=== PATIENT | female | born 1945 | race Caucasian/White ===

== ENCOUNTER 2018-11-18 13:42 | Observation (INO) ==
[2018-11-18] MEDS ORDERED: LACTATED RINGERS 1,000 ML IV ONE (13:59)
--- NOTE | 2018-11-18 14:05 | Emergency Department Note ---
SOB HPI - General Chief Complaint: Shortness of Breath/Dyspnea Stated Complaint: Cough, sob Time Seen by Provider: 11/18/18 13:57 Source: patient, family Mode of arrival: ambulatory Limitations: no limitations - History of Present Illness This patient has a pneumonia that is not responding to treatment is spreading and getting worse. She took a full round of Augmentin after initial chest x-ray showed pneumonia. She worsened and so CT scan was done on Thursday at which showed spreading of the pneumonia to the right middle lobes from the basilar lobes bilaterally. She was switched to Levaquin and still continues to be short of breath and feels like she is worsening. In general she just feels poorly. She has a little left upper chest pain she has a dry hacking cough. No nausea vomiting and has been able to eat and drink. She has no chronic lung disease bu t does have a 5 cardiac stents. - Related Data Home Medications Medication Instructions Recorded Confirmed ascorbic acid (vitamin C) ER 1,000 1,000 mg PO QDAY tab 12/15/14 11/11/18 mg tablet,extended release aspirin 81 mg tablet,delayed 81 mg PO QDAY tab 12/15/14 11/11/18 release calcium citrate 500 See Dose Instructions PO QDAY 12/15/14 11/11/18 cranberry extract 300 mg tablet 300 mg PO QDAY tab 12/15/14 11/11/18 multivitamin tablet 1 tab PO .COMPLEX tab 12/15/14 11/11/18 Previous Rx's Medication Instructions Recorded blood-glucose meter See Dose Instructions .ROUTE 09/24/16 .MEDSUPPLY #1 each cholecalciferol (vitamin D3) 1,000 1,000 unit PO QDAY #1 cap 09/24/16 unit capsule blood sugar diagnostic strips See Dose Instructions .ROUTE 02/24/18 .MEDSUPPLY #100 each lancets See Dose Instructions .ROUTE 02/24/18 .MEDSUPPLY #100 each nitroglycerin 0.4 mg sublingual 0.4 mg SUBLINGUAL .COMPLEX PRN #10 10/07/18 tablet tab amlodipine 10 mg tablet 10 mg PO QDAY #90 tab 10/22/18 atorvastatin 20 mg tablet 20 mg PO QDAY #90 tab 10/22/18 estradiol 0.5 mg tablet 0.5 mg PO QDAY #90 tab 10/22/18 fenofibrate nanocrystallized 48 mg 48 mg PO QDAY #90 tab 10/22/18 tablet levothyroxine 50 mcg tablet 50 mcg PO QDAY #90 tab 10/22/18 losartan 50 mg tablet 50 mg PO QDAY #90 tab 10/22/18 metformin 500 mg tablet 500 mg PO BID #180 tab 10/22/18 metoprolol succinate ER 100 mg 100 mg PO QDAY #90 tab 10/22/18 tablet,extended release 24 hr nortriptyline 10 mg capsule 20 mg PO QHS #180 cap 10/22/18 omeprazole 20 mg capsule,delayed 20 mg PO BID #180 cap 10/22/18 release potassium chloride ER 10 mEq 10 meq PO QDAY #90 tab 10/22/18 tablet,extended release triamterene 37.5 1 tab PO QDAY #90 tab 10/22/18 mg-hydrochlorothiazide 25 mg tablet levofloxacin 500 mg tablet 500 mg PO QDAY #10 tab 11/16/18 Allergies Allergy/AdvReac Type Severity Reaction Status Date / Time ciprofloxacin Allergy Mild Hives Verified 11/18/18 13:42 codeine Allergy Mild Nausea Verified 11/18/18 13:42 Sulfa (Sulfonamide Allergy Mild Rash Verified 11/18/18 13:42 Antibiotics) Cefprozil AdvReac Severe Hives Verified 11/11/18 07:28 Review of Systems All systems ED: reviewed and negative except as stated. Past Medical History - Past Medical History [facility] Narrative: Medical History Stable angina (Acute) History of hysterectomy (Acute) Fracture of thoracic vertebra, closed (Acute) Osteoarthritis (Acute) Obesity (Acute) Postmenopausal related mood disorder (Acute) Joint pain (Acute) Hypertension, essential (Acute) Hyperlipemia (Acute) Gastroesophageal reflux (Acute) Dysphagia (Acute) Coronary artery disease (Acute) History of colonic polyps (Acute) Chest pain (Acute) Past Surgical History History of tubal ligation (Acute) History of coronary artery stent placement (Acute) Medical history: Reports: CAD (coronary artery disease), GERD, hyperlipidemia, hypertension - Social History smoking status: Never smoker Physical Exam Limitations: no limitations General appearance: alert Head: atraumatic Eye: Present: normal appearance ENT: normal exam Neck: Present: normal inspection Chest: Present: normal inspection Respiratory: Present: rales/crackles Cardiovascular: Present: regular rate, normal rhythm, normal heart sounds Abdominal: Present: soft. Absent: distention, tenderness Neurological: Present: alert Psychiatric: Present: normal affect Skin: Present: dry Course Vital Signs Temperature 98.1 F 11/18/18 13:43 Pulse Rate 106 H 11/18/18 13:43 Respiratory Rate 18 11/18/18 13:43 Blood Pressure 150/75 11/18/18 13:43 Pulse Oximetry (%) 94 11/18/18 13:43 Temperature 98.1 F 11/18/18 13:43 Pulse Rate 94 H 11/18/18 16:11 Respiratory Rate 19 11/18/18 16:11 Blood Pressure 135/66 11/18/18 16:01 Pulse Oximetry (%) 94 11/18/18 16:11 Shortness of Breath/Dyspnea - [facility] Narrative Medical decision making narrative: This patient's chest x-ray is worsening slightly compared to previous one. Her procalcitonin and BNP and CRP were negative. I did discuss this case with the rail bonder at [place] and he feels that she may have recurrent aspiration as the most likely etiology of what is going on. He sees evidence of disease process starting in September of this year. It is getting worse. The patient will be admitted to the hospital here by Dr. Luna. - Lab Data Lab results reviewed: Yes I reviewed the patient's lab results. Result diagrams: 11/18/18 14:11 11/18/18 14:11 Lab Results 11/18/18 11/18/18 11/18/18 Range/Units 14:11 14:11 14:11 WBC 10.7 (4.5-11.0) K/mcL RBC 4.84 (4.00-5.20) M/mcL Hgb 14.1 (12.0-15.0) g/dL Hct 42.9 (36.0-48.0) % MCV 88.6 (80.0-100.0) fL MCH 29.2 (26.0-34.0) pg MCHC 33.0 (31.0-36.0) g/dL RDW 12.8 (11.5-14.5) % Plt Count 340 (140-440) K/mcL MPV 8.1 (7.4-10.4) fL Gran % 80.8 H (38.0-78.0) % Lymph % (Auto) 12.1 L (15.5-49.0) % [place] % (Auto) 5.3 (1.0-12.0) % Eos % (Auto) 1.5 (0.0-7.0) % Baso % (Auto) 0.3 (0.0-2.0) % Gran # 8.6 H (1.8-8.0) K/mcL Lymph # (Auto) 1.3 L (1.5-4.8) K/mcL [place] # (Auto) 0.6 (0.1-0.9) K/mcL Eos # (Auto) 0.2 (0.0-0.7) K/mcL Baso # (Auto) 0 (0.0-0.3) K/mcL Total Counted Seg Neutrophils % (38-78) % Band Neutrophils % (0-10) % Lymphocytes % (15-49) % Monocytes % (Manual) (1-12) % Eosinophils % (Manual) (0-7) % Platelet Estimate (NORMAL) RBC Morphology (NORMAL) ESR (0-20) mm/hr VBG Lactic Acid 2.0 (0.5-2.0) mmol/L Sodium 136 (133-145) mmol/L Potassium 3.3 (3.3-5.1) mmol/L Chloride 100 (96-108) mmol/L Carbon Dioxide 20 L (22-30) mmol/L Anion Gap 16.0 (8-16) BUN 13 (8-23) mg/dl Creatinine 1.1 (0.6-1.1) mg/dl GFR Calculation 50 Glucose 157 H (70-105) mg/dL Calcium 9.8 (8.6-10.4) mg/dl Total Bilirubin 0.4 (0.0-1.0) mg/dL AST 31 (0-37) U/l ALT 17 (0-40) U/l Alkaline Phosphatase 51 (39-117) U/L Troponin T (0-0.03) ng/ml C-Reactive Protein (0.0-0.8) mg/dl NT-Pro-B Natriuret Pep < 50.0 (0-125) pg/ml Total Protein 7.1 (5.9-8.4) gm/dL Albumin 3.6 (3.2-5.2) gm/dL Globulin 3.5 (2.2-3.7) gm/dL Albumin/Globulin Ratio 1.0 (1.0-2.3) Procalcitonin (<0.10) ng/mL 11/18/18 11/18/18 11/18/18 Range/Units 14:11 14:11 14:11 WBC (4.5-11.0) K/mcL RBC (4.00-5.20) M/mcL Hgb (12.0-15.0) g/dL Hct (36.0-48.0) % MCV (80.0-100.0) fL MCH (26.0-34.0) pg MCHC (31.0-36.0) g/dL RDW (11.5-14.5) % Plt Count (140-440) K/mcL MPV (7.4-10.4) fL Gran % (38.0-78.0) % Lymph % (Auto) (15.5-49.0) % [place] % (Auto) (1.0-12.0) % Eos % (Auto) (0.0-7.0) % Baso % (Auto) (0.0-2.0) % Gran # (1.8-8.0) K/mcL Lymph # (Auto) (1.5-4.8) K/mcL [place] # (Auto) (0.1-0.9) K/mcL Eos # (Auto) (0.0-0.7) K/mcL Baso # (Auto) (0.0-0.3) K/mcL Total Counted 100 Seg Neutrophils % 77 (38-78) % Band Neutrophils % 3 (0-10) % Lymphocytes % 18 (15-49) % Monocytes % (Manual) 1 (1-12) % Eosinophils % (Manual) 1 (0-7) % Platelet Estimate Normal (NORMAL) RBC Morphology Normal (NORMAL) ESR (0-20) mm/hr VBG Lactic Acid (0.5-2.0) mmol/L Sodium (133-145) mmol/L Potassium (3.3-5.1) mmol/L Chloride (96-108) mmol/L Carbon Dioxide (22-30) mmol/L Anion Gap (8-16) BUN (8-23) mg/dl Creatinine (0.6-1.1) mg/dl GFR Calculation Glucose (70-105) mg/dL Calcium (8.6-10.4) mg/dl Total Bilirubin (0.0-1.0) mg/dL AST (0-37) U/l ALT (0-40) U/l Alkaline Phosphatase (39-117) U/L Troponin T < 0.01 (0-0.03) ng/ml C-Reactive Protein 1.9 H (0.0-0.8) mg/dl NT-Pro-B Natriuret Pep (0-125) pg/ml Total Protein (5.9-8.4) gm/dL Albumin (3.2-5.2) gm/dL Globulin (2.2-3.7) gm/dL Albumin/Globulin Ratio (1.0-2.3) Procalcitonin (<0.10) ng/mL 11/18/18 11/18/18 Range/Units 14:11 14:11 WBC (4.5-11.0) K/mcL RBC (4.00-5.20) M/mcL Hgb (12.0-15.0) g/dL Hct (36.0-48.0) % MCV (80.0-100.0) fL MCH (26.0-34.0) pg MCHC (31.0-36.0) g/dL RDW (11.5-14.5) % Plt Count (140-440) K/mcL MPV (7.4-10.4) fL Gran % (38.0-78.0) % Lymph % (Auto) (15.5-49.0) % [place] % (Auto) (1.0-12.0) % Eos % (Auto) (0.0-7.0) % Baso % (Auto) (0.0-2.0) % Gran # (1.8-8.0) K/mcL Lymph # (Auto) (1.5-4.8) K/mcL [place] # (Auto) (0.1-0.9) K/mcL Eos # (Auto) (0.0-0.7) K/mcL Baso # (Auto) (0.0-0.3) K/mcL Total Counted Seg Neutrophils % (38-78) % Band Neutrophils % (0-10) % Lymphocytes % (15-49) % Monocytes % (Manual) (1-12) % Eosinophils % (Manual) (0-7) % Platelet Estimate (NORMAL) RBC Morphology (NORMAL) ESR 63 H (0-20) mm/hr VBG Lactic Acid (0.5-2.0) mmol/L Sodium (133-145) mmol/L Potassium (3.3-5.1) mmol/L Chloride (96-108) mmol/L Carbon Dioxide (22-30) mmol/L Anion Gap (8-16) BUN (8-23) mg/dl Creatinine (0.6-1.1) mg/dl GFR Calculation Glucose (70-105) mg/dL Calcium (8.6-10.4) mg/dl Total Bilirubin (0.0-1.0) mg/dL AST (0-37) U/l ALT (0-40) U/l Alkaline Phosphatase (39-117) U/L Troponin T (0-0.03) ng/ml C-Reactive Protein (0.0-0.8) mg/dl NT-Pro-B Natriuret Pep (0-125) pg/ml Total Protein (5.9-8.4) gm/dL Albumin (3.2-5.2) gm/dL Globulin (2.2-3.7) gm/dL Albumin/Globulin Ratio (1.0-2.3) Procalcitonin < 0.05 (<0.10) ng/mL - Radiology Data Radiology results reviewed: Yes I reviewed the patient's radiology results. Disposition Pt seen by [facility]/PA only: No Clinical Impression: Community acquired pneumonia Disposition: Xfer As Inpt ([facility]) Condition: Good Referrals: Eligio Huerta MD [Primary Care Provider] - Time of Disposition: 18:18
[2018-11-18 14:43] LABS: Basophils # (Auto) 0 K/mcL (0.0-0.3); Basophils % (Auto) 0.3 % (0.0-2.0); Eosinophils # (Auto) 0.2 K/mcL (0.0-0.7); Eosinophils % (Auto) 1.5 % (0.0-7.0); Granulocytes % (Auto) 80.8 % (38.0-78.0); Hematocrit 42.9 % (36.0-48.0); Hemoglobin 14.1 g/dL (12.0-15.0); Lymphocytes # (Auto) 1.3 K/mcL (1.5-4.8); Lymphocytes % (Auto) 12.1 % (15.5-49.0); Mean Cell Volume 88.6 fL (80.0-100.0); Mean Platelet Volume 8.1 fL (7.4-10.4); Monocytes # (Auto) 0.6 K/mcL (0.1-0.9); Monocytes % (Auto) 5.3 % (1.0-12.0); Platelet Count 340 K/mcL (140-440); RBC 4.84 M/mcL (4.00-5.20); Red Cell Distribution Width 12.8 % (11.5-14.5); WBC 10.7 K/mcL (4.5-11.0)
[2018-11-18 15:06] LABS: ALT/SGPT 17 U/l (0-40); AST/SGOT 31 U/l (0-37); Albumin 3.6 gm/dL (3.2-5.2); Alkaline Phosphatase 51 U/L (39-117); Bilirubin,Total 0.4 mg/dL (0.0-1.0); Blood Urea Nitrogen 13 mg/dl (8-23); Calcium 9.8 mg/dl (8.6-10.4); Carbon Dioxide 20 mmol/L (22-30); Chloride 100 mmol/L (96-108); Globulin 3.5 gm/dL (2.2-3.7); Glomerular Filtration Rate 50; Glucose 157 mg/dL (70-105); Potassium 3.3 mmol/L (3.3-5.1); Sodium 136 mmol/L (133-145); proBNP < 50.0 pg/ml (0-125)
--- NOTE | 2018-11-18 16:37 | XRay Report ---
INDICATION: Dyspnea. Pneumonia. TECHNIQUE: PA and lateral upright chest x-ray COMPARISON: Previous chest x-rays dated 11/11/2018, 10/25/2018, 10/07/2018. Previous chest CT scan dated 11/15/2018 FINDINGS:Bilateral pulmonary parenchymal infiltrates with bibasilar predominance. Infiltrates are predominantly interstitial. There is no focal consolidation. There is no discrete mass. Heart size and vascularity are normal. Chest x-ray is stable since 11/11/2018 but worse since 10/25/2018. Time course is too rapid for pulmonary fibrosis. Atypical pneumonia should be considered. Follow-up radiographs are recommended. There is no pleural fluid. Heart size and vascularity are within normal limits. IMPRESSION: 1. Bilateral pulmonary parenchymal infiltrates which are predominantly interstitial in appearance. No definite interval change since 11/11/2018 2. Findings are consistent with pneumonia and atypical pneumonia should be considered. Follow-up radiograph is recommended Interpreted and Authenticated by: Lucho Mehta 11/18/18
[2018-11-18 17:30] LABS: C-Reactive Protein 1.9 mg/dl (0.0-0.8)
[2018-11-18 17:43] LABS: Band Neutrophils % 3 % (0-10); Eosinophils % (Manual) 1 % (0-7); Lymphocytes % 18 % (15-49); Monocytes % (Manual) 1 % (1-12); Platelet Estimate NORMAL (NORMAL); RBC Morphology NORMAL (NORMAL); Segmented Neutrophils % 77 % (38-78)
--- NOTE | 2018-11-18 20:03 | Internal Med History&Physical ---
Medical - H&P: HPI Patient information: Note initiated : 11/18/18 at 7:52 pm Service Date, if different from initiated Date: [] Patient: Carla Meyers 73 y/o F admitted on for Cough, sob. Chief Complaint: [] History of present illness: Ms. Meyers is a 73 year old F Who presents to the ED with continued shortness of breath with worsening recently. 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 However seem seem to continue when they got back in August. In September there was chest x-ray done by primary care provider which showed some infiltrate in the lower lobe. Follow-up in October showed that as well with some worsening she was put on Augmentin with no improvement and then Levaquin with no improvement. CT chest was done which showed it involving both lobes but initially a chest x-ray just involve the left. Repeat chest x- ray after continue to show an infiltrate. She called her primary care provider today just saying that her shortness of breath just continues to be problematic and seems to be worsening. Thus she was sent to the ED. She does complain of sinus drainage which she has had for the past few months as well she has a dry cough, nonproductive. She denies fever chills has a headache. Has had some diarrhea since the antibiotics last episode was this morning it was soft, not watery. Feels tired. She reports the cough seems to be worse when she is lying down. She also reports sour taste in her mouth in the morning. She is on Prilosec 20 mg daily. She does report that she used to have soft shield dilatation from Dr. Faizan fonseca over 10 years ago for Schatzki ring. She does report coughing with cold thin liquids. Case was discussed with inspection machine tender in [place] because of the continued symptoms and infiltrate nonresponsive and antibiotics. He reviewed images and felt that it was likely more an issue of aspiration versus something that needed a bronchoscopy. He recommended steroids for 4 days in addition swallow evaluation and acid reducing measures. Work-up in the ED was unremarkable for any infectious markers. Review of Systems: Pertinent positives as above. Denies fever/chills/nausea/vomiting/chest or abdominal pain/. Remaining 10 point review of system reviewed negative Medical - H&P: PMH Medical history: Medical History Stable angina (Acute) History of hysterectomy (Acute) Fracture of thoracic vertebra, closed (Acute) Osteoarthritis (Acute) Obesity (Acute) Postmenopausal related mood disorder (Acute) Joint pain (Acute) Hypertension, essential (Acute) Hyperlipemia (Acute) Gastroesophageal reflux (Acute) Dysphagia (Acute) Coronary artery disease (Acute) History of colonic polyps (Acute) Chest pain (Acute) Past Surgical History History of tubal ligation (Acute) History of coronary artery stent placement (Acute) Family History Mother Alzheimer's disease Essential hypertension Acute myocardial infarction Transient cerebral ischemia Unknown Atherosclerosis of coronary artery Diabetes mellitus Hyperlipidemia Father Instantaneous Acute myocardial infarction Brother Cardiac disease Social History (Last Updated 11/11/18 @ 13:22 by Eligio Huerta MD) Denies smoking drinks alcohol socially lives at home with her d Medical - H&P: Meds Home Medications Medication Instructions Recorded Confirmed Type ascorbic acid (vitamin C) ER 1,000 1,000 mg PO QDAY tab 12/15/14 11/18/18 History mg tablet,extended release aspirin 81 mg tablet,delayed 81 mg PO QDAY tab 12/15/14 11/18/18 History release calcium citrate 500 See Dose Instructions PO QDAY 12/15/14 11/11/18 History cranberry extract 300 mg tablet 300 mg PO QDAY tab 12/15/14 11/18/18 History multivitamin tablet 1 tab PO .COMPLEX tab 12/15/14 11/18/18 History blood-glucose meter See Dose Instructions .ROUTE 09/24/16 11/11/18 Rx .MEDSUPPLY #1 each cholecalciferol (vitamin D3) 1,000 1,000 unit PO QDAY #1 cap 09/24/16 11/18/18 Rx unit capsule blood sugar diagnostic strips See Dose Instructions .ROUTE 02/24/18 11/11/18 Rx .MEDSUPPLY #100 each lancets See Dose Instructions .ROUTE 02/24/18 11/11/18 Rx .MEDSUPPLY #100 each nitroglycerin 0.4 mg sublingual 0.4 mg SUBLINGUAL .COMPLEX PRN #10 10/07/18 11/18/18 Rx tablet tab amlodipine 10 mg tablet 10 mg PO QDAY #90 tab 10/22/18 11/18/18 Rx atorvastatin 20 mg tablet 20 mg PO QDAY #90 tab 10/22/18 11/18/18 Rx estradiol 0.5 mg tablet 0.5 mg PO QDAY #90 tab 10/22/18 11/18/18 Rx fenofibrate nanocrystallized 48 mg 48 mg PO QDAY #90 tab 10/22/18 11/18/18 Rx tablet levothyroxine 50 mcg tablet 50 mcg PO QDAY #90 tab 10/22/18 11/18/18 Rx losartan 50 mg tablet 50 mg PO QDAY #90 tab 10/22/18 11/18/18 Rx metformin 500 mg tablet 500 mg PO BID #180 tab 10/22/18 11/18/18 Rx metoprolol succinate ER 100 mg 100 mg PO QDAY #90 tab 10/22/18 11/18/18 Rx tablet,extended release 24 hr nortriptyline 10 mg capsule 20 mg PO QHS #180 cap 10/22/18 11/18/18 Rx omeprazole 20 mg capsule,delayed 20 mg PO BID #180 cap 10/22/18 11/18/18 Rx release potassium chloride ER 10 mEq 10 meq PO QDAY #90 tab 10/22/18 11/18/18 Rx tablet,extended release triamterene 37.5 1 tab PO QDAY #90 tab 10/22/18 11/18/18 Rx mg-hydrochlorothiazide 25 mg tablet levofloxacin 500 mg tablet 500 mg PO QDAY #10 tab 11/16/18 11/18/18 Rx Allergies Allergy/AdvReac Type Severity Reaction Status Date / Time ciprofloxacin Allergy Mild Hives Verified 11/18/18 13:42 codeine Allergy Mild Nausea Verified 11/18/18 13:42 Sulfa (Sulfonamide Allergy Mild Rash Verified 11/18/18 13:42 Antibiotics) Cefprozil AdvReac Severe Hives Verified 11/11/18 07:28 Medical - H&P: Exam - Constitutional Vitals: Temp Pulse Resp BP Pulse Ox 98.1 F 94 H 19 135/66 94 11/18/18 13:43 11/18/18 16:11 11/18/18 16:11 11/18/18 16:01 11/18/18 16:11 Exam: General: Alert, Awake, No acute Distress Eyes/N/T: EOMI, PEERL, MMM Head/Neck: neck supple, normocephalic atraumatic CV: RRR, No murmurs, normal s1/s2 Pulm: Fine bilateral rales, no wheezing Abd: soft, nontender, +BS x4 Ext: no clubbing/cyanosis/edema Neuro: Alert, no focal deficits, moves all extremities, CN 2-12 grossly intact, symmetrical strength b/l upper/lower, sensations intact b/l upper/lower Skin: warm/dry Medical - H&P: Reslt - Labs CBC & Chem 7: 11/18/18 14:11 11/18/18 14:11 Labs: Short CBC 11/18/18 Range/Units 14:11 WBC 10.7 (4.5-11.0) K/mcL Hgb 14.1 (12.0-15.0) g/dL Hct 42.9 (36.0-48.0) % Plt Count 340 (140-440) K/mcL BMP 11/18/18 14:11 Sodium 136 Potassium 3.3 Chloride 100 Carbon Dioxide 20 L BUN 13 Creatinine 1.1 Glucose 157 H Calcium 9.8 Cardiac Enzymes 11/18/18 Range/Units 14:11 Troponin T < 0.01 (0-0.03) ng/ml Liver Function 11/18/18 Range/Units 14:11 Total Bilirubin 0.4 (0.0-1.0) mg/dL AST 31 (0-37) U/l ALT 17 (0-40) U/l Alkaline Phosphatase 51 (39-117) U/L Albumin 3.6 (3.2-5.2) gm/dL - Impressions Chest x-ray with bilateral infiltrates Medical - H&P: A/P - Narrative A/P Narrative: A: *Recurring pulmonary infiltrates refractory to 2 rounds of antibiotics: Suspect aspiration given history -Case and imaging was also reviewed with inspection machine tender from the ED who felt patient likely aspiration and did not need bronchoscopy; recommended 4-day course of steroids in addition to dysphasia work-up *Dyspnea: *GERD: *Obesity: *DM: *HTN/HLD: *Hypothyroidism: *CAD w/stents x5: *Obesity: *History of esophageal dilatation from Schatzki ring: By Dr. Gloria * P: -Dysphagia diet -Speech therapy evaluation and video swallow -four day course of glucocorticoids -Viral panel -Pepcid -elevate Hob -Also recommend dietary modification for GERD including elimination fatty foods/caffeine/chocolate/spicy foods/carbonated beverages/peppermint -ppx: lovenox
[2018-11-18] MEDS ORDERED: NORTRIPTYLINE 10 MG CAPSULE PO SCH (22:21)
[2018-11-18] MEDS ORDERED: ACETAMINOPHEN 325 MG TABLET PO PRN (22:21)
[2018-11-18] MEDS ORDERED: LACTATED RINGERS 1,000 ML IV SCH (22:21)
[2018-11-18] MEDS ORDERED: ONDANSETRON 4 MG/2 ML VIAL IV PRN (22:21)
[2018-11-18] MEDS ORDERED: MAG HYDROX/AL HYDROX/SIMETH 30 ML ORAL.SUSP PO PRN (22:21)
[2018-11-18] MEDS ORDERED: metFORMIN 500 MG TABLET PO SCH (22:21)
[2018-11-18] MEDS ORDERED: predniSONE 20 MG TABLET ONE (22:48)
[2018-11-18] MEDS ORDERED: FAMOTIDINE 20 MG TABLET PO ONE (22:48)
[2018-11-18] MEDS: 0.9 % SODIUM CHLORIDE 10 ML SYRINGE IV SCH (23:08)
[2018-11-18] MEDS: FAMOTIDINE 20 MG TABLET PO SCH (23:09)
[2018-11-18] MEDS: predniSONE 20 MG TABLET PO SCH (23:46)
[2018-11-19 00:46] LABS: Appearance,Urine CLEAR; Bilirubin,Urine NEG (NEG); Color,Urine YELLOW; Glucose,Urine (UA) NEGATIVE (NEG); Ketones,Urine NEG (NEG); Leukocyte Esterase,Urine NEG /uL (NEG); Nitrate,Urine NEG (NEG); Protein,Urine NEG (NEG); Specific Gravity,Urine 1.015 (1.000-1.035); Urine Blood NEG mg/dL (<0.03); Urobilinogen,Urine NEG (NEG)
[2018-11-19] MEDS: 0.9 % SODIUM CHLORIDE 10 ML SYRINGE IV SCH ×2 (04:21→13:45)
[2018-11-19] MEDS ORDERED: NITROGLYCERIN 0.4 MG TAB.SUBL SL PRN (06:45)
[2018-11-19] MEDS ORDERED: LABETALOL 5 MG/ML ML IV PRN (07:07)
--- NOTE | 2018-11-19 07:08 | Internal Med Progress Note ---
Medical - PN: Subj Patient information: Note initiated : 11/19/18 at 7:03 am Service Date, if different from initiated Date: [] Patient: Carla Meyers 73 y/o F admitted on 11/18/18 for Cough, sob. Chief Complaint: [] Interval history: Ms. Meyers is a 73 year old F Who presents to the ED with continued shortness of breath with worsening recently. 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 However seem seem to continue when they got back in August. In September there was chest x-ray done by primary care provider which showed some infiltrate in the lower lobe. Follow-up in October showed that as well with some worsening she was put on Augmentin with no improvement and then Levaquin with no improvement. CT chest was done which showed it involving both lobes but initially a chest x-ray just involve the left. Repeat chest x- ray after continue to show an infiltrate. She called her primary care provider today just saying that her shortness of breath just continues to be problematic and seems to be worsening. Thus she was sent to the ED. She does complain of sinus drainage which she has had for the past few months as well she has a dry cough, nonproductive. She denies fever chills has a headache. Has had some diarrhea since the antibiotics last episode was this morning it was soft, not watery. Feels tired. She reports the cough seems to be worse when she is lying down. She also reports sour taste in her mouth in the morning. She is on Prilosec 20 mg daily. She does report that she used to have soft shield dilatation from Dr. Faizan fonseca over 10 years ago for Schatzki ring. She does report coughing with cold thin liquids. Case was discussed with access nurse in [place] because of the continued symptoms and infiltrate nonresponsive and antibiotics. He reviewed images and felt that it was likely more an issue of aspiration versus something that needed a bronchoscopy. He recommended steroids for 4 days in addition swallow evaluation and acid reducing measures. Work-up in the ED was unremarkable for any infectious markers. 11/19 Had dry cough through the night. Otherwise no overnight events or no new com plaints. Speech evaluation this morning. Review of Systems: denies headache/fever/chills/nausea/vomiting/chest or abdominal pain/dyspnea/diarrhea. Otherwise see above. - Constitutional Vitals: Vital Signs Temp Pulse Resp BP Pulse Ox 96.8 F L 90 16 124/74 95 11/19/18 06:42 11/19/18 06:42 11/19/18 06:42 11/19/18 06:42 11/19/18 06:42 Period Temp Pulse Resp BP Sys/Bell Pulse Ox Last 24 Hr 96.8 F-98.1 F 83-106 14-34 122-161/59-83 92-97 Intake and Output 11/18/18 11/19/18 11/19/18 21:59 05:59 13:59 Intake Total 1000 360 Balance 1000 360 Weight 91.399 kg Intake & Output: Intake & Output 11/18/18 11/19/18 11/19/18 21:59 05:59 13:59 Intake Total 1000 360 Balance 1000 360 Weight 91.399 kg Intake: IV 1000 Lactated Ringers 1,000 ml @ 1000 Wide Open IV BOLUS ONE Rx#: [id number] Oral 360 Exam: General: Alert, Awake, No acute Distress Eyes/N/T: EOMI, Head/Neck: neck supple, CV: RRR, No murmurs, Pulm: Fine bilateral rales, no wheezing Abd: soft, nontender, +BS x4 Ext: no clubbing/cyanosis/edema Neuro: Alert, no focal deficits, moves all extremities, Skin: warm/dry Medical - PN: Obj Da - Labs CBC & Chem 7: 11/18/18 14:11 11/18/18 14:11 Labs: Abnormal Lab Results 11/18/18 11/18/18 11/18/18 14:11 14:11 14:11 Gran % Lymph % (Auto) Gran # Lymph # (Auto) ESR 63 H Carbon Dioxide 20 L Glucose 157 H C-Reactive Protein 1.9 H 11/18/18 14:11 Gran % 80.8 H Lymph % (Auto) 12.1 L Gran # 8.6 H Lymph # (Auto) 1.3 L ESR Carbon Dioxide Glucose C-Reactive Protein Meds: Medications Acetaminophen (Tylenol) 650 mg PO Q6HP PRN PRN Reason: PAIN/FEVER > 101 Al Hydrox/Mg Hydrox/Simethicone (Maalox) 30 ml PO Q6HP PRN PRN Reason: Dyspepsia Amlodipine Besylate (Norvasc) 10 mg PO QDAY [facility] Aspirin (Aspirin) 81 mg PO DAILY [facility] Atorvastatin Calcium (Lipitor) 20 mg PO QDAY [facility]1983 Enoxaparin Sodium (Lovenox) 40 mg SQ DAILY [facility]1983 Estradiol (Estrace) 0.5 mg PO DAILY [facility] Famotidine (Pepcid) 20 mg PO BID [facility] Last Admin: 11/18/18 23:09 Dose: 20 mg Documented by: Lactated Ringer's (Lactated Ringers) 1,000 mls @ 84 mls/hr IV .[id number] [facility]1983 Stop: 11/19/18 10:15 Last Admin: 11/18/18 23:07 Dose: 84 mls/hr Documented by: Levothyroxine Sodium (Synthroid) 50 mcg PO QAMAC [facility] Last Admin: 11/19/18 07:02 Dose: 50 mcg Documented by: Metformin HCl (Glucophage) 500 mg PO BIDCC [facility]1983 Metoprolol Succinate (Toprol Xl) 100 mg PO DAILY [facility]1983 Nitroglycerin (Nitrostat) 0.4 mg SL Q5M PRN PRN Reason: Chest Pain Nortriptyline HCl (Pamelor) 20 mg PO QHS [facility] Last Admin: 11/18/18 23:04 Dose: 20 mg Documented by: Ondansetron HCl (Zofran) 4 mg IV Q6HP PRN PRN Reason: Nausea And Vomiting Prednisone (Prednisone) 60 mg PO QAMCC [facility] Last Admin: 11/18/18 23:46 Dose: Not Given Documented by: Sodium Chloride (Saline Flush) 10 ml IV Q8 [facility] Last Admin: 11/19/18 04:21 Dose: Not Given Documented by: Medical - PN: A/P - Time Spent With Patient Total time spent is greater than 50% in coordination of care (as documented) at patient's floor/unit and/or counseling patient: - Narrative A/P Narrative: A: *Recurring pulmonary infiltrates refractory to 2 rounds of antibiotics: Suspect aspiration given history -Case and imaging was also reviewed with access nurse from the ED who felt patient likely aspiration and did not need bronchoscopy; recommended 4-day course of steroids in addition to dysphasia work-up -viral panel neg *Dyspnea: Maintaining oxygen on room air *GERD: *Obesity: *DM: *HTN/HLD: *Hypothyroidism: *CAD w/stents x5: *Obesity: *History of esophageal dilatation from Schatzki ring: By Dr. Gloria * P: -Dysphagia diet -Speech therapy evaluation and video swallow -four day course of glucocorticoids -Pepcid -elevate Hob -Also recommend dietary modification for GERD including elimination fatty foods/caffeine/chocolate/spicy foods/carbonated beverages/peppermint -cont home ASA/Statin, Norvasc/BB -SSI -ppx: lovenox/home ppi Medical - PN: Qual - VTE Deep Vein Thrombosis/Pulmonary Embolism Present on Admission: No
[2018-11-19] MEDS ORDERED: LEVOTHYROXINE 50 MCG TABLET PO SCH (07:30)
[2018-11-19] MEDS ORDERED: METOPROLOL SUCCINATE 50 MG TAB.XL.24H PO SCH (09:00)
[2018-11-19] MEDS ORDERED: ATORVASTATIN 20 MG TABLET PO SCH (09:00)
[2018-11-19] MEDS ORDERED: ASPIRIN 81 MG TAB.CHEW PO SCH (09:00)
[2018-11-19] MEDS ORDERED: ENOXAPARIN 40 MG/0.4 ML SYRINGE SQ SCH (09:00)
[2018-11-19] MEDS ORDERED: amLODIPine 10 MG TABLET PO SCH (09:00)
[2018-11-19] MEDS ORDERED: ESTRADIOL 1 MG TABLET PO SCH (09:00)
[2018-11-19] MEDS: metFORMIN 500 MG TABLET PO SCH ×2 (09:06→17:40)
[2018-11-19] MEDS: predniSONE 20 MG TABLET PO SCH (09:06)
[2018-11-19] MEDS: FAMOTIDINE 20 MG TABLET PO SCH (09:08)
--- NOTE | 2018-11-19 15:55 | XRay Report ---
CLINICAL INFORMATION: Dysphagia. Possible aspiration TECHNIQUE: Modified barium swallow was performed by the speech pathologist. COMPARISON: None. FINDINGS: The patient ingested thin liquid and honey. There is mild pooling within the vallecula and piriform sinuses. There is airway penetration but no true aspiration is documented. Patient swallowed a barium tablet without difficulty. IMPRESSION: 1. Mild pooling within the valleculae and piriform sinuses 2. History airway penetration without documented aspiration Interpreted and Authenticated by: Lucho Mehta 11/19/18
--- NOTE | 2018-11-19 16:07 | Discharge Summary ---
Medical - DS: Prov Patient information: Note initiated : 11/19/18 at 4:04 pm Service Date, if different from initiated Date: [] Patient: Carla Meyers 73 y/o F admitted on 11/18/18 for Cough, sob. Chief Complaint: [] Date of admission: 11/18/18 20:03 Discharge date: 11/19/18 Primary care physician: Eligio Huerta Consults: 11/18/18 Consult to Physician [CONS] Stat Comment: Consulting Provider: Jemal Luna Reason For Exam: Physician to Consult Medical - DS: Meds - Discharge Medications Prescriptions: Famotidine [Pepcid] 20 mg PO BID #60 tab predniSONE [Prednisone] 40 mg PO DAILY #2 tab Active and Home Medications: Home Medications ascorbic acid (vitamin C) ER 1,000 mg tablet,extended release 1,000 mg PO QDAY tab 12/15/14 [History Confirmed 11/18/18 Last Taken 11/18/18] aspirin 81 mg tablet,delayed release 81 mg PO QDAY tab 12/15/14 [History Confirmed 11/18/18 Last Taken 11/18/18] calcium citrate 500 500 mg PO QDAY 12/15/14 [History Confirmed 11/19/18 Last Taken 11/18/18] cranberry extract 300 mg tablet 300 mg PO QDAY tab 12/15/14 [History Confirmed 11/18/18 Last Taken 11/18/18] multivitamin tablet 1 tab PO .COMPLEX tab 12/15/14 [History Confirmed 11/19/18 Last Taken 11/18/18] cholecalciferol (vitamin D3) 1,000 unit capsule 1,000 unit PO QDAY #1 cap 09/24/16 [Rx Confirmed 11/18/18 Last Taken 11/18/18] nitroglycerin 0.4 mg sublingual tablet 0.4 mg SUBLINGUAL .COMPLEX PRN #10 tab 10/07/18 [Rx Confirmed 11/18/18 Last Taken 11/18/18] amlodipine 10 mg tablet 10 mg PO QDAY #90 tab 10/22/18 [Rx Confirmed 11/18/18 Last Taken 11/18/18] atorvastatin 20 mg tablet 20 mg PO QDAY #90 tab 10/22/18 [Rx Confirmed 11/18/18 Last Taken 11/18/18] estradiol 0.5 mg tablet 0.5 mg PO QDAY #90 tab 10/22/18 [Rx Confirmed 11/18/18 Last Taken 11/18/18] fenofibrate nanocrystallized 48 mg tablet 48 mg PO QDAY #90 tab 10/22/18 [Rx Confirmed 11/18/18 Last Taken 11/18/18] levothyroxine 50 mcg tablet 50 mcg PO QDAY #90 tab 10/22/18 [Rx Confirmed 11/18/18 Last Taken 11/18/18] losartan 50 mg tablet 50 mg PO QDAY #90 tab 10/22/18 [Rx Confirmed 11/18/18 Last Taken 11/18/18] metformin 500 mg tablet 500 mg PO BID #180 tab 10/22/18 [Rx Confirmed 11/18/18 Last Taken 11/18/18] metoprolol succinate ER 100 mg tablet,extended release 24 hr 100 mg PO QDAY #90 tab 10/22/18 [Rx Confirmed 11/18/18 Last Taken 11/18/18] nortriptyline 10 mg capsule 20 mg PO QHS #180 cap 10/22/18 [Rx Confirmed 11/18/18 Last Taken 11/18/18] omeprazole 20 mg capsule,delayed release 20 mg PO BID #180 cap 10/22/18 [Rx Confirmed 11/19/18 Last Taken 11/18/18] potassium chloride ER 10 mEq tablet,extended release 10 meq PO QDAY #90 tab 10/22/18 [Rx Confirmed 11/18/18 Last Taken 11/18/18] triamterene 37.5 mg-hydrochlorothiazide 25 mg tablet 1 tab PO QDAY #90 tab 10/22/18 [Rx Confirmed 11/18/18 Last Taken 11/18/18] levofloxacin 500 mg tablet 500 mg PO QDAY #10 tab 11/16/18 [Rx Confirmed 11/18/18 Last Taken 11/18/18] Home Medications ascorbic acid (vitamin C) ER 1,000 mg tablet,extended release 1,000 mg PO QDAY tab 12/15/14 [History Confirmed 11/18/18 Last Taken 11/18/18] aspirin 81 mg tablet,delayed release 81 mg PO QDAY tab 12/15/14 [History Confirmed 11/18/18 Last Taken 11/18/18] calcium citrate 500 500 mg PO QDAY 12/15/14 [History Confirmed 11/19/18 Last Taken 11/18/18] cranberry extract 300 mg tablet 300 mg PO QDAY tab 12/15/14 [History Confirmed 11/18/18 Last Taken 11/18/18] multivitamin tablet 1 tab PO .COMPLEX tab 12/15/14 [History Confirmed 11/19/18 Last Taken 11/18/18] cholecalciferol (vitamin D3) 1,000 unit capsule 1,000 unit PO QDAY #1 cap 09/24/16 [Rx Confirmed 11/18/18 Last Taken 11/18/18] nitroglycerin 0.4 mg sublingual tablet 0.4 mg SUBLINGUAL .COMPLEX PRN #10 tab 10/07/18 [Rx Confirmed 11/18/18 Last Taken 11/18/18] amlodipine 10 mg tablet 10 mg PO QDAY #90 tab 10/22/18 [Rx Confirmed 11/18/18 Last Taken 11/18/18] atorvastatin 20 mg tablet 20 mg PO QDAY #90 tab 10/22/18 [Rx Confirmed 11/18/18 Last Taken 11/18/18] estradiol 0.5 mg tablet 0.5 mg PO QDAY #90 tab 10/22/18 [Rx Confirmed 11/18/18 Last Taken 11/18/18] fenofibrate nanocrystallized 48 mg tablet 48 mg PO QDAY #90 tab 10/22/18 [Rx Confirmed 11/18/18 Last Taken 11/18/18] levothyroxine 50 mcg tablet 50 mcg PO QDAY #90 tab 10/22/18 [Rx Confirmed 11/18/18 Last Taken 11/18/18] losartan 50 mg tablet 50 mg PO QDAY #90 tab 10/22/18 [Rx Confirmed 11/18/18 Last Taken 11/18/18] metformin 500 mg tablet 500 mg PO BID #180 tab 10/22/18 [Rx Confirmed 11/18/18 Last Taken 11/18/18] metoprolol succinate ER 100 mg tablet,extended release 24 hr 100 mg PO QDAY #90 tab 10/22/18 [Rx Confirmed 11/18/18 Last Taken 11/18/18] nortriptyline 10 mg capsule 20 mg PO QHS #180 cap 10/22/18 [Rx Confirmed 11/18/18 Last Taken 11/18/18] potassium chloride ER 10 mEq tablet,extended release 10 meq PO QDAY #90 tab 10/22/18 [Rx Confirmed 11/18/18 Last Taken 11/18/18] triamterene 37.5 mg-hydrochlorothiazide 25 mg tablet 1 tab PO QDAY #90 tab 10/22/18 [Rx Confirmed 11/18/18 Last Taken 11/18/18] levofloxacin 500 mg tablet 500 mg PO QDAY #10 tab 11/16/18 [Rx Confirmed 11/18/18 Last Taken 11/18/18] Famotidine [Pepcid] 20 mg PO BID #60 tab 11/19/18 [Rx Last Taken Unknown] predniSONE [Prednisone] 40 mg PO DAILY #2 tab 11/19/18 [Rx Last Taken Unknown] Medical - DS: Hosp Hospital course: Ms. Meyers is a 73 year old F Who presents to the ED with continued shortness of breath with worsening recently. 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 However seem seem to continue when they got back in August. In September there was chest x-ray done by primary care provider which showed some infiltrate in the lower lobe. Follow-up in October showed that as well with some worsening she was put on Augmentin with no improvement and then Levaquin with no improvement. CT chest was done which showed it involving both lobes but initially a chest x-ray just involve the left. Repeat chest x- ray after continue to show an infiltrate. She called her primary care provider today just saying that her shortness of breath just continues to be problematic and seems to be worsening. Thus she was sent to the ED. She does complain of sinus drainage which she has had for the past few months as well she has a dry cough, nonproductive. She denies fever chills has a headache. Has had some diarrhea since the antibiotics last episode was this morning it was soft, not watery. Feels tired. She reports the cough seems to be worse when she is lying down. She also reports sour taste in her mouth in the morning. She is on Prilosec 20 mg daily. She does report that she used to have soft shield dilatation from Dr. Faizan fonseca over 10 years ago for Schatzki ring. She does report coughing with cold thin liquids. Case was discussed with pals nurse in [place] because of the continued symptoms and infiltrate nonresponsive and antibiotics. He reviewed images and felt that it was likely more an issue of aspiration versus something that needed a bronchoscopy. He recommended steroids for 4 days in addition swallow evaluation and acid reducing measures. Work-up in the ED was unremarkable for any infectious markers. 11/19 Had dry cough through the night. Otherwise no overnight events or no new complaints. Speech evaluation this morning. Barium swallow speech therapy pooling in the valleculae, epiglottis delayed and covering airway some residual and penetration of thin liquids noted Educated patient on GERD precautions and will provide twice daily antireflux medication. Stable for discharge Discharge diagnosis: Dyspnea secondary to likely chemical pneumonitis GERD Secondary discharge diagnosis: Obesity diabetes hypertension hypothyroidism CAD - Time Spent with Patient Total time spent providing and/or coordinating discharge services: Greater than 30 minutes Medical - DS: Exam - Constitutional Vitals: Vital Signs Temp Pulse Pulse Resp BP Pulse Ox 11/19/18 15:17 98 F 83 16 136/71 95 11/19/18 12:00 97.7 F 88 16 135/77 97 11/19/18 07:11 90 18 95 11/19/18 06:42 96.8 F L 90 16 124/74 95 11/19/18 03:48 97.8 F 83 16 125/77 93 11/18/18 23:15 98.1 F 93 H 18 161/69 92 11/18/18 20:05 97.8 F 94 H 18 147/83 92 11/18/18 20:03 98.1 F 19 94 11/18/18 16:11 94 H 19 94 Intake and Output 11/19/18 11/19/18 11/19/18 05:59 13:59 21:59 Intake Total 360 700 Output Total 1150 Balance 360 -450 Intake: Oral 360 700 Output: Void Amount 1150 # of times incontinent of urine 0 Other: Urine Appearance Clear Urine Color Bright Yellow Urine Odor Normal # Voids 1 1 Medical - DS: Data Labs on day of discharge: Labs from last 24 hours 11/18/18 11/18/18 11/18/18 23:35 14:11 14:11 Total Counted Seg Neutrophils % Band Neutrophils % Lymphocytes % Monocytes % (Manual) Eosinophils % (Manual) Platelet Estimate RBC Morphology ESR 63 H C-Reactive Protein Procalcitonin < 0.05 Urine Color Yellow Urine Appearance Clear Urine pH 6.0 Ur Specific [place] 1.015 Urine Protein Neg Urine Glucose (UA) Negative Urine Ketones Neg Urine Occult Blood Neg Urine Nitrate Neg Urine Bilirubin Neg Urine Urobilinogen Neg Ur Leukocyte Esterase Neg 11/18/18 11/18/18 14:11 14:11 Total Counted 100 Seg Neutrophils % 77 Band Neutrophils % 3 Lymphocytes % 18 Monocytes % (Manual) 1 Eosinophils % (Manual) 1 Platelet Estimate Normal RBC Morphology Normal ESR C-Reactive Protein 1.9 H Procalcitonin Urine Color Urine Appearance Urine pH Ur Specific [place] Urine Protein Urine Glucose (UA) Urine Ketones Urine Occult Blood Urine Nitrate Urine Bilirubin Urine Urobilinogen Ur Leukocyte Esterase Medical - DS: A/P - Patient/Caregiver Discharge Instructions Activity: increase activity as tolerated Diet: Consistent Carbohydrate Additional Instructions: Additional dietary recommendations as well as GERD precautions: -Raise head of bed by 6 to 8 inches -Decrease or eliminate any alcohol -Avoid lying down for 3 hours after a meal -Avoid following foods: Coffee/Caffeine products, chocolate, peppermint, fatty foods, spicy foods, or carbonated beverages. Prescriptions: Famotidine [Pepcid] 20 mg PO BID #60 tab predniSONE [Prednisone] 40 mg PO DAILY #2 tab - Follow up Plan Follow up with: Eligio Huerta MD [Primary Care Provider] - Disposition: Home, Self-Care Prognosis: Good Rehab Potential: Good Medical - DS: Qual - VTE Deep Vein Thrombosis/Pulmonary Embolism Present on Admission: No
== END 2018-11-19 18:45 | disposition home or self-care (01) ==
LOC: ED 13:42 → MEDSUR 13:42
PROVIDERS: ADMIT Internal Medicine; ATTEND Internal Medicine

== ENCOUNTER 2019-03-31 11:48 | Inpatient (IN) ==
--- NOTE | 2019-03-31 12:04 | Emergency Department Note ---
General Adult HPI - General Chief complaint: Chest Pain Stated complaint: chest pain/SOB Time Seen by Provider: 03/31/19 11:54 Source: patient Mode of arrival: wheelchair Limitations: no limitations - History of Present Illness HPI Narrative: This patient has had shortness of breath and tachycardia for a month and developed some chest discomfort last night. She is in atrial fibrillation of 140 and has had atrial fibrillation in the past. She also feels short of breath. Discomfort is in the anterior chest. No nausea or vomiting. - Related Data Home Medications Medication Instructions Recorded Confirmed ascorbic acid (vitamin C) 1,000 mg 1,000 mg PO QDAY tab 12/15/14 03/31/19 tablet,extended release aspirin 81 mg tablet,delayed 81 mg PO QDAY tab 12/15/14 03/31/19 release calcium citrate 500 500 mg PO QDAY 12/15/14 03/31/19 cranberry extract 300 mg tablet 300 mg PO QDAY tab 12/15/14 03/31/19 multivitamin 1 tab PO .COMPLEX tab 12/15/14 03/31/19 glucosam 750 mg-chondroi 100 1 tab PO BID tab 01/13/19 03/31/19 mg-hyalur 1.65 mg-CF borate 108 mg tablet apixaban 5 mg tablet 5 mg PO BID 02/23/19 03/31/19 oxygen 4 liters #1 ea 02/23/19 03/22/19 mycophenolate mofetil 500 mg tablet 500 mg PO BID 03/22/19 03/31/19 prednisone 20 mg tablet 60 mg PO QDAY tab 03/22/19 03/31/19 Previous Rx's Medication Instructions Recorded cholecalciferol (vitamin D3) 1,000 1,000 unit PO QDAY #1 cap 09/24/16 unit capsule nitroglycerin 0.4 mg sublingual 0.4 mg SUBLINGUAL .COMPLEX PRN #10 10/07/18 tablet tab atorvastatin 20 mg tablet 10 mg PO QDAY #45 tab 02/08/19 estradiol 0.5 mg tablet 1 mg PO QDAY #180 tab 02/08/19 levothyroxine 50 mcg tablet 50 mcg PO QDAY #90 tab 02/08/19 losartan 50 mg tablet 50 mg PO QDAY #90 tab 02/08/19 metformin 500 mg tablet 500 mg PO BID #180 tab 09/17/19 metoprolol succinate 100 mg 100 mg PO BID #180 tab 02/08/19 tablet,extended release 24 hr nortriptyline 10 mg capsule 10 mg PO QHS #90 cap 02/08/19 omeprazole 20 mg tablet,delayed 20 mg PO BID #180 tab 02/08/19 release potassium chloride 10 mEq 10 meq PO QDAY #90 tab 02/08/19 tablet,extended release triamterene 37.5 1 tab PO QDAY #90 tab 02/08/19 mg-hydrochlorothiazide 25 mg tablet loperamide 2 mg tablet 2 mg PO Q2-4H PRN #1 tab 02/11/19 Placard for disabled parking #1 ea 02/23/19 nitrofurantoin macrocrystal 100 mg 100 mg PO BID #10 cap 02/28/19 capsule amlodipine 10 mg tablet 10 mg PO QDAY #90 tab 03/17/19 hydrocortisone 1 % topical cream 1 applic TOPICAL BID PRN #30 g 03/22/19 WHEEL CHAIR #1 ea 03/24/19 Allergies Allergy/AdvReac Type Severity Reaction Status Date / Time Cefprozil Allergy Mild Hives Verified 03/22/19 12:54 ciprofloxacin Allergy Mild Hives Verified 03/22/19 12:54 codeine AdvReac Mild Nausea Verified 03/22/19 12:54 Sulfa (Sulfonamide AdvReac Mild Rash Verified 03/22/19 12:54 Antibiotics) Review of Systems All systems ED: reviewed and negative except as stated. Past Medical History - Past Medical History [facility] Narrative: Medical History (Last Reviewed 03/06/19 @ 19:06 by Ray Valles PA-C) Hypoxemia (Chronic) UIP (usual interstitial pneumonitis) (Chronic) Pulmonary infiltrates on CXR (Chronic) Stable angina (Acute) Fracture of thoracic vertebra, closed (Acute) Osteoarthritis (Acute) Obesity (Acute) Postmenopausal related mood disorder (Acute) Joint pain (Acute) Hypertension, essential (Acute) Hyperlipemia (Acute) Gastroesophageal reflux (Acute) Dysphagia (Acute) Coronary artery disease (Acute) History of colonic polyps (Acute) Chest pain (Acute) Past Surgical History (Last Reviewed 03/06/19 @ 19:06 by Ray Valles PA-C) History of tubal ligation (Acute) History of hysterectomy (Acute) History of coronary artery stent placement (Acute) Family History (Last Reviewed 03/06/19 @ 19:06 by Ray Valles PA-C) Mother Alzheimer's disease Essential hypertension Acute myocardial infarction Transient cerebral ischemia Unknown Atherosclerosis of coronary artery Diabetes mellitus Hyperlipidemia Father Instantaneous Acute myocardial infarction Brother Cardiac disease Medical history: Reports: CAD (coronary artery disease), GERD, hyperlipidemia, hypertension - Social History smoking status: Never smoker Physical Exam Limitations: no limitations General appearance: alert Head: atraumatic Eye: Present: normal appearance ENT: Present: normal exam Neck: Present: normal inspection Chest: Present: normal inspection Respiratory: Present: normal lung sounds bilaterally Cardiovascular: Present: tachycardia, irregular rhythm, normal heart sounds Abdominal: Present: soft. Absent: distention, tenderness Neurological: Present: alert Psychiatric: Present: normal affect Skin: Present: warm, dry Course Vital Signs Temperature 98 F 03/31/19 11:49 Pulse Rate 143 H 03/31/19 11:49 Respiratory Rate 24 H 03/31/19 11:49 Blood Pressure 126/77 03/31/19 11:49 Pulse Oximetry (%) 97 03/31/19 11:49 Temperature 98 F 03/31/19 11:49 Pulse Rate 86 03/31/19 16:30 Respiratory Rate 28 H 03/31/19 16:30 Blood Pressure 113/91 03/31/19 16:20 Pulse Oximetry (%) 98 03/31/19 16:30 Medical Decision Making - [facility] Narrative Medical decision making narrative: When the patient's troponin came back at 0.25 I discussed this case with Dr. Chaves a stone polisher neurologist isolation washer for [facility]. He asked if we could do a troponin I told him no. He said that he would like to see what the troponin does over time especially with some diuresis and treatment. He thought us a slight troponin T elevation could be certainly due to atrial fibrillation which she has. We have treated her atrial fib with diltiazem it has come down. Her repeat troponin T was 0.20 which was less than .25 initially. I discussed case with Dr. Villanueva she will be admitted to the hospital here. - Lab Data Lab results reviewed: Yes I reviewed the patient's lab results. Result diagrams: 03/31/19 12:18 03/31/19 12:18 Lab Results 03/31/19 03/31/19 03/31/19 Range/Units 12:18 12:18 12:18 WBC 15.4 H (4.5-11.0) K/mcL RBC 4.75 (4.00-5.20) M/mcL Hgb 13.3 (12.0-15.0) g/dL Hct 40.1 (36.0-48.0) % MCV 84.5 (80.0-100.0) fL MCH 28.0 (26.0-34.0) pg MCHC 33.1 (31.0-36.0) g/dL RDW 17.6 H (11.5-14.5) % Plt Count 204 (140-440) K/mcL MPV 8.1 (7.4-10.4) fL Gran % 90.1 H (38.0-78.0) % Lymph % (Auto) 6.0 L (15.5-49.0) % [place] % (Auto) 3.9 (1.0-12.0) % Eos % (Auto) 0 (0.0-7.0) % Baso % (Auto) 0 (0.0-2.0) % Gran # 13.9 H (1.8-8.0) K/mcL Lymph # (Auto) 0.9 L (1.5-4.8) K/mcL [place] # (Auto) 0.6 (0.1-0.9) K/mcL Eos # (Auto) 0 (0.0-0.7) K/mcL Baso # (Auto) 0 (0.0-0.3) K/mcL Sodium 136 (133-145) mmol/L Potassium 3.7 (3.3-5.1) mmol/L Chloride 100 (96-108) mmol/L Carbon Dioxide 21 L (22-30) mmol/L Anion Gap 15.0 (8-16) BUN 21 (8-23) mg/dl Creatinine 0.8 (0.6-1.1) mg/dl GFR Calculation 74 Glucose 161 H (70-105) mg/dL Calcium 9.5 (8.6-10.4) mg/dl Total Bilirubin 0.6 (0.0-1.0) mg/dL AST 21 (0-37) U/l ALT 29 (0-40) U/l Alkaline Phosphatase 55 (39-117) U/L Troponin T 0.25 H* (0-0.03) ng/ml NT-Pro-B Natriuret Pep 1509.0 H (0-125) pg/ml Total Protein 5.9 (5.9-8.4) gm/dL Albumin 3.3 (3.2-5.2) gm/dL Globulin 2.6 (2.2-3.7) gm/dL Albumin/Globulin Ratio 1.3 (1.0-2.3) 03/31/19 Range/Units 14:58 WBC (4.5-11.0) K/mcL RBC (4.00-5.20) M/mcL Hgb (12.0-15.0) g/dL Hct (36.0-48.0) % MCV (80.0-100.0) fL MCH (26.0-34.0) pg MCHC (31.0-36.0) g/dL RDW (11.5-14.5) % Plt Count (140-440) K/mcL MPV (7.4-10.4) fL Gran % (38.0-78.0) % Lymph % (Auto) (15.5-49.0) % [place] % (Auto) (1.0-12.0) % Eos % (Auto) (0.0-7.0) % Baso % (Auto) (0.0-2.0) % Gran # (1.8-8.0) K/mcL Lymph # (Auto) (1.5-4.8) K/mcL [place] # (Auto) (0.1-0.9) K/mcL Eos # (Auto) (0.0-0.7) K/mcL Baso # (Auto) (0.0-0.3) K/mcL Sodium (133-145) mmol/L Potassium (3.3-5.1) mmol/L Chloride (96-108) mmol/L Carbon Dioxide (22-30) mmol/L Anion Gap (8-16) BUN (8-23) mg/dl Creatinine (0.6-1.1) mg/dl GFR Calculation Glucose (70-105) mg/dL Calcium (8.6-10.4) mg/dl Total Bilirubin (0.0-1.0) mg/dL AST (0-37) U/l ALT (0-40) U/l Alkaline Phosphatase (39-117) U/L Troponin T 0.20 H* (0-0.03) ng/ml NT-Pro-B Natriuret Pep (0-125) pg/ml Total Protein (5.9-8.4) gm/dL Albumin (3.2-5.2) gm/dL Globulin (2.2-3.7) gm/dL Albumin/Globulin Ratio (1.0-2.3) - Radiology Data Radiology results reviewed: Yes I reviewed the patient's radiology results. - EKG Data EKG #1 EKG attestation: Yes I reviewed and interpreted this EKG., Yes There are no EKG findings of acute coronary syndrome, Yes This EKG will be read by stone polisher Rate: tachycardia Rhythm: A.Fib Interpretation: no acute changes Disposition Pt seen by [facility]/PA only: No Clinical Impression: Atrial fibrillation with RVR Disposition: Xfer As Inpt ([facility]) Condition: Good Referrals: Eligio Huerta MD [Primary Care Provider] - Time of Disposition: 16:47
--- NOTE | 2019-03-31 12:30 | XRay Report ---
CLINICAL INFORMATION: sob COMPARISON: 01/21/2019 FINDINGS: Heart size, mediastinum and pulmonary vessels are normal. Moderate left and small right basilar infiltrates have worsened. Effusion. IMPRESSION: Moderate left and smaller right basilar infiltrates have worsened. Consider aspiration Interpreted and Authenticated by: Lucho Flores 03/31/19
[2019-03-31 12:56] LABS: Basophils # (Auto) 0 K/mcL (0.0-0.3); Basophils % (Auto) 0 % (0.0-2.0); Eosinophils # (Auto) 0 K/mcL (0.0-0.7); Eosinophils % (Auto) 0 % (0.0-7.0); Granulocytes % (Auto) 90.1 % (38.0-78.0); Hematocrit 40.1 % (36.0-48.0); Hemoglobin 13.3 g/dL (12.0-15.0); Lymphocytes # (Auto) 0.9 K/mcL (1.5-4.8); Mean Cell Volume 84.5 fL (80.0-100.0); Mean Corpuscular HGB Conc 33.1 g/dL (31.0-36.0); Mean Platelet Volume 8.1 fL (7.4-10.4); Monocytes # (Auto) 0.6 K/mcL (0.1-0.9); Monocytes % (Auto) 3.9 % (1.0-12.0); Platelet Count 204 K/mcL (140-440); RBC 4.75 M/mcL (4.00-5.20); Red Cell Distribution Width 17.6 % (11.5-14.5); WBC 15.4 K/mcL (4.5-11.0)
[2019-03-31 13:22] LABS: ALT/SGPT 29 U/l (0-40); AST/SGOT 21 U/l (0-37); Albumin 3.3 gm/dL (3.2-5.2); Albumin/Globulin Ratio 1.3 (1.0-2.3); Alkaline Phosphatase 55 U/L (39-117); Bilirubin,Total 0.6 mg/dL (0.0-1.0); Blood Urea Nitrogen 21 mg/dl (8-23); Calcium 9.5 mg/dl (8.6-10.4); Carbon Dioxide 21 mmol/L (22-30); Chloride 100 mmol/L (96-108); Globulin 2.6 gm/dL (2.2-3.7); Glomerular Filtration Rate 74; Glucose 161 mg/dL (70-105)
[2019-03-31] MEDS ORDERED: DILTIAZEM 25 MG/5 ML VIAL IV ONE ×2 (13:25→14:23)
[2019-03-31] MEDS ORDERED: DILTIAZEM 125 MG in DEXTROSE 5% IN WATER 100 ML IV SCH (13:30)
[2019-03-31] MEDS ORDERED: FUROSEMIDE 20 MG/2 ML VIAL IV ONE ×2 (14:34→20:00)
[2019-03-31 17:28] LABS: Band Neutrophils % 1 % (0-10); Lymphocytes % 6 % (15-49); Monocytes % (Manual) 8 % (1-12); Platelet Estimate NORMAL (NORMAL); RBC Morphology NORMAL (NORMAL); Segmented Neutrophils % 85 % (38-78)
[2019-03-31 17:30] LABS: Thyroid Stimulating Hormone 1.58 uIU/ml (0.27-5.01)
--- NOTE | 2019-03-31 17:53 | Internal Med History&Physical ---
Medical - H&P: HPI Patient information: Note initiated : 03/31/19 at 5:44 pm Service Date, if different from initiated Date: [] Patient: Carla Meyers a 73 y/o F admitted on for chest pain/SOB. Chief Complaint: [] History of present illness: Ms. Meyers is a 73 year old F Presents with chest pain palpitations. Patient states that several days ago she started feeling unwell mostly described as tired with malaise. Last night she developed sharp chest pain along the entirety of her anterior chest wall along with palpitations described as rapid heart rate and some increased shortness of breath. Her blood pressure cuff at home also read 80/58. her chest pain lasted for several hours and gradually went away. She has a chronic cough which is actually improved. Denies any fevers or chills. She has edema in her leg but that chronic she says, and is actually better than what has been. Has occasional headaches. She has chronic diarrhea. Her symptoms of presentation are mainly because of the palpitations and sharp chest pain. They are not due to increased cough shortness of breath or breathing issues. She has had no fevers or chills at home. She has a diagnosis in the past of usual interstitial pneumonia. 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 Feels her weakness has started improving. She returned home from the hospital about 2 weeks ago and she was hospitalized for a week and a half. Says during hospitalization she had a couple episodes with AKerry fib RVR. In the ED here she was found to have a heart rate in 140s in A. fib started on diltiazem drip which eventually converted her to normal sinus in the 90s was still on a diltiazem drip at 15 an hour. She has no increased oxygen needs. He did have an elevated troponin and cardiology in [place] was contacted who reviewed the case with the physician over the phone and was not too concerned given the presentation but asked for another troponin which was actually a little bit lower than the first and felt patient did not need to be transferred for any cardiac reason. BP in the ED on arrival was 100/68 with systolic blood pressures in the 90s in a couple 80s after the diltiazem was started. Review of Systems: Pertinent positives as above. Denies fever/chills/nausea/vomiting/abdominal pain/. Remaining 10 point review of system reviewed negative Medical - H&P: H Medical history: Medical History (Last Reviewed 03/06/19 @ 19:06 by Ray Valles PA-C) Hypoxemia (Chronic) UIP (usual interstitial pneumonitis) (Chronic) Pulmonary infiltrates on CXR (Chronic) Stable angina (Acute) Fracture of thoracic vertebra, closed (Acute) Osteoarthritis (Acute) Obesity (Acute) Postmenopausal related mood disorder (Acute) Joint pain (Acute) Hypertension, essential (Acute) Hyperlipemia (Acute) Gastroesophageal reflux (Acute) Dysphagia (Acute) Coronary artery disease (Acute) History of colonic polyps (Acute) Chest pain (Acute) Past Surgical History (Last Reviewed 03/06/19 @ 19:06 by Ray Valles PA-C) History of tubal ligation (Acute) History of hysterectomy (Acute) History of coronary artery stent placement (Acute) Family History (Last Reviewed 03/06/19 @ 19:06 by Ray Valles PA-C) Mother Alzheimer's disease Essential hypertension Acute myocardial infarction Transient cerebral ischemia Unknown Atherosclerosis of coronary artery Diabetes mellitus Hyperlipidemia Father Instantaneous Acute myocardial infarction Brother Cardiac disease Social History (Last Updated 11/11/18 @ 13:22 by Eligio Huerta MD) Denies smoking drinks alcohol socially Uses a walker to ambulate lives at home with her Medical - H&P: Meds Home Medications Medication Instructions Recorded Confirmed Type ascorbic acid (vitamin C) 1,000 mg 1,000 mg PO DAILY tab 12/15/14 03/31/19 History tablet,extended release aspirin 81 mg tablet,delayed 81 mg PO DAILY tab 12/15/14 03/31/19 History release calcium citrate 500 500 mg PO DAILY 12/15/14 03/31/19 History cranberry extract 300 mg tablet 300 mg PO DAILY tab 12/15/14 03/31/19 History multivitamin 1 tab PO .COMPLEX tab 12/15/14 03/31/19 History nitroglycerin 0.4 mg sublingual 0.4 mg SUBLINGUAL .COMPLEX PRN #10 10/07/18 03/31/19 Rx tablet tab glucosam 750 mg-chondroi 100 1 tab PO BID tab 01/13/19 03/31/19 History mg-hyalur 1.65 mg-CF borate 108 mg tablet levothyroxine 50 mcg tablet 50 mcg PO QDAY #90 tab 02/08/19 03/31/19 Rx metformin 500 mg tablet 500 mg PO BID #180 tab 02/08/19 03/31/19 Rx metoprolol succinate 100 mg 100 mg PO BID #180 tab 02/08/19 03/31/19 Rx tablet,extended release 24 hr omeprazole 20 mg tablet,delayed 20 mg PO BID #180 tab 02/08/19 03/31/19 Rx release loperamide 2 mg tablet 2 mg PO Q2-4H PRN #1 tab 02/11/19 03/31/19 Rx Placard for disabled parking #1 ea 02/23/19 03/22/19 Rx apixaban 5 mg tablet 5 mg PO BID 02/23/19 03/31/19 History oxygen 4 liters #1 ea 02/23/19 03/22/19 History hydrocortisone 1 % topical cream 1 applic TOPICAL BID PRN #30 g 03/22/19 03/31/19 Rx mycophenolate mofetil 500 mg tablet 500 mg PO BID 03/22/19 03/31/19 History prednisone 20 mg tablet 60 mg PO [facility] tab 03/22/19 03/31/19 History WHEEL CHAIR #1 ea 03/24/19 Rx Atorvastatin [Lipitor] 10 mg PO DAILY 03/31/19 03/31/19 History Cholecalciferol (Vitamin D3) 1,000 unit PO DAILY 03/31/19 03/31/19 History [Vitamin D3] Estradiol [Estrace] 1 mg PO DAILY 03/31/19 03/31/19 History Losartan Potassium 50 mg PO DAILY 03/31/19 03/31/19 History Nortriptyline HCl [Pamelor] 10 mg PO HS 03/31/19 03/31/19 History Potassium Chloride [K-Tab ER] 10 meq PO QAC 03/31/19 03/31/19 History Triamterene/Hydrochlorothiazid 1 tab PO DAILY 03/31/19 03/31/19 History [Triamterene-Hctz 37.5-25 mg Tb] amLODIPine BESYLATE [Norvasc] 10 mg PO DAILY 03/31/19 03/31/19 History Allergies Allergy/AdvReac Type Severity Reaction Status Date / Time Cefprozil Allergy Mild Hives Verified 03/22/19 12:54 ciprofloxacin Allergy Mild Hives Verified 03/22/19 12:54 codeine AdvReac Mild Nausea Verified 03/22/19 12:54 Sulfa (Sulfonamide AdvReac Mild Rash Verified 03/22/19 12:54 Antibiotics) Medical - H&P: Exam - Constitutional Vitals: Temp Pulse Resp BP Pulse Ox 98 F 86 28 H 113/91 98 03/31/19 11:49 03/31/19 16:30 03/31/19 16:30 03/31/19 16:20 03/31/19 16:30 Exam: General: Alert, Awake, No acute Distress Eyes/N/T: EOMI, PEERL, Head/Neck: neck supple, normocephalic atraumatic CV: RRR, No murmurs, normal s1/s2 Pulm: Fine bilateral rales, no wheezing Abd: soft, nontender, +BS x4 Ext: no clubbing/cyanosis 1+ LLE, 12+ RLE Neuro: Alert, no focal deficits, moves all extremities, CN 2-12 grossly intact, symmetrical strength b/l upper/lower, sensations intact b/l upper/lower Skin: warm/dry Medical - H&P: Reslt - Labs CBC & Chem 7: 03/31/19 12:18 03/31/19 12:18 Labs: Short CBC 03/31/19 Range/Units 12:18 WBC 15.4 H (4.5-11.0) K/mcL Hgb 13.3 (12.0-15.0) g/dL Hct 40.1 (36.0-48.0) % Plt Count 204 (140-440) K/mcL BMP 03/31/19 12:18 Sodium 136 Potassium 3.7 Chloride 100 Carbon Dioxide 21 L BUN 21 Creatinine 0.8 Glucose 161 H Calcium 9.5 Cardiac Enzymes 03/31/19 03/31/19 Range/Units 12:18 14:58 Troponin T 0.25 H* 0.20 H* (0-0.03) ng/ml Liver Function 03/31/19 Range/Units 12:18 Total Bilirubin 0.6 (0.0-1.0) mg/dL AST 21 (0-37) U/l ALT 29 (0-40) U/l Alkaline Phosphatase 55 (39-117) U/L Albumin 3.3 (3.2-5.2) gm/dL Medical - H&P: A/P - Narrative A/P Narrative: A: *Afib RVR: converted to sinus on diltiazem drip -has been on Toprol and Eliquis *Chest pain: atypical sharp non-radiating -Troponin elevated but repeat was lower; case was discussed w/[place] [facility] who felt this was not a case of ACS but demand from Afib rvr *CAD w/stents: *Hypomagnesemia: Possible contributor to above *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
[2019-03-31] MEDS ORDERED: POLYETHYLENE GLYCOL 3350 17 GM PACKET PO PRN (18:36)
[2019-03-31] MEDS ORDERED: ACETAMINOPHEN 325 MG TABLET PO PRN (18:36)
[2019-03-31] MEDS ORDERED: POTASSIUM CHLORIDE 20 MEQ TABLET PO PRN ×2 (18:36)
[2019-03-31] MEDS ORDERED: MAGNESIUM SULFATE 2 GM/50 ML BAG IV PRN (18:36)
[2019-03-31] MEDS ORDERED: DEXTROSE 31 GM ORAL.SUSP PO PRN (18:36)
[2019-03-31] MEDS ORDERED: ONDANSETRON 4 MG/2 ML VIAL IV PRN (18:36)
[2019-03-31] MEDS ORDERED: IPRATROPIUM/ALBUTEROL 3 ML AMPUL.NEB NEB PRN (18:36)
[2019-03-31] MEDS ORDERED: DEXTROSE 50% 50 ML VIAL IV PRN (18:36)
[2019-03-31] MEDS ORDERED: POTASSIUM CHLORIDE 40 MEQ in DEXTROSE 5% IN WATER 500 ML IV PRN (18:36)
[2019-03-31] MEDS ORDERED: MAGNESIUM SULFATE 2 GM/50 ML BAG IV ONE (18:36)
[2019-03-31] MEDS ORDERED: LOPERAMIDE 2 MG CAPSULE PO PRN (18:53)
[2019-03-31] MEDS ORDERED: NITROGLYCERIN 0.4 MG TAB.SUBL SL PRN (18:54)
[2019-03-31] MEDS ORDERED: AMIODARONE 150 MG in DEXTROSE 5% IN WATER 50 ML IV ONE (20:38)
[2019-03-31] MEDS ORDERED: METOPROLOL TARTRATE 5 MG/5 ML VIAL IV PRN (20:39)
[2019-03-31] MEDS: MYCOPHENOLATE 250 MG CAPSULE PO SCH (20:47)
[2019-03-31] MEDS ORDERED: AMIODARONE 150 MG/3 ML VIAL IV ONE (20:51)
[2019-03-31] MEDS: METOPROLOL SUCCINATE 50 MG TAB.XL.24H PO SCH (20:53)
[2019-03-31] MEDS: APIXABAN 5 MG TABLET PO SCH (20:53)
[2019-03-31] MEDS: OMEPRAZOLE 20 MG CAPSULE PO SCH (20:53)
[2019-03-31] MEDS: metFORMIN 500 MG TABLET PO SCH (20:54)
[2019-03-31] MEDS: 0.9 % SODIUM CHLORIDE 10 ML SYRINGE IV SCH (20:54)
[2019-03-31] MEDS ORDERED: NORTRIPTYLINE 10 MG CAPSULE PO SCH (21:00)
[2019-03-31] MEDS: INSULIN LISPRO 1 UNIT/0.01 ML UNIT SQ SCH (21:10)
[2019-03-31] MEDS ORDERED: DILTIAZEM 125 MG/25 ML VIAL IV ONE (21:24)
[2019-03-31] MEDS: DILTIAZEM 125 MG in DEXTROSE 5% IN WATER 100 ML IV SCH (22:15)
[2019-04-01] MEDS: DILTIAZEM 125 MG in DEXTROSE 5% IN WATER 100 ML IV SCH ×2 (01:58→13:52)
[2019-04-01] MEDS: 0.9 % SODIUM CHLORIDE 10 ML SYRINGE IV SCH ×3 (05:40→20:58)
[2019-04-01 06:27] LABS: Basophils # (Auto) 0 K/mcL (0.0-0.3); Basophils % (Auto) 0.3 % (0.0-2.0); Eosinophils # (Auto) 0 K/mcL (0.0-0.7); Eosinophils % (Auto) 0.5 % (0.0-7.0); Granulocytes % (Auto) 80.6 % (38.0-78.0); Hematocrit 36.3 % (36.0-48.0); Hemoglobin 11.9 g/dL (12.0-15.0); Lymphocytes # (Auto) 1.2 K/mcL (1.5-4.8); Lymphocytes % (Auto) 11.2 % (15.5-49.0); Mean Cell Volume 86.7 fL (80.0-100.0); Mean Corpuscular HGB Conc 32.7 g/dL (31.0-36.0); Mean Platelet Volume 8.1 fL (7.4-10.4); Monocytes # (Auto) 0.8 K/mcL (0.1-0.9); Monocytes % (Auto) 7.4 % (1.0-12.0); Platelet Count 193 K/mcL (140-440); RBC 4.19 M/mcL (4.00-5.20); Red Cell Distribution Width 17.3 % (11.5-14.5); WBC 10.3 K/mcL (4.5-11.0)
[2019-04-01 06:44] LABS: ALT/SGPT 26 U/l (0-40); AST/SGOT 15 U/l (0-37); Albumin/Globulin Ratio 1.3 (1.0-2.3); Alkaline Phosphatase 48 U/L (39-117); Bilirubin,Direct < 0.2 mg/dL (0.0-0.3); Bilirubin,Total 0.4 mg/dL (0.0-1.0); Blood Urea Nitrogen 24 mg/dl (8-23); Calcium 9.1 mg/dl (8.6-10.4); Carbon Dioxide 24 mmol/L (22-30); Chloride 100 mmol/L (96-108); Globulin 2.3 gm/dL (2.2-3.7); Glomerular Filtration Rate 87; Glucose 96 mg/dL (70-105); Lactate Dehydrogenase 234 U/L (94-250); Phosphorous 4.3 mg/dL (2.7-4.5); Triglycerides 198 mg/dl (<150); Uric Acid 8.2 mg/dL (2.5-8.0)
[2019-04-01] MEDS ORDERED: MAGNESIUM SULFATE 8.12 MEQ in DEXTROSE 5% IN WATER 50 ML IV ONE (06:56)
[2019-04-01] MEDS: MYCOPHENOLATE 250 MG CAPSULE PO SCH ×2 (06:57→20:57)
[2019-04-01] MEDS ORDERED: LEVOTHYROXINE 50 MCG TABLET PO SCH (07:30)
--- NOTE | 2019-04-01 07:42 | Internal Med Progress Note ---
Medical - PN: Subj Patient information: Note initiated : 04/01/19 at 7:40 am Service Date, if different from initiated Date: [] Patient: Carla Meyers 73 y/o F admitted on 03/31/19 for chest pain/SOB. Chief Complaint: [] Interval history: Ms. Meyers is a 73 year old F Presents with chest pain palpitations. Patient states that several days ago she started feeling unwell mostly described as tired with malaise. Last night she developed sharp chest pain along the entirety of her anterior chest wall along with palpitations described as rapid heart rate and some increased shortness of breath. Her blood pressure cuff at home also read 80/58. her chest pain lasted for several hours and gradually went away. She has a chronic cough which is actually improved. Denies any fevers or chills. She has edema in her leg but that chronic she says, and is actually better than what has been. Has occasional headaches. She has chronic diarrhea. Her symptoms of presentation are mainly because of the palpitations and sharp chest pain. They are not due to increased cough shortness of breath or breathing issues. She has had no fevers or chills at home. She has a diagnosis in the past of usual interstitial pneumonia. She has had progressive weakness and was seen at a [facility] and diagnosed with anti- synthetase syndrome and was started on high-dose prednisone is currently down to 60 mg daily as well as started on mycophenolate. Feels her weakness has started improving. She returned home from the hospital about 2 weeks ago and she was hospitalized for a week and a half. Says during hospitalization she had a couple episodes with [place] fib RVR. In the ED here she was found to have a heart rate in 140s in A. fib started on diltiazem drip which eventually converted her to normal sinus in the 90s was still on a diltiazem drip at 15 an hour. She has no increased oxygen needs. He did have an elevated troponin and cardiology in [place] was contacted who reviewed the case with the physician over the phone and was not too concerned given the presentation but asked for another troponin which was actually a little bit lower than the first and felt patient did not need to be transferred for any cardiac reason. BP in the ED on arrival was 100/68 with systolic blood pressures in the 90s in a couple 80s after the diltiazem was started. 11/8 Went back into [facility] prior to transfer over the ICU. The ICU she was given IV amiodarone bolus and started on her home metoprolol and subsequently converted to 60s to 80s. feels a ittle stronger/better today. She has a chronic cough baseline shortness of breath. She is actually on room air while at rest but needs it when she exerts herself. Review of Systems: denies headache/fever/chills/nausea/vomiting/chest or abdominal pain/. Otherwis e see above. - Constitutional Vitals: Vital Signs Temp Pulse Resp BP Pulse Ox 98.1 F 140 H 30 H 114/62 96 04/01/19 04:01 03/31/19 19:02 04/01/19 07:27 04/01/19 07:01 04/01/19 06:01 Period Temp Pulse Resp BP Sys/Bell Pulse Ox Last 24 Hr 97.2 F-98.1 F 50-153 16-39 81-147/59-127 93-99 Intake and Output 03/31/19 04/01/19 04/01/19 21:59 05:59 13:59 Intake Total 107 174 Output Total 275 475 Balance -168 -301 Weight 70.08 kg Intake & Output: Intake & Output 03/31/19 04/01/19 04/01/19 21:59 05:59 13:59 Intake Total 107 174 Output Total 275 475 Balance -168 -301 Weight 70.08 kg Intake: IV 107 174 Cordarone 150 mg In Dextrose 5% 53 in Water 50 ml @ 300 mls/hr IV ONCE ONE Rx#:[id number] Cardizem 125 mg In Dextrose 5% 54 124 in Water 100 ml @ 5 MG/HR 5 mls /hr IV Q12H [facility] Rx#:[id number] Output: Void Amount 275 475 Other: Meal Dinner Percent of Meal Consumed 100% Feeding Ability Assist with Tray Set Up Urine Appearance Clear Clear Urine Color Bright Yellow Straw Exam: General: Alert, Awake, No acute Distress Eyes/N/T: EOMI, , Head/Neck: neck supple, CV: RRR, No murmurs, Pulm: Fine bilateral rales, no wheezing Abd: soft, nontender, +BS x4 Ext: no clubbing/cyanosis, 1+ b/l LE edema Neuro: Alert, no focal deficits, moves all extremities, Skin: warm/dry Medical - PN: Obj Da - Labs CBC & Chem 7: 04/01/19 04:05 04/01/19 04:04 Labs: Abnormal Lab Results 04/01/19 04/01/19 03/31/19 04:05 04:04 14:58 WBC Hgb 11.9 L RDW 17.3 H Gran % 80.6 H Lymph % (Auto) 11.2 L Gran # 8.3 H Lymph # (Auto) 1.2 L Seg Neutrophils % Lymphocytes % Potassium 3.0 L Carbon Dioxide BUN 24 H Glucose Uric Acid 8.2 H Magnesium 1.4 L Troponin T NT-Pro-B Natriuret Pep Total Protein 5.3 L Albumin 3.0 L Triglycerides 198 H 03/31/19 03/31/19 03/31/19 14:58 14:58 12:18 WBC Hgb RDW Gran % Lymph % (Auto) Gran # Lymph # (Auto) Seg Neutrophils % 85 H Lymphocytes % 6 L Potassium Carbon Dioxide BUN Glucose Uric Acid Magnesium Troponin T 0.20 H* 0.25 H* NT-Pro-B Natriuret Pep Total Protein Albumin Triglycerides 03/31/19 03/31/19 12:18 12:18 WBC 15.4 H Hgb RDW 17.6 H Gran % 90.1 H Lymph % (Auto) 6.0 L Gran # 13.9 H Lymph # (Auto) 0.9 L Seg Neutrophils % Lymphocytes % Potassium Carbon Dioxide 21 L BUN Glucose 161 H Uric Acid Magnesium Troponin T NT-Pro-B Natriuret Pep 1509.0 H Total Protein Albumin Triglycerides Meds: Medications Acetaminophen (Tylenol) 650 mg PO Q6HP PRN PRN Reason: PAIN/FEVER > 101 Albuterol/Ipratropium (Duoneb) 3 ml NEB Q4HP PRN PRN Reason: Shortness Of Breath Apixaban (Eliquis) 5 mg PO BID [facility] Last Admin: 03/31/19 20:53 Dose: 5 mg Documented by: Aspirin (Aspirin) 81 mg PO DAILY [facility] Atorvastatin Calcium (Lipitor) 10 mg PO DAILY [facility] Dextrose (Dextrose 50%) 0 ml IV UD PRN PRN Reason: Hypoglycemia Diagnostic Test (Pha) (Accu-Chek) 1 each FS ACHS [facility] Last Admin: 04/01/19 07:21 Dose: 1 each Documented by: Glucose (Insta-Glucose) 15 gm PO PRN PRN PRN Reason: Hypoglycemia Diltiazem HCl 125 mg/ Dextrose 125 mls @ 5 mls/hr IV Q12H [facility]; Protocol Last Titration: 04/01/19 03:14 Dose: 0 mg/hr, 0 mls/hr Documented by: Potassium Chloride 40 meq/ (Dextrose) 520 mls @ 130 mls/hr IV UD PRN PRN Reason: Potassium < 3 Magnesium Sulfate (Magnesium Sulfate) 2 gm in 50 mls @ 50 mls/hr IV UD PRN PRN Reason: Magnesium </= 1.6 Magnesium Sulfate 8.12 meq/ (Dextrose) 52 mls @ 52 mls/hr IV ONCE ONE Stop: 04/01/19 07:55 Insulin Human Lispro (Humalog) 0 unit SQ ACHS [facility]; Protocol Last Admin: 03/31/19 21:10 Dose: 8 units Documented by: Levothyroxine Sodium (Synthroid) 50 mcg PO ACB [facility] Last Admin: 04/01/19 06:58 Dose: 50 mcg Documented by: Loperamide HCl (Imodium) 2 mg PO Q2-4HP PRN PRN Reason: Diarrhea Metformin HCl (Glucophage) 500 mg PO BID [facility] Last Admin: 03/31/19 20:54 Dose: 500 mg Documented by: Metoprolol Succinate (Toprol Xl) 100 mg PO BID [facility] Last Admin: 03/31/19 20:53 Dose: 100 mg Documented by: Metoprolol Tartrate (Lopressor) 5 mg IV Q2HP PRN PRN Reason: Tachyarrhythmias Mycophenolate Mofetil (Cellcept) 1,000 mg PO BID@0700,1999 [facility] Last Admin: 04/01/19 06:57 Dose: 1,000 mg Documented by: Nitroglycerin (Nitrostat) 0.4 mg SL Q5M PRN PRN Reason: Chest Pain Nortriptyline HCl (Pamelor) 10 mg PO HS [facility] Last Admin: 03/31/19 20:53 Dose: 10 mg Documented by: Omeprazole (Prilosec) 20 mg PO BID [facility] Last Admin: 03/31/19 20:53 Dose: 20 mg Documented by: Ondansetron HCl (Zofran) 4 mg IV Q4HP PRN PRN Reason: Nausea And Vomiting Polyethylene Glycol (Miralax) 17 gm PO DAILYP PRN PRN Reason: Constipation Potassium Chloride (Kdur) 40 meq PO UD PRN PRN Reason: Potssium is 3-3.5 Potassium Chloride (Kdur) 40 meq PO UD PRN PRN Reason: Potassium < 3 Potassium Chloride (Kdur) 10 meq PO [facility] Potassium Chloride (Kdur) 40 meq PO Q4H [facility] Stop: 04/01/19 11:01 Prednisone (Prednisone) 60 mg PO [facility] Sodium Chloride (Saline Flush) 10 ml IV Q8 [facility] Last Admin: 04/01/19 05:40 Dose: 10 ml Documented by: Triamterene/HCTZ (Maxzide 25) 1 cap PO DAILY [facility] Medical - PN: A/P - Time Spent With Patient Total time spent is greater than 50% in coordination of care (as documented) at patient's floor/unit and/or counseling patient: - Narrative A/P Narrative: A: *Afib RVR: converted to sinus on diltiazem drip in ED but reverted back and then converted back to NSR in ICU last night after IV Amio/Toprol -has been on Toprol and Eliquis *Chest pain: atypical sharp non-radiating -Troponin elevated but repeat was lower; case was discussed w/[facility] who felt this was not a case of ACS but demand from Afib rvr *CAD w/stents: *Hypomagnesemia/hypokal: Possible contributor to above, improved *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 WNL today. *DM: on metformin *HTN/HLD: *Hypothyroidism: TSH wnl *GERD: *h/o Oropharyngeal dysphagia and Eso dilation: P: -cont BB, ARB initially held while BP low -cont home diuretics -replace mag prn -ST eval -Continue home aspirin/statin -Continue home prednisone/mycophenolate -SSI, metformin -PT/OT -ppx: Eliquis/home PPI DNR
[2019-04-01] MEDS ORDERED: POTASSIUM CHLORIDE 10 MEQ TABLET PO SCH (08:00)
[2019-04-01] MEDS ORDERED: predniSONE 20 MG TABLET PO SCH (08:00)
[2019-04-01] MEDS: INSULIN LISPRO 1 UNIT/0.01 ML UNIT SQ SCH ×4 (08:26→21:37)
[2019-04-01] MEDS: OMEPRAZOLE 20 MG CAPSULE PO SCH ×2 (08:56→20:56)
[2019-04-01] MEDS: METOPROLOL SUCCINATE 50 MG TAB.XL.24H PO SCH ×2 (08:56→20:56)
[2019-04-01] MEDS: metFORMIN 500 MG TABLET PO SCH ×2 (08:56→20:56)
[2019-04-01] MEDS: APIXABAN 5 MG TABLET PO SCH ×2 (08:56→20:56)
[2019-04-01] MEDS ORDERED: ATORVASTATIN 20 MG TABLET PO SCH (09:00)
[2019-04-01] MEDS ORDERED: TRIAMTERENE/HYDROCHLOROTHIAZID 1 CAP CAPSULE PO SCH (09:00)
[2019-04-01] MEDS ORDERED: ASPIRIN 81 MG TAB.CHEW PO SCH (09:00)
[2019-04-01] MEDS: POTASSIUM CHLORIDE 20 MEQ TABLET PO SCH ×2 (09:01→12:04)
--- NOTE | 2019-04-01 12:02 | Discharge Summary ---
Medical - DS: Prov Patient information: Note initiated : 04/01/19 at 11:46 am Service Date, if different from initiated Date: [] Patient: Carla Meyers 73 y/o F admitted on 03/31/19 for chest pain/SOB. Chief Complaint: [] Date of admission: 03/31/19 18:30 Discharge date: 04/02/19 Primary care physician: Eligio Huerta Consults: 03/31/19 16:43 Consult to Physician [CONS] Stat Comment: Consulting Provider: Jemal Luna Reason For Exam: Physician to Consult Medical - DS: Meds - Discharge Medications Prescriptions: Losartan Potassium 25 mg PO DAILY #1 tab Magnesium Oxide 400 mg PO BID #40 tab Famotidine [Pepcid] 40 mg PO HS #30 tab Active and Home Medications: Home Medications ascorbic acid (vitamin C) 1,000 mg tablet,extended release 1,000 mg PO DAILY tab 12/15/14 [History Confirmed 03/31/19 Last Taken 11/18/18] aspirin 81 mg tablet,delayed release 81 mg PO DAILY tab 12/15/14 [History Confirmed 03/31/19 Last Taken 11/18/18] calcium citrate 500 500 mg PO DAILY 12/15/14 [History Confirmed 03/31/19 Last Taken 11/18/18] cranberry extract 300 mg tablet 300 mg PO DAILY tab 12/15/14 [History Confirmed 03/31/19 Last Taken 11/18/18] multivitamin 1 tab PO .COMPLEX tab 12/15/14 [History Confirmed 03/31/19 Last Taken 11/18/18] nitroglycerin 0.4 mg sublingual tablet 0.4 mg SUBLINGUAL .COMPLEX PRN #10 tab 10/07/18 [Rx Confirmed 03/31/19 Last Taken 11/18/18] glucosam 750 mg-chondroi 100 mg-hyalur 1.65 mg-CF borate 108 mg tablet 1 tab PO BID tab 01/13/19 [History Confirmed 03/31/19 Last Taken Unknown] levothyroxine 50 mcg tablet 50 mcg PO QDAY #90 tab 02/08/19 [Rx Confirmed 03/31/19 Last Taken Unknown] metformin 500 mg tablet 500 mg PO BID #180 tab 02/08/19 [Rx Confirmed 03/31/19 Last Taken Unknown] metoprolol succinate 100 mg tablet,extended release 24 hr 100 mg PO BID #180 tab 02/08/19 [Rx Confirmed 03/31/19 Last Taken Unknown] omeprazole 20 mg tablet,delayed release 20 mg PO BID #180 tab 02/08/19 [Rx Conf irmed 03/31/19 Last Taken Unknown] loperamide 2 mg tablet 2 mg PO Q2-4H PRN #1 tab 02/11/19 [Rx Confirmed 03/31/19 Last Taken Unknown] apixaban 5 mg tablet 5 mg PO BID 02/23/19 [History Confirmed 03/31/19 Last Taken Unknown] oxygen 4 liters 1 each INH CONT #1 ea 02/23/19 [History Confirmed 04/01/19 Last Taken Unknown] hydrocortisone 1 % topical cream 1 applic TOPICAL BID PRN #30 g 03/22/19 [Rx Con firmed 03/31/19 Last Taken Unknown] mycophenolate mofetil 500 mg tablet 500 mg PO BID 03/22/19 [History Confirmed 03/31/19 Last Taken Unknown] prednisone 20 mg tablet 60 mg PO QAC tab 03/22/19 [History Confirmed 03/31/19 Last Taken Unknown] Atorvastatin [Lipitor] 10 mg PO DAILY 03/31/19 [History Confirmed 03/31/19 Last Taken Unknown] Cholecalciferol (Vitamin D3) [Vitamin D3] 1,000 unit PO DAILY 03/31/19 [History Confirmed 03/31/19 Last Taken Unknown] Estradiol [Estrace] 1 mg PO DAILY 03/31/19 [History Confirmed 03/31/19 Last Taken Unknown] Losartan Potassium 50 mg PO DAILY 03/31/19 [History Confirmed 03/31/19 Last Taken Unknown] Nortriptyline HCl [Pamelor] 10 mg PO HS 03/31/19 [History Confirmed 03/31/19 Last Taken Unknown] Potassium Chloride [K-Tab ER] 10 meq PO QAC 03/31/19 [History Confirmed 03/31/19 Last Taken Unknown] Triamterene/Hydrochlorothiazid [Triamterene-Hctz 37.5-25 mg Tb] 1 tab PO DAILY 03/31/19 [History Confirmed 03/31/19 Last Taken Unknown] amLODIPine BESYLATE [Norvasc] 10 mg PO DAILY 03/31/19 [History Confirmed 03/31/19 Last Taken Unknown] Placard For Disability 1 each MISC ONCE 04/01/19 [History Confirmed 04/01/19 Last Taken Unknown] Wheel Chair 1 each [facility] 04/01/19 [History Confirmed 04/01/19 Last Taken Unknown] Home Medications ascorbic acid (vitamin C) 1,000 mg tablet,extended release 1,000 mg PO DAILY tab 12/15/14 [History Confirmed 03/31/19 Last Taken 11/18/18] aspirin 81 mg tablet,delayed release 81 mg PO DAILY tab 12/15/14 [History Confirmed 03/31/19 Last Taken 11/18/18] calcium citrate 500 500 mg PO DAILY 12/15/14 [History Confirmed 03/31/19 Last Taken 11/18/18] cranberry extract 300 mg tablet 300 mg PO DAILY tab 12/15/14 [History Confirmed 03/31/19 Last Taken 11/18/18] multivitamin 1 tab PO .COMPLEX tab 12/15/14 [History Confirmed 03/31/19 Last Taken 11/18/18] nitroglycerin 0.4 mg sublingual tablet 0.4 mg SUBLINGUAL .COMPLEX PRN #10 tab 10/07/18 [Rx Confirmed 03/31/19 Last Taken 11/18/18] glucosam 750 mg-chondroi 100 mg-hyalur 1.65 mg-CF borate 108 mg tablet 1 tab PO BID tab 01/13/19 [History Confirmed 03/31/19 Last Taken Unknown] levothyroxine 50 mcg tablet 50 mcg PO QDAY #90 tab 02/08/19 [Rx Confirmed 03/31/19 Last Taken Unknown] metformin 500 mg tablet 500 mg PO BID #180 tab 02/08/19 [Rx Confirmed 03/31/19 Last Taken Unknown] metoprolol succinate 100 mg tablet,extended release 24 hr 100 mg PO BID #180 tab 02/08/19 [Rx Confirmed 03/31/19 Last Taken Unknown] loperamide 2 mg tablet 2 mg PO Q2-4H PRN #1 tab 02/11/19 [Rx Confirmed 03/31/19 Last Taken Unknown] apixaban 5 mg tablet 5 mg PO BID 02/23/19 [History Confirmed 03/31/19 Last Taken Unknown] oxygen 4 liters 1 each INH CONT #1 ea 02/23/19 [History Confirmed 04/01/19 Last Taken Unknown] hydrocortisone 1 % topical cream 1 applic TOPICAL BID PRN #30 g 03/22/19 [Rx Confirmed 03/31/19 Last Taken Unknown] mycophenolate mofetil 500 mg tablet 500 mg PO BID 03/22/19 [History Confirmed 03/31/19 Last Taken Unknown] prednisone 20 mg tablet 60 mg PO QAMCC tab 03/22/19 [History Confirmed 03/31/19 Last Taken Unknown] Atorvastatin [Lipitor] 10 mg PO DAILY 03/31/19 [History Confirmed 03/31/19 Last Taken Unknown] Cholecalciferol (Vitamin D3) [Vitamin D3] 1,000 unit PO DAILY 03/31/19 [History Confirmed 03/31/19 Last Taken Unknown] Estradiol [Estrace] 1 mg PO DAILY 03/31/19 [History Confirmed 03/31/19 Last Taken Unknown] Nortriptyline HCl [Pamelor] 10 mg PO HS 03/31/19 [History Confirmed 03/31/19 Last Taken Unknown] Potassium Chloride [K-Tab ER] 10 meq PO [facility] 03/31/19 [History Confirmed 03/31/19 Last Taken Unknown] Triamterene/Hydrochlorothiazid [Triamterene-Hctz 37.5-25 mg Tb] 1 tab PO DAILY 03/31/19 [History Confirmed 03/31/19 Last Taken Unknown] Famotidine [Pepcid] 40 mg PO HS #30 tablet 04/01/19 [Rx Last Taken Unknown] Losartan Potassium 25 mg PO DAILY #1 tablet 04/01/19 [Rx Last Taken Unknown] Magnesium Oxide 400 mg PO BID #40 tablet 04/01/19 [Rx Last Taken Unknown] Placard For Disability 1 each MISC ONCE 04/01/19 [History Confirmed 04/01/19 Last Taken Unknown] Wheel Chair 1 each MISC ONCE 04/01/19 [History Confirmed 04/01/19 Last Taken Unknown] Stopped Norvasc lowered losartan 25 mg Switch Prilosec to Pepcid for low magnesium Medical - DS: Hosp Hospital Course: Ms. Meyers is a 73 year old F Presents with chest pain palpitations. Patient states that several days ago she started feeling unwell mostly described as tired with malaise. Last night she developed sharp chest pain along the entirety of her anterior chest wall along with palpitations described as rapid heart rate and some increased shortness of breath. Her blood pressure cuff at home also read 80/58. her chest pain lasted for several hours and gradually went away. She has a chronic cough which is actually improved. Denies any fevers or chills. She has edema in her leg but that chronic she says, and is actually better than what has been. Has occasional headaches. She has chronic diarrhea. Her symptoms of presentation are mainly because of the palpitations and sharp chest pain. They are not due to increased cough shortness of breath or breathing issues. She has had no fevers or chills at home. She has a diagnosis in the past of usual interstitial pneumonia. She has had progressive weakness and was seen at [facility] and diagnosed with anti- synthetase syndrome and was started on high-dose prednisone is currently down to 60 mg daily as well as started on mycophenolate. Feels her weakness has started improving. She returned home from the hospital about 2 weeks ago and she was hospitalized for a week and a half. Says during hospitalization she had a couple episodes with A. fib RVR. In the ED here she was found to have a heart rate in 140s in A. fib started on d iltiazem drip which eventually converted her to normal sinus in the 90s was still on a diltiazem drip at 15 an hour. She has no increased oxygen needs. He did have an elevated troponin and cardiology in [place] was contacted who reviewed the case with the physician over the phone and was not too concerned given the presentation but asked for another troponin which was actually a little bit lower than the first and felt patient did not need to be transferred for any cardiac reason. BP in the ED on arrival was 100/68 with systolic blood pressures in the 90s in a couple 80s after the diltiazem was started. 04/01 Went back into A. fib prior to transfer over the ICU. The ICU she was given IV amiodarone bolus and started on her home metoprolol and subsequently converted to 60s to 80s. feels a ittle stronger/better today. She has a chronic cough baseline shortness of breath. She is actually on room air while at rest but needs it when she exerts herself. 04/02 No overnight events. Patient doing well. In sinus rhythm. Blood pressure good. stable for discharge. A: *Afib RVR: converted to sinus on diltiazem drip in ED but reverted back and then converted back to NSR in ICU last night after IV Amio/Toprol -has been on Toprol and Eliquis *Chest pain: atypical sharp non-radiating -Troponin elevated but repeat was lower; case was discussed w/[place] cardiology who felt this was not a case of ACS but demand from Afib rvr *CAD w/stents: *Hypomagnesemia/hypokal: Possible contributor to above, improved. 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 WNL today. *DM: on metformin *HTN/HLD: BP has been low, home meds BB/ARB/Norvasc, ?was she supposed to be off norvasc *Hypothyroidism: TSH wnl *GERD: *h/o Oropharyngeal dysphagia and Eso dilation: P: -cont BB, ARB/Norvasc initially held while BP low, bp controlled without norvasc and believe the norvasc might have been stopped recently by Dr. wright. will d/c completely, and reduce losartan on d/c, depending on BP. -cont home diuretics -replace mag prn -switch PPI to H2 given hypomag -Continue home aspirin/statin -Continue home prednisone/mycophenolate -SSI, metformin -PT/OT Discharge diagnosis: A. fib RVR atypical chest pain CAD hypomagnesemia - Time Spent with Patient Total time spent providing and/or coordinating discharge services: Greater than 30 minutes Medical - DS: Exam - Constitutional Vitals: Vital Signs Temp Pulse Pulse Resp BP BP Pulse Ox 04/01/19 11:01 97.1 F 79 22 128/66 96 04/01/19 11:00 78 27 H 97 04/01/19 10:58 95 04/01/19 10:55 72 31 H 96 04/01/19 10:50 80 21 100 04/01/19 10:45 77 36 H 97 04/01/19 10:40 24 H 04/01/19 10:35 82 94 04/01/19 10:30 83 50 H 93 04/01/19 10:25 18 04/01/19 10:20 82 27 H 93 04/01/19 10:15 36 H 11/08/19 10:10 79 20 96 04/01/19 10:05 81 94 04/01/19 10:01 79 32 H 116/59 95 04/01/19 10:00 81 94 04/01/19 09:55 79 28 H 94 04/01/19 09:35 84 49 H 92 04/01/19 09:30 80 23 H 96 04/01/19 09:25 78 99 04/01/19 09:20 80 99 04/01/19 09:01 86 114/69 98 04/01/19 07:51 94 04/01/19 07:50 81 24 H 94 04/01/19 07:48 80 21 81 L 04/01/19 07:46 87 19 80 L 04/01/19 07:36 75 24 H 94 04/01/19 07:27 30 H 04/01/19 07:01 31 H 114/62 04/01/19 06:31 23 H 107/63 04/01/19 06:01 26 H 112/61 96 04/01/19 05:31 23 H 114/65 04/01/19 05:01 21 103/62 94 04/01/19 04:31 25 H 107/63 04/01/19 04:01 98.1 F 20 105/59 96 04/01/19 03:31 17 104/61 04/01/19 03:01 16 105/60 95 04/01/19 02:31 19 110/62 04/01/19 02:01 19 104/63 94 04/01/19 02:00 95 04/01/19 01:31 20 111/60 04/01/19 01:01 22 105/60 94 04/01/19 00:31 26 H 102/63 04/01/19 00:01 97.5 F 20 118/98 95 03/31/19 23:31 20 104/69 03/31/19 23:01 28 H 119/106 96 03/31/19 22:31 28 H 113/70 03/31/19 22:01 23 H 96/76 95 03/31/19 21:31 26 H 109/75 03/31/19 21:01 28 H 112/76 95 03/31/19 20:46 29 H 104/70 03/31/19 20:31 28 H 100/79 03/31/19 20:16 32 H 92/71 03/31/19 20:05 33 H 101/66 96 03/31/19 19:51 28 H 03/31/19 19:02 97.2 F 140 H 23 H 108/79 93 03/31/19 18:44 105/85 03/31/19 18:42 98 F 86 28 H 113/91 98 03/31/19 18:30 97.2 F 126 H 29 H 105/85 96 03/31/19 16:30 86 28 H 98 03/31/19 16:20 139 H 37 H 113/91 98 03/31/19 16:17 124 H 32 H 93/75 99 03/31/19 16:11 131 H 31 H 147/127 98 03/31/19 16:01 139 H 29 H 123/68 98 03/31/19 15:52 135 H 17 105/77 97 03/31/19 15:51 93 H 39 H 81/67 97 03/31/19 15:40 144 H 37 H 121/95 97 03/31/19 15:31 119 H 27 H 107/67 97 03/31/19 15:23 136 H 26 H 134/123 98 03/31/19 15:02 87 34 H 115/104 99 03/31/19 15:00 148 H 36 H 95/80 98 03/31/19 14:51 50 L 27 H 95/80 98 03/31/19 14:41 73 22 97/75 99 03/31/19 14:32 32 H 108/70 03/31/19 14:22 127 H 33 H 108/91 98 03/31/19 14:20 136 H 36 H 108/91 98 03/31/19 14:11 128 H 31 H 106/86 98 03/31/19 14:01 106 H 34 H 97/70 98 03/31/19 13:57 144 H 35 H 102/78 98 03/31/19 13:56 98 H 35 H 90/74 98 03/31/19 13:53 153 H 18 81/64 97 03/31/19 13:46 143 H 38 H 117/74 97 03/31/19 13:31 148 H 30 H 104/80 97 03/31/19 13:16 98 H 38 H 112/66 97 03/31/19 13:01 96 H 26 H 114/69 97 03/31/19 12:46 99 H 34 H 110/68 97 03/31/19 12:31 98 H 29 H 110/72 96 03/31/19 12:18 102 H 28 H 100/68 94 03/31/19 12:16 99 H 39 H 100/68 97 03/31/19 11:55 144 H 29 H 126/77 97 03/31/19 11:49 98 F 143 H 24 H 126/77 97 Intake and Output 03/31/19 04/01/19 04/01/19 21:59 05:59 13:59 Intake Total 107 174 352 Output Total 275 475 275 Balance -168 -301 77 Intake: IV 107 174 52 Cordarone 150 mg In Dextrose 5% 53 in Water 50 ml @ 300 mls/hr IV ONCE ONE Rx#:[id number] Cardizem 125 mg In Dextrose 5% 54 124 in Water 100 ml @ 5 MG/HR 5 mls /hr IV Q12H [facility] Rx#:[id number] Magnesium Sulfate 8.12 Meq In 52 Dextrose 5% in Water 50 ml @ 52 mls/hr IV ONCE ONE Rx#: [id number] Oral 300 Output: Void Amount 275 475 275 Other: Meal Dinner Breakfast Percent of Meal Consumed 100% 100% Feeding Ability Assist with Tray Set Up Independent Urine Appearance Clear Clear Clear Urine Color Bright Yellow Straw Dark Yellow Light Sabi Urine Odor Fecal Stool Size Moderate Stool Color Brown Stool Consistency Soft Loose # Bowel Movements 1 Weight 70.08 kg Medical - DS: Data Labs on day of discharge: Labs from last 24 hours 04/01/19 04/01/19 03/31/19 04:05 04:04 14:58 WBC 10.3 RBC 4.19 Hgb 11.9 L Hct 36.3 MCV 86.7 MCH 28.4 MCHC 32.7 RDW 17.3 H Plt Count 193 MPV 8.1 Gran % 80.6 H Lymph % (Auto) 11.2 L Weak[place] % (Auto) 7.4 Eos % (Auto) 0.5 Baso % (Auto) 0.3 Gran # 8.3 H Lymph # (Auto) 1.2 L Weak[place] # (Auto) 0.8 Eos # (Auto) 0 Baso # (Auto) 0 Total Counted Seg Neutrophils % Band Neutrophils % Lymphocytes % Monocytes % (Manual) Platelet Estimate RBC Morphology Sodium 138 Potassium 3.0 L Chloride 100 Carbon Dioxide 24 Anion Gap 14.0 BUN 24 H Creatinine 0.7 GFR Calculation 87 Glucose 96 Uric Acid 8.2 H Calcium 9.1 Phosphorus 4.3 Magnesium 1.8 Total Bilirubin 0.4 Direct Bilirubin < 0.2 GGT 21 AST 15 ALT 26 Alkaline Phosphatase 48 Lactate Dehydrogenase 234 Troponin T NT-Pro-B Natriuret Pep Total Protein 5.3 L Albumin 3.0 L Globulin 2.3 Albumin/Globulin Ratio 1.3 Triglycerides 198 H Procalcitonin 0.12 TSH 03/31/19 03/31/19 03/31/19 14:58 14:58 14:58 WBC RBC Hgb Hct MCV MCH MCHC RDW Plt Count MPV Gran % Lymph % (Auto) Weakley % (Auto) Eos % (Auto) Baso % (Auto) Gran # Lymph # (Auto) Weak[place] # (Auto) Eos # (Auto) Baso # (Auto) Total Counted 100 Seg Neutrophils % 85 H Band Neutrophils % 1 Lymphocytes % 6 L Monocytes % (Manual) 8 Platelet Estimate Normal RBC Morphology Normal Sodium Potassium Chloride Carbon Dioxide Anion Gap BUN Creatinine GFR Calculation Glucose Uric Acid Calcium Phosphorus Magnesium 1.4 L Total Bilirubin Direct Bilirubin GGT AST ALT Alkaline Phosphatase Lactate Dehydrogenase Troponin T 0.20 H* NT-Pro-B Natriuret Pep Total Protein Albumin Globulin Albumin/Globulin Ratio Triglycerides Procalcitonin TSH 1.58 03/31/19 03/31/19 03/31/19 12:18 12:18 12:18 WBC 15.4 H RBC 4.75 Hgb 13.3 Hct 40.1 MCV 84.5 MCH 28.0 MCHC 33.1 RDW 17.6 H Plt Count 204 MPV 8.1 Gran % 90.1 H Lymph % (Auto) 6.0 L Weak[place] % (Auto) 3.9 Eos % (Auto) 0 Baso % (Auto) 0 Gran # 13.9 H Lymph # (Auto) 0.9 L Weak[place] # (Auto) 0.6 Eos # (Auto) 0 Baso # (Auto) 0 Total Counted Seg Neutrophils % Band Neutrophils % Lymphocytes % Monocytes % (Manual) Platelet Estimate RBC Morphology Sodium 136 Potassium 3.7 Chloride 100 Carbon Dioxide 21 L Anion Gap 15.0 BUN 21 Creatinine 0.8 GFR Calculation 74 Glucose 161 H Uric Acid Calcium 9.5 Phosphorus Magnesium Total Bilirubin 0.6 Direct Bilirubin GGT AST 21 ALT 29 Alkaline Phosphatase 55 Lactate Dehydrogenase Troponin T 0.25 H* NT-Pro-B Natriuret Pep 1509.0 H Total Protein 5.9 Albumin 3.3 Globulin 2.6 Albumin/Globulin Ratio 1.3 Triglycerides Procalcitonin TSH Medical - DS: A/P - Patient/Caregiver Discharge Instructions Activity: increase activity as tolerated Diet: Consistent Carbohydrate Additional Instructions: [facility] - Pulmonary Medicine Clinic Appointment rescheduled. Prescriptions: Losartan Potassium 25 mg PO DAILY #1 tab Magnesium Oxide 400 mg PO BID #40 tab Famotidine [Pepcid] 40 mg PO HS #30 tab - Follow up Plan Follow up with: Eligio Huerta MD [Primary Care Provider] - Disposition: Home, Self-Care Prognosis: Fair Rehab Potential: Fair Overall status at discharge: patient is back to baseline
[2019-04-01] MEDS ORDERED: DILTIAZEM 125 MG in DEXTROSE 5% IN WATER 100 ML IV PRN (14:45)
[2019-04-01] MEDS ORDERED: IPRATROPIUM/ALBUTEROL 3 ML AMPUL.NEB NEB PRN (15:30)
[2019-04-01] MEDS ORDERED: MAGNESIUM SULFATE 2 GM/50 ML BAG IV PRN (15:30)
[2019-04-01] MEDS ORDERED: METOPROLOL TARTRATE 5 MG/5 ML VIAL IV PRN (15:30)
[2019-04-01] MEDS ORDERED: POTASSIUM CHLORIDE 20 MEQ TABLET PO PRN ×2 (15:30)
[2019-04-01] MEDS ORDERED: ONDANSETRON 4 MG/2 ML VIAL IV PRN (15:30)
[2019-04-01] MEDS ORDERED: DEXTROSE 50% 50 ML VIAL IV PRN (15:30)
[2019-04-01] MEDS ORDERED: NITROGLYCERIN 0.4 MG TAB.SUBL SL PRN (15:30)
[2019-04-01] MEDS ORDERED: POLYETHYLENE GLYCOL 3350 17 GM PACKET PO PRN (15:30)
[2019-04-01] MEDS ORDERED: ACETAMINOPHEN 325 MG TABLET PO PRN (15:30)
[2019-04-01] MEDS ORDERED: POTASSIUM CHLORIDE 40 MEQ in DEXTROSE 5% IN WATER 500 ML IV PRN (15:30)
[2019-04-01] MEDS ORDERED: DEXTROSE 31 GM ORAL.SUSP PO PRN (15:30)
[2019-04-01] MEDS ORDERED: LOPERAMIDE 2 MG CAPSULE PO PRN (15:30)
[2019-04-01] MEDS ORDERED: NORTRIPTYLINE 10 MG CAPSULE PO SCH (21:00)
[2019-04-02] MEDS: 0.9 % SODIUM CHLORIDE 10 ML SYRINGE IV SCH (05:20)
[2019-04-02 06:23] LABS: ALT/SGPT 26 U/l (0-40); AST/SGOT 16 U/l (0-37); Albumin/Globulin Ratio 1.2 (1.0-2.3); Alkaline Phosphatase 50 U/L (39-117); Bilirubin,Direct < 0.2 mg/dL (0.0-0.3); Bilirubin,Total 0.4 mg/dL (0.0-1.0); Blood Urea Nitrogen 28 mg/dl (8-23); Carbon Dioxide 20 mmol/L (22-30); Chloride 104 mmol/L (96-108); Globulin 2.5 gm/dL (2.2-3.7); Glomerular Filtration Rate 64; Glucose 101 mg/dL (70-105); Lactate Dehydrogenase 261 U/L (94-250); Phosphorous 3.2 mg/dL (2.7-4.5); Triglycerides 156 mg/dl (<150)
[2019-04-02] MEDS ORDERED: LEVOTHYROXINE 50 MCG TABLET PO SCH (07:30)
[2019-04-02] MEDS: MYCOPHENOLATE 250 MG CAPSULE PO SCH (07:38)
[2019-04-02] MEDS: INSULIN LISPRO 1 UNIT/0.01 ML UNIT SQ SCH (07:43)
[2019-04-02] MEDS ORDERED: POTASSIUM CHLORIDE 10 MEQ TABLET PO SCH (08:00)
[2019-04-02] MEDS ORDERED: predniSONE 20 MG TABLET PO SCH (08:00)
[2019-04-02] MEDS ORDERED: ASPIRIN 81 MG TAB.CHEW PO SCH (09:00)
[2019-04-02] MEDS ORDERED: ATORVASTATIN 20 MG TABLET PO SCH (09:00)
[2019-04-02] MEDS ORDERED: TRIAMTERENE/HYDROCHLOROTHIAZID 1 CAP CAPSULE PO SCH (09:00)
[2019-04-02] MEDS: metFORMIN 500 MG TABLET PO SCH (09:57)
[2019-04-02] MEDS: OMEPRAZOLE 20 MG CAPSULE PO SCH (09:58)
[2019-04-02] MEDS: METOPROLOL SUCCINATE 50 MG TAB.XL.24H PO SCH (09:58)
[2019-04-02] MEDS: APIXABAN 5 MG TABLET PO SCH (10:02)
== END 2019-04-02 12:25 | disposition home or self-care (01) | DRG 309 ==
LOC: ED 11:48 → ICU 18:30
PROVIDERS: ADMIT Internal Medicine; ATTEND Internal Medicine

== ENCOUNTER 2019-04-07 05:55 | Inpatient (IN) ==
[2019-04-07] MEDS ORDERED: 0.9 % SODIUM CHLORIDE 1,000 ML IV ONE (06:15)
[2019-04-07] MEDS ORDERED: METOPROLOL TARTRATE 5 MG/5 ML VIAL IV ONE (06:18)
--- NOTE | 2019-04-07 06:33 | Emergency Department Note ---
General Adult HPI - General Chief complaint: Dizziness Stated complaint: dizziness Time Seen by Provider: 04/07/19 06:14 Source: family Mode of arrival: wheelchair Limitations: no limitations - History of Present Illness HPI Narrative: 73-year-old female who work-up this morning with shortness of breath chest pain and atrial fibrillation with rapid ventricular response again. Normally she takes metoprolol twice a day for this but she has not got her morning dose yet. No nausea vomiting diarrhea fever chills I reviewed the medical records from her last admission and note that she was just in here for the similar complaint - Related Data Home Medications Medication Instructions Recorded Confirmed ascorbic acid (vitamin C) 1,000 mg 1,000 mg PO DAILY tab 12/15/14 03/31/19 tablet,extended release aspirin 81 mg tablet,delayed 81 mg PO DAILY tab 12/15/14 03/31/19 release calcium citrate 500 500 mg PO DAILY 12/15/14 03/31/19 cranberry extract 300 mg tablet 300 mg PO DAILY tab 12/15/14 03/31/19 multivitamin 1 tab PO .COMPLEX tab 12/15/14 03/31/19 glucosam 750 mg-chondroi 100 1 tab PO BID tab 01/13/19 03/31/19 mg-hyalur 1.65 mg-CF borate 108 mg tablet apixaban 5 mg tablet 5 mg PO BID 02/23/19 03/31/19 oxygen 4 liters 1 each INH CONT #1 ea 02/23/19 04/01/19 mycophenolate mofetil 500 mg tablet 500 mg PO BID 03/22/19 03/31/19 prednisone 20 mg tablet 60 mg PO [facility] tab 03/22/19 03/31/19 Atorvastatin [Lipitor] 10 mg PO DAILY 03/31/19 03/31/19 Cholecalciferol (Vitamin D3) 1,000 unit PO DAILY 03/31/19 03/31/19 [Vitamin D3] Estradiol [Estrace] 1 mg PO DAILY 03/31/19 03/31/19 Nortriptyline HCl [Pamelor] 10 mg PO HS 03/31/19 03/31/19 Potassium Chloride [K-Tab ER] [address] [facility] 03/31/19 03/31/19 Triamterene/Hydrochlorothiazid 1 tab PO DAILY 03/31/19 03/31/19 [Triamterene-Hctz 37.5-25 mg Tb] Placard For Disability 1 each MISC ONCE 04/01/19 04/01/19 Wheel Chair 1 each MISC ONCE 04/01/19 04/01/19 Previous Rx's Medication Instructions Recorded nitroglycerin 0.4 mg sublingual 0.4 mg SUBLINGUAL .COMPLEX PRN #10 10/07/18 tablet tab levothyroxine 50 mcg tablet 50 mcg PO QDAY #90 tab 02/08/19 metformin 500 mg tablet 500 mg PO BID #180 tab 02/08/19 metoprolol succinate 100 mg 100 mg PO BID #180 tab 02/08/19 tablet,extended release 24 hr loperamide 2 mg tablet 2 mg PO Q2-4H PRN #1 tab 02/11/19 hydrocortisone 1 % topical cream 1 applic TOPICAL BID PRN #30 g 03/22/19 Famotidine [Pepcid] 40 mg PO HS #30 tab 04/01/19 Losartan Potassium 25 mg PO DAILY #1 tab 04/01/19 Magnesium Oxide 400 mg PO BID #40 tab 04/01/19 ciprofloxacin HCl 250 mg tablet 250 mg PO BID #10 tab 04/06/19 Allergies Allergy/AdvReac Type Severity Reaction Status Date / Time Cefprozil Allergy Mild Hives Verified 03/22/19 12:54 ciprofloxacin Allergy Mild Hives Verified 03/22/19 12:54 codeine AdvReac Mild Nausea Verified 03/22/19 12:54 Sulfa (Sulfonamide AdvReac Mild Rash Verified 03/22/19 12:54 Antibiotics) Review of Systems All systems ED: reviewed and negative except as stated. Past Medical History - Past Medical History Attestation: Yes: The following information was validated with the patient. [facility] Narrative: Family History (Last Reviewed 03/06/19 @ 19:06 by Ray Valles PA-C) Mother Alzheimer's disease Essential hypertension Acute myocardial infarction Transient cerebral ischemia Unknown Atherosclerosis of coronary artery Diabetes mellitus Hyperlipidemia Father Instantaneous Acute myocardial infarction Brother Cardiac disease Medical History (Last Reviewed 03/06/19 @ 19:06 by Ray Valles PA-C) Hypoxemia (Chronic) UIP (usual interstitial pneumonitis) (Chronic) Pulmonary infiltrates on CXR (Chronic) Stable angina (Acute) Fracture of thoracic vertebra, closed (Acute) Osteoarthritis (Acute) Obesity (Acute) Postmenopausal related mood disorder (Acute) Joint pain (Acute) Hypertension, essential (Acute) Hyperlipemia (Acute) Gastroesophageal reflux (Acute) Dysphagia (Acute) Coronary artery disease (Acute) History of colonic polyps (Acute) Chest pain (Acute) Past Surgical History (Last Reviewed 03/06/19 @ 19:06 by Ray Valles PA-C) History of tubal ligation (Acute) History of hysterectomy (Acute) History of coronary artery stent placement (Acute) Medical history: Reports: CAD (coronary artery disease), GERD, hyperlipidemia, hypertension - Social History smoking status: Never smoker Physical Exam Thin female no acute distress. Normocephalic atraumatic. Conjunctive are clear sclerae white nonicteric. No nasal discharge or congestion. Oropharynx pink moist. Posterior pharynx clear. Neck is supple without lymphadenopathy thyromegaly or carotid bruit. Heart is irregularly irregular rhythm and tachycardic. Lungs are clear to auscultation bilaterally without wheezes rales rhonchi or respiratory distress. Abdomen is soft nontender nondistended. No peritoneal signs or guarding. Limitations: no limitations Course Vital Signs Temperature 97.3 F 04/07/19 05:56 Pulse Rate 156 H 04/07/19 05:56 Respiratory Rate 25 H 04/07/19 05:56 Blood Pressure 99/78 04/07/19 05:56 Pulse Oximetry (%) 97 04/07/19 05:56 Temperature 97.3 F 04/07/19 05:56 Pulse Rate 145 H 04/07/19 08:19 Respiratory Rate 18 04/07/19 08:19 Blood Pressure 101/76 04/07/19 08:19 Pulse Oximetry (%) 95 04/07/19 08:19 Medical Decision Making - Lab Data Lab results reviewed: Yes I reviewed the patient's lab results. Result diagrams: 04/07/19 06:46 04/07/19 06:46 Lab Results 04/07/19 04/07/19 04/07/19 Range/Units 06:46 06:46 06:46 WBC 9.8 (4.5-11.0) K/mcL RBC 4.45 (4.00-5.20) M/mcL Hgb 12.6 (12.0-15.0) g/dL Hct 38.5 (36.0-48.0) % POC Hct 38.0 (36.0-48.0) % MCV 86.5 (80.0-100.0) fL MCH 28.4 (26.0-34.0) pg MCHC 32.8 (31.0-36.0) g/dL RDW 18.2 H (11.5-14.5) % Plt Count 249 (140-440) K/mcL MPV 7.5 (7.4-10.4) fL Gran % 79.0 H (38.0-78.0) % Lymph % (Auto) 13.5 L (15.5-49.0) % Walton % (Auto) 6.8 (1.0-12.0) % Eos % (Auto) 0.5 (0.0-7.0) % Baso % (Auto) 0.2 (0.0-2.0) % Gran # 7.7 (1.8-8.0) K/mcL Lymph # (Auto) 1.3 L (1.5-4.8) K/mcL Walton # (Auto) 0.7 (0.1-0.9) K/mcL Eos # (Auto) 0 (0.0-0.7) K/mcL Baso # (Auto) 0 (0.0-0.3) K/mcL PT 15.0 H (11.9-14.5) sec INR 1.2 H (0.9-1.1) POC Sodium 138 (133-145) mmol/L Sodium 141 (133-145) mmol/L POC Potassium 3.7 (3.3-5.1) mmol/L Potassium 3.6 (3.3-5.1) mmol/L POC Chloride 104 (96-108) mmol/L Chloride 103 (96-108) mmol/L Carbon Dioxide 24 (22-30) mmol/L POC Total CO2 24 (22-30) mmol/L Anion Gap 14.0 (8-16) POC BUN 25 H (8-23) mg/dl BUN 25 H (8-23) mg/dl Creatinine 0.8 (0.6-1.1) mg/dl POC Creatinine 0.9 (0.6-1.1) mg/dl GFR Calculation 74 Glucose 105 (70-105) mg/dL POC Glucose 103 (70-105) mg/dL Calcium 9.3 (8.6-10.4) mg/dl POC WB Ioniz Calcium 1.25 (1.16-1.32) mmol/L Total Bilirubin 0.6 (0.0-1.0) mg/dL AST 13 (0-37) U/l ALT 22 (0-40) U/l Alkaline Phosphatase 47 (39-117) U/L Troponin T (0-0.03) ng/ml Total Protein 5.3 L (5.9-8.4) gm/dL Albumin 3.2 (3.2-5.2) gm/dL Globulin 2.1 L (2.2-3.7) gm/dL Albumin/Globulin Ratio 1.5 (1.0-2.3) 04/07/19 Range/Units 06:46 WBC (4.5-11.0) K/mcL RBC (4.00-5.20) M/mcL Hgb (12.0-15.0) g/dL Hct (36.0-48.0) % POC Hct (36.0-48.0) % MCV (80.0-100.0) fL MCH (26.0-34.0) pg MCHC (31.0-36.0) g/dL RDW (11.5-14.5) % Plt Count (140-440) K/mcL MPV (7.4-10.4) fL Gran % (38.0-78.0) % Lymph % (Auto) (15.5-49.0) % Walton % (Auto) (1.0-12.0) % Eos % (Auto) (0.0-7.0) % Baso % (Auto) (0.0-2.0) % Gran # (1.8-8.0) K/mcL Lymph # (Auto) (1.5-4.8) K/mcL Walton # (Auto) (0.1-0.9) K/mcL Eos # (Auto) (0.0-0.7) K/mcL Baso # (Auto) (0.0-0.3) K/mcL PT (11.9-14.5) sec INR (0.9-1.1) POC Sodium (133-145) mmol/L Sodium (133-145) mmol/L POC Potassium (3.3-5.1) mmol/L Potassium (3.3-5.1) mmol/L POC Chloride (96-108) mmol/L Chloride (96-108) mmol/L Carbon Dioxide (22-30) mmol/L POC Total CO2 (22-30) mmol/L Anion Gap (8-16) POC BUN (8-23) mg/dl BUN (8-23) mg/dl Creatinine (0.6-1.1) mg/dl POC Creatinine (0.6-1.1) mg/dl GFR Calculation Glucose (70-105) mg/dL POC Glucose (70-105) mg/dL Calcium (8.6-10.4) mg/dl POC WB Ioniz Calcium (1.16-1.32) mmol/L Total Bilirubin (0.0-1.0) mg/dL AST (0-37) U/l ALT (0-40) U/l Alkaline Phosphatase (39-117) U/L Troponin T 0.16 H* (0-0.03) ng/ml Total Protein (5.9-8.4) gm/dL Albumin (3.2-5.2) gm/dL Globulin (2.2-3.7) gm/dL Albumin/Globulin Ratio (1.0-2.3) - EKG Data EKG #1 EKG attestation: Yes I reviewed and interpreted this EKG., Yes There are no EKG findings of acute coronary syndrome, Yes This EKG will be read by golf cart repairer EKG results narrative: EKG shows a rate of 159 atrial fibrillation with rapid ventricular response Disposition Pt seen by MAIL PROCESSING EQUIPMENT MECHANIC/PA only: No Clinical Impression: Atrial fibrillation with RVR Summary: Start work-up with laboratory. Start IV fluids. Give metoprolol for A. fib with RVR Metoprolol x1 dose did not seem to make a difference at all so started Cardizem drip. This was titrated Laboratory came back showing elevated troponin but it was actually less than it was last time she was here. Shift change came and patient will be checked out to Dr. De Anda for further care and evaluation Disposition: Home, Self-Care Referrals: Eligio Huerta MD [Primary Care Provider] -
[2019-04-07 06:49] LABS: POC Blood Urea Nitrogen 25 mg/dl (8-23); POC CO2 24 mmol/L (22-30); POC Calcium, Ionized 1.25 mmol/L (1.16-1.32); POC Chloride 104 mmol/L (96-108); POC Creatinine 0.9 mg/dl (0.6-1.1); POC Glucose, Random 103 mg/dL (70-105); POC Potassium 3.7 mmol/L (3.3-5.1); POC Sodium 138 mmol/L (133-145)
[2019-04-07] MEDS ORDERED: DILTIAZEM 25 MG/5 ML VIAL IV ONE (07:08)
[2019-04-07] MEDS ORDERED: DILTIAZEM 125 MG in DEXTROSE 5% IN WATER 100 ML IV SCH ×2 (07:15→15:30)
[2019-04-07 07:53] LABS: Basophils # (Auto) 0 K/mcL (0.0-0.3); Basophils % (Auto) 0.2 % (0.0-2.0); Eosinophils # (Auto) 0 K/mcL (0.0-0.7); Eosinophils % (Auto) 0.5 % (0.0-7.0); Hematocrit 38.5 % (36.0-48.0); Hemoglobin 12.6 g/dL (12.0-15.0); Lymphocytes # (Auto) 1.3 K/mcL (1.5-4.8); Lymphocytes % (Auto) 13.5 % (15.5-49.0); Mean Cell Volume 86.5 fL (80.0-100.0); Mean Corpuscular HGB Conc 32.8 g/dL (31.0-36.0); Mean Platelet Volume 7.5 fL (7.4-10.4); Monocytes # (Auto) 0.7 K/mcL (0.1-0.9); Monocytes % (Auto) 6.8 % (1.0-12.0); Platelet Count 249 K/mcL (140-440); RBC 4.45 M/mcL (4.00-5.20); Red Cell Distribution Width 18.2 % (11.5-14.5); WBC 9.8 K/mcL (4.5-11.0)
[2019-04-07 08:04] LABS: INR 1.2 (0.9-1.1)
[2019-04-07 08:18] LABS: ALT/SGPT 22 U/l (0-40); AST/SGOT 13 U/l (0-37); Albumin 3.2 gm/dL (3.2-5.2); Albumin/Globulin Ratio 1.5 (1.0-2.3); Alkaline Phosphatase 47 U/L (39-117); Bilirubin,Total 0.6 mg/dL (0.0-1.0); Blood Urea Nitrogen 25 mg/dl (8-23); Calcium 9.3 mg/dl (8.6-10.4); Carbon Dioxide 24 mmol/L (22-30); Chloride 103 mmol/L (96-108); Globulin 2.1 gm/dL (2.2-3.7); Glomerular Filtration Rate 74; Glucose 105 mg/dL (70-105)
[2019-04-07 10:28] LABS: Appearance,Urine CLOUDY; Bacteria,Urine 0 /hpf (0); Bilirubin,Urine NEG (NEG); Color,Urine YELLOW; Culture Indicated,Urine YES; Glucose,Urine (UA) NEGATIVE (NEG); Ketones,Urine NEG (NEG); Leukocyte Esterase,Urine 250 /uL (NEG); Mucus,Urine FEW /hpf (0); Nitrate,Urine NEG (NEG); Protein,Urine NEG (NEG); Specific Gravity,Urine 1.015 (1.000-1.035); Triple Phosphate Crystal,Urine MOD /hpf (0); Urine Amorphous Crystals FEW /hpf (0); Urine Blood NEG mg/dL (<0.03); Urine Hyaline Cast 2 /lpf (0-2); Urine RBC 2 /hpf (0-1); Urine Squamous Epithelial Cell < 1 /hpf (0-4); Urine WBC 46 /hpf (0-4); Urobilinogen,Urine NEG (NEG)
--- NOTE | 2019-04-07 10:28 | Emergency Department Note ---
Dizziness HPI - General Chief Complaint: Dizziness Stated Complaint: dizziness Time Seen by Provider: 04/07/19 06:14 Source: family Mode of arrival: wheelchair Limitations: no limitations - Related Data Home Medications Medication Instructions Recorded Confirmed ascorbic acid (vitamin C) 1,000 mg 1,000 mg PO DAILY tab 12/15/14 03/31/19 tablet,extended release aspirin 81 mg tablet,delayed 81 mg PO DAILY tab 12/15/14 03/31/19 release calcium citrate 500 500 mg PO DAILY 12/15/14 03/31/19 cranberry extract 300 mg tablet 300 mg PO DAILY tab 12/15/14 03/31/19 multivitamin 1 tab PO .COMPLEX tab 12/15/14 03/31/19 glucosam 750 mg-chondroi 100 1 tab PO BID tab 01/13/19 03/31/19 mg-hyalur 1.65 mg-CF borate 108 mg tablet apixaban 5 mg tablet 5 mg PO BID 02/23/19 03/31/19 oxygen 4 liters 1 each INH CONT #1 ea 02/23/19 04/01/19 mycophenolate mofetil 500 mg tablet 500 mg PO BID 03/22/19 03/31/19 prednisone 20 mg tablet 60 mg PO [facility] tab 03/22/19 03/31/19 Atorvastatin [Lipitor] 10 mg PO DAILY 03/31/19 03/31/19 Cholecalciferol (Vitamin D3) 1,000 unit PO DAILY 03/31/19 03/31/19 [Vitamin D3] Estradiol [Estrace] 1 mg PO DAILY 03/31/19 03/31/19 Nortriptyline HCl [Pamelor] 10 mg PO HS 03/31/19 03/31/19 Potassium Chloride [K-Tab ER] 10 meq PO [facility] 03/31/19 03/31/19 Triamterene/Hydrochlorothiazid 1 tab PO DAILY 03/31/19 03/31/19 [Triamterene-Hctz 37.5-25 mg Tb] Placard For Disability 1 each MISC ONCE 04/01/19 04/01/19 Wheel Chair 1 each MISC ONCE 04/01/19 04/01/19 Previous Rx's Medication Instructions Recorded nitroglycerin 0.4 mg sublingual 0.4 mg SUBLINGUAL .COMPLEX PRN #10 05/16/19 tablet tab levothyroxine 50 mcg tablet 50 mcg PO QDAY #90 tab 02/08/19 metformin 500 mg tablet 500 mg PO BID #180 tab 02/08/19 metoprolol succinate 100 mg 100 mg PO BID #180 tab 02/08/19 tablet,extended release 24 hr loperamide 2 mg tablet 2 mg PO Q2-4H PRN #1 tab 02/11/19 hydrocortisone 1 % topical cream 1 applic TOPICAL BID PRN #30 g 03/22/19 Famotidine [Pepcid] 40 mg PO HS #30 tab 04/01/19 Losartan Potassium 25 mg PO DAILY #1 tab 04/01/19 Magnesium Oxide 400 mg PO BID #40 tab 04/01/19 ciprofloxacin HCl 250 mg tablet 250 mg PO BID #10 tab 04/06/19 Allergies Allergy/AdvReac Type Severity Reaction Status Date / Time Cefprozil Allergy Mild Hives Verified 03/22/19 12:54 ciprofloxacin Allergy Mild Hives Verified 03/22/19 12:54 codeine AdvReac Mild Nausea Verified 03/22/19 12:54 Sulfa (Sulfonamide AdvReac Mild Rash Verified 03/22/19 12:54 Antibiotics) Past Medical History - Past Medical History Medical history: Reports: CAD (coronary artery disease), GERD, hyperlipidemia, hypertension - Social History smoking status: Never smoker Physical Exam Limitations: no limitations Course - Reevaluation(s) Reevaluation #1: Please see history and physical as documented by Dr. Jericho vicente. She has atrial fibrillation with rapid ventricular response at this time. Her heart rate is s till in the 120s, 130s despite a drip of 15 mg per hour. I discussed hospital admission with Dr. Joseph. Her troponin is elevated but has been so even March 31 when she was seen here before. Vital Signs Temperature 97.3 F 04/07/19 05:56 Pulse Rate 156 H 04/07/19 05:56 Respiratory Rate 25 H 04/07/19 05:56 Blood Pressure 99/78 04/07/19 05:56 Pulse Oximetry (%) 97 04/07/19 05:56 Temperature 97.3 F 04/07/19 05:56 Pulse Rate 74 04/07/19 08:54 Respiratory Rate 30 H 04/07/19 08:54 Blood Pressure 115/88 04/07/19 08:54 Pulse Oximetry (%) 96 04/07/19 08:54 Dizziness - MDM Narrative Medical decision making narrative: Diagnosis is atrial fibrillation, rapid ventricular response - Lab Data Lab results reviewed: Yes I reviewed the patient's lab results. Result diagrams: 04/07/19 06:46 04/07/19 06:46 Lab Results 04/07/19 04/07/19 04/07/19 Range/Units 06:46 06:46 06:46 WBC 9.8 (4.5-11.0) K/mcL RBC 4.45 (4.00-5.20) M/mcL Hgb 12.6 (12.0-15.0) g/dL Hct 38.5 (36.0-48.0) % POC Hct 38.0 (36.0-48.0) % MCV 86.5 (80.0-100.0) fL MCH 28.4 (26.0-34.0) pg MCHC 32.8 (31.0-36.0) g/dL RDW 18.2 H (11.5-14.5) % Plt Count 249 (140-440) K/mcL MPV 7.5 (7.4-10.4) fL Gran % 79.0 H (38.0-78.0) % Lymph % (Auto) 13.5 L (15.5-49.0) % Dewitt % (Auto) 6.8 (1.0-12.0) % Eos % (Auto) 0.5 (0.0-7.0) % Baso % (Auto) 0.2 (0.0-2.0) % Gran # 7.7 (1.8-8.0) K/mcL Lymph # (Auto) 1.3 L (1.5-4.8) K/mcL Dewitt # (Auto) 0.7 (0.1-0.9) K/mcL Eos # (Auto) 0 (0.0-0.7) K/mcL Baso # (Auto) 0 (0.0-0.3) K/mcL PT 15.0 H (11.9-14.5) sec INR 1.2 H (0.9-1.1) POC Sodium 138 (133-145) mmol/L Sodium 141 (133-145) mmol/L POC Potassium 3.7 (3.3-5.1) mmol/L Potassium 3.6 (3.3-5.1) mmol/L POC Chloride 104 (96-108) mmol/L Chloride 103 (96-108) mmol/L Carbon Dioxide 24 (22-30) mmol/L POC Total CO2 24 (22-30) mmol/L Anion Gap 14.0 (8-16) POC BUN 25 H (8-23) mg/dl BUN 25 H (8-23) mg/dl Creatinine 0.8 (0.6-1.1) mg/dl POC Creatinine 0.9 (0.6-1.1) mg/dl GFR Calculation 74 Glucose 105 (70-105) mg/dL POC Glucose 103 (70-105) mg/dL Calcium 9.3 (8.6-10.4) mg/dl POC WB Ioniz Calcium 1.25 (1.16-1.32) mmol/L Total Bilirubin 0.6 (0.0-1.0) mg/dL AST 13 (0-37) U/l ALT 22 (0-40) U/l Alkaline Phosphatase 47 (39-117) U/L Troponin T (0-0.03) ng/ml Total Protein 5.3 L (5.9-8.4) gm/dL Albumin 3.2 (3.2-5.2) gm/dL Globulin 2.1 L (2.2-3.7) gm/dL Albumin/Globulin Ratio 1.5 (1.0-2.3) 04/07/19 Range/Units 06:46 WBC (4.5-11.0) K/mcL RBC (4.00-5.20) M/mcL Hgb (12.0-15.0) g/dL Hct (36.0-48.0) % POC Hct (36.0-48.0) % MCV (80.0-100.0) fL MCH (26.0-34.0) pg MCHC (31.0-36.0) g/dL RDW (11.5-14.5) % Plt Count (140-440) K/mcL MPV (7.4-10.4) fL Gran % (38.0-78.0) % Lymph % (Auto) (15.5-49.0) % Dewitt % (Auto) (1.0-12.0) % Eos % (Auto) (0.0-7.0) % Baso % (Auto) (0.0-2.0) % Gran # (1.8-8.0) K/mcL Lymph # (Auto) (1.5-4.8) K/mcL Dewitt # (Auto) (0.1-0.9) K/mcL Eos # (Auto) (0.0-0.7) K/mcL Baso # (Auto) (0.0-0.3) K/mcL PT (11.9-14.5) sec INR (0.9-1.1) POC Sodium (133-145) mmol/L Sodium (133-145) mmol/L POC Potassium (3.3-5.1) mmol/L Potassium (3.3-5.1) mmol/L POC Chloride (96-108) mmol/L Chloride (96-108) mmol/L Carbon Dioxide (22-30) mmol/L POC Total CO2 (22-30) mmol/L Anion Gap (8-16) POC BUN (8-23) mg/dl BUN (8-23) mg/dl Creatinine (0.6-1.1) mg/dl POC Creatinine (0.6-1.1) mg/dl GFR Calculation Glucose (70-105) mg/dL POC Glucose (70-105) mg/dL Calcium (8.6-10.4) mg/dl POC WB Ioniz Calcium (1.16-1.32) mmol/L Total Bilirubin (0.0-1.0) mg/dL AST (0-37) U/l ALT (0-40) U/l Alkaline Phosphatase (39-117) U/L Troponin T 0.16 H* (0-0.03) ng/ml Total Protein (5.9-8.4) gm/dL Albumin (3.2-5.2) gm/dL Globulin (2.2-3.7) gm/dL Albumin/Globulin Ratio (1.0-2.3) Disposition Pt seen by WELL DRILLER/PA only: No Clinical Impression: Atrial fibrillation with RVR Disposition: Xfer As Inpt ([facility]) Condition: Fair Referrals: Eligio Huerta MD [Primary Care Provider] -
--- NOTE | 2019-04-07 10:29 | Internal Med History&Physical ---
Medical - H&P: HPI Patient information: Note initiated : 04/07/19 at 10:27 am Service Date, if different from initiated Date: [] Patient: Carla Meyers a 73 y/o F admitted on for dizziness. Chief Complaint: [] Chief complaint: Shortness of breath chest palpitation History of present illness: Ms. 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 Aragon at [place]. Patient also carries a history of recurrent A. fib which is managed by [facility] with Dr. Haider cardiology, she has been on metoprolol/apixaban. She presents to the ER with increasing chest p alpitations/shortness of breath that started around midnight however she tried to work with the symptoms and presented to the ER around 7 AM. She was recently hospitalized at [facility] and diagnosed with anti- synthetase syndrome and was started on high-dose prednisone as well as mycophenolate. She is currently on 60 mg prednisone which is to be tapered down soon. She is currently on anticoagulation. Initial work-up was consistent with A. fib RVR. She was started on diltiazem drip. Hospitalist service was consulted. Troponins elevated but lower than previous hospitalization. Cardiology was consulted from ER. Patient denies any precipitating events including high salt diet/N SAIDs/adjz-[id number]-ruduiom cough suppressants or changes in medications. She denies fever, cough, chills, headache, photophobia. She does endorse lightheadedness dizziness along with chest palpitations. Review of systems A 10 point review system was performed and is negative except as discussed above Medical - H&P: PMH Medical history: Recurrent Afib with RVR Hypoxemia (Chronic) UIP (usual interstitial pneumonitis) (Chronic) Pulmonary infiltrates on CXR (Chronic) Stable angina (Acute) Fracture of thoracic vertebra, closed (Acute) Osteoarthritis (Acute) Obesity (Acute) Postmenopausal related mood disorder (Acute) Joint pain (Acute) Hypertension, essential (Acute) Hyperlipemia (Acute) Gastroesophageal reflux (Acute) Dysphagia (Acute) Coronary artery disease (Acute) History of colonic polyps (Acute) Chest pain (Acute) Past Surgical History (Last Reviewed 03/06/19 @ 19:06 by Ray Valles PA-C) History of tubal ligation (Acute) History of hysterectomy (Acute) History of coronary artery stent placement (Acute) Family History (Last Reviewed 03/06/19 @ 19:06 by Ray Valles PA-C) Mother Alzheimer's disease Essential hypertension Acute myocardial infarction Transient cerebral ischemia Unknown Atherosclerosis of coronary artery Diabetes mellitus Hyperlipidemia Father Instantaneous Acute myocardial infarction Brother Cardiac disease Social History (Last Updated 11/11/18 @ 13:22 by Eligio Huerta MD) Denies smoking drinks alcohol socially Uses a walker to ambulate lives at home with her Follows up with [place] [facility] Dr. Haider Medical - H&P: Meds Home Medications Medication Instructions Recorded Confirmed Type ascorbic acid (vitamin C) 1,000 mg 1,000 mg PO DAILY tab 12/15/14 04/07/19 History tablet,extended release aspirin 81 mg tablet,delayed 81 mg PO DAILY tab 12/15/14 04/07/19 History release calcium citrate 500 500 mg PO DAILY 12/15/14 04/07/19 History cranberry extract 300 mg tablet 300 mg PO DAILY tab 12/15/14 04/07/19 History multivitamin 1 tab PO .COMPLEX tab 12/15/14 04/07/19 History nitroglycerin 0.4 mg sublingual 0.4 mg SUBLINGUAL .COMPLEX PRN #10 10/07/18 04/07/19 Rx tablet tab glucosam 750 mg-chondroi 100 1 tab PO BID tab 01/13/19 04/07/19 History mg-hyalur 1.65 mg-CF borate 108 mg tablet levothyroxine 50 mcg tablet 50 mcg PO QDAY #90 tab 02/08/19 04/07/19 Rx metformin 500 mg tablet 500 mg PO BID #180 tab 02/08/19 04/07/19 Rx metoprolol succinate 100 mg 100 mg PO BID #180 tab 02/08/19 04/07/19 Rx tablet,extended release 24 hr loperamide 2 mg tablet 2 mg PO Q2-4H PRN #1 tab 02/11/19 04/07/19 Rx apixaban 5 mg tablet 5 mg PO BID 02/23/19 04/07/19 History oxygen 4 liters 1 each INH CONT #1 ea 02/23/19 04/07/19 History hydrocortisone 1 % topical cream 1 applic TOPICAL BID PRN #30 g 03/22/19 04/07/19 Rx mycophenolate mofetil 500 mg tablet 500 mg PO BID 03/22/19 04/07/19 History prednisone 20 mg tablet 60 mg PO [facility] tab 03/22/19 04/07/19 History Atorvastatin [Lipitor] 10 mg PO DAILY 03/31/19 04/07/19 History Cholecalciferol (Vitamin D3) 1,000 unit PO DAILY 03/31/19 04/07/19 History [Vitamin D3] Estradiol [Estrace] 1 mg PO DAILY 03/31/19 04/07/19 History Nortriptyline HCl [Pamelor] 10 mg PO HS 03/31/19 04/07/19 History Potassium Chloride [K-Tab ER] 10 meq PO [facility] 03/31/19 04/07/19 History Triamterene/Hydrochlorothiazid 1 tab PO DAILY 03/31/19 04/07/19 History [Triamterene-Hctz 37.5-25 mg Tb] Famotidine [Pepcid] 40 mg PO HS #30 tab 04/01/19 04/07/19 Rx Losartan Potassium 25 mg PO DAILY #1 tab 04/01/19 04/07/19 Rx Magnesium Oxide 400 mg PO BID #40 tab 04/01/19 04/07/19 Rx Placard For Disability 1 each [facility] 04/01/19 04/07/19 History Wheel Chair 1 each [facility] 04/01/19 04/07/19 History ciprofloxacin HCl 250 mg tablet 250 mg PO BID #10 tab 04/06/19 04/07/19 Rx Allergies Allergy/AdvReac Type Severity Reaction Status Date / Time Cefprozil Allergy Mild Hives Verified 03/22/19 12:54 ciprofloxacin Allergy Mild Hives Verified 03/22/19 12:54 codeine AdvReac Mild Nausea Verified 03/22/19 12:54 Sulfa (Sulfonamide AdvReac Mild Rash Verified 03/22/19 12:54 Antibiotics) Medical - H&P: Exam - Constitutional Vitals: Temp Pulse Resp BP Pulse Ox 97.3 F 74 30 H 115/88 96 04/07/19 05:56 04/07/19 08:54 04/07/19 08:54 04/07/19 08:54 04/07/19 08:54 General appearance: no acute distress Exam: Resting comfortably Head normocephalic Oral cavity dry No ear nose discharge Eye movement symmetrical Neck no lymphadenopathy S1-S2 irregular tachycardia ESM grade 1 Diminished breath sounds bases, late inspiratory crackles Abdomen soft nontender nondistended Lower extremity no sinus clubbing no joint swelling Skin no suspicious lesion Psych anxious but alert and cooperative Neuro nonfocal Medical - H&P: Reslt - Labs CBC & Chem 7: 04/07/19 06:46 04/07/19 06:46 Labs: Short CBC 04/07/19 Range/Units 06:46 WBC 9.8 (4.5-11.0) K/mcL Hgb 12.6 (12.0-15.0) g/dL Hct 38.5 (36.0-48.0) % Plt Count 249 (140-440) K/mcL BMP 04/07/19 06:46 Sodium 141 Potassium 3.6 Chloride 103 Carbon Dioxide 24 BUN 25 H Creatinine 0.8 Glucose 105 Calcium 9.3 Cardiac Enzymes 04/07/19 Range/Units 06:46 Troponin T 0.16 H* (0-0.03) ng/ml Liver Function 04/07/19 Range/Units 06:46 Total Bilirubin 0.6 (0.0-1.0) mg/dL AST 13 (0-37) U/l ALT 22 (0-40) U/l Alkaline Phosphatase 47 (39-117) U/L Albumin 3.2 (3.2-5.2) gm/dL Medical - H&P: A/P (1) Atrial fibrillation with RVR Current visit: Yes Status: Acute * A. fib with RVR-recurrent and failed trials of calcium channel daiana/beta- daiana. Continue rate control measures including CCB/beta-daiana. On anticoagulation for CVA prophylaxis. Reviewed echocardiogram from December with EF 70%. Resume beta-daiana/anticoagulation. Not a candidate for amiodarone in light of pulmonary fibrosis. 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
[2019-04-07] MEDS ORDERED: DIGOXIN 500 MCG/2 ML AMPUL IV ONE (10:30)
[2019-04-07] MEDS ORDERED: MYCOPHENOLATE 250 MG CAPSULE PO ONE (10:50)
[2019-04-07] MEDS ORDERED: 0.9 % SODIUM CHLORIDE 1,000 ML IV SCH (12:00)
[2019-04-07] MEDS ORDERED: POTASSIUM CHLORIDE 20 MEQ PACKET PO PRN (12:44)
[2019-04-07] MEDS ORDERED: IPRATROPIUM/ALBUTEROL 3 ML AMPUL.NEB NEB PRN (12:44)
[2019-04-07] MEDS ORDERED: MAGNESIUM SULFATE 2 GM/50 ML BAG IV PRN (12:44)
[2019-04-07] MEDS ORDERED: POLYETHYLENE GLYCOL 3350 17 GM PACKET PO PRN (12:44)
[2019-04-07] MEDS ORDERED: ACETAMINOPHEN 325 MG TABLET PO PRN (12:44)
[2019-04-07] MEDS ORDERED: MELATONIN 3 MG TABLET PO PRN (12:44)
[2019-04-07] MEDS ORDERED: ONDANSETRON 4 MG/2 ML VIAL IV PRN (12:44)
[2019-04-07] MEDS ORDERED: hydrALAZINE 20 MG/ML VIAL IV PRN (12:44)
[2019-04-07] MEDS ORDERED: MAGNESIUM HYDROXIDE 30 ML ORAL.SUSP PO PRN (12:44)
[2019-04-07] MEDS ORDERED: ACETAMINOPHEN 650 MG/65 ML BOTTLE IV PRN (12:44)
[2019-04-07] MEDS ORDERED: DILTIAZEM 125 MG in 0.9 % SODIUM CHLORIDE 100 ML IV SCH (12:44)
[2019-04-07] MEDS ORDERED: LOPERAMIDE 2 MG CAPSULE PO PRN (12:51)
[2019-04-07] MEDS ORDERED: METOPROLOL SUCCINATE 50 MG TAB.XL.24H PO ONE (12:51)
[2019-04-07] MEDS ORDERED: HYDROCORTISONE CRM 1% TUBE 30GM TOPICAL PRN (12:51)
[2019-04-07] MEDS ORDERED: predniSONE 20 MG TABLET PO ONE (12:52)
--- NOTE | 2019-04-07 14:19 | XRay Report ---
CLINICAL INFORMATION: sob COMPARISON: 03/31/2019 FINDINGS: Heart is mildly enlarged. Mediastinum is unremarkable. There is mild redistribution the upper lobe pulmonary vasculature. Moderate patchy bibasilar infiltrates show slight worsening IMPRESSION: Moderate patchy bibasilar infiltrates with slight worsening since comparison x-ray one week ago. Mild underlying CHF Interpreted and Authenticated by: Lucho Flores 04/07/19
[2019-04-07] MEDS: METOPROLOL TARTRATE 5 MG/5 ML VIAL IV SCH ×4 (14:22→15:21)
[2019-04-07] MEDS: 0.9 % SODIUM CHLORIDE 10 ML SYRINGE IV SCH ×2 (14:22→22:26)
[2019-04-07] MEDS: FUROSEMIDE 40 MG/4 ML VIAL IV SCH (15:13)
[2019-04-07] MEDS ORDERED: DILTIAZEM 125 MG/25 ML VIAL IV ONE (15:27)
[2019-04-07] MEDS: 0.9 % SODIUM CHLORIDE 250 ML IV SCH (15:44)
[2019-04-07] MEDS: metFORMIN 500 MG TABLET PO SCH (16:09)
[2019-04-07] MEDS ORDERED: DILTIAZEM 30 MG TABLET PO SCH (19:00)
[2019-04-07] MEDS: NORTRIPTYLINE 10 MG CAPSULE PO SCH (20:10)
[2019-04-07] MEDS: FAMOTIDINE 20 MG TABLET PO SCH (20:10)
[2019-04-07] MEDS: MYCOPHENOLATE 250 MG CAPSULE PO SCH (20:10)
[2019-04-07] MEDS: ATORVASTATIN 20 MG TABLET PO SCH (20:11)
[2019-04-07] MEDS: MAGNESIUM OXIDE 400 MG TABLET PO SCH (20:11)
[2019-04-07] MEDS: METOPROLOL SUCCINATE 50 MG TAB.XL.24H PO SCH (20:11)
[2019-04-07] MEDS: APIXABAN 5 MG TABLET PO SCH (20:11)
[2019-04-07] MEDS: DOCUSATE SODIUM 100 MG CAPSULE PO SCH (20:11)
[2019-04-07] MEDS: SENNOSIDES/DOCUSATE SODIUM 1 TAB TABLET PO SCH (20:11)
[2019-04-07] MEDS: PROPAFENONE 150 MG TABLET PO SCH ×2 (20:15→22:26)
[2019-04-08 05:36] LABS: Hematocrit 36.5 % (36.0-48.0); Hemoglobin 11.9 g/dL (12.0-15.0); Mean Cell Volume 87.7 fL (80.0-100.0); Mean Corpuscular HGB Conc 32.7 g/dL (31.0-36.0); Mean Platelet Volume 7.6 fL (7.4-10.4); Platelet Count 209 K/mcL (140-440); RBC 4.17 M/mcL (4.00-5.20); Red Cell Distribution Width 18.7 % (11.5-14.5); WBC 6.9 K/mcL (4.5-11.0)
[2019-04-08 05:45] LABS: Bilirubin,Direct < 0.2 mg/dL (0.0-0.3); Chloride 102 mmol/L (96-108)
[2019-04-08 05:47] LABS: ALT/SGPT 21 U/l (0-40); AST/SGOT 14 U/l (0-37); Albumin 2.9 gm/dL (3.2-5.2); Albumin/Globulin Ratio 1.3 (1.0-2.3); Alkaline Phosphatase 47 U/L (39-117); Bilirubin,Total 0.5 mg/dL (0.0-1.0); Blood Urea Nitrogen 23 mg/dl (8-23); Calcium 8.4 mg/dl (8.6-10.4); Carbon Dioxide 23 mmol/L (22-30); Globulin 2.2 gm/dL (2.2-3.7); Glomerular Filtration Rate 87; Glucose 119 mg/dL (70-105); Lactate Dehydrogenase 255 U/L (94-250); Phosphorous 3.9 mg/dL (2.7-4.5); Triglycerides 175 mg/dl (<150); Uric Acid 7.8 mg/dL (2.5-8.0)
[2019-04-08] MEDS: 0.9 % SODIUM CHLORIDE 250 ML IV SCH (06:39)
[2019-04-08] MEDS: 0.9 % SODIUM CHLORIDE 10 ML SYRINGE IV SCH ×3 (06:55→20:56)
[2019-04-08] MEDS: LEVOTHYROXINE 50 MCG TABLET PO SCH (06:56)
[2019-04-08] MEDS ORDERED: DEXTROSE 50% 50 ML VIAL IV PRN (08:55)
[2019-04-08] MEDS ORDERED: DEXTROSE 31 GM ORAL.SUSP PO PRN (08:55)
[2019-04-08 08:59] LABS: Anisocytosis 1+ (NONE SEEN); Lymphocytes % 12 % (15-49); Monocytes % (Manual) 6 % (1-12); Platelet Estimate NORMAL (NORMAL); RBC Morphology ABNORM (NORMAL); Segmented Neutrophils % 82 % (38-78)
[2019-04-08] MEDS ORDERED: MULTIVIT,THER IRON,CA,FA & MIN 1 TABLET PO SCH (09:00)
[2019-04-08] MEDS: POTASSIUM CHLORIDE 10 MEQ TABLET PO SCH (09:06)
[2019-04-08] MEDS: metFORMIN 500 MG TABLET PO SCH ×2 (09:06→17:03)
[2019-04-08] MEDS: ASPIRIN 81 MG TAB.CHEW PO SCH (09:08)
[2019-04-08] MEDS: MYCOPHENOLATE 250 MG CAPSULE PO SCH ×2 (09:08→20:55)
[2019-04-08] MEDS: MAGNESIUM OXIDE 400 MG TABLET PO SCH ×2 (09:09→20:56)
[2019-04-08] MEDS: DOCUSATE SODIUM 100 MG CAPSULE PO SCH ×2 (09:09→20:55)
[2019-04-08] MEDS: LOSARTAN 50 MG TABLET PO SCH (09:10)
[2019-04-08] MEDS: MULTIVIT,THER IRON,CA,FA & MIN 1 TABLET PO SCH (09:11)
[2019-04-08] MEDS: ESTRADIOL 1 MG TABLET PO SCH (09:11)
[2019-04-08] MEDS: APIXABAN 5 MG TABLET PO SCH ×2 (09:12→20:55)
[2019-04-08] MEDS: METOPROLOL SUCCINATE 50 MG TAB.XL.24H PO SCH ×2 (09:12→20:56)
[2019-04-08] MEDS: PROPAFENONE 150 MG TABLET PO SCH ×2 (09:12→20:57)
[2019-04-08] MEDS: TRIAMTERENE/HYDROCHLOROTHIAZID 1 CAP CAPSULE PO SCH (09:12)
[2019-04-08] MEDS: FUROSEMIDE 40 MG/4 ML VIAL IV SCH ×2 (09:13→15:58)
[2019-04-08] MEDS: INSULIN LISPRO 1 UNIT/0.01 ML UNIT SQ SCH ×4 (09:14→20:54)
[2019-04-08] MEDS: predniSONE 10 MG TABLET PO SCH (09:55)
--- NOTE | 2019-04-08 11:24 | Internal Med Progress Note ---
Medical - PN: Subj Patient information: Note initiated : 04/08/19 at 11:19 am Service Date, if different from initiated Date: [] Patient: Carla Meyers a 73 y/o F admitted on 04/07/19 for Dizziness. Chief Complaint: [] Interval history: Ms. 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 Aragon at [place]. Patient also carries a history of recurrent A. fib which is managed by [facility] with Dr. Haider cardiology, she has been on metoprolol/apixaban. She presents to the ER with increasing chest palpitations/shortness of breath that started around midnight however she tried to work with the symptoms and presented to the ER around 7 AM. She was recently hospitalized at [facility] and diagnosed with anti- synthetase syndrome and was started on high-dose prednisone as well as mycophenolate. She is currently on 60 mg prednisone which is to be tapered down soon. She is currently on anticoagulation. Initial work-up was consistent with A. fib RVR. She was started on diltiazem drip. Hospitalist service was consulted. Troponins elevated but lower than previous hospitalization. Cardiology was consulted from ER. Patient denies any precipitating events including high salt diet/NSAIDs/pllq-xqd-ynipuca cough suppressants or changes in medications. She denies fever, cough, chills, headache, photophobia. She does endorse lightheadedness dizziness along with chest palpitations. 03/07 1822- Patient currently in A. fib. Case discussed with Dr. Rocha sports umpire at [place]. Discussed echo findings on phone along with EKG. Recommended initiation of Rythmol 225 mg extended release every 12 with serial EKG and telemetry monitoring to closely monitor QTc interval. Discontinue diltiazem drip/p.o. diltiazem. Continue beta-daiana 04/08-patient doing well currently in sinus converted on Rythmol. QTC around 440. We will continue monitoring for additional 24 hours and will discharge with outpatient follow-up with cardiology. No overnight events. On 2 L oxygen. Sats at goal. - Constitutional Vitals: Vital Signs Temp Pulse Resp BP Pulse Ox 96.9 F L 73 17 119/68 98 04/08/19 04:00 04/08/19 06:00 04/08/19 07:01 04/08/19 07:01 04/08/19 10:00 Period Temp Pulse Resp BP Sys/Bell Pulse Ox Last 24 Hr 96.9 F-98.1 F 62-121 17-36 95-128/54-95 94-100 Intake and Output 04/07/19 04/08/19 04/08/19 21:59 05:59 13:59 Intake Total 740 150 480 Output Total 1410 350 800 Balance -670 -200 -320 Weight 159 lb 12.8 oz Intake & Output: Intake & Output 04/07/19 04/08/19 04/08/19 21:59 05:59 13:59 Intake Total 740 150 480 Output Total 1410 350 800 Balance -670 -200 -320 Weight 159 lb 12.8 oz Intake: IV 340 Sodium Chloride 0.9% 1,000 ml @ 245 50 mls/hr IV .Q20H KRIST[facility] Rx#: [id number] Sodium Chloride 0.9% 250 ml @ 35 20 mls/hr IV .[id number] KRISTIE Rx#: [id number] Cardizem 125 mg In Dextrose 5% 60 in Water 100 ml @ 20 mls/hr IV Q6H KRISTIE Rx#:[id number] Oral 400 150 480 Output: Void Amount 1410 350 800 Other: Meal Dinner Breakfast Percent of Meal Consumed 75% 100% Feeding Ability Independent Urine Appearance Clear Clear Clear Urine Color Pale Straw Pale Urine Odor Normal Normal Foul Stool Size Large Stool Color Brown Stool Consistency Soft # Bowel Movements 0 1 General appearance: no acute distress Exam: Alert oriented Nonlabored breathing Sinus rhythm No anxiety Medical - PN: Obj Da - Labs CBC & Chem 7: 04/08/19 04:05 04/08/19 04:05 Labs: Abnormal Lab Results 04/08/19 04/08/19 04/07/19 04:05 04:05 09:46 Hgb 11.9 L RDW 18.7 H Gran % Lymph % (Auto) Lymph # (Auto) Seg Neutrophils % 82 H Lymphocytes % 12 L RBC Morphology Abnorm A Anisocytosis 1+ A PT INR POC BUN BUN Glucose 119 H Calcium 8.4 L Magnesium 1.5 L Lactate Dehydrogenase 255 H Troponin T Total Protein 5.1 L Albumin 2.9 L Globulin Triglycerides 175 H Ur Leukocyte Esterase 250 A Urine RBC 2 H Urine WBC 46 H Triple Phos Crystals Mod A Amorphous Crystals Few A 04/07/19 04/07/19 04/07/19 06:46 06:46 06:46 Hgb RDW Gran % Lymph % (Auto) Lymph # (Auto) Seg Neutrophils % Lymphocytes % RBC Morphology Anisocytosis PT 15.0 H INR 1.2 H POC BUN 25 H BUN 25 H Glucose Calcium Magnesium Lactate Dehydrogenase Troponin T 0.16 H* Total Protein 5.3 L Albumin Globulin 2.1 L Triglycerides Ur Leukocyte Esterase Urine RBC Urine WBC Triple Phos Crystals Amorphous Crystals 04/07/19 06:46 Hgb RDW 18.2 H Gran % 79.0 H Lymph % (Auto) 13.5 L Lymph # (Auto) 1.3 L Seg Neutrophils % Lymphocytes % RBC Morphology Anisocytosis PT INR POC BUN BUN Glucose Calcium Magnesium Lactate Dehydrogenase Troponin T Total Protein Albumin Globulin Triglycerides Ur Leukocyte Esterase Urine RBC Urine WBC Triple Phos Crystals Amorphous Crystals Meds: Medications Acetaminophen (Tylenol) 650 mg PO Q4-6HP PRN; Protocol PRN Reason: Per Pain Protocol/Fever > 101 Last Admin: 04/07/19 16:09 Dose: 650 mg Documented by: Albuterol/Ipratropium (Duoneb) 3 ml NEB Q4HP PRN PRN Reason: Shortness Of Breath Apixaban (Eliquis) 5 mg PO BID [facility] Last Admin: 04/08/19 09:12 Dose: 5 mg Documented by: Aspirin (Aspirin) 81 mg PO DAILY [facility] Last Admin: 04/08/19 09:08 Dose: 81 mg Documented by: Atorvastatin Calcium (Lipitor) 10 mg PO HS [facility] Last Admin: 04/07/19 20:11 Dose: 10 mg Documented by: Dextrose (Dextrose 50%) 0 ml IV UD PRN PRN Reason: Hypoglycemia Diagnostic Test (Pha) (Accu-Chek) 1 each FS ACHS [facility] Last Admin: 04/08/19 07:15 Dose: 1 each Documented by: Docusate Sodium (Colace) 100 mg PO BID [facility] Last Admin: 04/08/19 09:09 Dose: 100 mg Documented by: Estradiol (Estrace) 1 mg PO DAILY [facility] Last Admin: 04/08/19 09:11 Dose: 1 mg Documented by: Famotidine (Pepcid) 40 mg PO HS [facility] Last Admin: 04/07/19 20:10 Dose: 40 mg Documented by: Furosemide (Lasix) 20 mg IV BIDD [facility] Last Admin: 04/08/19 09:13 Dose: 20 mg Documented by: Glucose (Insta-Glucose) 15 gm PO PRN PRN PRN Reason: Hypoglycemia Hydralazine HCl (Apresoline) 10 mg IV Q4-6HP PRN PRN Reason: Hypertension Hydrocortisone (Hc Crm 1%) 1 dose TOPICAL BID PRN PRN Reason: itching or pain Acetaminophen (Ofirmev) 650 mg in 65 mls @ 130 mls/hr IV Q6HP PRN; Protocol PRN Reason: Per Pain Protocol/Fever > 101 Magnesium Sulfate (Magnesium Sulfate) 2 gm in 50 mls @ 50 mls/hr IV UD PRN PRN Reason: MG = or < 1.7 Last Admin: 04/08/19 09:05 Dose: 50 mls/hr Documented by: Sodium Chloride (Sodium Chloride 0.9%) 250 mls @ 20 mls/hr IV .[id number] [facility] Last Admin: 04/08/19 06:39 Dose: Not Given Documented by: Insulin Human Lispro (Humalog) 0 unit SQ [facility]; Protocol Last Admin: 04/08/19 09:14 Dose: Not Given Documented by: Iron Carb/Multivit/[facility]/Folic Acid (Multivitamin W/Minerals) 1 tab PO DAILY [facility] Last Admin: 04/08/19 09:11 Dose: 1 tab Documented by: Levothyroxine Sodium (Synthroid) 50 mcg PO QAMAC [facility] Last Admin: 04/08/19 06:56 Dose: 50 mcg Documented by: Loperamide HCl (Imodium) 2 mg PO Q2-4HP PRN PRN Reason: loose stool Losartan Potassium (Cozaar) 25 mg PO DAILY [facility] Last Admin: 04/08/19 09:10 Dose: 25 mg Documented by: Magnesium Hydroxide (Milk Of Magnesia) 30 ml PO HSP PRN PRN Reason: Constipation Magnesium Oxide (Magnesium Oxide) 400 mg PO BID [facility] Last Admin: 04/08/19 09:09 Dose: 400 mg Documented by: Melatonin (Melatonin 3mg Tablet) 3 mg PO HSP PRN PRN Reason: Insomnia Metformin HCl (Glucophage) 500 mg PO BIDCC [facility] Last Admin: 04/08/19 09:06 Dose: 500 mg Documented by: Metoprolol Succinate (Toprol Xl) 100 mg PO BID [facility] Last Admin: 04/08/19 09:12 Dose: 100 mg Documented by: Mycophenolate Mofetil (Cellcept) 500 mg PO BID [facility] Last Admin: 04/08/19 09:08 Dose: 500 mg Documented by: Nortriptyline HCl (Pamelor) 10 mg PO HS [facility] Last Admin: 04/07/19 20:10 Dose: 10 mg Documented by: Ondansetron HCl (Zofran) 4 mg IV Q4-6HP PRN; Protocol PRN Reason: Nausea And Vomiting Polyethylene Glycol (Miralax) 17 gm PO DAILYP PRN PRN Reason: Constipation Potassium Chloride (Klor-Con) 40 meq PO DAILYP PRN PRN Reason: K+ < 3.5 Potassium Chloride (Kdur) 10 meq PO QAC [facility] Last Admin: 04/08/19 09:06 Dose: 10 meq Documented by: Prednisone (Prednisone) 55 mg PO DAILY [facility] Last Admin: 04/08/19 09:55 Dose: 55 mg Documented by: Propafenone HCl (Rythmol) 225 mg PO Q12 [facility] Last Admin: 04/08/19 09:12 Dose: 225 mg Documented by: Senna/Docusate Sodium (Senna Plus Tablet) 1 tab PO [facility] Last Admin: 04/07/19 20:11 Dose: 1 tab Documented by: Sodium Chloride (Saline Flush) 10 ml IV Q8 [facility] Last Admin: 04/08/19 06:55 Dose: 10 ml Documented by: Triamterene/HCTZ (Maxzide 25) 1 cap PO DAILY [facility] Last Admin: 04/08/19 09:12 Dose: 1 cap Documented by: Medical - PN: A/P - Time Spent With Patient Total time spent is greater than 50% in coordination of care (as documented) at patient's floor/unit and/or counseling patient: 25 - 35 minutes (1) Atrial fibrillation with RVR Status: Acute Assessment and plan: * Paroxysmal A. fib with RVR-cardioverted on Rythmol. Continue management protocol and watch for additional 24 hours. Continue to hourly QTc monitoring/6 hourly EKG. Continue beta-daiana. 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 Currently on 2 L oxygen * DM-SSI/CCD * HTN/HLD continue losartan * Hypothyroidism: Recent TSH within normal limits * GERD continue PPI * h/o Oropharyngeal dysphagia and Esophageal dilation * Prophylaxis on apixaban Plan * continue Rythmol dosing/monitoring per protocol * Continue prednisone 55 mg/mycophenolate * PT OT nutrition support * Pre-existing medical condition management home meds * Anticoagulation Current Visit: Yes Medical - PN: Qual - VTE Deep Vein Thrombosis/Pulmonary Embolism Present on Admission: No
[2019-04-08] MEDS: FAMOTIDINE 20 MG TABLET PO SCH (20:56)
[2019-04-08] MEDS: ATORVASTATIN 20 MG TABLET PO SCH (20:56)
[2019-04-08] MEDS: NORTRIPTYLINE 10 MG CAPSULE PO SCH (20:56)
[2019-04-08] MEDS: SENNOSIDES/DOCUSATE SODIUM 1 TAB TABLET PO SCH (20:58)
[2019-04-09] MEDS: 0.9 % SODIUM CHLORIDE 10 ML SYRINGE IV SCH ×2 (05:46→07:23)
[2019-04-09] MEDS ORDERED: LORazepam 2 MG/ML VIAL IV PRN (06:00)
[2019-04-09 06:17] LABS: Hematocrit 35.3 % (36.0-48.0); Hemoglobin 11.6 g/dL (12.0-15.0); Mean Cell Volume 87.1 fL (80.0-100.0); Mean Platelet Volume 7.7 fL (7.4-10.4); Platelet Count 210 K/mcL (140-440); RBC 4.05 M/mcL (4.00-5.20); Red Cell Distribution Width 18.1 % (11.5-14.5); WBC 8.1 K/mcL (4.5-11.0)
[2019-04-09 06:57] LABS: ALT/SGPT 20 U/l (0-40); AST/SGOT 12 U/l (0-37); Albumin/Globulin Ratio 1.4 (1.0-2.3); Alkaline Phosphatase 48 U/L (39-117); Bilirubin,Direct < 0.2 mg/dL (0.0-0.3); Bilirubin,Total 0.4 mg/dL (0.0-1.0); Blood Urea Nitrogen 25 mg/dl (8-23); Calcium 9.1 mg/dl (8.6-10.4); Carbon Dioxide 26 mmol/L (22-30); Chloride 101 mmol/L (96-108); Globulin 2.2 gm/dL (2.2-3.7); Glomerular Filtration Rate 74; Glucose 102 mg/dL (70-105); Lactate Dehydrogenase 261 U/L (94-250); Phosphorous 2.9 mg/dL (2.7-4.5); Triglycerides 124 mg/dl (<150); Uric Acid 7.7 mg/dL (2.5-8.0)
[2019-04-09] MEDS: INSULIN LISPRO 1 UNIT/0.01 ML UNIT SQ SCH ×2 (07:24→12:08)
[2019-04-09] MEDS: metFORMIN 500 MG TABLET PO SCH (07:42)
[2019-04-09] MEDS: POTASSIUM CHLORIDE 10 MEQ TABLET PO SCH (07:42)
[2019-04-09] MEDS: LEVOTHYROXINE 50 MCG TABLET PO SCH (07:42)
[2019-04-09] MEDS: FUROSEMIDE 40 MG/4 ML VIAL IV SCH (07:42)
[2019-04-09 07:55] LABS: Anisocytosis 1+ (NONE SEEN); Lymphocytes % 11 % (15-49); Monocytes % (Manual) 10 % (1-12); Nucleated Red Blood Cells 1 % (0-0); Platelet Estimate NORMAL (NORMAL); RBC Morphology ABNORM (NORMAL); Segmented Neutrophils % 79 % (38-78)
[2019-04-09] MEDS: PROPAFENONE 150 MG TABLET PO SCH (09:17)
[2019-04-09] MEDS: TRIAMTERENE/HYDROCHLOROTHIAZID 1 CAP CAPSULE PO SCH (09:21)
[2019-04-09] MEDS: LOSARTAN 50 MG TABLET PO SCH (09:22)
[2019-04-09] MEDS: ESTRADIOL 1 MG TABLET PO SCH (09:24)
[2019-04-09] MEDS: APIXABAN 5 MG TABLET PO SCH (09:24)
[2019-04-09] MEDS: MULTIVIT,THER IRON,CA,FA & MIN 1 TABLET PO SCH (09:26)
[2019-04-09] MEDS: MYCOPHENOLATE 250 MG CAPSULE PO SCH (09:27)
[2019-04-09] MEDS: ASPIRIN 81 MG TAB.CHEW PO SCH (09:28)
[2019-04-09] MEDS: MAGNESIUM OXIDE 400 MG TABLET PO SCH (09:29)
[2019-04-09] MEDS: METOPROLOL SUCCINATE 50 MG TAB.XL.24H PO SCH (09:30)
[2019-04-09] MEDS: predniSONE 10 MG TABLET PO SCH (09:33)
[2019-04-09] MEDS: DOCUSATE SODIUM 100 MG CAPSULE PO SCH (09:34)
--- NOTE | 2019-04-09 14:54 | Discharge Summary ---
Medical - DS: Prov Patient information: Note initiated : 04/09/19 at 2:46 pm Service Date, if different from initiated Date: [] Patient: Carla Meyers 73 y/o F admitted on 04/07/19 for Dizziness. Chief Complaint: [] Date of admission: 04/07/19 12:25 Discharge date: 04/09/19 Primary care physician: Eligio Huerta Consults: 04/07/19 Consult to Physician [CONS] Stat Comment: Consulting Provider: Maximiliano Nazario Reason For Exam: Physician to Consult Medical - DS: Meds - Discharge Medications Prescriptions: Propafenone [Rythmol] 225 mg PO Q12 #60 tab Transmission Status: Pending to [place] [id number] [place] Active and Home Medications: Home Medications ascorbic acid (vitamin C) 1,000 mg tablet,extended release 1,000 mg PO DAILY tab 12/15/14 [History Confirmed 04/07/19 Last Taken 11/18/18] aspirin 81 mg tablet,delayed release 81 mg PO DAILY tab 12/15/14 [History Confirmed 04/07/19 Last Taken 11/18/18] calcium citrate 500 500 mg PO DAILY 12/15/14 [History Confirmed 04/07/19 Last Taken 11/18/18] cranberry extract 300 mg tablet 300 mg PO DAILY tab 12/15/14 [History Confirmed 04/07/19 Last Taken 11/18/18] multivitamin 1 tab PO .COMPLEX tab 12/15/14 [History Confirmed 04/07/19 Last Taken 11/18/18] nitroglycerin 0.4 mg sublingual tablet 0.4 mg SUBLINGUAL .COMPLEX PRN #10 tab 10/07/18 [Rx Confirmed 04/07/19 Last Taken 11/18/18] glucosam 750 mg-chondroi 100 mg-hyalur 1.65 mg-CF borate 108 mg tablet 1 tab PO BID tab 01/13/19 [History Confirmed 04/07/19 Last Taken Unknown] levothyroxine 50 mcg tablet 50 mcg PO QDAY #90 tab 02/08/19 [Rx Confirmed 04/07/19 Last Taken Unknown] metformin 500 mg tablet 500 mg PO BID #180 tab 02/08/19 [Rx Confirmed 04/07/19 Last Taken Unknown] metoprolol succinate 100 mg tablet,extended release 24 hr 100 mg PO BID #180 tab 02/08/19 [Rx Confirmed 04/07/19 Last Taken Unknown] loperamide 2 mg tablet 2 mg PO Q2-4H PRN #1 tab 02/11/19 [Rx Confirmed 04/07/19 Last Taken Unknown] apixaban 5 mg tablet 5 mg PO BID 02/23/19 [History Confirmed 04/07/19 Last Taken Unknown] oxygen 4 liters 1 each INH CONT #1 ea 02/23/19 [History Confirmed 04/07/19 Last Taken Unknown] hydrocortisone 1 % topical cream 1 applic TOPICAL BID PRN #30 g 03/22/19 [Rx Confirmed 04/07/19 Last Taken Unknown] mycophenolate mofetil 500 mg tablet 500 mg PO BID 03/22/19 [History Confirmed 04/07/19 Last Taken Unknown] Atorvastatin [Lipitor] 10 mg PO DAILY 03/31/19 [History Confirmed 04/07/19 Last Taken Unknown] Cholecalciferol (Vitamin D3) [Vitamin D3] 1,000 unit PO DAILY 03/31/19 [History Confirmed 04/07/19 Last Taken Unknown] Estradiol [Estrace] 1 mg PO DAILY 03/31/19 [History Confirmed 04/07/19 Last Taken Unknown] Nortriptyline HCl [Pamelor] 10 mg PO HS 03/31/19 [History Confirmed 04/07/19 Last Taken Unknown] Potassium Chloride [K-Tab ER] 10 meq PO [facility] 03/31/19 [History Confirmed 04/07/19 Last Taken Unknown] Triamterene/Hydrochlorothiazid [Triamterene-Hctz 37.5-25 mg Tb] 1 tab PO DAILY 03/31/19 [History Confirmed 04/07/19 Last Taken Unknown] Losartan Potassium 25 mg PO DAILY #1 tab 04/01/19 [Rx Confirmed 04/07/19 Last Taken Unknown] Placard For Disability 1 each MISC ONCE 04/01/19 [History Confirmed 04/07/19 Last Taken Unknown] Wheel Chair 1 each MISC ONCE 04/01/19 [History Confirmed 04/07/19 Last Taken Unknown] famotidine 20 mg tablet 40 mg PO HS #90 tab 04/08/19 [Rx Last Taken Unknown] lorazepam 0.5 mg tablet 0.5 mg PO BID PRN #10 tab 04/08/19 [Rx Last Taken Unknown] magnesium oxide 400 mg (241.3 mg magnesium) tablet 400 mg PO BID #180 tab 04/08/19 [Rx Last Taken Unknown] Propafenone [Rythmol] 225 mg PO Q12 #60 tab 04/09/19 [Rx Last Taken Unknown] predniSONE [Prednisone] 55 mg PO DAILY tablet 04/09/19 [Rx Last Taken Unknown] Medical - DS: Hosp Hospital Course: Discharge diagnosis * Paroxysmal A. fib with RVR-cardioverted on Rythmol. No overnight event. Monitor for 48 hours without significant QT changes. Continue Eliquis for stroke prophylaxis. We will follow-up with cardiology in 1 to 2 weeks. 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 Continue oxygen at home dose * DM-SSI/CCD/metformin * HTN/HLD continue losartan * Hypothyroidism: Recent TSH within normal limits * GERD continue PPI * h/o Oropharyngeal dysphagia and Esophageal dilation Brief hospital course Ms. 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 Aragon at [place]. Patient also carries a history of recurrent A. fib which is managed by [facility] with Dr. Haider cardiology, she has been on metoprolol/apixaban. She presents to the ER with increasing chest palpitations/shortness of breath that started around midnight however she tried to work with the symptoms and presented to the ER around 7 AM. She was recently hospitalized at [facility] and diagnosed with anti- synthetase syndrome and was started on high-dose prednisone as well as mycophenolate. She is currently on 60 mg prednisone which is to be tapered down soon. She is currently on anticoagulation. Initial work-up was consistent with A. fib RVR. She was started on diltiazem drip. Hospitalist service was consulted. Troponins elevated but lower than previous hospitalization. Cardiology was consulted from ER. Patient denies any precipitating events including high salt diet/NSAIDs/hywp-xab-ojsjqps cough suppressants or changes in medications. She denies fever, cough, chills, headache, photophobia. She does endorse l ightheadedness dizziness along with chest palpitations. 03/07 1822- Patient currently in A. fib. Case discussed with Dr. Rocha tape recorder mechanic at [place]. Discussed echo findings on phone along with EKG. Recommended initiation of Rythmol 225 mg extended release every 12 with serial EKG and telemetry monitoring to closely monitor QTc interval. Discontinue diltiazem drip/p.o. diltiazem. Continue beta-daiana 04/08-patient doing well currently in sinus converted on Rythmol. QTC around 440. We will continue monitoring for additional 24 hours and will discharge with outpatient follow-up with cardiology. No overnight events. On 2 L oxygen. Sats at goal. 04/09-patient doing well. QTC around 430. No overnight fever chills or telemetry events. Tolerating Rythmol well. Discharging today with advised to follow-up with cardiology. Patient wants to establish with [facility] locally. Recommend f/u with Dr. Rocha at [place] in 1 to 2 weeks. Discharge diagnosis: . - Time Spent with Patient Total time spent providing and/or coordinating discharge services: Greater than 30 minutes Medical - DS: Exam - Constitutional Vitals: Vital Signs Temp Pulse Pulse Resp BP BP BP 04/09/19 14:00 22 125/75 04/09/19 12:00 98.5 F 20 106/66 04/09/19 10:00 20 114/68 04/09/19 08:00 97.2 F 20 112/64 04/09/19 06:01 76 04/09/19 06:00 22 136/68 04/09/19 04:00 97.3 F 55 L 22 117/66 04/09/19 03:57 131 H 04/09/19 02:00 69 20 108/67 04/09/19 00:09 81 20 04/09/19 00:05 79 04/09/19 00:00 96.8 F L 20 123/67 04/08/19 23:01 128/68 04/08/19 23:00 04/08/19 22:01 114/60 04/08/19 22:00 04/08/19 21:01 119/67 04/08/19 21:00 04/08/19 20:02 04/08/19 20:01 96.5 F L 20 111/71 04/08/19 20:00 96.5 F L 20 111/71 04/08/19 19:39 87 04/08/19 19:37 86 04/08/19 19:01 123/69 04/08/19 19:00 04/08/19 18:32 129/71 04/08/19 18:02 04/08/19 18:01 128/77 04/08/19 17:31 87 126/65 04/08/19 17:01 21 115/66 04/08/19 16:31 22 115/62 04/08/19 16:08 77 04/08/19 16:01 114/61 04/08/19 15:31 121/75 04/08/19 15:01 113/65 Pulse Ox 04/09/19 14:00 98 04/09/19 12:00 98 04/09/19 10:00 97 04/09/19 08:00 100 04/09/19 06:01 04/09/19 06:00 100 04/09/19 04:00 100 04/09/19 03:57 04/09/19 02:00 100 04/09/19 00:09 98 04/09/19 00:05 100 04/09/19 00:00 100 04/08/19 23:01 90 04/08/19 23:00 94 04/08/19 22:01 98 04/08/19 22:00 97 04/08/19 21:01 97 04/08/19 21:00 96 04/08/19 20:02 98 04/08/19 20:01 98 04/08/19 20:00 98 04/08/19 19:39 04/08/19 19:37 97 04/08/19 19:01 96 04/08/19 19:00 96 04/08/19 18:32 95 04/08/19 18:02 98 04/08/19 18:01 97 04/08/19 17:31 94 04/08/19 17:01 96 04/08/19 16:31 95 04/08/19 16:08 04/08/19 16:01 99 04/08/19 15:31 100 04/08/19 15:01 98 Intake and Output 04/09/19 04/09/19 04/09/19 05:59 13:59 21:59 Intake Total 150 320 Output Total 300 400 Balance -150 -80 Intake: Oral 150 320 Output: Void Amount 300 400 Other: Meal Lunch Percent of Meal Consumed 25% Feeding Ability Independent Urine Appearance Clear Clear Urine Color Bright Yellow Bright Yellow Urine Odor Normal Stool Size Small Stool Color Brown Stool Consistency Formed # Voids 1 # Bowel Movements 1 Medical - DS: Data Labs on day of discharge: Labs from last 24 hours 04/09/19 04/09/19 03:55 03:55 WBC 8.1 RBC 4.05 Hgb 11.6 L Hct 35.3 L MCV 87.1 MCH 28.7 MCHC 33.0 RDW 18.1 H Plt Count 210 MPV 7.7 Total Counted 100 Seg Neutrophils % 79 H Band Neutrophils % Not Reportable Lymphocytes % 11 L Monocytes % (Manual) 10 Nucleated RBCs 1 H Platelet Estimate Normal RBC Morphology Abnorm A Anisocytosis 1+ A Sodium 140 Potassium 3.8 Chloride 101 Carbon Dioxide 26 Anion Gap 13.0 BUN 25 H Creatinine 0.8 GFR Calculation 74 Glucose 102 Uric Acid 7.7 Calcium 9.1 Phosphorus 2.9 Magnesium 1.8 Total Bilirubin 0.4 Direct Bilirubin < 0.2 GGT 25 AST 12 ALT 20 Alkaline Phosphatase 48 Lactate Dehydrogenase 261 H Total Protein 5.2 L Albumin 3.0 L Globulin 2.2 Albumin/Globulin Ratio 1.4 Triglycerides 124 Medical - DS: A/P - Patient/Caregiver Discharge Instructions Activity: as per physical therapy Diet: Consistent Carbohydrate Additional Instructions: Continue Rythmol to 25 mg twice daily Continue metoprolol/apixaban Follow-up with cardiology in 1 week or sooner Continue follow-up with pulmonology and rheumatology for underlying pulmonary fibrosis Follow-up PCP in 5 to 7 days Return to ER if chest pain, lightheadedness dizziness or palpitation noted Prescriptions: Propafenone [Rythmol] 225 mg PO Q12 #60 tab Transmission Status: Pending to [address] - Problem Maintenance (1) Atrial fibrillation with RVR Status: Acute - Follow up Plan Follow up with: Eligio Huerta MD [Primary Care Provider] - Disposition: Home, Self-Care Prognosis: Fair Rehab Potential: Fair I certify that the patient requires SNF services: No Overall status at discharge: patient is progressing back to baseline Medical - DS: Qual - VTE Deep Vein Thrombosis/Pulmonary Embolism Present on Admission: No
== END 2019-04-09 16:20 | disposition home or self-care (01) | DRG 310 ==
LOC: ED 05:55 → ICU 12:25
PROVIDERS: ADMIT Internal Medicine; ATTEND Internal Medicine

== ENCOUNTER 2020-09-11 11:51 | Inpatient (IN) ==
[2020-09-11] MEDS ORDERED: IOPAMIDOL 100 ML BOTTLE IV ONE ×2 (11:52→19:13)
[2020-09-11] MEDS ORDERED: 0.9 % SODIUM CHLORIDE 1,000 ML IV ONE (12:14)
--- NOTE | 2020-09-11 12:40 | XRay Report ---
HISTORY: Dyspnea and tested positive for COVID FINDINGS: There are streaky infiltrates in both lower lobes and around the danielle, left side greater than right. There is a parenchymal scar and a row of sutures laterally in the right lower lobe. The infiltrates are new since 02/28/20. Upper lung zamora are relatively clear. There is no pleural effusion. Heart size is normal. There is a well-positioned dual-chamber pacemaker. IMPRESSION: Mild bilateral pneumonia Interpreted and Authenticated by: Chino Bains 09/11/20
[2020-09-11] MEDS ORDERED: ACETAMINOPHEN 325 MG TABLET PO ONE (13:00)
--- NOTE | 2020-09-11 13:00 | Emergency Department Note ---
SOB HPI General Chief Complaint: Shortness of Breath/Dyspnea Stated Complaint: short of breath, tested positive for COVID Time Seen by Provider: 09/11/20 11:54 Source: patient, family, RN notes reviewed, old records reviewed and other (Patient was seen in urgent care prior to arrival) Mode of arrival: ambulatory Limitations: no limitations History of Present Illness HPI Narrative: Narrative: MD Complaint: shortness of breath and cough Onset (ago): day(s) (2) Context: recent illness, recent travel (Return trip from [place]) and other (Noted bright red blood per rectum 2 or 3 days ago) Severity: moderate Consistency/Duration: constant Improves with: rest Worsens with: exertion and movement Known history of: other (Pulmonary fibrosis) Associated symptoms: Reports cough, wheezing, palpitations and abdominal pain; Denies chest pain, pain with inspiration, fever, sputum production, orthopnea, lower extremity pain, polydipsia, parasthesias, carpopedal spasm, hemoptysis, diaphoresis, nausea/vomiting, syncope, rash and sense of impending doom Treatment prior to arrival: oxygen Related Data Home oxygen amount: 2 liters Home Medications Medication Instructions Recorded Confirmed oxygen 4 liters #1 each 02/23/19 09/11/20 cholecalciferol (vitamin D3) 1,000 unit PO DAILY 03/31/19 09/11/20 Placard For Disability 1 each [facility] ONCE 04/01/19 09/11/20 dronedarone 400 mg tablet 400 mg PO BID 06/01/19 09/11/20 calcium citrate 500 mg PO QDAY 07/29/19 09/11/20 cranberry 500 mg capsule 500 mg PO QDAY cap 07/29/19 09/11/20 furosemide 20 mg tablet 20 mg PO QDAY tab 06/19/20 09/11/20 nortriptyline 10 mg capsule 10 mg PO QHS cap 06/19/20 09/11/20 valacyclovir 1 gram tablet 1,000 mg PO TID PRN tab 06/19/20 09/11/20 cyanocobalamin (vitamin B-12) PO 07/05/20 09/11/20 Previous Rx's Medication Instructions Recorded Wheel Chair #1 each 04/26/19 atorvastatin 20 mg tablet 10 mg PO DAILY #45 tab 08/03/19 losartan 50 mg tablet 12.5 mg PO DAILY #45 tab 08/05/19 0xygen Portable Concentrator #1 ea 12/06/19 nitroglycerin 0.4 mg sublingual 0.4 mg SUBLINGUAL .COMPLEX PRN #10 12/14/19 tablet tab ipratropium 0.5 mg-albuterol 3 mg 3 ml INHALATION Q6H PRN #360 ml 03/06/20 (2.5 mg base)/3 mL nebulization soln alendronate 70 mg tablet 70 mg PO QWEEK #12 tab 04/30/20 metformin 500 mg tablet,extended 500 mg PO QDAY #90 tab 05/01/20 release 24hr omeprazole 20 mg capsule,delayed 20 mg PO BID #180 cap 05/08/20 release mycophenolate mofetil 500 mg tablet See Rx Instructions .ROUTE 05/31/20 .COMPLEX #360 tab ipratropium bromide 42 mcg (0.06 2 spray INTRANASAL TID-QID PRN #15 06/28/20 %) nasal spray ml lorazepam 0.5 mg tablet 0.5 mg PO BID PRN #10 tab 06/28/20 prednisone 5 mg tablet 7.5 mg PO QDAY #135 tab 07/05/20 levothyroxine 50 mcg tablet 50 mcg PO QDAY #90 tab 07/17/20 metoprolol succinate 100 mg 100 mg PO QDAY #90 tab 07/17/20 tablet,extended release 24 hr potassium chloride 10 mEq 10 meq PO QDAY #90 tab 07/17/20 tablet,extended release Allergies Allergy/AdvReac Type Severity Reaction Status Date / Time Cefprozil Allergy Mild Hives Verified 09/11/20 11:56 codeine AdvReac Mild Nausea Verified 09/11/20 11:56 Sulfa (Sulfonamide AdvReac Mild Rash Verified 09/11/20 11:56 Antibiotics) Review of Systems ROS ROS Narrative: Narrative: Constitutional: Reports weakness; Denies fever and chills Eyes: Denies vision change ENT ED: Denies throat pain Cardiovascular: Denies chest pain Respiratory: Reports shortness of breath and wheezes Gastrointestinal: Reports abdominal pain, diarrhea and other (Bright red blood per rectum) Genitourinary: Denies dysuria Musculoskeletal: Denies back pain Integumentary: Denies rash Neurological: Denies headache Psychiatric: Denies depression Endocrine: Denies fatigue Hematological/Lymphatic: Reports easy bruising Allergic/Immunologic: Denies urticaria [facility] Narrative Patient History Narrative: Narrative: Medical/Surgical/Family History All Active Problems (Updated 09/11/20 @ 14:28 by Александр Montez MD) Pneumonia due to COVID-19 virus (Acute) Dizziness (Acute) Varicose veins of bilateral lower extremities with pain (Acute) Lower extremity edema (Acute) Vasomotor rhinitis (Acute) Dyspnea (Acute) Edema (Acute) Right ovarian cyst (Acute) Annual physical exam (Acute) Fatigue (Acute) Annual physical exam (Acute) Medicare annual wellness visit, initial (Acute) MRSA (methicillin resistant staph aureus) culture positive (Acute) Left breast abscess (Acute) Lower GI bleeding (Acute) Neutropenia (Acute) Anemia (Acute) Cellulitis (Acute) Abscess of skin or subcutaneous tissue (Acute) Rectal bleeding (Acute) Abscess of skin or subcutaneous tissue (Acute) Community acquired pneumonia (Acute) Atypical chest pain (Acute) Atrial fibrillation with RVR (Acute) Osteopenia (Acute) Inflammatory myopathy (Acute) Myositis (Acute) ILD (interstitial lung disease) (Chronic) shelter current use of systemic steroids (Acute) Encounter for long-term (current) use of high-risk medication (Acute) Pulmonary fibrosis (Chronic) Antisynthetase syndrome (Acute) Hypoxemia (Chronic) UIP (usual interstitial pneumonitis) (Chronic) Pulmonary infiltrates on CXR (Chronic) Type 2 diabetes mellitus without complications (Acute) Stable angina (Acute) History of tubal ligation (Acute) History of hysterectomy (Acute) History of coronary artery stent placement (Acute) Fracture of thoracic vertebra, closed (Acute) Osteoarthritis (Acute) Obesity (Acute) Postmenopausal related mood disorder (Acute) Joint pain (Acute) Hypertension, essential (Acute) Hyperlipemia (Acute) Gastroesophageal reflux (Acute) Dysphagia (Acute) Coronary artery disease (Acute) History of colonic polyps (Acute) Chest pain (Acute) Medical History (Updated 09/11/20 @ 14:28 by Александр Montez MD) Abscess of skin or subcutaneous tissue Annual physical exam Annual physical exam Antisynthetase syndrome Chest pain Coronary artery disease 05/31 with stenting 09/27 04/28 twice Dysphagia Dyspnea Edema Encounter for long-term (current) use of high-risk medication Fatigue Fracture of thoracic vertebra, closed Gastroesophageal reflux History of colonic polyps Hyperlipemia Hypertension, essential Hypoxemia ILD (interstitial lung disease) Inflammatory myopathy Joint pain bilateral knees 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 Lower extremity edema Medicare annual wellness visit, initial MRSA (methicillin resistant staph aureus) culture positive Obesity Osteoarthritis Osteopenia Postmenopausal related mood disorder Pulmonary fibrosis Pulmonary infiltrates on CXR Right ovarian cyst Stable angina UIP (usual interstitial pneumonitis) Varicose veins of bilateral lower extremities with pain Vasomotor rhinitis Surgical History History of coronary artery stent placement 05/3105/04/2005 05/07/2005 History of hysterectomy History of permanent cardiac pacemaker placement (06/23/19) History of tubal ligation Family History Mother , at 84y Alzheimer's disease Essential hypertension Acute myocardial infarction Transient cerebral ischemia Unknown Atherosclerosis of coronary artery Diabetes mellitus Hyperlipidemia Father , accidental at 46 Instantaneous Acute myocardial infarction Brother Cardiac disease Heart surgery Social History Smoking Status: Never smoker Alcohol Intake Frequency: 0-2 drinks per day Exam Narrative Narrative: Narrative: 75-year-old female with multiple medical complaints. Patient was seen in urgent care prior to arrival. Patient was noted to be Covid positive after receiving her second dose of Covid vaccine 1 week ago. She was also noted to be gross orthostatic hypotension on exam. Patient was transferred to emergency department for further care and evaluation. Patient complains of increasing shortness of breath and dyspnea on exertion x2 days. She is also noted a bright red blood per rectum 3 days ago. Complains of generalized. weakness fatigue associated with her shortness of breath. Has a recent trip returning from [place]. Denies any fevers but she says she feels chills. No sputum production. No headache or vision changes, positive sore throat. General Limitations: no limitations General appearance: Present alert and in no apparent distress Head Head: Present atraumatic and normocephalic Eye Eye: Present normal appearance, PERRL and EOMI ENT ENT: Present normal exam and mucous membranes moist Neck Neck: Present normal inspection and full ROM Chest Chest: Present normal inspection; Absent tenderness Respiratory Respiratory: Present wheezes; Absent respiratory distress Cardiovascular Cardiovascular: Present regular rate, normal rhythm and systolic murmur Adbominal Abdominal: Present soft; Absent distention, tenderness, guarding and rebound Rectal Rectal: Present normal rectal tone, heme (-) stool, hemorrhoids and tenderness; Absent black stool, bloody stool and fecal impaction Extremities Extremities: Present normal inspection, full ROM and pedal edema; Absent tenderness and pretibial edema Back Back: Present normal inspection; Absent CVA tenderness (R) and CVA tenderness (L) Neurological Neurological: Present alert and oriented X3 Psychiatric Psychiatric: Present normal affect and normal mood Skin Skin: Present warm (WNL); Absent rash Course Vital Signs Vital signs: Vital Signs Temperature 98.0 F 09/11/20 11:52 Pulse Rate 91 H 09/11/20 11:52 Respiratory Rate 22 09/11/20 11:52 Blood Pressure 146/86 09/11/20 11:52 Pulse Oximetry (%) 97 09/11/20 11:52 Temperature 98.0 F 09/11/20 11:52 Pulse Rate 70 09/11/20 15:01 Respiratory Rate 29 H 09/11/20 15:01 Blood Pressure 118/63 09/11/20 15:01 Pulse Oximetry (%) 97 09/11/20 15:01 MDM MDM Narrative Medical decision making narrative: Narrative: 75-year-old female with pulmonary fibrosis underlying Covid pneumonia. Patient has severe dyspnea with exertion she is on home O2 for pulmonary fibrosis to begin with. She was complaining of abdominal pain and lower GI bleed I believe the bleed is from her hemorrhoids as she was guaiac negative that abdominal CT is noncontributory she has a mildly elevated D-dimer but I believe this is not related to PE although she had a recent car trip it is more related to her pulmonary fibrosis and Covid pneumonia. She has elevated BNP and I began related to pulmonary fibrosis and Covid pneumonia. Patient is received dexa methasone and I believe will need to be admitted for observation and pulmonary toilet. Medical Records Medical records reviewed: Yes I reviewed the patient's medical records. Lab Data Lab results reviewed: Yes I reviewed the patient's lab results. Lab results narrative: CBC and CMP done prior to arrival are mostly normal. Labs: Lab Results 09/11/20 09/11/20 09/11/20 Range/Units 12:32 12:32 12:32 PT 13.3 (11.9-14.5) sec INR 1.0 (0.9-1.1) D-Dimer (0.27-0.50) ug/mL VBG Lactic Acid (0.5-2.0) mmol/L Troponin T 0.02 (<0.03) ng/mL NT-Pro-B Natriuret Pep 1667.0 H (<125.0) pg/mL Urine Color Urine Appearance (Clear) Urine pH (5.0-9.0) Ur Specific [place] (1.000-1.035) Urine Protein (Negative) mg/dL Urine Glucose (UA) (Negative) mg/dL Urine Ketones (Negative) mg/dL Urine Occult Blood (Negative) mg/dL Urine Nitrate (Negative) Urine Bilirubin (Negative) mg/dL Urine Urobilinogen mg/dL Ur Leukocyte Esterase (Negative) /ug Urine RBC (0-3) /hpf Urine WBC (0-4) /hpf Ur Squamous Epith Cells (0-4) /hpf Ur Transition Epith Cell (0-2) /hpf Urine Bacteria (0) /hpf Hyaline Casts (0-2) /lph Urine Mucus (None) /hpf Ur Culture Indicated? 09/11/20 09/11/20 09/11/20 Range/Units 12:32 12:32 13:15 PT (11.9-14.5) sec INR (0.9-1.1) D-Dimer 0.61 H (0.27-0.50) ug/mL VBG Lactic Acid 1.1 (0.5-2.0) mmol/L Troponin T (<0.03) ng/mL NT-Pro-B Natriuret Pep (<125.0) pg/mL Urine Color [place] Urine Appearance Cloudy A (Clear) Urine pH 5.0 (5.0-9.0) Ur Specific [place] 1.021 (1.000-1.035) Urine Protein 30 A (Negative) mg/dL Urine Glucose (UA) Negative (Negative) mg/dL Urine Ketones Negative (Negative) mg/dL Urine Occult Blood Negative (Negative) mg/dL Urine Nitrate Negative (Negative) Urine Bilirubin Negative (Negative) mg/dL Urine Urobilinogen Negative mg/dL Ur Leukocyte Esterase 250 A (Negative) /ug Urine RBC 3 (0-3) /hpf Urine WBC 79 H (0-4) /hpf Ur Squamous Epith Cells 1 (0-4) /hpf Ur Transition Epith Cell 1 (0-2) /hpf Urine Bacteria Few A (0) /hpf Hyaline Casts 5 H (0-2) /lph Urine Mucus Few A (None) /hpf Ur Culture Indicated? yes ED POC Tests ED POC Tests: Irma Patrick test is positive Radiology Data Radiology results reviewed: Yes I reviewed the patient's radiology results. Radiology results narrative: Chest x-ray is positive for bilateral Covid pneumonia superimposed on pulmonary fibrosis. Abdominal CT is noncontributory. EKG Data EKG #1: EKG attestation: Yes I reviewed and interpreted this EKG. EKG shows normal: sinus rhythm Rate: normal (78) Rhythm: NSR P waves: LAE Heart block present: None ST segment elevation in: None ST segment depression in: None Q waves: III, aVF and v1 T wave inversions noted in: III and aVF Hyperacute T waves: None QTc: normal Interpretation: nonspecific ST-T wave changes Pulse Oximetry Data Pulse Ox %: 98 Interpretation: 98% on 2 L within normal limits. Discharge Plan Patient/Caregiver Discharge Instructions Pt seen by [employer]/PA only: No Clinical Impression: Pneumonia due to COVID-19 virus Patient Disposition: Xfer As Inpt ([facility]) Condition: Fair Follow up with: Eligio Huerta MD [Primary Care Provider] - Prescriptions: No Action atorvastatin 20 mg tablet 10 mg PO DAILY Qty: 45 RF: 1 losartan 50 mg tablet 12.5 mg PO DAILY Qty: 45 RF: 1 (DME) 0xygen Portable Concentrator Qty: 1 RF: 0 ipratropium-albuterol 0.5 mg-3 mg(2.5 mg base)/3 mL solution for nebulization 3 ml INHALATION Q6H PRN (Reason: shortness of breath or wheezing) Qty: 360 RF: 6 alendronate 70 mg tablet 70 mg PO QWEEK Qty: 12 RF: 1 metformin 500 mg tablet extended release 24hr 500 mg PO QDAY Qty: 90 RF: 1 omeprazole 20 mg capsule,delayed release(DR/EC) 20 mg PO BID Qty: 180 RF: 1 mycophenolate mofetil 500 mg tablet See Rx Instructions .ROUTE .COMPLEX Qty: 360 RF: 0 furosemide 20 mg tablet 20 mg PO QDAY RF: 0 levothyroxine [Synthroid] 50 mcg tablet 50 mcg PO QDAY Qty: 90 RF: 1 potassium chloride 10 mEq tablet extended release 10 meq PO QDAY Qty: 90 RF: 1 metoprolol succinate [Toprol XL] 100 mg tablet extended release 24 hr 100 mg PO QDAY Qty: 90 RF: 1 (DME) Wheel Chair Regular Each 0 .Route .MEDSUPPLY Qty: 1 RF: 0 dronedarone 400 mg tablet 400 mg tablet 400 mg PO BID RF: 0 nitroglycerin 0.4 mg tablet, sublingual 0.4 mg SUBLINGUAL .COMPLEX PRN (Reason: chest pain) Qty: 10 RF: 0 lorazepam [Ativan] 0.5 mg tablet 0.5 mg PO BID PRN (Reason: anxiety or panic attacks) Qty: 10 RF: 0 ipratropium bromide 42 mcg (0.06 %) spray,non-aerosol 2 spray INTRANASAL TID-QID PRN (Reason: allergy symptoms) Qty: 15 RF: 0 calcium citrate 250 mg calcium tablet 500 mg PO QDAY RF: 0 cranberry 500 mg capsule 500 mg PO QDAY RF: 0 (DME) oxygen 4 liters gas 1 each INH CONT Qty: 1 RF: 0 nortriptyline 10 mg capsule 10 mg PO QHS RF: 0 valacyclovir 1 gram tablet 1,000 mg PO TID PRN (Reason: Rash) RF: 0 cyanocobalamin (vitamin B-12) PO RF: 0 prednisone 5 mg tablet 7.5 mg PO QDAY Qty: 135 RF: 1 cholecalciferol (vitamin D3) 1,000 UNIT capsule 1,000 unit PO DAILY RF: 0 Placard For Disability 1 EACH Each 1 each MISC ONCE RF: 0
[2020-09-11 13:40] LABS: Prothrombin Time 13.3 sec (11.9-14.5)
[2020-09-11] MEDS ORDERED: DEXAMETHASONE 10 MG/ML VIAL IV ONE (13:46)
--- NOTE | 2020-09-11 14:16 | Cat Scan Report ---
History: Lower abdominal pain TECHNIQUE: The patient was imaged first following injection of intravenous contrast scanning during the portal venous phase from the diaphragm to the symphysis pubis. Five minute delayed images of the upper abdomen were acquired. Sagittal and coronal reformats were created. The radiation exposure was limited using dose reduction technology. FINDINGS: There is a patchy distribution of groundglass pulmonary infiltrates in both lower lobes as well as right middle lobe and lingula. These are chronic or recurrent finding which were also present on 07/19/19. There are six small scattered simple cysts in the liver. Largest measures 1.7 cm located in the left lobe. No solid mass is seen in the liver. Bile ducts are nondilated. The gallbladder appears normal with no stones or thickening of the wall. The spleen and pancreas are normal in size and homogeneous. The adrenals are normal and symmetric. Nonobstructing 1.5 mm calculus is present within the calyx laterally in the middle third of the right kidney. Right kidney is otherwise normal. Laterally in the middle third of the left kidney there is a 1.7 cm simple cyst. There is no stone or hydronephrosis in left kidney. Both ureters are decompressed. Moderate amount calcified plaque is present along the wall of normal caliber abdominal aorta. This extends into the iliac arteries. Liquefied stool is seen in the colon. There is no evidence of diverticulitis or inflammatory bowel disease. Small intestine is normal in caliber and nondilated. There is no evidence of inflammation, obstruction or intussusception. The appendix is surgically absent. Uterus is surgically absent. The ovaries are a trophic. No abnormality is seen in the urinary bladder. There is no ascites or adenopathy. Degenerative changes are present at multiple levels in the thoracic and lumbar spine. There are old mild compression fractures involving the superior endplate of L2 and T10. IMPRESSION: No acute abnormality within the abdomen or pelvis Small nonobstructing stone in the right kidney Cysts in the liver and left kidney Pulmonary infiltrates in both lower lobes. Dr. Rojas was called with the report Interpreted and Authenticated by: Chino Bains 09/11/20
[2020-09-11 14:33] LABS: Appearance,Urine CLOUDY (Clear); Bacteria,Urine FEW /hpf (0); Bilirubin,Urine Negative (Negative); Color,Urine AMBER; Culture Indicated,Urine yes; Glucose,Urine (UA) Negative (Negative); Ketones,Urine Negative (Negative); Leukocyte Esterase,Urine 250 /ug (Negative); Mucus,Urine FEW /hpf; Nitrate,Urine Negative (Negative); Protein,Urine 30 mg/dL (Negative); Specific Gravity,Urine 1.021 (1.000-1.035); Urine Blood Negative (Negative); Urine Hyaline Cast 5 /lph (0-2); Urine RBC 3 /hpf (0-3); Urine Squamous Epithelial Cell 1 /hpf (0-4); Urine Transitional Epi Cells 1 /hpf (0-2); Urine WBC 79 /hpf (0-4); Urobilinogen,Urine Negative
[2020-09-11] MEDS ORDERED: LORazepam 0.5 MG TABLET PO PRN ×2 (16:03→19:13)
[2020-09-11] MEDS ORDERED: NITROGLYCERIN (PP) 0.4 MG TAB.SUBL (#25) SL PRN (16:03)
[2020-09-11] MEDS ORDERED: LEVOFLOXACIN 750 MG/150 ML BAG IV ONE (16:13)
[2020-09-11] MEDS ORDERED: MYCOPHENOLATE MOFETIL 500 MG SCH (16:15)
[2020-09-11] MEDS ORDERED: IPRATROPIUM/ALBUTEROL 3 ML AMPUL.NEB NEB PRN ×2 (16:25→19:13)
--- NOTE | 2020-09-11 16:32 | Internal Med History&Physical ---
HPI History of Present Illness Patient information: Note initiated : 09/11/20 at 4:28 pm Service Date, if different from initiated Date: [] Patient: Carla Meyers a 75 y/o F admitted on for short of breath, tested positive for COVID. Chief Complaint: [] History of present illness: Ms. Meyers is a 75 year old F history of atrial fibrillation with RVR, on Xarelto, pulmonary fibrosis, type 2 diabetes mellitus, essential hypertension, mixed dyslipidemia, hypothyroidism, external hemorrhoid, GERD, presenting with 3-day history of increasing shortness of breath and dyspnea on exertion. There was no prior similar episode. Due to her pulmonary fibrosis, she used 3 L of oxygen at home. Over the past 3 days, she noticed increasing work of breathing and shortness of breath with dyspnea on exertion. She also complained of nonproductive cough. She denies any chest pain or palpitations. She denies any respiratory wheezings. She denies any fever, shaking chills, or diaphoresis. She denies any change in her appetite or general body weakness. Vulva, she is presenting after pelvic tenderness and pain when she urinates. In addition, 3 days ago she had an episode of bright red blood per rectum so she went to urgent care center and she was tested positive for Covid pneumonia. Xarelto was started at that point. Only 2 worsening symptoms of the dyspnea, she presented to our ED for further evaluations and treatments today. Vital signs significant for tachypnea with rate of breathing in the mid to high 20s beats per minutes, and oxygen saturations in the mid to higher 90s with supplemental oxygen in place. There is no fever. Labs significant for lack of leukocytosis. Urinalysis suggest the presence of diminished infections. Chest x-ray was performed with changes consistent with the history of known Covid pneumonia. Constitutional Constitutional: Absent chills, excessive sweating, fatigue, fever(s) and weakness EENT Eyes: Absent blurry vision, change in vision, loss of vision and other visual disturbances Ears: Absent decreased hearing and tinnitus Nose, mouth and throat: Absent abnormal hearing, dry mouth, headache(s), nasal congestion and sore throat Cardiovascular Cardiovascular: Absent chest pain, chest pain at rest, edema, irregular heart rhythm and palpatations Respiratory Respiratory: Present cough, dyspnea and dyspnea on exertion; Absent wheezing Gastrointestinal Gastrointestinal: Present hematochezia; Absent abdominal pain, constipation, diarrhea, nausea and vomiting Genitourinary Additional comments: Pelvic region pain when she urinates Musculoskeletal Musculoskeletal: Absent back pain, deformity, limited range of motion, muscle cramps, muscle weakness and numbness Integumentary Integumentary: Absent lesions, rash and wounds Neurological Neurological: Absent focal weakness, headache(s) and numbness Psychiatric Psychiatric: Absent anxiety, depression and hallucinations PFSH PFSH All Active Problems (Updated 09/11/20 @ 16:37 by Tom Mcgrath MD) UTI (urinary tract infection) (Acute) Pneumonia due to COVID-19 virus (Acute) Dizziness (Acute) Varicose veins of bilateral lower extremities with pain (Acute) Lower extremity edema (Acute) Vasomotor rhinitis (Acute) Dyspnea (Acute) Edema (Acute) Right ovarian cyst (Acute) Annual physical exam (Acute) Fatigue (Acute) Annual physical exam (Acute) Medicare annual wellness visit, initial (Acute) MRSA (methicillin resistant staph aureus) culture positive (Acute) Left breast abscess (Acute) Lower GI bleeding (Acute) Neutropenia (Acute) Anemia (Acute) Cellulitis (Acute) Abscess of skin or subcutaneous tissue (Acute) Rectal bleeding (Acute) Abscess of skin or subcutaneous tissue (Acute) Community acquired pneumonia (Acute) Atypical chest pain (Acute) Atrial fibrillation with RVR (Acute) Osteopenia (Acute) Inflammatory myopathy (Acute) Myositis (Acute) ILD (interstitial lung disease) (Chronic) shelter current use of systemic steroids (Acute) Encounter for long-term (current) use of high-risk medication (Acute) Pulmonary fibrosis (Chronic) Antisynthetase syndrome (Acute) Hypoxemia (Chronic) UIP (usual interstitial pneumonitis) (Chronic) Pulmonary infiltrates on CXR (Chronic) Type 2 diabetes mellitus without complications (Acute) Stable angina (Acute) History of tubal ligation (Acute) History of hysterectomy (Acute) History of coronary artery stent placement (Acute) Fracture of thoracic vertebra, closed (Acute) Osteoarthritis (Acute) Obesity (Acute) Postmenopausal related mood disorder (Acute) Joint pain (Acute) Hypertension, essential (Acute) Hyperlipemia (Acute) Gastroesophageal reflux (Acute) Dysphagia (Acute) Coronary artery disease (Acute) History of colonic polyps (Acute) Chest pain (Acute) Medical History (Updated 09/11/20 @ 16:37 by Tom Mcgrath MD) Abscess of skin or subcutaneous tissue Annual physical exam Annual physical exam Antisynthetase syndrome Chest pain Coronary artery disease 05/31 with stenting 09/27 04/28 twice Dysphagia Dyspnea Edema Encounter for long-term (current) use of high-risk medication Fatigue Fracture of thoracic vertebra, closed Gastroesophageal reflux History of colonic polyps Hyperlipemia Hypertension, essential Hypoxemia ILD (interstitial lung disease) Inflammatory myopathy Joint pain bilateral knees Left breast abscess shelter current use of systemic steroids Lower extremity edema Medicare annual wellness visit, initial MRSA (methicillin resistant staph aureus) culture positive Obesity Osteoarthritis Osteopenia Postmenopausal related mood disorder Pulmonary fibrosis Pulmonary infiltrates on CXR Right ovarian cyst Stable angina UIP (usual interstitial pneumonitis) Varicose veins of bilateral lower extremities with pain Vasomotor rhinitis Surgical History History of coronary artery stent placement 05/3105/04/2005 05/07/2005 History of hysterectomy History of permanent cardiac pacemaker placement (06/23/19) History of tubal ligation Family History Mother , at 84y Alzheimer's disease Essential hypertension Acute myocardial infarction Transient cerebral ischemia Unknown Atherosclerosis of coronary artery Diabetes mellitus Hyperlipidemia Father , accidental at 46 Instantaneous Acute myocardial infarction Brother Cardiac disease Heart surgery Social History marital status: education level: high school occupational status: retired other: 2 children/2 gc/1 ggc alcohol intake frequency: 0-2 drinks per day MEDS/ALLERGIES Home Medications and Allergies Home Medications Medication Instructions Recorded Confirmed Type oxygen 4 liters #1 each 02/23/19 09/11/20 History cholecalciferol (vitamin D3) 1,000 unit PO DAILY 03/31/19 09/11/20 History Placard For Disability 1 each MISC ONCE 04/01/19 09/11/20 History Wheel Chair #1 each 04/26/19 09/11/20 Rx dronedarone 400 mg tablet 400 mg PO BID 06/01/19 09/11/20 History calcium citrate 500 mg PO QDAY 07/29/19 09/11/20 History cranberry 500 mg capsule 500 mg PO QDAY cap 07/29/19 09/11/20 History atorvastatin 20 mg tablet 10 mg PO DAILY #45 tab 08/03/19 09/11/20 Rx losartan 50 mg tablet 12.5 mg PO DAILY #45 tab 08/05/19 09/11/20 Rx 0xygen Portable Concentrator #1 ea 12/06/19 09/11/20 Rx nitroglycerin 0.4 mg sublingual 0.4 mg SUBLINGUAL .COMPLEX PRN #10 12/14/19 09/11/20 Rx tablet tab ipratropium 0.5 mg-albuterol 3 mg 3 ml INHALATION Q6H PRN #360 ml 03/06/20 09/11/20 Rx (2.5 mg base)/3 mL nebulization soln alendronate 70 mg tablet 70 mg PO QWEEK #12 tab 04/30/20 09/11/20 Rx metformin 500 mg tablet,extended 500 mg PO QDAY #90 tab 05/01/20 09/11/20 Rx release 24hr omeprazole 20 mg capsule,delayed 20 mg PO BID #180 cap 05/08/20 09/11/20 Rx release mycophenolate mofetil 500 mg tablet See Rx Instructions .ROUTE 05/31/20 09/11/20 Rx .COMPLEX #360 tab furosemide 20 mg tablet 20 mg PO QDAY tab 06/19/20 09/11/20 History nortriptyline 10 mg capsule 10 mg PO QHS cap 06/19/20 09/11/20 History valacyclovir 1 gram tablet 1,000 mg PO TID PRN tab 06/19/20 09/11/20 History ipratropium bromide 42 mcg (0.06 2 spray INTRANASAL TID-QID PRN #15 06/28/20 09/11/20 Rx %) nasal spray ml lorazepam 0.5 mg tablet 0.5 mg PO BID PRN #10 tab 06/28/20 09/11/20 Rx cyanocobalamin (vitamin B-12) PO 07/05/20 09/11/20 History prednisone 5 mg tablet 7.5 mg PO QDAY #135 tab 07/05/20 09/11/20 Rx levothyroxine 50 mcg tablet 50 mcg PO QDAY #90 tab 07/17/20 09/11/20 Rx metoprolol succinate 100 mg 100 mg PO QDAY #90 tab 07/17/20 09/11/20 Rx tablet,extended release 24 hr potassium chloride 10 mEq 10 meq PO QDAY #90 tab 07/17/20 09/11/20 Rx tablet,extended release Allergies Allergy/AdvReac Type Severity Reaction Status Date / Time Cefprozil Allergy Mild Hives Verified 09/11/20 11:56 codeine AdvReac Mild Nausea Verified 09/11/20 11:56 Sulfa (Sulfonamide AdvReac Mild Rash Verified 09/11/20 11:56 Antibiotics) EXAM Constitutional Vitals: Temp Pulse Resp BP Pulse Ox 36.7 C 68 19 123/66 97 09/11/20 11:52 09/11/20 16:02 09/11/20 16:02 09/11/20 16:02 09/11/20 16:02 General appearance: cooperative and no acute distress Head Head exam: Present atraumatic and normocephalic Eye Eye exam: Present EOMI and PERRL ENT ENT exam: Present mucous membranes moist, normal exam and normal external ear exam Additional comments: Nasal cannula oxygen in place Neck Neck exam: Present normal inspection; Absent lymphadenopathy, tenderness and thyromegaly Respiratory Respiratory exam: Absent accessory muscle use, respiratory distress and wheezes Additional comments: Coarse breath sounds in bilateral lung bases Cardiovascular Cardiovascular exam: Present normal rate and rhythm; Absent JVD GI/Abdominal GI/Abdominal exam: Present normal bowel sounds and soft; Absent organomegaly and tenderness Rectal Additional comments: 5 external hemorrhoid without active bleeding were noted Extremities Exam Extremities exam: Present full ROM, normal capillary refill and normal inspection; Absent tenderness Neurological Exam Neurological exam: Present alert, CN II-XII intact and oriented X3; Absent motor sensory deficit Psychiatric Psychiatric exam: Present normal affect and normal mood; Absent anxious and depressed Skin Skin exam: Present dry and intact DATA Data Completed and Pending Labs: Labs from last 24 hours 09/11/20 09/11/20 09/11/20 13:15 12:32 12:32 PT INR D-Dimer 0.61 H VBG Lactic Acid 1.1 Troponin T NT-Pro-B Natriuret Pep Urine Color Sabi Urine Appearance Cloudy A Urine pH 5.0 Ur Specific Lamar 1.021 Urine Protein 30 A Urine Glucose (UA) Negative Urine Ketones Negative Urine Occult Blood Negative Urine Nitrate Negative Urine Bilirubin Negative Urine Urobilinogen Negative Ur Leukocyte Esterase 250 A Urine RBC 3 Urine WBC 79 H Ur Squamous Epith Cells 1 Ur Transition Epith Cell 1 Urine Bacteria Few A Hyaline Casts 5 H Urine Mucus Few A Ur Culture Indicated? yes 09/11/20 09/11/20 09/11/20 12:32 12:32 12:32 PT 13.3 INR 1.0 D-Dimer VBG Lactic Acid Troponin T 0.02 NT-Pro-B Natriuret Pep 1667.0 H Urine Color Urine Appearance Urine pH Ur Specific Lamar Urine Protein Urine Glucose (UA) Urine Ketones Urine Occult Blood Urine Nitrate Urine Bilirubin Urine Urobilinogen Ur Leukocyte Esterase Urine RBC Urine WBC Ur Squamous Epith Cells Ur Transition Epith Cell Urine Bacteria Hyaline Casts Urine Mucus Ur Culture Indicated? A/P Assessment and plan (1) Pneumonia due to COVID-19 virus: Status: Acute (2) Rectal bleeding: Status: Acute (3) Atrial fibrillation with RVR: Status: Acute (4) ILD (interstitial lung disease): Status: Chronic (5) Pulmonary fibrosis: Status: Chronic (6) Type 2 diabetes mellitus without complications: Status: Acute (7) Hypertension, essential: Status: Acute (8) Hyperlipemia: Status: Acute (9) UTI (urinary tract infection): Status: Acute Narrative A/P Narrative: 1. CoVID pneumonia: Admit to inpatient med surg telemetry Isolation: contact and airborne Inflammatory markers Serial lactic acid ABG Blood culture X2 cbc w/ auto diff in AM to trend WBC Supplemental oxygen titrate to achieve oxygen sat >=92% Tylenol PRN fever Robitussin DM PRN cough DuoNEB NEB q4hr PRN wheezing or SOB Remdisivir Dexamethasone Lasix 20 mg IV BID No anticoagulant due to concomitant GI bleeding Rocephin Zithromax CT chest w/o contrast Procalcitonin If no evidence of bacterial superinfection, will d/c Zithromax 2. h/o interstitial lung disease on home oxygen at 3L/min: Dexamethasone Supplemental oxygen titrate to achieve oxygen sat >=92% 3. Lower GI bleeding, secondary to external hemorrhoids: H/H stable, no active bleeding Hold Xarelto Stool softener to prevent additional external hemorrhoid bleeding cbc w/ auto diff in the AM to trend H/H 4. Atrial fibrillation RVR: Continue Metoprolol ER for rate control Hold Xarelto due to lower GI bleeding 5. T2DM: HgA1c Hold Metformin Low dose sliding scale insulin AC HS Accu Chek AC HS Hypoglycemia protocol Daibetic diet 6. Essential HTN: Currently normotensive Continue oral antihypertensives from home regimen 7. Mixed dyslipidemia: Continue statin therapy 8. Hypothyroidism: Continue thyroid replacement therapy 9. UTI: Blood culture X2 Urine culture Rocephin and Zithromax cbc w/ auto diff in AM to trend WBC 10. GERD: Continue oral PPI from home regimen Time Spent With Patient Time: Total time spent is greater than 50% in coordination of care (as documented) at patient's floor/unit and/or counseling patient:
--- NOTE | 2020-09-11 16:59 | Cat Scan Report ---
History: COVID pneumonia, evaluate for concomitant bacterial pneumonia TECHNIQUE: The chest was imaged without contrast scanning from the thoracic inlet through the adrenals. Sagittal, coronal and axial MIPS images were obtained. The radiation exposure was limited using dose reduction technology. FINDINGS: There is a random distribution of groundglass alveolar infiltrates throughout both lungs. Greatest involvement is in the lower lobes. There is no lobar consolidation. There is no evidence of emphysema or pleural effusion. There is a band of scar tissue laterally in the right middle lobe. There are surgical sutures within the scar. No adjacent chest wall lesion is present. No abnormally enlarged lymph nodes are present. The heart size is normal. There is a pacemaker in the right side of the heart. Moderate amount calcified plaque is present in the coronary arteries. There is excreted contrast in the collecting systems of both kidneys following the preceding abdominal CT. Scattered cysts are again noted in the liver. IMPRESSION: Moderate bilateral pneumonia. The pattern is typical for Covid Pneumonia. There is no apparent superimposed bacterial pneumonia. Interpreted and Authenticated by: Chino Bains 09/11/20
[2020-09-11] MEDS ORDERED: DEXTROSE 50% 50 ML VIAL IV PRN (19:13)
[2020-09-11] MEDS ORDERED: ONDANSETRON 4 MG/2 ML VIAL IV PRN (19:13)
[2020-09-11] MEDS ORDERED: cefTRIAXone 1 GM in DEXTROSE 5% IN WATER 50 ML IV SCH (19:13)
[2020-09-11] MEDS ORDERED: REMDESIVIR 200 MG in 0.9 % SODIUM CHLORIDE 250 ML IV ONE (19:13)
[2020-09-11] MEDS ORDERED: DEXTROSE 31 GM ORAL.SUSP PO PRN (19:13)
[2020-09-11] MEDS ORDERED: guaiFENesin/DEXTROMETHORPHAN ORAL SOL PO PRN (19:13)
[2020-09-11] MEDS ORDERED: ACETAMINOPHEN 325 MG TABLET PO PRN (19:13)
[2020-09-11 19:45] LABS: Lactate Dehydrogenase 221 U/L (135-225)
[2020-09-11 19:49] LABS: Estimated Average Glucose(eAG) 114 mg/dL; Hemoglobin A1C 5.6 % Hgb (4.0-6.0)
[2020-09-11] MEDS ORDERED: NORTRIPTYLINE 10 MG CAPSULE PO SCH (21:00)
[2020-09-11] MEDS ORDERED: DRONEDARONE 400 MG PO SCH (21:00)
[2020-09-11] MEDS ORDERED: OMEPRAZOLE 20 MG CAPSULE PO SCH (21:00)
[2020-09-11] MEDS: INSULIN LISPRO 1 UNIT/0.01 ML UNIT SQ SCH ×2 (21:06→21:27)
[2020-09-11] MEDS ORDERED: cefTRIAXone 1 GM VIAL ONE (21:11)
[2020-09-11] MEDS: 0.9 % SODIUM CHLORIDE 10 ML SYRINGE IV SCH (21:18)
[2020-09-11] MEDS: AZITHROMYCIN 500 MG in DEXTROSE 5% IN WATER 250 ML IV SCH (21:22)
[2020-09-11] MEDS ORDERED: NITROGLYCERIN 0.4 MG TAB.SUBL SL PRN (21:42)
[2020-09-11] MEDS: SENNOSIDES 1 TABLET PO SCH (22:18)
[2020-09-11] MEDS: DOCUSATE SODIUM 100 MG CAPSULE PO SCH ×2 (22:18→22:33)
[2020-09-11] MEDS: NORTRIPTYLINE 10 MG CAPSULE PO SCH (22:33)
[2020-09-11] MEDS: OMEPRAZOLE 20 MG CAPSULE PO SCH (22:33)
[2020-09-12] MEDS: 0.9 % SODIUM CHLORIDE 10 ML SYRINGE IV SCH ×3 (04:38→21:08)
[2020-09-12] MEDS ORDERED: FUROSEMIDE 20 MG/2 ML VIAL IV SCH (08:00)
[2020-09-12 08:21] LABS: Basophils # (Auto) 0 K/mcL (0.00-0.20); Basophils % (Auto) 0 % (0.0-2.0); Eosinophils # (Auto) 0 K/mcL (0.00-0.70); Eosinophils % (Auto) 0 % (0.0-7.0); Hemoglobin 11.1 g/dL (12.0-15.0); Lymphocytes # (Auto) 1.24 K/mcL (1.50-4.80); Lymphocytes % (Auto) 43.7 % (15.0-49.0); Mean Cell Volume 90.9 fL (80.0-100.0); Mean Corpuscular HGB Conc 31.7 g/dL (31.0-36.0); Mean Platelet Volume 9.9 fL (7.4-10.4); Monocytes # (Auto) 0.35 K/mcL (0.10-0.90); Monocytes % (Auto) 12.3 % (1.0-12.0); Platelet Count 150 K/mcL (140-440); RBC 3.85 M/mcL (4.00-5.20); WBC 2.8 K/mcL (4.5-11.0)
[2020-09-12] MEDS: LEVOTHYROXINE 50 MCG TABLET PO SCH (08:33)
[2020-09-12] MEDS: METOPROLOL SUCCINATE 50 MG TAB.XL.24H PO SCH (08:33)
[2020-09-12] MEDS: DOCUSATE SODIUM 100 MG CAPSULE PO SCH ×2 (08:33→21:12)
[2020-09-12] MEDS: OMEPRAZOLE 20 MG CAPSULE PO SCH ×2 (08:33→21:08)
[2020-09-12] MEDS: DEXAMETHASONE 10 MG/ML VIAL IV SCH (08:34)
[2020-09-12] MEDS: POTASSIUM CHLORIDE 10 MEQ TABLET PO SCH (08:34)
[2020-09-12] MEDS: LOSARTAN 25 MG TABLET PO SCH (08:34)
[2020-09-12] MEDS: INSULIN LISPRO 1 UNIT/0.01 ML UNIT SQ SCH ×4 (08:35→21:08)
[2020-09-12] MEDS: MYCOPHENOLATE 250 MG CAPSULE PO SCH ×2 (08:35→21:12)
[2020-09-12 08:37] LABS: ALT/SGPT 12 U/L (<40); AST/SGOT 15 U/L (<32); Albumin 3.5 gm/dL (3.2-5.2); Albumin/Globulin Ratio 1.6 (1.0-2.3); Alkaline Phosphatase 39 U/L (39-117); Bilirubin,Total 0.2 mg/dL (0.1-1.0); Blood Urea Nitrogen 15 mg/dL (8-23); Calcium 8.3 mg/dL (8.6-10.4); Carbon Dioxide 21 mmol/L (22-30); Chloride 101 mmol/L (96-108); Globulin 2.2 gm/dL (2.2-3.7); Glomerular Filtration Rate 63; Glucose 103 mg/dL (70-105)
[2020-09-12] MEDS ORDERED: POTASSIUM CHLORIDE 10 MEQ TABLET PO SCH (09:00)
[2020-09-12] MEDS ORDERED: CRANBERRY 500 MG PO SCH (09:00)
[2020-09-12] MEDS ORDERED: LEVOTHYROXINE 50 MCG TABLET PO SCH (09:00)
[2020-09-12] MEDS ORDERED: [UNRECOGNIZED DRUG - OTHER] PO SCH (09:00)
[2020-09-12] MEDS ORDERED: METOPROLOL SUCCINATE 100 MG PO SCH (09:00)
[2020-09-12] MEDS ORDERED: LOSARTAN 50 MG TABLET PO SCH (09:00)
[2020-09-12] MEDS ORDERED: DEXAMETHASONE 10 MG/ML VIAL IV SCH (09:00)
[2020-09-12] MEDS ORDERED: CHOLECALCIFEROL 1000 UNIT PO SCH (09:00)
[2020-09-12] MEDS ORDERED: ATORVASTATIN 20 MG TABLET PO SCH (09:00)
[2020-09-12] MEDS: DRONEDARONE 400 MG PO SCH ×2 (10:22→21:01)
[2020-09-12] MEDS: CALCIUM CITRATE 500 MG PO SCH (10:22)
[2020-09-12] MEDS: cefTRIAXone 1 GM VIAL IV SCH (11:52)
[2020-09-12] MEDS: VITAMIN D3 1,000 UNIT TABLET PO SCH (11:53)
[2020-09-12] MEDS: ATORVASTATIN 20 MG TABLET PO SCH (11:53)
[2020-09-12] MEDS: FUROSEMIDE 20 MG/2 ML VIAL IV SCH ×2 (11:53→18:02)
--- NOTE | 2020-09-12 15:15 | Internal Med Progress Note ---
SUBJECTIVE Subjective Patient information: Note initiated : 09/12/20 at 3:14 pm Service Date, if different from initiated Date: [] Patient: Carla Meyers 75 y/o F admitted on 09/11/20 for short of breath, tested positive for COVID. Chief Complaint: [CHF exacerbation] Overnight: Afebrile. Still on supplemental oxygen via nasal cannula, Constitutional Vitals: Vital Signs Temp Pulse Resp BP Pulse Ox 36.5 C 67 20 138/67 97 09/12/20 12:00 09/12/20 12:00 09/12/20 12:00 09/12/20 12:00 09/12/20 12:00 Period Temp Pulse Resp BP Sys/Bell Pulse Ox Last 24 Hr 36.1 C-36.7 C 62-72 13-30 111-143/62-73 95-100 Intake and Output 09/12/20 09/12/20 09/12/20 05:59 13:59 21:59 Intake Total 600 480 Output Total 550 650 Balance 50 -170 Weight 78.982 kg Patient Weight 09/13/20 05:59 Weight 78.982 kg Intake & Output: Intake & Output 09/12/20 09/12/20 09/12/20 05:59 13:59 21:59 Intake Total 600 480 Output Total 550 650 Balance 50 -170 Weight 78.982 kg Intake: IV 500 Zithromax 500 mg In Dextrose 5% 250 in Water 250 ml @ 250 mls/hr IV Q24H [facility] Rx#:[id number] Veklury 200 mg In Sodium 250 Chloride 0.9% 250 ml @ 500 mls/ hr IV ONCE ONE Rx#:[id number] Oral 100 480 Output: Void Amount 550 650 Other: Meal Breakfast Percent of Meal Consumed 75% Feeding Ability Independent Urine Color Straw Urine Odor Normal Stool Size Small Small Stool Color Perfecto Colored Brown Stool Consistency Loose Normal for Patient # Voids 1 # Bowel Movements 1 1 OBJ DATA Labs CBC & Chem 7: 09/12/20 06:23 09/12/20 06:23 Labs: Abnormal Lab Results 09/12/20 09/12/20 09/12/20 06:23 06:23 06:23 WBC 2.8 L RBC 3.85 L Hgb 11.1 L Hct 35.0 L [place] % (Auto) 12.3 H Lymph # (Auto) 1.24 L Absolute Neutrophils 1.25 L Fibrinogen D-Dimer 0.78 H Carbon Dioxide 21 L Calcium 8.3 L Ferritin 1646.0 H C-Reactive Protein 1.90 H NT-Pro-B Natriuret Pep Total Protein 5.7 L Urine Appearance Urine Protein Ur Leukocyte Esterase Urine WBC Urine Bacteria Hyaline Casts Urine Mucus 09/11/20 09/11/20 09/11/20 19:38 13:15 12:32 WBC RBC Hgb Hct [place] % (Auto) Lymph # (Auto) Absolute Neutrophils Fibrinogen 442 H D-Dimer 0.61 H Carbon Dioxide Calcium Ferritin C-Reactive Protein NT-Pro-B Natriuret Pep Total Protein Urine Appearance Cloudy A Urine Protein 30 A Ur Leukocyte Esterase 250 A Urine WBC 79 H Urine Bacteria Few A Hyaline Casts 5 H Urine Mucus Few A 09/11/20 12:32 WBC RBC Hgb Hct [place] % (Auto) Lymph # (Auto) Absolute Neutrophils Fibrinogen D-Dimer Carbon Dioxide Calcium Ferritin C-Reactive Protein NT-Pro-B Natriuret Pep 1667.0 H Total Protein Urine Appearance Urine Protein Ur Leukocyte Esterase Urine WBC Urine Bacteria Hyaline Casts Urine Mucus Meds: Medications Acetaminophen (Acetaminophen 325 Mg Tablet) 650 mg PO Q6HP PRN; Protocol PRN Reason: Per Pain Protocol/Fever > 101 Albuterol/Ipratropium (Ipratropium/Albuterol 3 Ml Ampul.Neb) 3 ml NEB Q4HP PRN PRN Reason: Shortness Of Breath Alendronate Sodium (Alendronate Sodium 70 Mg Tablet) 70 mg PO QWEEK [facility] Atorvastatin Calcium (Atorvastatin 20 Mg Tablet) 10 mg PO DAILY [facility] Last Admin: 09/12/20 11:53 Dose: 10 mg Documented by: Ceftriaxone Sodium (Ceftriaxone 1 Gm Vial) 1 gm IV Q24H [facility] Last Admin: 09/12/20 11:52 Dose: 1 gm Documented by: Dexamethasone (Dexamethasone 10 Mg/Ml Vial) 6 mg IV DAILY [facility] Last Admin: 09/12/20 08:34 Dose: 6 mg Documented by: Dextrose (Dextrose 50% 50 Ml Vial) 0 ml IV UD PRN PRN Reason: Hypoglycemia Diagnostic Test (Pha) (Accu-Chek 1 Each Strip) 1 each FS ACHS [facility] Last Admin: 09/12/20 12:13 Dose: 1 each Documented by: Docusate Sodium (Docusate Sodium 100 Mg Capsule) 100 mg PO BID [facility] Last Admin: 09/12/20 08:33 Dose: 100 mg Documented by: Furosemide (Furosemide 20 Mg/2 Ml Vial) 20 mg IV BIDD [facility] Last Admin: 09/12/20 11:53 Dose: 20 mg Documented by: Glucose (Dextrose 31 Gm Oral.Susp) 15 gm PO PRN PRN PRN Reason: Hypoglycemia Guaifenesin (Guaifenesin/Dextromethorphan Oral Татьяна) 5 ml PO Q4HP PRN PRN Reason: Cough REMDESIVIR 100 mg/ Sodium (Chloride) 250 mls @ 0 mls/hr IV Q24H [facility] Stop: 09/15/20 16:31 Azithromycin 500 mg/ Dextrose 250 mls @ 250 mls/hr IV Q24H [facility]; Protocol Stop: 09/13/20 20:12 Last Infusion: 09/11/20 22:43 Dose: Infused Documented by: Insulin Human Lispro (Insulin Lispro 1 Unit/0.01 Ml Unit) 0 unit SQ ACHS [facility]; Protocol Last Admin: 09/12/20 12:13 Dose: 2 units Documented by: Levothyroxine Sodium (Levothyroxine 50 Mcg Tablet) 50 mcg PO QDAY [facility] Last Admin: 09/12/20 08:33 Dose: 50 mcg Documented by: Lorazepam (Lorazepam 0.5 Mg Tablet) 0.5 mg PO BID PRN PRN Reason: anxiety or panic attacks Losartan Potassium (Losartan 25 Mg Tablet) 12.5 mg PO DAILY [facility] Last Admin: 09/12/20 08:34 Dose: 12.5 mg Documented by: Metoprolol Succinate (Metoprolol Succinate 50 Mg Tab.Xl.24h) 100 mg PO DAILY [facility] Last Admin: 09/12/20 08:33 Dose: 100 mg Documented by: Mycophenolate Mofetil (Mycophenolate 250 Mg Capsule) 1,000 mg PO BID@0700,2000 [facility] Last Admin: 09/12/20 08:35 Dose: 1,000 mg Documented by: Nitroglycerin (Nitroglycerin 0.4 Mg Tab.Subl) 0.4 mg SL Q5M PRN PRN Reason: Chest Pain Nortriptyline HCl (Nortriptyline 10 Mg Capsule) 10 mg PO QHS [facility] Last Admin: 09/11/20 22:33 Dose: 10 mg Documented by: Omeprazole (Omeprazole 20 Mg Capsule) 20 mg PO BID [facility] Last Admin: 09/12/20 08:33 Dose: 20 mg Documented by: Ondansetron HCl (Ondansetron 4 Mg/2 Ml Vial) 4 mg IV Q6HP PRN PRN Reason: Nausea And Vomiting Calcium Citrate 500 (Mg Tab) 1 dose PO QDAY [facility] Last Admin: 09/12/20 10:22 Dose: Not Given Documented by: Cranberry 500 Mg Cap 1 dose PO QDAY [facility] Last Admin: 09/12/20 10:22 Dose: Not Given Documented by: Dronedarone [Multaq] (400 Mg Tab) 1 dose PO BID [facility] Last Admin: 09/12/20 10:22 Dose: Not Given Documented by: Potassium Chloride (Potassium Chloride 10 Meq Tablet) 10 meq PO QDAY [facility] Last Admin: 09/12/20 08:34 Dose: 10 meq Documented by: Senna (Sennosides 1 Tablet) 2 tab PO HS [facility] Last Admin: 09/11/20 22:18 Dose: Not Given Documented by: Sodium Chloride (0.9 % Sodium Chloride 10 Ml Syringe) 10 ml IV Q8 [facility] Last Admin: 09/12/20 04:38 Dose: 10 ml Documented by: Vitamin D (Vitamin D3 1,000 Unit Tablet) 1,000 unit PO DAILY [facility] Last Admin: 09/12/20 11:53 Dose: 1,000 unit Documented by: A/P Time Spent With Patient Time: Total time spent is greater than 50% in coordination of care (as documented) at patient's floor/unit and/or counseling patient: QUALITY VTE Deep Vein Thrombosis/Pulmonary Embolism Present on Admission: No
--- NOTE | 2020-09-12 15:16 | Internal Med Progress Note ---
SUBJECTIVE Subjective Patient information: Note initiated : 09/12/20 at 3:16 pm Service Date, if different from initiated Date: [] Patient: Carla Meyers 75 y/o F admitted on 09/11/20 for short of breath, tested positive for COVID. Chief Complaint: [] Constitutional Vitals: Vital Signs Temp Pulse Resp BP Pulse Ox 36.5 C 67 20 138/67 97 09/12/20 12:00 09/12/20 12:00 09/12/20 12:00 09/12/20 12:00 09/12/20 12:00 Period Temp Pulse Resp BP Sys/Bell Pulse Ox Last 24 Hr 36.1 C-36.7 C 62-72 13-30 111-143/62-73 95-100 Intake and Output 09/12/20 09/12/20 09/12/20 05:59 13:59 21:59 Intake Total 600 480 Output Total 550 650 Balance 50 -170 Weight 78.982 kg Patient Weight 09/13/20 05:59 Weight 78.982 kg Intake & Output: Intake & Output 09/12/20 09/12/20 09/12/20 05:59 13:59 21:59 Intake Total 600 480 Output Total 550 650 Balance 50 -170 Weight 78.982 kg Intake: IV 500 Zithromax 500 mg In Dextrose 5% 250 in Water 250 ml @ 250 mls/hr IV Q24H [facility] Rx#:[id number] Veklury 200 mg In Sodium 250 Chloride 0.9% 250 ml @ 500 mls/ hr IV ONCE ONE Rx#:[id number] Oral 100 480 Output: Void Amount 550 650 Other: Meal Breakfast Percent of Meal Consumed 75% Feeding Ability Independent Urine Color Straw Urine Odor Normal Stool Size Small Small Stool Color Perfecto Colored Brown Stool Consistency Loose Normal for Patient # Voids 1 # Bowel Movements 1 1 OBJ DATA Labs CBC & Chem 7: 09/12/20 06:23 09/12/20 06:23 Labs: Abnormal Lab Results 09/12/20 09/12/20 09/12/20 06:23 06:23 06:23 WBC 2.8 L RBC 3.85 L Hgb 11.1 L Hct 35.0 L [place] % (Auto) 12.3 H Lymph # (Auto) 1.24 L Absolute Neutrophils 1.25 L Fibrinogen D-Dimer 0.78 H Carbon Dioxide 21 L Calcium 8.3 L Ferritin 1646.0 H C-Reactive Protein 1.90 H NT-Pro-B Natriuret Pep Total Protein 5.7 L Urine Appearance Urine Protein Ur Leukocyte Esterase Urine WBC Urine Bacteria Hyaline Casts Urine Mucus 09/11/20 09/11/20 09/11/20 19:38 13:15 12:32 WBC RBC Hgb Hct [place] % (Auto) Lymph # (Auto) Absolute Neutrophils Fibrinogen 442 H D-Dimer 0.61 H Carbon Dioxide Calcium Ferritin C-Reactive Protein NT-Pro-B Natriuret Pep Total Protein Urine Appearance Cloudy A Urine Protein 30 A Ur Leukocyte Esterase 250 A Urine WBC 79 H Urine Bacteria Few A Hyaline Casts 5 H Urine Mucus Few A 09/11/20 12:32 WBC RBC Hgb Hct [place] % (Auto) Lymph # (Auto) Absolute Neutrophils Fibrinogen D-Dimer Carbon Dioxide Calcium Ferritin C-Reactive Protein NT-Pro-B Natriuret Pep 1667.0 H Total Protein Urine Appearance Urine Protein Ur Leukocyte Esterase Urine WBC Urine Bacteria Hyaline Casts Urine Mucus Meds: Medications Acetaminophen (Acetaminophen 325 Mg Tablet) 650 mg PO Q6HP PRN; Protocol PRN Reason: Per Pain Protocol/Fever > 101 Albuterol/Ipratropium (Ipratropium/Albuterol 3 Ml Ampul.Neb) 3 ml NEB Q4HP PRN PRN Reason: Shortness Of Breath Alendronate Sodium (Alendronate Sodium 70 Mg Tablet) 70 mg PO QWEEK [facility] Atorvastatin Calcium (Atorvastatin 20 Mg Tablet) 10 mg PO DAILY [facility] Last Admin: 09/12/20 11:53 Dose: 10 mg Documented by: Ceftriaxone Sodium (Ceftriaxone 1 Gm Vial) 1 gm IV Q24H [facility] Last Admin: 09/12/20 11:52 Dose: 1 gm Documented by: Dexamethasone (Dexamethasone 10 Mg/Ml Vial) 6 mg IV DAILY [facility] Last Admin: 09/12/20 08:34 Dose: 6 mg Documented by: Dextrose (Dextrose 50% 50 Ml Vial) 0 ml IV UD PRN PRN Reason: Hypoglycemia Diagnostic Test (Pha) (Accu-Chek 1 Each Strip) 1 each FS ACHS [facility] Last Admin: 09/12/20 12:13 Dose: 1 each Documented by: Docusate Sodium (Docusate Sodium 100 Mg Capsule) 100 mg PO BID [facility] Last Admin: 09/12/20 08:33 Dose: 100 mg Documented by: Furosemide (Furosemide 20 Mg/2 Ml Vial) 20 mg IV BIDD [facility] Last Admin: 09/12/20 11:53 Dose: 20 mg Documented by: Glucose (Dextrose 31 Gm Oral.Susp) 15 gm PO PRN PRN PRN Reason: Hypoglycemia Guaifenesin (Guaifenesin/Dextromethorphan Oral Татьяна) 5 ml PO Q4HP PRN PRN Reason: Cough REMDESIVIR 100 mg/ Sodium (Chloride) 250 mls @ 0 mls/hr IV Q24H [facility] Stop: 09/15/20 16:31 Azithromycin 500 mg/ Dextrose 250 mls @ 250 mls/hr IV Q24H [facility]; Protocol Stop: 09/13/20 20:12 Last Infusion: 09/11/20 22:43 Dose: Infused Documented by: Insulin Human Lispro (Insulin Lispro 1 Unit/0.01 Ml Unit) 0 unit SQ ACHS [facility]; Protocol Last Admin: 09/12/20 12:13 Dose: 2 units Documented by: Levothyroxine Sodium (Levothyroxine 50 Mcg Tablet) 50 mcg PO QDAY [facility] Last Admin: 09/12/20 08:33 Dose: 50 mcg Documented by: Lorazepam (Lorazepam 0.5 Mg Tablet) 0.5 mg PO BID PRN PRN Reason: anxiety or panic attacks Losartan Potassium (Losartan 25 Mg Tablet) 12.5 mg PO DAILY [facility] Last Admin: 09/12/20 08:34 Dose: 12.5 mg Documented by: Metoprolol Succinate (Metoprolol Succinate 50 Mg Tab.Xl.24h) 100 mg PO DAILY [facility] Last Admin: 09/12/20 08:33 Dose: 100 mg Documented by: Mycophenolate Mofetil (Mycophenolate 250 Mg Capsule) 1,000 mg PO BID@0700,2000 [facility] Last Admin: 09/12/20 08:35 Dose: 1,000 mg Documented by: Nitroglycerin (Nitroglycerin 0.4 Mg Tab.Subl) 0.4 mg SL Q5M PRN PRN Reason: Chest Pain Nortriptyline HCl (Nortriptyline 10 Mg Capsule) 10 mg PO QHS [facility] Last Admin: 09/11/20 22:33 Dose: 10 mg Documented by: Omeprazole (Omeprazole 20 Mg Capsule) 20 mg PO BID [facility] Last Admin: 09/12/20 08:33 Dose: 20 mg Documented by: Ondansetron HCl (Ondansetron 4 Mg/2 Ml Vial) 4 mg IV Q6HP PRN PRN Reason: Nausea And Vomiting Calcium Citrate 500 (Mg Tab) 1 dose PO QDAY [facility] Last Admin: 09/12/20 10:22 Dose: Not Given Documented by: Cranberry 500 Mg Cap 1 dose PO QDAY [facility] Last Admin: 09/12/20 10:22 Dose: Not Given Documented by: Dronedarone [Multaq] (400 Mg Tab) 1 dose PO BID [facility] Last Admin: 09/12/20 10:22 Dose: Not Given Documented by: Potassium Chloride (Potassium Chloride 10 Meq Tablet) 10 meq PO QDAY [facility] Last Admin: 09/12/20 08:34 Dose: 10 meq Documented by: Senna (Sennosides 1 Tablet) 2 tab PO HS [facility] Last Admin: 09/11/20 22:18 Dose: Not Given Documented by: Sodium Chloride (0.9 % Sodium Chloride 10 Ml Syringe) 10 ml IV Q8 [facility] Last Admin: 09/12/20 04:38 Dose: 10 ml Documented by: Vitamin D (Vitamin D3 1,000 Unit Tablet) 1,000 unit PO DAILY [facility] Last Admin: 09/12/20 11:53 Dose: 1,000 unit Documented by: A/P Time Spent With Patient Time: Total time spent is greater than 50% in coordination of care (as documented) at patient's floor/unit and/or counseling patient: QUALITY VTE Deep Vein Thrombosis/Pulmonary Embolism Present on Admission: No
--- NOTE | 2020-09-12 15:36 | Internal Med Progress Note ---
SUBJECTIVE Subjective Patient information: Note initiated : 09/12/20 at 3:32 pm Service Date, if different from initiated Date: [] Patient: Carla Meyers 75 y/o F admitted on 09/11/20 for short of breath, tested positive for COVID. Chief Complaint: [CoVID pneumonia and rectal bleeding] Overnight: Afebrile. Been on room air overnight. One episode of bloody stool. Subjective: Mild SOB. Nonproductive cough. Denies wheezing. Denies fever or chills or sweating. One episode of bloody stool. Constitutional Vitals: Vital Signs Temp Pulse Resp BP Pulse Ox 36.5 C 67 20 138/67 97 09/12/20 12:00 09/12/20 12:00 09/12/20 12:00 09/12/20 12:00 09/12/20 12:00 Period Temp Pulse Resp BP Sys/Bell Pulse Ox Last 24 Hr 36.1 C-36.7 C 62-72 13-30 111-143/62-73 95-100 Intake and Output 09/12/20 09/12/20 09/12/20 05:59 13:59 21:59 Intake Total 600 480 Output Total 550 650 Balance 50 -170 Weight 78.982 kg Patient Weight 09/13/20 05:59 Weight 78.982 kg Intake & Output: Intake & Output 09/12/20 09/12/20 09/12/20 05:59 13:59 21:59 Intake Total 600 480 Output Total 550 650 Balance 50 -170 Weight 78.982 kg Intake: IV 500 Zithromax 500 mg In Dextrose 5% 250 in Water 250 ml @ 250 mls/hr IV Q24H [facility] Rx#:[id number] Veklury 200 mg In Sodium 250 Chloride 0.9% 250 ml @ 500 mls/ hr IV ONCE ONE Rx#:[id number] Oral 100 480 Output: Void Amount 550 650 Other: Meal Breakfast Percent of Meal Consumed 75% Feeding Ability Independent Urine Color Straw Urine Odor Normal Stool Size Small Small Stool Color Perfecto Colored Brown Stool Consistency Loose Normal for Patient # Voids 1 # Bowel Movements 1 1 General appearance: cooperative and no acute distress Head Head exam: Present atraumatic and normocephalic Eye Eye exam: Present EOMI and PERRL ENT ENT exam: Present mucous membranes moist, normal exam and normal external ear exam Neck Neck exam: Present normal inspection; Absent lymphadenopathy, tenderness and thyromegaly Respiratory Respiratory exam: Absent accessory muscle use, respiratory distress and wheezes Additional comments: Respiratory crackles in bilateral lung bases Cardiovascular Cardiovascular exam: Present normal rate and rhythm; Absent JVD GI/Abdominal GI/Abdominal exam: Present normal bowel sounds and soft; Absent organomegaly and tenderness Rectal Additional comments: 5 external hemorrhoids without active bleeding Extremities Exam Extremities exam: Present full ROM, normal capillary refill and normal inspection; Absent tenderness Neurological Exam Neurological exam: Present alert, CN II-XII intact and oriented X3; Absent motor sensory deficit Psychiatric Psychiatric exam: Present normal affect and normal mood; Absent anxious and depressed Skin Skin exam: Present dry and intact OBJ DATA Labs CBC & Chem 7: 09/12/20 06:23 09/12/20 06:23 Labs: Abnormal Lab Results 09/12/20 09/12/20 09/12/20 06:23 06:23 06:23 WBC 2.8 L RBC 3.85 L Hgb 11.1 L Hct 35.0 L [place] % (Auto) 12.3 H Lymph # (Auto) 1.24 L Absolute Neutrophils 1.25 L Fibrinogen D-Dimer 0.78 H Carbon Dioxide 21 L Calcium 8.3 L Ferritin 1646.0 H C-Reactive Protein 1.90 H NT-Pro-B Natriuret Pep Total Protein 5.7 L Urine Appearance Urine Protein Ur Leukocyte Esterase Urine WBC Urine Bacteria Hyaline Casts Urine Mucus 09/11/20 09/11/20 09/11/20 19:38 13:15 12:32 WBC RBC Hgb Hct [place] % (Auto) Lymph # (Auto) Absolute Neutrophils Fibrinogen 442 H D-Dimer 0.61 H Carbon Dioxide Calcium Ferritin C-Reactive Protein NT-Pro-B Natriuret Pep Total Protein Urine Appearance Cloudy A Urine Protein 30 A Ur Leukocyte Esterase 250 A Urine WBC 79 H Urine Bacteria Few A Hyaline Casts 5 H Urine Mucus Few A 09/11/20 12:32 WBC RBC Hgb Hct [place] % (Auto) Lymph # (Auto) Absolute Neutrophils Fibrinogen D-Dimer Carbon Dioxide Calcium Ferritin C-Reactive Protein NT-Pro-B Natriuret Pep 1667.0 H Total Protein Urine Appearance Urine Protein Ur Leukocyte Esterase Urine WBC Urine Bacteria Hyaline Casts Urine Mucus Meds: Medications Acetaminophen (Acetaminophen 325 Mg Tablet) 650 mg PO Q6HP PRN; Protocol PRN Reason: Per Pain Protocol/Fever > 101 Albuterol/Ipratropium (Ipratropium/Albuterol 3 Ml Ampul.Neb) 3 ml NEB Q4HP PRN PRN Reason: Shortness Of Breath Alendronate Sodium (Alendronate Sodium 70 Mg Tablet) 70 mg PO QWEEK [facility] Atorvastatin Calcium (Atorvastatin 20 Mg Tablet) 10 mg PO DAILY [facility] Last Admin: 09/12/20 11:53 Dose: 10 mg Documented by: Ceftriaxone Sodium (Ceftriaxone 1 Gm Vial) 1 gm IV Q24H [facility] Last Admin: 09/12/20 11:52 Dose: 1 gm Documented by: Dexamethasone (Dexamethasone 10 Mg/Ml Vial) 6 mg IV DAILY [facility] Last Admin: 09/12/20 08:34 Dose: 6 mg Documented by: Dextrose (Dextrose 50% 50 Ml Vial) 0 ml IV UD PRN PRN Reason: Hypoglycemia Diagnostic Test (Pha) (Accu-Chek 1 Each Strip) 1 each FS [facility] Last Admin: 09/12/20 12:13 Dose: 1 each Documented by: Docusate Sodium (Docusate Sodium 100 Mg Capsule) 100 mg PO BID [facility] Last Admin: 09/12/20 08:33 Dose: 100 mg Documented by: Furosemide (Furosemide 20 Mg/2 Ml Vial) 20 mg IV BIDD [facility] Last Admin: 09/12/20 11:53 Dose: 20 mg Documented by: Glucose (Dextrose 31 Gm Oral.Susp) 15 gm PO PRN PRN PRN Reason: Hypoglycemia Guaifenesin (Guaifenesin/Dextromethorphan Oral Татьяна) 5 ml PO Q4HP PRN PRN Reason: Cough REMDESIVIR 100 mg/ Sodium (Chloride) 250 mls @ 0 mls/hr IV Q24H [facility] Stop: 09/15/20 16:31 Azithromycin 500 mg/ Dextrose 250 mls @ 250 mls/hr IV Q24H [facility]; Protocol Stop: 09/13/20 20:12 Last Infusion: 09/11/20 22:43 Dose: Infused Documented by: Insulin Human Lispro (Insulin Lispro 1 Unit/0.01 Ml Unit) 0 unit SQ ACHS [facility]; Protocol Last Admin: 09/12/20 12:13 Dose: 2 units Documented by: Levothyroxine Sodium (Levothyroxine 50 Mcg Tablet) 50 mcg PO QDAY [facility] Last Admin: 09/12/20 08:33 Dose: 50 mcg Documented by: Lorazepam (Lorazepam 0.5 Mg Tablet) 0.5 mg PO BID PRN PRN Reason: anxiety or panic attacks Losartan Potassium (Losartan 25 Mg Tablet) 12.5 mg PO DAILY [facility] Last Admin: 09/12/20 08:34 Dose: 12.5 mg Documented by: Metoprolol Succinate (Metoprolol Succinate 50 Mg Tab.Xl.24h) 100 mg PO DAILY [facility] Last Admin: 09/12/20 08:33 Dose: 100 mg Documented by: Mycophenolate Mofetil (Mycophenolate 250 Mg Capsule) 1,000 mg PO BID@0700,1999 [facility] Last Admin: 09/12/20 08:35 Dose: 1,000 mg Documented by: Nitroglycerin (Nitroglycerin 0.4 Mg Tab.Subl) 0.4 mg SL Q5M PRN PRN Reason: Chest Pain Nortriptyline HCl (Nortriptyline 10 Mg Capsule) 10 mg PO QHS [facility] Last Admin: 09/11/20 22:33 Dose: 10 mg Documented by: Omeprazole (Omeprazole 20 Mg Capsule) 20 mg PO BID [facility] Last Admin: 09/12/20 08:33 Dose: 20 mg Documented by: Ondansetron HCl (Ondansetron 4 Mg/2 Ml Vial) 4 mg IV Q6HP PRN PRN Reason: Nausea And Vomiting Calcium Citrate 500 (Mg Tab) 1 dose PO QDAY [facility] Last Admin: 09/12/20 10:22 Dose: Not Given Documented by: Cranberry 500 Mg Cap 1 dose PO QDAY [facility] Last Admin: 09/12/20 10:22 Dose: Not Given Documented by: Dronedarone [Multaq] (400 Mg Tab) 1 dose PO BID [facility] Last Admin: 09/12/20 10:22 Dose: Not Given Documented by: Potassium Chloride (Potassium Chloride 10 Meq Tablet) 10 meq PO QDAY [facility] Last Admin: 09/12/20 08:34 Dose: 10 meq Documented by: Senna (Sennosides 1 Tablet) 2 tab PO [facility] Last Admin: 09/11/20 22:18 Dose: Not Given Documented by: Sodium Chloride (0.9 % Sodium Chloride 10 Ml Syringe) 10 ml IV Q8 [facility] Last Admin: 09/12/20 04:38 Dose: 10 ml Documented by: Vitamin D (Vitamin D3 1,000 Unit Tablet) 1,000 unit PO DAILY [facility] Last Admin: 09/12/20 11:53 Dose: 1,000 unit Documented by: A/P Assessment and plan (1) Pneumonia due to COVID-19 virus: Status: Acute (2) Rectal bleeding: Status: Acute (3) Atrial fibrillation with RVR: Status: Acute (4) ILD (interstitial lung disease): Status: Chronic (5) Pulmonary fibrosis: Status: Chronic (6) Type 2 diabetes mellitus without complications: Status: Acute (7) Hypertension, essential: Status: Acute (8) Hyperlipemia: Status: Acute (9) UTI (urinary tract infection): Status: Acute (10) Anemia, normocytic normochromic: Status: Acute Narrative A/P Narrative: 1. CoVID pneumonia: Stays in inpatient med surg telemetry Isolation: contact and airborne Inflammatory markers Serial lactic acid ABG Blood culture X2, no growth to date cbc w/ auto diff in AM to trend WBC Supplemental oxygen titrate to achieve oxygen sat >=92% Tylenol PRN fever Robitussin DM PRN cough DuoNEB NEB q4hr PRN wheezing or SOB Remdisivir Dexamethasone Lasix 20 mg IV BID No anticoagulant due to concomitant GI bleeding Rocephin Zithromax CT chest w/o contrast Procalcitonin If no evidence of bacterial superinfection, will d/c Zithromax 2. h/o interstitial lung disease on home oxygen at 3L/min: Dexamethasone Supplemental oxygen titrate to achieve oxygen sat >=92% 3. Lower GI bleeding, secondary to external hemorrhoids: H/H stable, no active bleeding Hold Xarelto Stool softener to prevent additional external hemorrhoid bleeding cbc w/ auto diff in the AM to trend H/H 4. Atrial fibrillation RVR: Continue Metoprolol ER for rate control Hold Xarelto due to lower GI bleeding 5. T2DM: HgA1c Hold Metformin Low dose sliding scale insulin AC HS Accu Chek AC HS Hypoglycemia protocol Daibetic diet 6. Essential HTN: Currently normotensive Continue oral antihypertensives from home regimen 7. Mixed dyslipidemia: Continue statin therapy 8. Hypothyroidism: Continue thyroid replacement therapy 9. UTI: Blood culture X2, no growth to date Urine culture, E coli, sensitivity pending Rocephin and Zithromax cbc w/ auto diff in AM to trend WBC 10. GERD: Continue oral PPI from home regimen Time Spent With Patient Time: Total time spent is greater than 50% in coordination of care (as documented) at patient's floor/unit and/or counseling patient: Total time spent with greater than 50% in coordination of care (as documented) at patient's floor/unit and/or counseling patient:: 15 - 24 minutes QUALITY VTE Deep Vein Thrombosis/Pulmonary Embolism Present on Admission: No
[2020-09-12] MEDS ORDERED: REMDESIVIR 100 MG in 0.9 % SODIUM CHLORIDE 250 ML IV SCH (16:30)
[2020-09-12] MEDS: AZITHROMYCIN 500 MG in DEXTROSE 5% IN WATER 250 ML IV SCH (18:01)
[2020-09-12] MEDS: SENNOSIDES 1 TABLET PO SCH (19:17)
[2020-09-12] MEDS: NORTRIPTYLINE 10 MG CAPSULE PO SCH (21:08)
[2020-09-13] MEDS: 0.9 % SODIUM CHLORIDE 10 ML SYRINGE IV SCH ×2 (03:47→08:06)
[2020-09-13 07:55] LABS: Basophils # (Auto) 0.01 K/mcL (0.00-0.20); Basophils % (Auto) 0.2 % (0.0-2.0); Eosinophils # (Auto) 0 K/mcL (0.00-0.70); Eosinophils % (Auto) 0 % (0.0-7.0); Hematocrit 39.1 % (36.0-48.0); Lymphocytes # (Auto) 1.58 K/mcL (1.50-4.80); Lymphocytes % (Auto) 33.1 % (15.0-49.0); Mean Cell Volume 92.2 fL (80.0-100.0); Mean Corpuscular HGB Conc 30.7 g/dL (31.0-36.0); Mean Platelet Volume 10.1 fL (7.4-10.4); Monocytes # (Auto) 0.62 K/mcL (0.10-0.90); Neutrophils % (Auto) 53.7 % (38.0-78.0); Platelet Count 200 K/mcL (140-440); RBC 4.24 M/mcL (4.00-5.20); Red Cell Distribution Width 14.2 % (11.5-14.5); WBC 4.8 K/mcL (4.5-11.0)
[2020-09-13] MEDS: METOPROLOL SUCCINATE 50 MG TAB.XL.24H PO SCH (08:02)
[2020-09-13] MEDS: MYCOPHENOLATE 250 MG CAPSULE PO SCH (08:03)
[2020-09-13] MEDS: INSULIN LISPRO 1 UNIT/0.01 ML UNIT SQ SCH ×2 (08:03→12:05)
[2020-09-13] MEDS: LEVOTHYROXINE 50 MCG TABLET PO SCH (08:04)
[2020-09-13] MEDS: LOSARTAN 25 MG TABLET PO SCH (08:04)
[2020-09-13] MEDS: ATORVASTATIN 20 MG TABLET PO SCH (08:05)
[2020-09-13] MEDS: DEXAMETHASONE 10 MG/ML VIAL IV SCH (08:05)
[2020-09-13] MEDS: FUROSEMIDE 20 MG/2 ML VIAL IV SCH (08:05)
[2020-09-13] MEDS: DOCUSATE SODIUM 100 MG CAPSULE PO SCH (08:06)
[2020-09-13] MEDS: CALCIUM CITRATE 500 MG PO SCH (08:06)
[2020-09-13] MEDS: DRONEDARONE 400 MG PO SCH (08:07)
[2020-09-13] MEDS: OMEPRAZOLE 20 MG CAPSULE PO SCH (08:07)
[2020-09-13 08:27] LABS: ALT/SGPT 14 U/L (<40); AST/SGOT 18 U/L (<32); Albumin 3.7 gm/dL (3.2-5.2); Albumin/Globulin Ratio 1.9 (1.0-2.3); Alkaline Phosphatase 39 U/L (39-117); Bilirubin,Total 0.2 mg/dL (0.1-1.0); Blood Urea Nitrogen 24 mg/dL (8-23); Calcium 8.3 mg/dL (8.6-10.4); Carbon Dioxide 21 mmol/L (22-30); Chloride 105 mmol/L (96-108); Glomerular Filtration Rate 55; Glucose 88 mg/dL (70-105)
--- NOTE | 2020-09-13 11:35 | Discharge Summary ---
Discharge Provider Provider Patient information: Note initiated : 09/13/20 at 11:32 am Service Date, if different from initiated Date: [] Patient: Carla Meyers 75 y/o F admitted on 09/11/20 for short of breath, tested positive for COVID. Chief Complaint: [] Date of admission: 09/11/20 19:04 Discharge date: 09/13/20 Primary care physician: Eligio Huerta MD Consults: 09/11/20 Consult to Physician [CONS] Stat Comment: Consulting Provider: Tom Mcgrath Reason For Exam: Physician to Consult Discharge Meds Discharge Medications Home Medications oxygen 4 liters #1 each 02/23/19 [History Confirmed 09/11/20 Last Taken 10/06/19] cholecalciferol (vitamin D3) 1,000 unit PO DAILY 03/31/19 [History Confirmed 09/11/20 Last Taken 10/06/19] Placard For Disability 1 each MISC ONCE 04/01/19 [History Confirmed 09/11/20 L ast Taken 10/06/19] Wheel Chair #1 each 04/26/19 [Rx Confirmed 09/11/20 Last Taken 10/06/19] calcium citrate 500 mg PO QDAY 07/29/19 [History Confirmed 09/11/20 Last Taken 10/06/19] cranberry 500 mg capsule 500 mg PO QDAY cap 07/29/19 [History Confirmed 09/11/20 Last Taken 10/06/19] atorvastatin 20 mg tablet 10 mg PO DAILY #45 tab 08/03/19 [Rx Confirmed 09/11/20 Last Taken 10/06/19] losartan 50 mg tablet 12.5 mg PO DAILY #45 tab 08/05/19 [Rx Confirmed 09/11/20 Last Taken 10/06/19] 0xygen Portable Concentrator #1 ea 12/06/19 [Rx Confirmed 09/11/20 Last Taken Unknown] nitroglycerin 0.4 mg sublingual tablet 0.4 mg SUBLINGUAL .COMPLEX PRN #10 tab 12/14/19 [Rx Confirmed 09/11/20 Last Taken Unknown] ipratropium 0.5 mg-albuterol 3 mg (2.5 mg base)/3 mL nebulization soln 3 ml INHALATION Q6H PRN #360 ml 03/06/20 [Rx Confirmed 09/11/20 Last Taken Unknown] alendronate 70 mg tablet 70 mg PO QWEEK #12 tab 04/30/20 [Rx Confirmed 09/11/20 Last Taken Unknown] metformin 500 mg tablet,extended release 24hr 500 mg PO QDAY #90 tab 05/01/20 [Rx Confirmed 09/11/20 Last Taken Unknown] omeprazole 20 mg capsule,delayed release 20 mg PO BID #180 cap 05/08/20 [Rx Confirmed 09/11/20 Last Taken Unknown] mycophenolate mofetil 500 mg tablet See Rx Instructions .ROUTE .COMPLEX #360 tab 05/31/20 [Rx Confirmed 09/11/20 Last Taken Unknown] furosemide 20 mg tablet 20 mg PO QDAY tab 06/19/20 [History Confirmed 09/11/20 Last Taken Unknown] nortriptyline 10 mg capsule 10 mg PO QHS cap 06/19/20 [History Confirmed 09/11/20 Last Taken Unknown] valacyclovir 1 gram tablet 1,000 mg PO TID PRN tab 06/19/20 [History Confirmed 09/11/20 Last Taken Unknown] ipratropium bromide 42 mcg (0.06 %) nasal spray 2 spray INTRANASAL TID-QID PRN #15 ml 06/28/20 [Rx Confirmed 09/11/20 Last Taken Unknown] lorazepam 0.5 mg tablet 0.5 mg PO BID PRN #10 tab 06/28/20 [Rx Confirmed 09/11/20 Last Taken Unknown] prednisone 5 mg tablet 7.5 mg PO QDAY #135 tab 07/05/20 [Rx Confirmed 09/11/20 Last Taken Unknown] levothyroxine 50 mcg tablet 50 mcg PO QDAY #90 tab 07/17/20 [Rx Confirmed 09/11/20 Last Taken Unknown] metoprolol succinate 100 mg tablet,extended release 24 hr 100 mg PO QDAY #90 tab 07/17/20 [Rx Confirmed 09/11/20 Last Taken Unknown] potassium chloride 10 mEq tablet,extended release 10 meq PO QDAY #90 tab 07/17/20 [Rx Confirmed 09/11/20 Last Taken Unknown] cyanocobalamin (vitamin B-12) 1,000 mcg PO QDAY 09/11/20 [History Confirmed 09/11/20 Last Taken Unknown] dronedarone 400 mg PO BID 09/11/20 [History Confirmed 09/11/20 Last Taken Unknown] ciprofloxacin HCl 250 mg PO BID 3 Days #3 tab 04/22/21 [Rx Last Taken Unknown] dextromethorphan-guaifenesin [Robafen DM Cough-Chest Congest] 5 ml PO Q4HP PRN 10 Days #0 ml 09/13/20 [Rx Last Taken Unknown] COURSE Hospital Course Hospital course: CoVID pneumonia: Supplemental oxygen provided. Remdisivir, Dexamethasone, Lasix, and empiric antibiotics Rocephin and Zithromax all started for her. Ct chest without contrast was performed and no intrathoracic complications were found. By 09/13/20 patient was able to tolerating room air, and reached clinical stability. She was also found to have UTI and urine culture grew E coli. Symptoms of dysuria resolved by time of discharge. 2 week PCP appointment made for her. All questions were answered prior to patient being physically discharged. Discharge diagnosis: CoVID pneumonia. Urinary tract infection Time spent discussing smoking cessation with patient: more than 10 minutes Time Spent with Patient Time attestation: Total time spent providing and/or coordinating discharge services: Time spent: Less than 30 minutes EXAM Constitutional Vitals: Temp Pulse Resp BP Pulse Ox 37.2 C 63 15 136/62 100 09/13/20 07:48 09/13/20 07:48 09/13/20 07:48 09/13/20 07:48 09/13/20 07:48 Discharge Data Data Completed and Pending Labs on day of discharge: Labs from last 24 hours 09/13/20 09/13/20 09/13/20 05:30 05:30 05:30 WBC 4.8 RBC 4.24 Hgb 12.0 Hct 39.1 MCV 92.2 MCH 28.3 MCHC 30.7 L RDW 14.2 Plt Count 200 MPV 10.1 Neut % (Auto) 53.7 Lymph % (Auto) 33.1 [place] % (Auto) 13.0 H Eos % (Auto) 0 Baso % (Auto) 0.2 Lymph # (Auto) 1.58 [place] # (Auto) 0.62 Eos # (Auto) 0 Baso # (Auto) 0.01 Absolute Neutrophils 2.56 D-Dimer 0.33 Sodium 141 Potassium 3.4 Chloride 105 Carbon Dioxide 21 L Anion Gap 15.0 BUN 24 H Creatinine 1.0 GFR Calculation 55 Glucose 88 Calcium 8.3 L Ferritin 2370.0 H Total Bilirubin 0.2 AST 18 ALT 14 Alkaline Phosphatase 39 C-Reactive Protein 0.80 Total Protein 5.7 L Albumin 3.7 Globulin 2.0 L Albumin/Globulin Ratio 1.9 Preliminary micro results at discharge 09/11/20 12:40 Blood Culture - Preliminary Blood 09/11/20 12:32 Blood Culture - Preliminary Blood Discharge Plan Patient/Caregiver Discharge Instructions Activity: increase activity as tolerated Diet: Regular Diet Activity Restrictions/Additional Instructions: Follow up with PCP in 2 weeks Self quarantine for 2 weeks Prescriptions: New dextromethorphan-guaifenesin [Robafen DM Cough-Chest Congest] 10-100 mg/5 mL Syrup 5 ml PO Q4HP PRN (Reason: Cough) 10 Days Qty: 0 RF: 1 ciprofloxacin HCl 500 mg tablet 250 mg PO BID 3 Days Qty: 3 RF: 0 Continued atorvastatin 20 mg tablet 10 mg PO DAILY Qty: 45 RF: 1 losartan 50 mg tablet 12.5 mg PO DAILY Qty: 45 RF: 1 (DME) 0xygen Portable Concentrator Qty: 1 RF: 0 ipratropium-albuterol 0.5 mg-3 mg(2.5 mg base)/3 mL solution for nebulization 3 ml INHALATION Q6H PRN (Reason: shortness of breath or wheezing) Qty: 360 RF: 6 alendronate 70 mg tablet 70 mg PO QWEEK Qty: 12 RF: 1 metformin 500 mg tablet extended release 24hr 500 mg PO QDAY Qty: 90 RF: 1 omeprazole 20 mg capsule,delayed release(DR/EC) 20 mg PO BID Qty: 180 RF: 1 mycophenolate mofetil 500 mg tablet See Rx Instructions .ROUTE .COMPLEX Qty: 360 RF: 0 furosemide 20 mg tablet 20 mg PO QDAY RF: 0 levothyroxine [Synthroid] 50 mcg tablet 50 mcg PO QDAY Qty: 90 RF: 1 potassium chloride 10 mEq tablet extended release 10 meq PO QDAY Qty: 90 RF: 1 metoprolol succinate [Toprol XL] 100 mg tablet extended release 24 hr 100 mg PO QDAY Qty: 90 RF: 1 (DME) Wheel Chair Regular Each 0 .Route .MEDSUPPLY Qty: 1 RF: 0 nitroglycerin 0.4 mg tablet, sublingual 0.4 mg SUBLINGUAL .COMPLEX PRN (Reason: chest pain) Qty: 10 RF: 0 lorazepam [Ativan] 0.5 mg tablet 0.5 mg PO BID PRN (Reason: anxiety or panic attacks) Qty: 10 RF: 0 ipratropium bromide 42 mcg (0.06 %) spray,non-aerosol 2 spray INTRANASAL TID-QID PRN (Reason: allergy symptoms) Qty: 15 RF: 0 calcium citrate 250 mg calcium tablet 500 mg PO QDAY RF: 0 cranberry 500 mg capsule 500 mg PO QDAY RF: 0 (DME) oxygen 4 liters gas 1 each INH CONT Qty: 1 RF: 0 nortriptyline 10 mg capsule 10 mg PO QHS RF: 0 valacyclovir 1 gram tablet 1,000 mg PO TID PRN (Reason: Rash) RF: 0 prednisone 5 mg tablet 7.5 mg PO QDAY Qty: 135 RF: 1 cholecalciferol (vitamin D3) 1,000 UNIT capsule 1,000 unit PO DAILY RF: 0 Placard For Disability 1 EACH Each 1 each MISC ONCE RF: 0 cyanocobalamin (vitamin B-12) 1,000 mcg Tablet 1,000 mcg PO QDAY RF: 0 dronedarone 400 mg Tablet 400 mg PO BID RF: 0 Follow Up Plan Follow up with: Eligio Huerta MD [Primary Care Provider] - Patient Disposition: Home, Self-Care Prognosis: Good Discharge Orders: Discharge Order (Routine); Ordered 09/13/20 Ordered By: Tom JOYNER VTE Deep Vein Thrombosis/Pulmonary Embolism Present on Admission: No
[2020-09-13] MEDS: AZITHROMYCIN 500 MG in DEXTROSE 5% IN WATER 250 ML IV SCH (11:57)
[2020-09-13] MEDS: VITAMIN D3 1,000 UNIT TABLET PO SCH (12:03)
[2020-09-13] MEDS: cefTRIAXone 1 GM VIAL IV SCH (13:12)
[2020-09-13] MEDS: POTASSIUM CHLORIDE 10 MEQ TABLET PO SCH (13:12)
[2020-09-18] MEDS ORDERED: ALENDRONATE SODIUM 70 MG TABLET PO SCH ×2 (09:00)
== END 2020-09-13 14:30 | disposition home or self-care (01) | DRG 177 ==
LOC: ED 11:51 → MEDSUR 19:04
PROVIDERS: ADMIT Internal Medicine; ATTEND Internal Medicine

== ENCOUNTER 2022-04-20 09:32 | Inpatient (IN) ==
[2022-04-20] MEDS ORDERED: DEXTROSE 50% 50 ML SYRINGE IV ONE (09:50)
--- NOTE | 2022-04-20 10:10 | Emergency Department Note ---
HPI General Chief complaint: Blood Sugar Problem Stated complaint: Low blood sugar Time Seen by Provider: 04/20/22 10:05 Source: patient and family Mode of arrival: wheelchair Limitations: no limitations History of Present Illness HPI Narrative: Narrative: 76-year-old female with past medical history of allergy to cefprozil, codeine, sulfa drugs, diabetes mellitus on glipizide, Coronary artery disease status pos t stent placement x5, on pacemaker, adenocarcinoma of the lung status postchemotherapy 5 days ago and as below presents with the episode of hypoglycemia after she took her glipizide extended release 5 mg tablet yesterday morning. Did not take this morning. . Patient says her blood glucose was 32 which increased to 45 after eating a candy and a granola bar. No headache dizziness abdominal pain nausea vomiting diarrhea fever or chills Patient also had an episode of chest pain which resolved on its own within few few seconds. EKG in the ER consistent with atrial paced complexes at 62 bpm, left axis deviation, Q waves in aVF. Her blood pressure 160/76, pulse 62, respiration 27, O2 sat 97% Related Data Home Medications Medication Instructions Recorded Confirmed oxygen 4 liters #1 ea 02/23/19 03/04/22 cholecalciferol (vitamin D3) 25 1,000 unit PO DAILY 03/31/19 04/10/22 mcg (1,000 unit) capsule Placard For Disability 1 each MISC ONCE 04/01/19 03/04/22 calcium citrate 500 mg PO QDAY 07/29/19 04/10/22 cranberry 500 mg capsule 500 mg PO QDAY 07/29/19 04/10/22 furosemide 20 mg tablet 20 mg PO QDAY 06/19/20 04/10/22 cyanocobalamin (vitamin B-12) 1,000 mcg PO QDAY 09/11/20 04/10/22 1,000 mcg tablet dicyclomine 10 mg capsule 10 - 20 mg PO Q6H PRN abdominal 10/08/21 04/10/22 pain diphenoxylate-atropine 2.5 1 - 2 tab PO Q6H PRN diarrhea 10/08/21 04/10/22 mg-0.025 mg tablet folic acid 1 mg tablet 1 mg PO QDAY 01/30/22 04/10/22 prochlorperazine maleate 10 mg 10 mg PO DAILY 01/30/22 04/10/22 tablet losartan 50 mg tablet 25 mg PO DAILY 04/10/22 metoprolol succinate 100 mg See Rx Instructions PO BID 04/10/22 tablet,extended release 24 hr Previous Rx's Medication Instructions Recorded Wheel Chair #1 ea 04/26/19 ipratropium 0.5 mg-albuterol 3 mg 3 ml inhalation Q6H PRN shortness 03/06/20 (2.5 mg base)/3 mL nebulization of breath or wheezing #360 mL soln valacyclovir 500 mg tablet 500 mg PO BID #60 tabs 10/02/20 apixaban 2.5 mg tablet (Eliquis) 2.5 mg PO BID #1 tab 10/03/20 Con 5 Oxygen portable concentrator #1 ea 11/14/20 blood sugar diagnostic (Accu-Chek #100 ea 12/23/21 Laura Plus test strips) lancets (Accu-Chek Softclix #100 ea 02/07/22 Lancets) atorvastatin 20 mg tablet 10 mg PO DAILY #45 tabs 02/14/22 glipizide 5 mg tablet, extended 5 mg PO QDAY #90 tabs 02/14/22 release 24 hr levothyroxine 50 mcg tablet 50 mcg PO QDAY #90 tabs 02/14/22 (Synthroid) nortriptyline 10 mg capsule 10 mg PO QHS #90 caps 02/14/22 omeprazole 20 mg capsule,delayed 20 mg PO BID #180 caps 02/14/22 release potassium chloride 10 mEq 10 meq PO QDAY #90 tabs 02/14/22 tablet,extended release alendronate 70 mg tablet 70 mg PO QWEEK #12 tabs 02/17/22 lorazepam 0.5 mg tablet (Ativan) 0.5 mg PO BID PRN anxiety or panic 03/04/22 attacks #20 tabs nitroglycerin 0.4 mg sublingual 0.4 mg sublingual .COMPLEX PRN 03/04/22 tablet chest pain #10 tabs prednisone 10 mg tablet 10 mg PO QDAY #30 tabs 03/05/22 doxycycline monohydrate 100 mg 100 mg PO BID #14 tabs 04/20/22 tablet pioglitazone 15 mg tablet (Actos) 15 mg PO QDAY #30 tabs 04/20/22 Allergies Allergy/AdvReac Type Severity Reaction Status Date / Time Cefprozil Allergy Mild Hives Verified 04/20/22 09:40 codeine AdvReac Mild Nausea Verified 04/20/22 09:41 Sulfa (Sulfonamide AdvReac Mild Rash Verified 04/20/22 09:41 Antibiotics) Review of Systems ROS ROS Narrative: Narrative: All systems ED: reviewed and negative except as stated. Constitutional: Reports as per [facility] Narrative Patient History Narrative: Narrative: Medical/Surgical/Family History All Active Problems (Updated 04/20/22 @ 14:56 by Danny Miguel MD) Hypoglycemia secondary to sulfonylurea (Acute) Chest pain (Acute) Acute UTI (Acute) Anxiety (Acute) Tachycardia (Acute) Adenocarcinoma of left lung (Chronic) Chest pain (Acute) History of colonic polyps (Acute) Coronary artery disease (Acute) Dysphagia (Acute) Gastroesophageal reflux (Chronic) Hyperlipemia (Acute) Hypertension, essential (Chronic) Joint pain (Acute) Postmenopausal related mood disorder (Acute) Obesity (Acute) Osteoarthritis (Acute) Fracture of thoracic vertebra, closed (Acute) History of coronary artery stent placement (Acute) History of hysterectomy (Acute) History of tubal ligation (Acute) Stable angina (Acute) Type 2 diabetes mellitus without complications (Chronic) Community acquired pneumonia (Acute) Atypical chest pain (Acute) Pulmonary infiltrates on CXR (Chronic) UIP (usual interstitial pneumonitis) (Chronic) Hypoxemia (Chronic) Atrial fibrillation with RVR (Acute) Antisynthetase syndrome (Chronic) Pulmonary fibrosis (Chronic) Encounter for long-term (current) use of high-risk 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) 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) ILD (interstitial lung disease) (Chronic) Myositis (Acute) Inflammatory myopathy (Acute) Osteopenia (Chronic) Lower GI bleeding (Acute) Neutropenia (Acute) Anemia (Acute) Cellulitis (Acute) Abscess of skin or subcutaneous tissue (Acute) Abscess of skin or subcutaneous tissue (Acute) Rectal bleeding (Acute) Left breast abscess (Acute) MRSA (methicillin resistant staph aureus) culture positive (Acute) Medicare annual wellness visit, initial (Acute) Annual physical exam (Acute) Fatigue (Acute) Annual physical exam (Acute) Right ovarian cyst (Acute) Edema (Acute) Dyspnea (Acute) Vasomotor rhinitis (Acute) Lower extremity edema (Acute) Varicose veins of bilateral lower extremities with pain (Acute) Dizziness (Acute) Pneumonia due to COVID-19 virus (Acute) UTI (urinary tract infection) (Acute) Anemia, normocytic normochromic (Acute) Pneumonia due to COVID-19 virus (Acute) Interstitial lung disease (Chronic) Herpes labialis (Acute) Fatigue (Acute) Dyspnea (Acute) Pneumonia (Acute) Medicare annual wellness visit, initial (Acute) BPPV (benign paroxysmal positional vertigo) (Acute) Abdominal pain (Acute) Lightheadedness (Acute) Lung nodules (Acute) Acute UTI (Acute) Bilateral pulmonary infiltrates on chest x-ray (Acute) Acute lower gastrointestinal bleeding (Acute) Medical History Abscess of skin or subcutaneous tissue Annual physical exam Annual physical exam Antisynthetase syndrome BPPV (benign paroxysmal positional vertigo) Chest pain Coronary artery disease 05/31 with stenting 09/27 04/28 twice Dysphagia Dyspnea Dyspnea Edema Encounter for long-term (current) use of high-risk medication Fatigue Fatigue Fracture of thoracic vertebra, closed Gastroesophageal reflux Herpes labialis History of colonic polyps Hyperlipemia Hypertension, essential Hypoxemia ILD (interstitial lung disease) Inflammatory myopathy Joint pain bilateral knees Left 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 abscess 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 Lower extremity edema Medicare annual wellness visit, initial Medicare annual wellness visit, initial MRSA (methicillin resistant staph aureus) culture positive Obesity Osteoarthritis Osteopenia Pneumonia Postmenopausal related mood disorder Pulmonary fibrosis Pulmonary infiltrates on CXR Right ovarian cyst Stable angina UIP (usual interstitial pneumonitis) Varicose veins of bilateral lower extremities with pain Vasomotor rhinitis Surgical History History of coronary artery stent placement 05/3105/04/2005 05/07/2005 History of hysterectomy History of permanent cardiac pacemaker placement (06/23/19) History of tubal ligation Family History Mother , at 84y Alzheimer's disease Essential hypertension Acute myocardial infarction Transient cerebral ischemia Unknown Atherosclerosis of coronary artery Diabetes mellitus Hyperlipidemia Father , accidental at 46 Instantaneous Acute myocardial infarction Brother Cardiac disease Heart surgery Social History Smoking Status: Never smoker Alcohol Intake Frequency: 0-2 drinks per day Exam Narrative Narrative: Narrative: General Limitations: no limitations Course Course Course Narrative: CBC, CMP, COVID, urinalysis, chest x-ray, were ordered. Dextrose 50% 50 mL IV was given. Normal saline 1000 mL IV was given with blood glucose 192. Her tro ponin is negative. Patient blood glucose remained in normal range last blood glucose was 139 1 hour after her lunch. Patient will be discharged home in stable condition. Discontinue glipizide. Start metformin 500 mg daily and follow-up with her primary care for adjustment of the dose. Patient is advised to return to ER if her blood glucose goes less than 100. Her UA c/w UTI Vital Signs Vital signs: Vital Signs Temperature 97.7 F 04/20/22 09:33 Pulse Rate 74 04/20/22 09:33 Respiratory Rate 16 04/20/22 09:33 Blood Pressure 185/91 04/20/22 09:33 Pulse Oximetry (%) 96 04/20/22 09:33 Oxygen Delivery Method 04/20/22 09:33 Temperature 97.7 F 04/20/22 09:33 Pulse Rate 59 L 04/20/22 13:24 Respiratory Rate 23 H 04/20/22 13:24 Blood Pressure 133/77 04/20/22 13:16 Pulse Oximetry (%) 97 04/20/22 13:24 Oxygen Delivery Method 04/20/22 09:33 MDM MDM Narrative Medical decision making narrative: Narrative: Lab Data Result diagrams: 04/20/22 10:05 04/20/22 10:05 Labs: Lab Results 04/20/22 04/20/22 04/20/22 Range/Units 10:05 10:05 10:08 WBC 12.4 H (4.5-11.0) K/mcL RBC 4.19 (3.59-5.38) M/mcL Hgb 12.7 (11.2-15.7) g/dL Hct 41.1 (34.1-44.9) % POC Hct (36-48) MCV 98.1 (80.0-100.0) fL MCH 30.3 (26.0-34.0) pg MCHC 30.9 L (31.0-36.0) g/dL RDW 16.0 H (11.5-14.5) % Plt Count 196 (140-440) K/mcL MPV 10.2 (8.8-12.5) fL Immature Gran % (Auto) 0.5 (0.0-0.5) % Neut % (Auto) 78.7 H (38.0-78.0) % Lymph % (Auto) 19.8 (15.5-49.0) % Turner % (Auto) 0.6 L (1.0-12.0) % Eos % (Auto) 0.3 (0.0-7.0) % Baso % (Auto) 0.1 (0.0-2.0) % Lymph # (Auto) 2.46 (1.50-4.80) K/mcL Turner # (Auto) 0.07 L (0.10-0.90) K/mcL Eos # (Auto) 0.04 (0.00-0.70) K/mcL Baso # (Auto) 0.01 (0.00-0.30) K/mcL Immature Gran # 0.06 H (0.00-0.05) K/mcl Absolute Neutrophils 9.77 H (1.80-8.00) K/mcL POC Sodium (133-145) Sodium 139 (133-145) mmol/L POC Potassium (3.3-5.1) Potassium 3.3 (3.3-5.1) mmol/L POC Chloride (96-108) Chloride 102 (96-108) mmol/L Carbon Dioxide 28 (22-30) mmol/L POC Total CO2 (22-30) Anion Gap 9.0 (8.0-16.0) POC BUN (6-20) BUN 19 (8-23) mg/dL Creatinine 0.9 (0.6-1.1) mg/dL POC Creatinine (0.6-1.2) GFR Calculation 62 Glucose 195 H (70-105) mg/dL POC Glucose (70-105) Calcium 8.4 L (8.6-10.4) mg/dL POC WB Ioniz Calcium (1.16-1.32) Total Bilirubin 0.5 (0.1-1.0) mg/dL AST 14 (<32) U/L ALT 17 (<40) U/L Alkaline Phosphatase 47 (39-117) U/L Total Protein 5.5 L (5.9-8.4) gm/dL Albumin 3.8 (3.2-5.2) gm/dL Globulin 1.7 L (2.2-3.7) gm/dL Albumin/Globulin Ratio 2.2 (1.0-2.3) Urine Color Urine Appearance (Clear) Urine pH (5.0-9.0) Ur Specific [place] (1.000-1.035) Urine Protein (Negative) mg/dL Urine Glucose (UA) (Negative) mg/dL Urine Ketones (Negative) mg/dL Urine Occult Blood (Negative) jarvis/mcL Urine Nitrate (Negative) Urine Bilirubin (Negative) mg/dL Urine Urobilinogen mg/dL Ur Leukocyte Esterase (Negative) /uL Urine RBC (0-3) /hpf Urine WBC (0-4) /hpf Ur Squamous Epith Cells (0-4) /hpf Ur Transition Epith Cell (0-2) /hpf Urine Bacteria (0) /hpf Urine Mucus (None) /hpf Ur Culture Indicated? POC Troponin I < 0.02 (0.00-0.08) 04/20/22 04/20/22 Range/Units 10:09 11:00 WBC (4.5-11.0) K/mcL RBC (3.59-5.38) M/mcL Hgb (11.2-15.7) g/dL Hct (34.1-44.9) % POC Hct 39.0 (36-48) MCV (80.0-100.0) fL MCH (26.0-34.0) pg MCHC (31.0-36.0) g/dL RDW (11.5-14.5) % Plt Count (140-440) K/mcL MPV (8.8-12.5) fL Immature Gran % (Auto) (0.0-0.5) % Neut % (Auto) (38.0-78.0) % Lymph % (Auto) (15.5-49.0) % Turner % (Auto) (1.0-12.0) % Eos % (Auto) (0.0-7.0) % Baso % (Auto) (0.0-2.0) % Lymph # (Auto) (1.50-4.80) K/mcL Turner # (Auto) (0.10-0.90) K/mcL Eos # (Auto) (0.00-0.70) K/mcL Baso # (Auto) (0.00-0.30) K/mcL Immature Gran # (0.00-0.05) K/mcl Absolute Neutrophils (1.80-8.00) K/mcL POC Sodium 141 (133-145) Sodium (133-145) mmol/L POC Potassium 3.3 (3.3-5.1) Potassium (3.3-5.1) mmol/L POC Chloride 101 (96-108) Chloride (96-108) mmol/L Carbon Dioxide (22-30) mmol/L POC Total CO2 30.0 (22-30) Anion Gap (8.0-16.0) POC BUN 20 (6-20) BUN (8-23) mg/dL Creatinine (0.6-1.1) mg/dL POC Creatinine 1.1 (0.6-1.2) GFR Calculation Glucose (70-105) mg/dL POC Glucose 193 H (70-105) Calcium (8.6-10.4) mg/dL POC WB Ioniz Calcium 1.10 L (1.16-1.32) Total Bilirubin (0.1-1.0) mg/dL AST (<32) U/L ALT (<40) U/L Alkaline Phosphatase (39-117) U/L Total Protein (5.9-8.4) gm/dL Albumin (3.2-5.2) gm/dL Globulin (2.2-3.7) gm/dL Albumin/Globulin Ratio (1.0-2.3) Urine Color Lt. yellow Urine Appearance Sl cloudy A (Clear) Urine pH 6.0 (5.0-9.0) Ur Specific [place] 1.020 (1.000-1.035) Urine Protein Negative (Negative) mg/dL Urine Glucose (UA) 250 A (Negative) mg/dL Urine Ketones Negative (Negative) mg/dL Urine Occult Blood Negative (Negative) jarvis/mcL Urine Nitrate Positive A (Negative) Urine Bilirubin Negative (Negative) mg/dL Urine Urobilinogen Normal mg/dL Ur Leukocyte Esterase Small A (Negative) /uL Urine RBC 2 (0-3) /hpf Urine WBC 50 H (0-4) /hpf Ur Squamous Epith Cells 4 (0-4) /hpf Ur Transition Epith Cell < 1 (0-2) /hpf Urine Bacteria Many A (0) /hpf Urine Mucus Few A (None) /hpf Ur Culture Indicated? 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/PA only: No Clinical Impression: Hypoglycemia secondary to sulfonylurea, Chest pain, Acute UTI Patient Disposition: Home, Self-Care Condition: Good Follow up with: Eligio Huerta MD [Primary Care Provider] - Prescriptions: New pioglitazone [Actos] 15 mg tablet 15 mg PO QDAY Qty: 30 0RF doxycycline monohydrate 100 mg tablet 100 mg PO BID Qty: 14 0RF No Action ipratropium-albuterol 0.5 mg-3 mg(2.5 mg base)/3 mL solution for nebulization 3 ml INHALATION Q6H PRN (Reason: shortness of breath or wheezing) Qty: 360 6RF furosemide 20 mg tablet 20 mg PO QDAY (DME) Con 5 Oxygen portable concentrator See Rx Instructions .Route .MEDSUPPLY Qty: 1 0RF Rx Instructions: NC 3-4L (DME) Accu-Chek Laura Plus test strp Strip See Dose Instructions .ROUTE .MEDSUPPLY Qty: 100 3RF Dose Instruction: As directed Rx Instructions: Use to test BG twice daily (DME) lancets [Accu-Chek Softclix Lancets] Misc See Rx Instructions .Route Qty: 100 12RF Rx Instructions: Use to test blood sugar 2 times daily and as needed atorvastatin 20 mg tablet 10 mg PO DAILY Qty: 45 1RF levothyroxine [Synthroid] 50 mcg tablet 50 mcg PO QDAY Qty: 90 1RF nortriptyline 10 mg capsule 10 mg PO QHS Qty: 90 1RF potassium chloride 10 mEq tablet extended release 10 meq PO QDAY Qty: 90 1RF glipizide 5 mg tablet extended release 24hr 5 mg PO QDAY Qty: 90 1RF omeprazole 20 mg capsule,delayed release(DR/EC) 20 mg PO BID Qty: 180 1RF alendronate 70 mg tablet 70 mg PO QWEEK Qty: 12 1RF Rx Instructions: administer immed. upon arising with water >=30 min before food/beverages;stay upright for >=30 min;do not chew prednisone 10 mg tablet 10 mg PO QDAY Qty: 30 0RF (DME) Wheel Chair Regular Each 0 .Route .MEDSUPPLY Qty: 1 0RF Rx Instructions: As directed Include foot pedals valacyclovir 500 mg tablet 500 mg PO BID Qty: 60 0RF Eliquis 2.5 mg tablet 2.5 mg PO BID Qty: 1 0RF folic acid 1 mg tablet 1 mg PO QDAY prochlorperazine maleate 10 mg tablet 10 mg PO DAILY nitroglycerin 0.4 mg tablet, sublingual 0.4 mg SUBLINGUAL .COMPLEX PRN (Reason: chest pain) Qty: 10 0RF Rx Instructions: Take 1 tab first sign of chest pain; no more than 3 tabs are recommended within a 15 minute period PRN lorazepam [Ativan] 0.5 mg tablet 0.5 mg PO BID PRN (Reason: anxiety or panic attacks) Qty: 20 0RF calcium citrate 250 mg calcium tablet 500 mg PO QDAY cranberry 500 mg capsule 500 mg PO QDAY (DME) oxygen 4 liters gas 1 each INH CONT Qty: 1 Rx Instructions: As directed losartan 50 mg tablet 25 mg PO DAILY metoprolol succinate 100 mg tablet extended release 24 hr See Rx Instructions PO BID Dose Instruction: TAKE 1 TABLET EVERY DAY Rx Instructions: TAKE 1 TABLET EVERY DAY orally twice a day; dicyclomine 10 mg capsule 10 - 20 mg PO Q6H PRN (Reason: abdominal pain) diphenoxylate-atropine 2.5-0.025 mg tablet 1 - 2 tab PO Q6H PRN (Reason: diarrhea) cholecalciferol (vitamin D3) 1,000 UNIT capsule 1,000 unit PO DAILY Rx Instructions: administer with meals Placard For Disability 1 EACH Each 1 each MISC ONCE Rx Instructions: Patient unable to ambulate. Wheelchair bound and on portable oxygen, restricted by lung disease cyanocobalamin (vitamin B-12) 1,000 mcg Tablet 1,000 mcg PO QDAY
[2022-04-20 10:12] LABS: POC Calcium, Ionized 1.1 (1.16-1.32); POC Creatinine 1.1 (0.6-1.2); POC Potassium 3.3 (3.3-5.1)
[2022-04-20] MEDS ORDERED: 0.9 % SODIUM CHLORIDE 500 ML IV ONE (10:12)
[2022-04-20 11:16] LABS: Basophils # (Auto) 0.01 K/mcL (0.00-0.30); Basophils % (Auto) 0.1 % (0.0-2.0); Eosinophils # (Auto) 0.04 K/mcL (0.00-0.70); Eosinophils % (Auto) 0.3 % (0.0-7.0); Hematocrit 41.1 % (34.1-44.9); Hemoglobin 12.7 g/dL (11.2-15.7); Lymphocytes # (Auto) 2.46 K/mcL (1.50-4.80); Lymphocytes % (Auto) 19.8 % (15.5-49.0); Mean Cell Volume 98.1 fL (80.0-100.0); Mean Corpuscular HGB Conc 30.9 g/dL (31.0-36.0); Mean Platelet Volume 10.2 fL (8.8-12.5); Monocytes # (Auto) 0.07 K/mcL (0.10-0.90); Monocytes % (Auto) 0.6 % (1.0-12.0); Neutrophils % (Auto) 78.7 % (38.0-78.0); Platelet Count 196 K/mcL (140-440); RBC 4.19 M/mcL (3.59-5.38); WBC 12.4 K/mcL (4.5-11.0)
[2022-04-20 11:41] LABS: ALT/SGPT 17 U/L (<40); AST/SGOT 14 U/L (<32); Albumin 3.8 gm/dL (3.2-5.2); Albumin/Globulin Ratio 2.2 (1.0-2.3); Alkaline Phosphatase 47 U/L (39-117); Bilirubin,Total 0.5 mg/dL (0.1-1.0); Blood Urea Nitrogen 19 mg/dL (8-23); Calcium 8.4 mg/dL (8.6-10.4); Carbon Dioxide 28 mmol/L (22-30); Chloride 102 mmol/L (96-108); Globulin 1.7 gm/dL (2.2-3.7); Glomerular Filtration Rate 62; Glucose 195 mg/dL (70-105)
[2022-04-20] MEDS: DEXTROSE 5%-1/2NS 1,000 ML IV SCH ×3 (11:56→16:18)
[2022-04-20 12:53] LABS: Appearance,Urine SL CLOUDY (Clear); Bacteria,Urine MANY /hpf (0); Bilirubin,Urine NEGATIVE (Negative); Color,Urine LT. YELLOW; Culture Indicated,Urine yes; Glucose,Urine (UA) 250 mg/dL (Negative); Ketones,Urine NEGATIVE (Negative); Leukocyte Esterase,Urine SMALL /uL (Negative); Mucus,Urine FEW /hpf; Nitrate,Urine Positive (Negative); Protein,Urine NEGATIVE (Negative); Urine Blood NEGATIVE ery/mcL (Negative); Urine RBC 2 /hpf (0-3); Urine Squamous Epithelial Cell 4 /hpf (0-4); Urine Transitional Epi Cells < 1 /hpf (0-2); Urine WBC 50 /hpf (0-4); Urobilinogen,Urine Normal
--- NOTE | 2022-04-20 14:32 | XRay Report ---
HISTORY: Chest pain, lung cancer FINDINGS: There is scar tissue around a row of surgical sutures in the right middle lobe. The spiculated mass seen in the posterior aspect of the left lower lobe on the prebiopsy CT done on 10/08/21 is not seen on today's study. No new lung mass has developed. There is no pleural effusion or evidence of adenopathy. The heart size is normal. Dual-chamber pacemaker is well-positioned. IMPRESSION: Scar tissue in the right middle lobe and no acute abnormality Interpreted and Authenticated by: Chino Bains 04/20/22
--- NOTE | 2022-04-20 16:03 | Internal Med History&Physical ---
HPI History of Present Illness Patient information: Note initiated : 04/20/22 at 3:52 pm Service Date, if different from initiated Date: [] Patient: Carla Meyers 76 y/o F admitted on for Low blood sugar. Chief Complaint: [Hypoglycemia] Chief complaint: Hypoglycemia History of present illness: Ms. Meyers is a 76 year old F history of adenocarcinoma of the left lung, type 2 diabetes mellitus, atrial fibrillation on Eliquis, obesity, essential hypertensions, mixed dyslipidemia, hypothyroidism, presenting with 2 days of symptomatic hypoglycemia. Patient was taking metformin until 2 months ago when her PCP change it to long-acting glipizide due to diarrhea associated with metformin. Patient stated that she was compliant to her medications and she takes her own medication and she is good and confident about taking her medications. There was no complications with taking the glipizide until yesterday when she developed hypoglycemia with blood sugar level of 20 5 in the evening. She checked her blood sugar again this morning it was 32. In both occasions, she was symptomatic with it meaning she had shaking chills and she has diaphoresis. She was also having near syncope last night. Last time she took the glipizide was yesterday morning. When she presented to the ED, she was giving both juices as well as dextrose infusions and her blood sugar response appropriately up to 139, but then drop back to 80s. Admission request was thus called for symptomatic hypoglycemia. Constitutional Constitutional: Present chills, excessive sweating and weakness; Absent fatigue or fever(s) EENT Eyes: Absent blurry vision, change in vision, loss of vision or other visual disturbances Ears: Absent decreased hearing or tinnitus Nose, mouth and throat: Absent abnormal hearing, dry mouth, headache(s), nasal congestion or sore throat Cardiovascular Cardiovascular: Absent chest pain, chest pain at rest, edema, irregular heart rhythm or palpatations Respiratory Respiratory: Absent cough, dyspnea or wheezing Gastrointestinal Gastrointestinal: Absent abdominal pain, constipation, diarrhea, nausea or vomiting Musculoskeletal Musculoskeletal: Absent back pain, deformity, limited range of motion, muscle cramps, muscle weakness or numbness Integumentary Integumentary: Absent lesions, rash or wounds Neurological Neurological: Absent focal weakness, headache(s) or numbness Psychiatric Psychiatric: Absent anxiety, depression or hallucinations PFSH PFSH All Active Problems (Updated 04/20/22 @ 16:03 by Tom Mcgrath MD) Hypothyroidism (acquired) (Acute) Hypoglycemia secondary to sulfonylurea (Acute) Chest pain (Acute) Acute UTI (Acute) Anxiety (Acute) Tachycardia (Acute) Adenocarcinoma of left lung (Chronic) Chest pain (Acute) History of colonic polyps (Acute) Coronary artery disease (Acute) Dysphagia (Acute) Gastroesophageal reflux (Chronic) Hyperlipemia (Acute) Hypertension, essential (Chronic) Joint pain (Acute) Postmenopausal related mood disorder (Acute) Obesity (Acute) Osteoarthritis (Acute) Fracture of thoracic vertebra, closed (Acute) History of coronary artery stent placement (Acute) History of hysterectomy (Acute) History of tubal ligation (Acute) Stable angina (Acute) Type 2 diabetes mellitus without complications (Chronic) Community acquired pneumonia (Acute) Atypical chest pain (Acute) Pulmonary infiltrates on CXR (Chronic) UIP (usual interstitial pneumonitis) (Chronic) Hypoxemia (Chronic) Atrial fibrillation with RVR (Acute) Antisynthetase syndrome (Chronic) Pulmonary fibrosis (Chronic) Encounter for long-term (current) use of high-risk 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) MCC current use of systemic steroids (Chronic) ILD (interstitial lung disease) (Chronic) Myositis (Acute) Inflammatory myopathy (Acute) Osteopenia (Chronic) Lower GI bleeding (Acute) Neutropenia (Acute) Anemia (Acute) Cellulitis (Acute) Abscess of skin or subcutaneous tissue (Acute) Abscess of skin or subcutaneous tissue (Acute) Rectal bleeding (Acute) Left breast abscess (Acute) MRSA (methicillin resistant staph aureus) culture positive (Acute) Medicare annual wellness visit, initial (Acute) Annual physical exam (Acute) Fatigue (Acute) Annual physical exam (Acute) Right ovarian cyst (Acute) Edema (Acute) Dyspnea (Acute) Vasomotor rhinitis (Acute) Lower extremity edema (Acute) Varicose veins of bilateral lower extremities with pain (Acute) Dizziness (Acute) Pneumonia due to COVID-19 virus (Acute) UTI (urinary tract infection) (Acute) Anemia, normocytic normochromic (Acute) Pneumonia due to COVID-19 virus (Acute) Interstitial lung disease (Chronic) Herpes labialis (Acute) Fatigue (Acute) Dyspnea (Acute) Pneumonia (Acute) Medicare annual wellness visit, initial (Acute) BPPV (benign paroxysmal positional vertigo) (Acute) Abdominal pain (Acute) Lightheadedness (Acute) Lung nodules (Acute) Acute UTI (Acute) Bilateral pulmonary infiltrates on chest x-ray (Acute) Acute lower gastrointestinal bleeding (Acute) Medical History Abscess of skin or subcutaneous tissue Annual physical exam Annual physical exam Antisynthetase syndrome BPPV (benign paroxysmal positional vertigo) Chest pain Coronary artery disease 05/31 with stenting 09/27 04/28 twice Dysphagia Dyspnea Dyspnea Edema Encounter for long-term (current) use of high-risk medication Fatigue Fatigue Fracture of thoracic vertebra, closed Gastroesophageal reflux Herpes labialis History of colonic polyps Hyperlipemia Hypertension, essential Hypoxemia ILD (interstitial lung disease) Inflammatory myopathy Joint pain bilateral knees Left breast abscess MCC current use of systemic steroids Lower extremity edema Medicare annual wellness visit, initial Medicare annual wellness visit, initial MRSA (methicillin resistant staph aureus) culture positive Obesity Osteoarthritis Osteopenia Pneumonia Postmenopausal related mood disorder Pulmonary fibrosis Pulmonary infiltrates on CXR Right ovarian cyst Stable angina UIP (usual interstitial pneumonitis) Varicose veins of bilateral lower extremities with pain Vasomotor rhinitis Surgical History History of coronary artery stent placement 05/3105/04/2005 05/07/2005 History of hysterectomy History of permanent cardiac pacemaker placement (06/23/19) History of tubal ligation Family History Mother , at 84y Alzheimer's disease Essential hypertension Acute myocardial infarction Transient cerebral ischemia Unknown Atherosclerosis of coronary artery Diabetes mellitus Hyperlipidemia Father , accidental at 46 Instantaneous Acute myocardial infarction Brother Cardiac disease Heart surgery Social History marital status: education level: high school occupational status: retired smoking status: Never smoker alcohol intake frequency: 0-2 drinks per day MEDS/ALLERGIES Home Medications and Allergies Home Medications Medication Instructions Recorded Confirmed Type oxygen 4 liters #1 ea 02/23/19 03/04/22 History cholecalciferol (vitamin D3) 25 1,000 unit PO DAILY 03/31/19 04/10/22 History mcg (1,000 unit) capsule Placard For Disability 1 each MISC ONCE 04/01/19 03/04/22 History Wheel Chair #1 ea 04/26/19 04/10/22 Rx calcium citrate 500 mg PO QDAY 07/29/19 04/10/22 History cranberry 500 mg capsule 500 mg PO QDAY 07/29/19 04/10/22 History ipratropium 0.5 mg-albuterol 3 mg 3 ml inhalation Q6H PRN shortness 03/06/20 04/10/22 Rx (2.5 mg base)/3 mL nebulization of breath or wheezing #360 mL soln furosemide 20 mg tablet 20 mg PO QDAY 06/19/20 04/10/22 History cyanocobalamin (vitamin B-12) 1,000 mcg PO QDAY 09/11/20 04/10/22 History 1,000 mcg tablet valacyclovir 500 mg tablet 500 mg PO BID #60 tabs 10/02/20 04/10/22 Rx apixaban 2.5 mg tablet (Eliquis) 2.5 mg PO BID #1 tab 10/03/20 04/10/22 Rx Con 5 Oxygen portable concentrator #1 ea 11/14/20 03/04/22 Rx dicyclomine 10 mg capsule 10 - 20 mg PO Q6H PRN abdominal 10/08/21 04/10/22 History pain diphenoxylate-atropine 2.5 1 - 2 tab PO Q6H PRN diarrhea 10/08/21 04/10/22 History mg-0.025 mg tablet blood sugar diagnostic (Accu-Chek #100 ea 12/23/21 03/04/22 Rx Laura Plus test strips) folic acid 1 mg tablet 1 mg PO QDAY 01/30/22 04/10/22 History prochlorperazine maleate 10 mg 10 mg PO DAILY 01/30/22 04/10/22 History tablet lancets (Accu-Chek Softclix #100 ea 02/07/22 04/10/22 Rx Lancets) atorvastatin 20 mg tablet 10 mg PO DAILY #45 tabs 02/14/22 04/10/22 Rx glipizide 5 mg tablet, extended 5 mg PO QDAY #90 tabs 02/14/22 04/10/22 Rx release 24 hr levothyroxine 50 mcg tablet 50 mcg PO QDAY #90 tabs 02/14/22 04/10/22 Rx (Synthroid) nortriptyline 10 mg capsule 10 mg PO QHS #90 caps 02/14/22 04/10/22 Rx omeprazole 20 mg capsule,delayed 20 mg PO BID #180 caps 02/14/22 04/10/22 Rx release potassium chloride 10 mEq 10 meq PO QDAY #90 tabs 02/14/22 03/04/22 Rx tablet,extended release alendronate 70 mg tablet 70 mg PO QWEEK #12 tabs 02/17/22 04/10/22 Rx lorazepam 0.5 mg tablet (Ativan) 0.5 mg PO BID PRN anxiety or panic 03/04/22 04/10/22 Rx attacks #20 tabs nitroglycerin 0.4 mg sublingual 0.4 mg sublingual .COMPLEX PRN 03/04/22 04/10/22 Rx tablet chest pain #10 tabs prednisone 10 mg tablet 10 mg PO QDAY #30 tabs 03/05/22 04/10/22 Rx losartan 50 mg tablet 25 mg PO DAILY 04/10/22 History metoprolol succinate 100 mg See Rx Instructions PO BID 04/10/22 History tablet,extended release 24 hr doxycycline monohydrate 100 mg 100 mg PO BID #14 tabs 04/20/22 Rx tablet pioglitazone 15 mg tablet (Actos) 15 mg PO QDAY #30 tabs 04/20/22 Rx Allergies Allergy/AdvReac Type Severity Reaction Status Date / Time Cefprozil Allergy Mild Hives Verified 04/20/22 09:40 codeine AdvReac Mild Nausea Verified 04/20/22 09:41 Sulfa (Sulfonamide AdvReac Mild Rash Verified 04/20/22 09:41 Antibiotics) EXAM Constitutional Vitals: Temp Pulse Resp BP Pulse Ox O2 Del Method 36.5 C 69 19 125/53 98 04/20/22 09:33 04/20/22 15:40 04/20/22 15:40 04/20/22 15:31 04/20/22 15:40 04/20/22 09:33 General appearance: cooperative and no acute distress Head Head exam: Present atraumatic and normocephalic Eye Eye exam: Present EOMI and PERRL ENT ENT exam: Present mucous membranes moist, normal exam and normal external ear exam Neck Neck exam: Present normal inspection; Absent lymphadenopathy, tenderness or thyromegaly Respiratory Respiratory exam: Absent accessory muscle use, respiratory distress or wheezes Cardiovascular Cardiovascular exam: Present irregular rhythm; Absent JVD GI/Abdominal GI/Abdominal exam: Present normal bowel sounds and soft; Absent organomegaly or tenderness Extremities Exam Extremities exam: Present full ROM, normal capillary refill and normal inspection; Absent tenderness Neurological Exam Neurological exam: Present alert, CN II-XII intact and oriented X3; Absent motor sensory deficit Psychiatric Psychiatric exam: Present normal affect and normal mood; Absent anxious or depressed Skin Skin exam: Present dry and intact DATA Data Completed and Pending Labs: Labs from last 24 hours 04/20/22 04/20/22 04/20/22 11:00 10:09 10:08 WBC RBC Hgb Hct POC Hct 39.0 MCV MCH MCHC RDW Plt Count MPV Immature Gran % (Auto) Neut % (Auto) Lymph % (Auto) [place] % (Auto) Eos % (Auto) Baso % (Auto) Lymph # (Auto) [place] # (Auto) Eos # (Auto) Baso # (Auto) Immature Gran # Absolute Neutrophils POC Sodium 141 Sodium POC Potassium 3.3 Potassium POC Chloride 101 Chloride Carbon Dioxide POC Total CO2 30.0 Anion Gap POC BUN 20 BUN Creatinine POC Creatinine 1.1 GFR Calculation Glucose POC Glucose 193 H Calcium POC WB Ioniz Calcium 1.10 L Total Bilirubin AST ALT Alkaline Phosphatase Total Protein Albumin Globulin Albumin/Globulin Ratio Urine Color Lt. yellow Urine Appearance Sl cloudy A Urine pH 6.0 Ur Specific [place] 1.020 Urine Protein Negative Urine Glucose (UA) 250 A Urine Ketones Negative Urine Occult Blood Negative Urine Nitrate Positive A Urine Bilirubin Negative Urine Urobilinogen Normal Ur Leukocyte Esterase Small A Urine RBC 2 Urine WBC 50 H Ur Squamous Epith Cells 4 Ur Transition Epith Cell < 1 Urine Bacteria Many A Urine Mucus Few A Ur Culture Indicated? yes POC Troponin I < 0.02 04/20/22 04/20/22 10:05 10:05 WBC 12.4 H RBC 4.19 Hgb 12.7 Hct 41.1 POC Hct MCV 98.1 MCH 30.3 MCHC 30.9 L RDW 16.0 H Plt Count 196 MPV 10.2 Immature Gran % (Auto) 0.5 Neut % (Auto) 78.7 H Lymph % (Auto) 19.8 [place] % (Auto) 0.6 L Eos % (Auto) 0.3 Baso % (Auto) 0.1 Lymph # (Auto) 2.46 [place] # (Auto) 0.07 L Eos # (Auto) 0.04 Baso # (Auto) 0.01 Immature Gran # 0.06 H Absolute Neutrophils 9.77 H POC Sodium Sodium 139 POC Potassium Potassium 3.3 POC Chloride Chloride 102 Carbon Dioxide 28 POC Total CO2 Anion Gap 9.0 POC BUN BUN 19 Creatinine 0.9 POC Creatinine GFR Calculation 62 Glucose 195 H POC Glucose Calcium 8.4 L POC WB Ioniz Calcium Total Bilirubin 0.5 AST 14 ALT 17 Alkaline Phosphatase 47 Total Protein 5.5 L Albumin 3.8 Globulin 1.7 L Albumin/Globulin Ratio 2.2 Urine Color Urine Appearance Urine pH Ur Specific [place] Urine Protein Urine Glucose (UA) Urine Ketones Urine Occult Blood Urine Nitrate Urine Bilirubin Urine Urobilinogen Ur Leukocyte Esterase Urine RBC Urine WBC Ur Squamous Epith Cells Ur Transition Epith Cell Urine Bacteria Urine Mucus Ur Culture Indicated? POC Troponin I A/P Assessment and plan (1) Hypoglycemia secondary to sulfonylurea: Status: Acute (2) Type 2 diabetes mellitus without complications: Status: Chronic (3) Hypertension, essential: Status: Chronic (4) Hyperlipemia: Status: Acute (5) Atrial fibrillation with RVR: Status: Acute (6) Adenocarcinoma of left lung: Status: Chronic (7) Obesity: Status: Acute (8) Hypothyroidism (acquired): Status: Acute Narrative A/P Narrative: Assessment and Plans: 1. Hypoglycemia secondary to long acting Glipizide, Type 2 diabetes mellitus: Observation med surg d/c Glipizide D5LR@100cc/hr Accu Check AC HS Insulin Lispro AC HS Hypoglycemia protocol Diabetic diet Diabetes education 2. Adenocarcinoma of the left lung: Continue oncology outpatient follow up and chemotherapy 3. Atrial fibrillation with RVR: Eliquis as anticoagulant Metoprolol ER as rate control 4. Essential hypertension: Currently normotensive: Metoprolol ER Losartan Lasix 5. Mixed dyslipidemia: Continue statin therapy 6. Hypothyroidism: Continue thyroid replacement therapy 7. 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
[2022-04-20] MEDS ORDERED: DEXTROSE 50% 50 ML VIAL IV PRN (16:30)
[2022-04-20] MEDS ORDERED: DEXTROSE 31 GM ORAL.SUSP PO PRN (16:30)
[2022-04-20] MEDS ORDERED: IPRATROPIUM/ALBUTEROL 3 ML AMPUL.NEB NEB PRN (16:30)
[2022-04-20] MEDS ORDERED: ONDANSETRON 4 MG/2 ML VIAL IV PRN (16:30)
[2022-04-20] MEDS: DEXTROSE 5%-LR 1,000 ML IV SCH (16:58)
[2022-04-20] MEDS: INSULIN LISPRO 1 UNIT/0.01 ML UNIT SQ SCH ×2 (17:08→21:55)
[2022-04-20 17:49] LABS: Estimated Average Glucose(eAG) 103 mg/dL; Hemoglobin A1C 5.2 % Hgb (4.0-6.0)
[2022-04-20] MEDS ORDERED: LORazepam 0.5 MG TABLET PO PRN (18:41)
[2022-04-20] MEDS ORDERED: DIPHENOXYLATE HCL/ATROPINE 1 TABLET PO PRN (18:41)
[2022-04-20] MEDS ORDERED: NITROGLYCERIN 0.4 MG TAB.SUBL SL PRN (18:41)
[2022-04-20] MEDS ORDERED: PROCHLORPERAZINE 10 MG TABLET PO PRN (18:41)
[2022-04-20] MEDS ORDERED: DICYCLOMINE 20 MG TABLET PO PRN (19:11)
[2022-04-20] MEDS: OMEPRAZOLE 20 MG CAPSULE PO SCH (20:53)
[2022-04-20] MEDS: METOPROLOL SUCCINATE 50 MG TAB.XL.24H PO SCH (20:53)
[2022-04-20] MEDS: NORTRIPTYLINE 10 MG CAPSULE PO SCH (20:53)
[2022-04-20] MEDS: APIXABAN 5 MG TABLET PO SCH (20:54)
[2022-04-20] MEDS: DOCUSATE SODIUM 100 MG CAPSULE PO SCH (21:54)
[2022-04-20] MEDS: 0.9 % SODIUM CHLORIDE 10 ML SYRINGE IV SCH (21:55)
[2022-04-20] MEDS: SENNOSIDES 1 TABLET PO SCH (21:55)
[2022-04-21] MEDS: ACETAMINOPHEN 325 MG TABLET PO PRN ×3 (03:06→20:58)
[2022-04-21] MEDS: DEXTROSE 5%-LR 1,000 ML IV SCH (03:14)
[2022-04-21] MEDS: 0.9 % SODIUM CHLORIDE 10 ML SYRINGE IV SCH ×3 (05:38→20:56)
[2022-04-21 07:04] LABS: Basophils # (Auto) 0.01 K/mcL (0.00-0.30); Basophils % (Auto) 0.1 % (0.0-2.0); Eosinophils # (Auto) 0.05 K/mcL (0.00-0.70); Eosinophils % (Auto) 0.4 % (0.0-7.0); Hematocrit 33.8 % (34.1-44.9); Hemoglobin 10.4 g/dL (11.2-15.7); Lymphocytes # (Auto) 3.54 K/mcL (1.50-4.80); Lymphocytes % (Auto) 29.9 % (15.5-49.0); Mean Cell Volume 97.7 fL (80.0-100.0); Mean Corpuscular HGB Conc 30.8 g/dL (31.0-36.0); Mean Platelet Volume 10.6 fL (8.8-12.5); Monocytes # (Auto) 0.21 K/mcL (0.10-0.90); Monocytes % (Auto) 1.8 % (1.0-12.0); Neutrophils % (Auto) 67.3 % (38.0-78.0); Platelet Count 151 K/mcL (140-440); RBC 3.46 M/mcL (3.59-5.38); Red Cell Distribution Width 16.2 % (11.5-14.5); WBC 11.8 K/mcL (4.5-11.0)
[2022-04-21] MEDS: INSULIN LISPRO 1 UNIT/0.01 ML UNIT SQ SCH ×4 (07:27→20:55)
[2022-04-21] MEDS: LEVOTHYROXINE 50 MCG TABLET PO SCH (07:27)
[2022-04-21 08:02] LABS: ALT/SGPT 17 U/L (<40); AST/SGOT 14 U/L (<32); Albumin 3.2 gm/dL (3.2-5.2); Albumin/Globulin Ratio 2.3 (1.0-2.3); Alkaline Phosphatase 38 U/L (39-117); Bilirubin,Total 0.7 mg/dL (0.1-1.0); Blood Urea Nitrogen 13 mg/dL (8-23); Calcium 8.2 mg/dL (8.6-10.4); Carbon Dioxide 26 mmol/L (22-30); Chloride 105 mmol/L (96-108); Globulin 1.4 gm/dL (2.2-3.7); Glomerular Filtration Rate 62; Glucose 76 mg/dL (70-105)
[2022-04-21] MEDS: DOCUSATE SODIUM 100 MG CAPSULE PO SCH ×2 (08:35→20:55)
[2022-04-21] MEDS: FOLIC ACID 1 MG TABLET PO SCH (08:36)
[2022-04-21] MEDS: APIXABAN 5 MG TABLET PO SCH ×2 (08:36→20:56)
[2022-04-21] MEDS: LOSARTAN 50 MG TABLET PO SCH (08:36)
[2022-04-21] MEDS: predniSONE 10 MG TABLET PO SCH (08:37)
[2022-04-21] MEDS: CYANOCOBALAMIN (VITAMIN B-12) 500 MCG TABLET PO SCH (08:37)
[2022-04-21] MEDS: OMEPRAZOLE 20 MG CAPSULE PO SCH ×2 (08:37→20:55)
[2022-04-21] MEDS: FUROSEMIDE 20 MG TABLET PO SCH (08:37)
[2022-04-21] MEDS: ATORVASTATIN 20 MG TABLET PO SCH (08:37)
[2022-04-21] MEDS: POTASSIUM CHLORIDE 10 MEQ TABLET PO SCH (08:37)
[2022-04-21] MEDS: CALCIUM (OYSTER SHELL) 500 MG TABLET PO SCH (08:37)
[2022-04-21] MEDS: METOPROLOL SUCCINATE 50 MG TAB.XL.24H PO SCH ×2 (08:37→20:55)
[2022-04-21] MEDS: VITAMIN D3 25 MCG TABLET PO SCH (08:38)
[2022-04-21] MEDS ORDERED: CRANBERRY 500 MG PO SCH (09:00)
--- NOTE | 2022-04-21 12:14 | Internal Med Progress Note ---
SUBJECTIVE Subjective Patient information: Note initiated : 04/21/22 at 12:12 pm Service Date, if different from initiated Date: [] Patient: Carla Meyers a 76 y/o F admitted on 04/20/22 for Low blood sugar. Chief Complaint: [] Interval history: Ms. Meyers is a 76 year old F history of adenocarcinoma of the left lung, type 2 diabetes mellitus, atrial fibrillation on Eliquis, obesity, essential hypertensions, mixed dyslipidemia, hypothyroidism, presenting with 2 days of symptomatic hypoglycemia. Patient was taking metformin until 2 months ago when her PCP change it to long-acting glipizide due to diarrhea associated with metformin. Patient stated that she was compliant to her medications and she takes her own medication and she is good and confident about taking her medications. There was no complications with taking the glipizide until yesterday when she developed hypoglycemia with blood sugar level of 20 5 in the evening. She checked her blood sugar again this morning it was 32. In both occasions, she was symptomatic with it meaning she had shaking chills and she has diaphoresis. She was also having near syncope last night. Last time she took the glipizide was yesterday morning. When she presented to the ED, she was giving both juices as well as dextrose infusions and her blood sugar response appropriately up to 139, but then drop back to 80s. Admission request was thus called for symptomatic hypoglycemia. 04/21: A few more episode of low blood sugar overnight with a low was 74, followed by 84 (fasting glucose of this morning). Patient had an episode of vomiting earlier this morning, relieved by IV Zofran. I would like to keep the patient in-house for 1 more day to continue to observe for her blood sugar. Discontinue dextrose infusion; will saline lock the patient. Continue to hold glipizide. Continue Accu-Chek AC HS. Sliding scale insulin AC at bedtime. Constitutional Vitals: Vital Signs Temp Pulse Resp BP Pulse Ox O2 Del Method 36.7 C 69 22 139/66 98 04/21/22 11:44 04/21/22 11:44 04/21/22 11:44 04/21/22 11:44 04/21/22 11:44 04/21/22 11:44 Period Temp Pulse Resp BP Sys/Bell Pulse Ox O2 Del Method O2 Flow Rate Last 24 Hr 36.7 C-37.1 C 59-93 10-32 93-160/46-113 92-100 Room Air-Room Air Intake and Output 04/21/22 04/21/22 04/21/22 03:59 11:59 19:59 Intake Total 1640 960 Output Total 325 350 Balance 1315 610 Weight 86.863 kg Intake & Output: Intake & Output 04/21/22 04/21/22 04/21/22 03:59 11:59 19:59 Intake Total 1640 960 Output Total 325 350 Balance 1315 610 Weight 86.863 kg Intake: IV 1000 Dextrose 5%-Lactated Ringers 1, 1000 000 ml @ 100 mls/hr IV .Q10H [facility] Rx#:[id number] Oral 640 960 Output: Void Amount 325 350 Other: Meal Breakfast Percent of Meal Consumed 100% Feeding Ability Independent Urine Appearance Clear Clear Urine Color Yellow Yellow Pale Urine Odor Normal # Voids 1 1 Head Head exam: Present atraumatic and normal inspection Eye Eye exam: Present normal appearance ENT ENT exam: Present mucous membranes moist, normal exam and normal external ear exam Neck Neck exam: Present normal inspection Respiratory Respiratory exam: Present normal respiratory exam Cardiovascular Cardiovascular exam: Present irregular rhythm GI/Abdominal GI/Abdominal exam: Present normal bowel sounds Back Exam Back exam: Present normal inspection Neurological Exam Neurological exam: Present alert and oriented X3 Skin Skin exam: Present intact and warm OBJ DATA Labs CBC & Chem 7: 04/21/22 04:46 04/21/22 04:46 Labs: Abnormal Lab Results 04/21/22 04/21/22 04/20/22 04:46 04:46 11:00 WBC 11.8 H RBC 3.46 L Hgb 10.4 L Hct 33.8 L MCHC 30.8 L RDW 16.2 H Neut % (Auto) [place] % (Auto) [place] # (Auto) Immature Gran # 0.06 H Absolute Neutrophils Anion Gap 7.0 L Glucose POC Glucose Calcium 8.2 L POC WB Ioniz Calcium Alkaline Phosphatase 38 L Total Protein 4.6 L Globulin 1.4 L Urine Appearance Sl cloudy A Urine Glucose (UA) 250 A Urine Nitrate Positive A Ur Leukocyte Esterase Small A Urine WBC 50 H Urine Bacteria Many A Urine Mucus Few A 04/20/22 04/20/22 04/20/22 10:09 10:05 10:05 WBC 12.4 H RBC Hgb Hct MCHC 30.9 L RDW 16.0 H Neut % (Auto) 78.7 H [place] % (Auto) 0.6 L [place] # (Auto) 0.07 L Immature Gran # 0.06 H Absolute Neutrophils 9.77 H Anion Gap Glucose 195 H POC Glucose 193 H Calcium 8.4 L POC WB Ioniz Calcium 1.10 L Alkaline Phosphatase Total Protein 5.5 L Globulin 1.7 L Urine Appearance Urine Glucose (UA) Urine Nitrate Ur Leukocyte Esterase Urine WBC Urine Bacteria Urine Mucus Meds: Medications Acetaminophen (Acetaminophen 325 Mg Tablet) 650 mg PO Q6HP PRN; Protocol PRN Reason: Per Pain Protocol/Fever > 101 Last Admin: 04/21/22 11:29 Dose: 650 mg Albuterol/Ipratropium (Ipratropium/Albuterol 3 Ml Ampul.Neb) 3 ml NEB Q4HRT PRN PRN Reason: Wheezing Alendronate Sodium (Alendronate Sodium 70 Mg Tablet) 70 mg PO QWEEK [facility] Apixaban (Apixaban 5 Mg Tablet) 2.5 mg PO BID [facility] Last Admin: 04/21/22 08:36 Dose: 2.5 mg Atorvastatin Calcium (Atorvastatin 20 Mg Tablet) 10 mg PO DAILY [facility] Last Admin: 04/21/22 08:37 Dose: 10 mg Calcium Carbonate/Glycine (Calcium (Oyster Shell) 500 Mg Tablet) 500 mg PO DAILY [facility] Last Admin: 04/21/22 08:37 Dose: 500 mg Cyanocobalamin (Cyanocobalamin (Vitamin B-12) 500 Mcg Tablet) 1,000 mcg PO DAILY [facility] Last Admin: 04/21/22 08:37 Dose: 1,000 mcg Dextrose (Dextrose 50% 50 Ml Vial) 0 ml IV UD PRN PRN Reason: Per Sliding Scale Diagnostic Test (Pha) (Accu-Chek 1 Each Strip) 1 each FS ACHS [facility] Last Admin: 04/21/22 11:28 Dose: 1 each Dicyclomine HCl (Dicyclomine 20 Mg Tablet) 10 - 20 mg PO Q6HP PRN PRN Reason: abdominal pain Diphenoxylate HCl/Atropine (Diphenoxylate Hcl/Atropine 1 Tablet) 1 - 2 tab PO Q6H PRN PRN Reason: diarrhea Docusate Sodium (Docusate Sodium 100 Mg Capsule) 100 mg PO BID [facility] Last Admin: 04/21/22 08:35 Dose: Not Given Folic Acid (Folic Acid 1 Mg Tablet) 1 mg PO QDAY [facility] Last Admin: 04/21/22 08:36 Dose: 1 mg Furosemide (Furosemide 20 Mg Tablet) 20 mg PO QDAY [facility] Last Admin: 04/21/22 08:37 Dose: 20 mg Glucose (Dextrose 31 Gm Oral.Susp) 15 gm PO PRN PRN PRN Reason: Hypoglycemia Insulin Human Lispro (Insulin Lispro 1 Unit/0.01 Ml Unit) 0 unit SQ [facility]; Protocol Last Admin: 04/21/22 11:29 Dose: Not Given Levothyroxine Sodium (Levothyroxine 50 Mcg Tablet) 50 mcg PO QDAY [facility] Last Admin: 04/21/22 07:27 Dose: 50 mcg Lorazepam (Lorazepam 0.5 Mg Tablet) 0.5 mg PO BID PRN PRN Reason: anxiety or panic attacks Losartan Potassium (Losartan 50 Mg Tablet) 25 mg PO DAILY [facility] Last Admin: 04/21/22 08:36 Dose: 25 mg Metoprolol Succinate (Metoprolol Succinate 50 Mg Tab.Xl.24h) 100 mg PO BID [facility] Last Admin: 04/21/22 08:37 Dose: 100 mg Nitroglycerin (Nitroglycerin 0.4 Mg Tab.Subl) 0.4 mg SL Q5M PRN PRN Reason: chest pain Nortriptyline HCl (Nortriptyline 10 Mg Capsule) 10 mg PO QHS [facility] Last Admin: 04/20/22 20:53 Dose: 10 mg Omeprazole (Omeprazole 20 Mg Capsule) 20 mg PO BID [facility] Last Admin: 04/21/22 08:37 Dose: 20 mg Ondansetron HCl (Ondansetron 4 Mg/2 Ml Vial) 4 mg IV Q6HP PRN PRN Reason: Nausea And Vomiting Last Admin: 04/20/22 19:23 Dose: 4 mg Potassium Chloride (Potassium Chloride 10 Meq Tablet) 10 meq PO QDAY [facility] Last Admin: 04/21/22 08:37 Dose: 10 meq Prednisone (Prednisone 10 Mg Tablet) 10 mg PO QDAY [facility] Last Admin: 04/21/22 08:37 Dose: 10 mg Prochlorperazine (Prochlorperazine 10 Mg Tablet) 10 mg PO Q6HP PRN PRN Reason: Nausea Senna (Sennosides 1 Tablet) 2 tab PO [facility] Last Admin: 04/20/22 21:55 Dose: Not Given Sodium Chloride (0.9 % Sodium Chloride 10 Ml Syringe) 10 ml IV Q8 [facility] Last Admin: 04/21/22 05:38 Dose: Not Given Vitamin D (Vitamin D3 25 Mcg Tablet) 25 mcg PO DAILY [facility] Last Admin: 04/21/22 08:38 Dose: 25 mcg A/P Assessment and plan (1) Hypoglycemia secondary to sulfonylurea: Status: Acute (2) Type 2 diabetes mellitus without complications: Status: Chronic (3) Hypertension, essential: Status: Chronic (4) Hyperlipemia: Status: Acute (5) Atrial fibrillation with RVR: Status: Acute (6) Adenocarcinoma of left lung: Status: Chronic (7) Obesity: Status: Acute (8) Hypothyroidism (acquired): Status: Acute Narrative A/P Narrative: Assessment and Plans: 1. Hypoglycemia secondary to long acting Glipizide, Type 2 diabetes mellitus: Observation med surg, plan to keep patient in the hospital for one more day to keep monitoring for her blood glucose level d/c Glipizide Discontinue dextrose infusion; will saline lock the patient Accu Check AC HS Insulin Lispro AC HS Hypoglycemia protocol Diabetic diet Diabetes education 2. Adenocarcinoma of the left lung: Continue oncology outpatient follow up and chemotherapy 3. Atrial fibrillation with RVR: Eliquis as anticoagulant Metoprolol ER as rate control 4. Essential hypertension: Currently normotensive: Metoprolol ER Losartan Lasix 5. Mixed dyslipidemia: Continue statin therapy 6. Hypothyroidism: Continue thyroid replacement therapy 7. 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 diet and regular exercise in order to lose weight GI ppx: Prilosec DVT ppx: Eliquis Code status: Full Prognosis: guarded Disposition: observation med surg, plan to keep patient in the hospital for one more day to keep monitoring for her blood glucose level Time Spent With Patient Time: Total time spent is greater than 50% in coordination of care (as documented) at patient's floor/unit and/or counseling patient: Total time spent with greater than 50% in coordination of care (as documented) at patient's floor/unit and/or counseling patient:: 25 - 35 minutes QUALITY VTE Deep Vein Thrombosis/Pulmonary Embolism Present on Admission: No
[2022-04-21] MEDS: SENNOSIDES 1 TABLET PO SCH (20:55)
[2022-04-21] MEDS: NORTRIPTYLINE 10 MG CAPSULE PO SCH (20:56)
[2022-04-22] MEDS: 0.9 % SODIUM CHLORIDE 10 ML SYRINGE IV SCH ×3 (05:26→20:59)
[2022-04-22] MEDS: INSULIN LISPRO 1 UNIT/0.01 ML UNIT SQ SCH ×4 (07:25→20:58)
[2022-04-22] MEDS: LEVOTHYROXINE 50 MCG TABLET PO SCH (07:26)
[2022-04-22] MEDS: FOLIC ACID 1 MG TABLET PO SCH (09:02)
[2022-04-22] MEDS: DOCUSATE SODIUM 100 MG CAPSULE PO SCH ×2 (09:02→20:52)
[2022-04-22] MEDS: APIXABAN 5 MG TABLET PO SCH ×2 (09:02→20:52)
[2022-04-22] MEDS: LOSARTAN 50 MG TABLET PO SCH (09:02)
[2022-04-22] MEDS: FUROSEMIDE 20 MG TABLET PO SCH (09:03)
[2022-04-22] MEDS: ATORVASTATIN 20 MG TABLET PO SCH (09:03)
[2022-04-22] MEDS: POTASSIUM CHLORIDE 10 MEQ TABLET PO SCH (09:03)
[2022-04-22] MEDS: CALCIUM (OYSTER SHELL) 500 MG TABLET PO SCH (09:03)
[2022-04-22] MEDS: predniSONE 10 MG TABLET PO SCH (09:04)
[2022-04-22] MEDS: CYANOCOBALAMIN (VITAMIN B-12) 500 MCG TABLET PO SCH (09:04)
[2022-04-22] MEDS: VITAMIN D3 25 MCG TABLET PO SCH (09:04)
[2022-04-22] MEDS: METOPROLOL SUCCINATE 50 MG TAB.XL.24H PO SCH ×2 (09:04→20:51)
[2022-04-22] MEDS: OMEPRAZOLE 20 MG CAPSULE PO SCH ×2 (09:04→20:52)
--- NOTE | 2022-04-22 12:11 | Internal Med Progress Note ---
SUBJECTIVE Subjective Patient information: Note initiated : 04/22/22 at 12:06 pm Service Date, if different from initiated Date: [] Patient: Carla Meyers a 76 y/o F admitted on 04/20/22 for Low blood sugar. Chief Complaint: [] Interval history: Ms. Meyers is a 76 year old F history of adenocarcinoma of the left lung, type 2 diabetes mellitus, atrial fibrillation on Eliquis, obesity, essential hypertensions, mixed dyslipidemia, hypothyroidism, presenting with 2 days of symptomatic hypoglycemia. Patient was taking metformin until 2 months ago when her PCP change it to long-acting glipizide due to diarrhea associated with metformin. Patient stated that she was compliant to her medications and she takes her own medication and she is good and confident about taking her medications. There was no complications with taking the glipizide until yesterday when she developed hypoglycemia with blood sugar level of 20 5 in the evening. She checked her blood sugar again this morning it was 32. In both occasions, she was symptomatic with it meaning she had shaking chills and she has diaphoresis. She was also having near syncope last night. Last time she took the glipizide was yesterday morning. When she presented to the ED, she was giving both juices as well as dextrose infusions and her blood sugar response appropriately up to 139, but then drop back to 80s. Admission request was thus called for symptomatic hypoglycemia. 04/21: A few more episode of low blood sugar overnight with a low was 74, followed by 84 (fasting glucose of this morning). Patient had an episode of vomiting earlier this morning, relieved by IV Zofran. I would like to keep the patient in-house for 1 more day to continue to observe for her blood sugar. Discontinue dextrose infusion; will saline lock the patient. Continue to hold glipizide. Continue Accu-Chek AC HS. Sliding scale insulin AC at bedtime. 04/22: Patient's blood sugar has been in the 200 yesterday during the day throughout the evening, but again developed hypoglycemia with blood sugar as low as 62 this morning and noon. Patient stated that she never passed out but she would d evelop disorientation's as the symptoms of dosed hypoglycemia and may be mild shaking. Patient denies any nausea or vomiting and she tolerated 100% of the food provided. I would like to keep the patient in-house for 1 more day to continue to observe for her blood sugar. We changed the patient's status from observation to inpatient MedSurg. Continue to hold glipizide. Continue Accu-Chek AC HS. Sliding scale insulin AC at bedtime. Constitutional Vitals: Vital Signs Temp Pulse Resp BP Pulse Ox O2 Del Method 36.7 C 78 16 144/68 96 04/22/22 11:33 04/22/22 11:33 04/22/22 11:33 04/22/22 11:33 04/22/22 08:00 04/22/22 11:33 Period Temp Pulse Resp BP Sys/Bell Pulse Ox O2 Del Method O2 Flow Rate Last 24 Hr 35.7 C-37.0 C 67-78 14-24 135-148/63-78 96-98 Room Air-Room Air Intake and Output 04/22/22 04/22/22 04/22/22 03:59 11:59 19:59 Intake Total 400 118 Balance 400 118 Weight 85.366 kg Intake & Output: Intake & Output 04/22/22 04/22/22 04/22/22 03:59 11:59 19:59 Intake Total 400 118 Balance 400 118 Weight 85.366 kg Intake: Oral 400 118 Other: Meal Breakfast Percent of Meal Consumed 100% Feeding Ability Independent Stool Size Moderate Stool Color Brown Stool Consistency Soft Formed # Voids 1 1 Head Head exam: Present atraumatic and normal inspection Eye Eye exam: Present normal appearance ENT ENT exam: Present mucous membranes moist, normal exam and normal external ear exam Neck Neck exam: Present normal inspection Respiratory Respiratory exam: Present normal respiratory exam Cardiovascular Cardiovascular exam: Present irregular rhythm GI/Abdominal GI/Abdominal exam: Present normal bowel sounds Back Exam Back exam: Present normal inspection Neurological Exam Neurological exam: Present alert and oriented X3 Skin Skin exam: Present intact and warm OBJ DATA Labs CBC & Chem 7: 04/21/22 04:46 04/21/22 04:46 Labs: Abnormal Lab Results 04/21/22 04/21/22 04/20/22 04:46 04:46 11:00 WBC 11.8 H RBC 3.46 L Hgb 10.4 L Hct 33.8 L MCHC 30.8 L RDW 16.2 H Neut % (Auto) [place] % (Auto) [place] # (Auto) Immature Gran # 0.06 H Absolute Neutrophils Anion Gap 7.0 L Glucose POC Glucose Calcium 8.2 L POC WB Ioniz Calcium Alkaline Phosphatase 38 L Total Protein 4.6 L Globulin 1.4 L Urine Appearance Sl cloudy A Urine Glucose (UA) 250 A Urine Nitrate Positive A Ur Leukocyte Esterase Small A Urine WBC 50 H Urine Bacteria Many A Urine Mucus Few A 04/20/22 04/20/22 04/20/22 10:09 10:05 10:05 WBC 12.4 H RBC Hgb Hct MCHC 30.9 L RDW 16.0 H Neut % (Auto) 78.7 H [place] % (Auto) 0.6 L [place] # (Auto) 0.07 L Immature Gran # 0.06 H Absolute Neutrophils 9.77 H Anion Gap Glucose 195 H POC Glucose 193 H Calcium 8.4 L POC WB Ioniz Calcium 1.10 L Alkaline Phosphatase Total Protein 5.5 L Globulin 1.7 L Urine Appearance Urine Glucose (UA) Urine Nitrate Ur Leukocyte Esterase Urine WBC Urine Bacteria Urine Mucus Meds: Medications Acetaminophen (Acetaminophen 325 Mg Tablet) 650 mg PO Q6HP PRN; Protocol PRN Reason: Per Pain Protocol/Fever > 101 Last Admin: 04/21/22 20:58 Dose: 650 mg Albuterol/Ipratropium (Ipratropium/Albuterol 3 Ml Ampul.Neb) 3 ml NEB Q4HRT PRN PRN Reason: Wheezing Alendronate Sodium (Alendronate Sodium 70 Mg Tablet) 70 mg PO QWEEK [facility] Apixaban (Apixaban 5 Mg Tablet) 2.5 mg PO BID [facility] Last Admin: 04/22/22 09:02 Dose: 2.5 mg Atorvastatin Calcium (Atorvastatin 20 Mg Tablet) 10 mg PO DAILY [facility] Last Admin: 04/22/22 09:03 Dose: 10 mg Calcium Carbonate/Glycine (Calcium (Oyster Shell) 500 Mg Tablet) 500 mg PO DAILY [facility] Last Admin: 04/22/22 09:03 Dose: 500 mg Cyanocobalamin (Cyanocobalamin (Vitamin B-12) 500 Mcg Tablet) 1,000 mcg PO DAILY [facility] Last Admin: 04/22/22 09:04 Dose: 1,000 mcg Dextrose (Dextrose 50% 50 Ml Vial) 0 ml IV UD PRN PRN Reason: Per Sliding Scale Diagnostic Test (Pha) (Accu-Chek 1 Each Strip) 1 each FS ACHS [facility] Last Admin: 04/22/22 11:38 Dose: 1 each Dicyclomine HCl (Dicyclomine 20 Mg Tablet) 10 - 20 mg PO Q6HP PRN PRN Reason: abdominal pain Diphenoxylate HCl/Atropine (Diphenoxylate Hcl/Atropine 1 Tablet) 1 - 2 tab PO Q6H PRN PRN Reason: diarrhea Docusate Sodium (Docusate Sodium 100 Mg Capsule) 100 mg PO BID [facility] Last Admin: 04/22/22 09:02 Dose: 100 mg Folic Acid (Folic Acid 1 Mg Tablet) 1 mg PO QDAY [facility] Last Admin: 04/22/22 09:02 Dose: 1 mg Furosemide (Furosemide 20 Mg Tablet) 20 mg PO QDAY [facility] Last Admin: 04/22/22 09:03 Dose: 20 mg Glucose (Dextrose 31 Gm Oral.Susp) 15 gm PO PRN PRN PRN Reason: Hypoglycemia Insulin Human Lispro (Insulin Lispro 1 Unit/0.01 Ml Unit) 0 unit SQ [facility]; Protocol Last Admin: 04/22/22 11:38 Dose: Not Given Levothyroxine Sodium (Levothyroxine 50 Mcg Tablet) 50 mcg PO QDAY [facility] Last Admin: 04/22/22 07:26 Dose: 50 mcg Lorazepam (Lorazepam 0.5 Mg Tablet) 0.5 mg PO BID PRN PRN Reason: anxiety or panic attacks Losartan Potassium (Losartan 50 Mg Tablet) 25 mg PO DAILY [facility] Last Admin: 04/22/22 09:02 Dose: 25 mg Metoprolol Succinate (Metoprolol Succinate 50 Mg Tab.Xl.24h) 100 mg PO BID [facility] Last Admin: 04/22/22 09:04 Dose: 100 mg Nitroglycerin (Nitroglycerin 0.4 Mg Tab.Subl) 0.4 mg SL Q5M PRN PRN Reason: chest pain Nortriptyline HCl (Nortriptyline 10 Mg Capsule) 10 mg PO QHS [facility] Last Admin: 04/21/22 20:56 Dose: 10 mg Omeprazole (Omeprazole 20 Mg Capsule) 20 mg PO BID [facility] Last Admin: 04/22/22 09:04 Dose: 20 mg Ondansetron HCl (Ondansetron 4 Mg/2 Ml Vial) 4 mg IV Q6HP PRN PRN Reason: Nausea And Vomiting Last Admin: 04/20/22 19:23 Dose: 4 mg Potassium Chloride (Potassium Chloride 10 Meq Tablet) 10 meq PO QDAY [facility] Last Admin: 04/22/22 09:03 Dose: 10 meq Prednisone (Prednisone 10 Mg Tablet) 10 mg PO QDAY [facility] Last Admin: 04/22/22 09:04 Dose: 10 mg Prochlorperazine (Prochlorperazine 10 Mg Tablet) 10 mg PO Q6HP PRN PRN Reason: Nausea Last Admin: 04/21/22 18:16 Dose: 10 mg Senna (Sennosides 1 Tablet) 2 tab PO HS [facility] Last Admin: 04/21/22 20:55 Dose: 2 tab Sodium Chloride (0.9 % Sodium Chloride 10 Ml Syringe) 10 ml IV Q8 [facility] Last Admin: 04/22/22 05:26 Dose: 10 ml Vitamin D (Vitamin D3 25 Mcg Tablet) 25 mcg PO DAILY [facility] Last Admin: 04/22/22 09:04 Dose: 25 mcg A/P Assessment and plan (1) Hypoglycemia secondary to sulfonylurea: Status: Acute (2) Type 2 diabetes mellitus without complications: Status: Chronic (3) Hypertension, essential: Status: Chronic (4) Hyperlipemia: Status: Acute (5) Atrial fibrillation with RVR: Status: Acute (6) Adenocarcinoma of left lung: Status: Chronic (7) Obesity: Status: Acute (8) Hypothyroidism (acquired): Status: Acute Narrative A/P Narrative: Assessment and Plans: 1. Hypoglycemia secondary to long acting Glipizide, Type 2 diabetes mellitus: Inpatient med surg, plan to keep patient in the hospital for one more day to keep monitoring for her blood glucose level d/c Glipizide Accu Check AC HS Insulin Lispro AC HS Hypoglycemia protocol Diabetic diet Diabetes education 2. Adenocarcinoma of the left lung: Continue oncology outpatient follow up and chemotherapy 3. Atrial fibrillation with RVR: Eliquis as anticoagulant Metoprolol ER as rate control 4. Essential hypertension: Currently normotensive: Metoprolol ER Losartan Lasix 5. Mixed dyslipidemia: Continue statin therapy 6. Hypothyroidism: Continue thyroid replacement therapy 7. 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 including healthy diet and regular exercise in order to lose weight GI ppx: Prilosec DVT ppx: Eliquis Code status: Full Prognosis: guarded Disposition: inpatient med surg, plan to keep patient in the hospital for one more day to keep monitoring for her blood glucose level Time Spent With Patient Time: Total time spent is greater than 50% in coordination of care (as documented) at patient's floor/unit and/or counseling patient: Total time spent with greater than 50% in coordination of care (as documented) at patient's floor/unit and/or counseling patient:: 25 - 35 minutes QUALITY VTE Deep Vein Thrombosis/Pulmonary Embolism Present on Admission: No
[2022-04-22] MEDS: ACETAMINOPHEN 325 MG TABLET PO PRN (19:31)
[2022-04-22] MEDS: SENNOSIDES 1 TABLET PO SCH (20:52)
[2022-04-22] MEDS: NORTRIPTYLINE 10 MG CAPSULE PO SCH (20:53)
[2022-04-23] MEDS: 0.9 % SODIUM CHLORIDE 10 ML SYRINGE IV SCH ×3 (05:00→20:37)
--- NOTE | 2022-04-23 07:23 | EKG ---
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
[2022-04-23] MEDS: INSULIN LISPRO 1 UNIT/0.01 ML UNIT SQ SCH ×4 (08:05→20:40)
[2022-04-23] MEDS: ATORVASTATIN 20 MG TABLET PO SCH (08:13)
[2022-04-23] MEDS: LOSARTAN 50 MG TABLET PO SCH (08:13)
[2022-04-23] MEDS: APIXABAN 5 MG TABLET PO SCH ×2 (08:14→20:33)
[2022-04-23] MEDS: CALCIUM (OYSTER SHELL) 500 MG TABLET PO SCH (08:14)
[2022-04-23] MEDS: LEVOTHYROXINE 50 MCG TABLET PO SCH (08:14)
[2022-04-23] MEDS: DOCUSATE SODIUM 100 MG CAPSULE PO SCH ×2 (08:14→20:33)
[2022-04-23] MEDS: OMEPRAZOLE 20 MG CAPSULE PO SCH ×2 (08:14→20:33)
[2022-04-23] MEDS: FOLIC ACID 1 MG TABLET PO SCH (08:14)
[2022-04-23] MEDS: predniSONE 10 MG TABLET PO SCH (08:14)
[2022-04-23] MEDS: POTASSIUM CHLORIDE 10 MEQ TABLET PO SCH (08:15)
[2022-04-23] MEDS: VITAMIN D3 25 MCG TABLET PO SCH (08:15)
[2022-04-23] MEDS: METOPROLOL SUCCINATE 50 MG TAB.XL.24H PO SCH ×2 (08:15→20:33)
[2022-04-23] MEDS: FUROSEMIDE 20 MG TABLET PO SCH (08:15)
[2022-04-23] MEDS: CYANOCOBALAMIN (VITAMIN B-12) 500 MCG TABLET PO SCH (08:15)
[2022-04-23] MEDS: ACETAMINOPHEN 325 MG TABLET PO PRN ×2 (08:48→20:34)
--- NOTE | 2022-04-23 10:52 | Internal Med Progress Note ---
SUBJECTIVE Subjective Patient information: Note initiated : 04/23/22 at 10:49 am Service Date, if different from initiated Date: [] Patient: Carla Meyers a 76 y/o F admitted on 04/22/22 for Low blood sugar. Chief Complaint: [] Interval history: Ms. Meyers is a 76 year old F history of adenocarcinoma of the left lung, type 2 diabetes mellitus, atrial fibrillation on Eliquis, obesity, essential hypertensions, mixed dyslipidemia, hypothyroidism, presenting with 2 days of symptomatic hypoglycemia. Patient was taking metformin until 2 months ago when her PCP change it to long-acting glipizide due to diarrhea associated with metformin. Patient stated that she was compliant to her medications and she takes her own medication and she is good and confident about taking her medications. There was no complications with taking the glipizide until yesterday when she developed hypoglycemia with blood sugar level of 20 5 in the evening. She checked her blood sugar again this morning it was 32. In both occasions, she was symptomatic with it meaning she had shaking chills and she has diaphoresis. She was also having near syncope last night. Last time she took the glipizide was yesterday morning. When she presented to the ED, she was giving both juices as well as dextrose infusions and her blood sugar response appropriately up to 139, but then drop back to 80s. Admission request was thus called for symptomatic hypoglycemia. 04/21: A few more episode of low blood sugar overnight with a low was 74, followed by 84 (fasting glucose of this morning). Patient had an episode of vomiting earlier this morning, relieved by IV Zofran. I would like to keep the patient in-house for 1 more day to continue to observe for her blood sugar. Discontinue dextrose infusion; will saline lock the patient. Continue to hold glipizide. Continue Accu-Chek AC HS. Sliding scale insulin AC at bedtime. 04/22: Patient's blood sugar has been in the 200 yesterday during the day throughout the evening, but again developed hypoglycemia with blood sugar as low as 62 this morning and noon. Patient stated that she never passed out but she would d evelop disorientation's as the symptoms of dosed hypoglycemia and may be mild shaking. Patient denies any nausea or vomiting and she tolerated 100% of the food provided. I would like to keep the patient in-house for 1 more day to continue to observe for her blood sugar. We changed the patient's status from observation to inpatient MedSurg. Continue to hold glipizide. Continue Accu-Chek AC HS. Sliding scale insulin AC at bedtime. 04/23: Nursing staff report that patient was unsteady on her gait when ambulating in the room. Another episode of hypoglycemia with blood sugar 66 earlier this morning at 5 AM. Patient is currently asymptomatic and she does not have any shakiness or perceived weakness. We will order physical therapy for evaluation and treatments. Continue to hold glipizide. Continue Accu-Chek AC HS. Sliding scale insulin AC at bedtime. Constitutional Vitals: Vital Signs Temp Pulse Resp BP Pulse Ox O2 Del Method 36.9 C 72 20 134/79 98 04/23/22 03:26 04/23/22 03:26 04/23/22 03:26 04/23/22 03:26 04/23/22 03:26 04/23/22 03:26 Period Temp Pulse Resp BP Sys/Bell Pulse Ox O2 Del Method O2 Flow Rate Last 24 Hr 35.8 C-37.2 C 66-88 16-28 134-154/68-79 92-98 Room Air-Room Air Intake and Output 04/22/22 04/23/22 04/23/22 19:59 03:59 11:59 Intake Total 520 300 Output Total 300 450 200 Balance 220 -150 -200 Weight 84.323 kg Intake & Output: Intake & Output 04/22/22 04/23/22 04/23/22 19:59 03:59 11:59 Intake Total 520 300 Output Total 300 450 200 Balance 220 -150 -200 Weight 84.323 kg Intake: Oral 520 300 Output: Void Amount 300 450 200 Other: Meal Dinner Breakfast Percent of Meal Consumed 100% 50% Feeding Ability Independent Urine Appearance Cloudy Cloudy Cloudy Urine Color Yellow Yellow Yellow Urine Odor Normal Strong Stool Size Moderate Stool Color Brown Stool Consistency Soft # Voids 1 # Bowel Movements 1 Head Head exam: Present atraumatic and normal inspection Eye Eye exam: Present normal appearance ENT ENT exam: Present mucous membranes moist, normal exam and normal external ear exam Neck Neck exam: Present normal inspection Respiratory Respiratory exam: Present normal respiratory exam Cardiovascular Cardiovascular exam: Present irregular rhythm GI/Abdominal GI/Abdominal exam: Present normal bowel sounds Back Exam Back exam: Present normal inspection Neurological Exam Neurological exam: Present alert and oriented X3 Skin Skin exam: Present intact and warm OBJ DATA Labs CBC & Chem 7: 04/21/22 04:46 04/21/22 04:46 Labs: Abnormal Lab Results 04/21/22 04/21/22 04/20/22 04:46 04:46 11:00 WBC 11.8 H RBC 3.46 L Hgb 10.4 L Hct 33.8 L MCHC 30.8 L RDW 16.2 H Neut % (Auto) Johnson % (Auto) Johnson # (Auto) Immature Gran # 0.06 H Absolute Neutrophils Anion Gap 7.0 L Glucose Calcium 8.2 L Alkaline Phosphatase 38 L Total Protein 4.6 L Globulin 1.4 L Urine Appearance Sl cloudy A Urine Glucose (UA) 250 A Urine Nitrate Positive A Ur Leukocyte Esterase Small A Urine WBC 50 H Urine Bacteria Many A Urine Mucus Few A 04/20/22 04/20/22 10:05 10:05 WBC 12.4 H RBC Hgb Hct MCHC 30.9 L RDW 16.0 H Neut % (Auto) 78.7 H Johnson % (Auto) 0.6 L Johnson # (Auto) 0.07 L Immature Gran # 0.06 H Absolute Neutrophils 9.77 H Anion Gap Glucose 195 H Calcium 8.4 L Alkaline Phosphatase Total Protein 5.5 L Globulin 1.7 L Urine Appearance Urine Glucose (UA) Urine Nitrate Ur Leukocyte Esterase Urine WBC Urine Bacteria Urine Mucus Meds: Medications Acetaminophen (Acetaminophen 325 Mg Tablet) 650 mg PO Q6HP PRN; Protocol PRN Reason: Per Pain Protocol/Fever > 101 Last Admin: 04/23/22 08:48 Dose: 650 mg Albuterol/Ipratropium (Ipratropium/Albuterol 3 Ml Ampul.Neb) 3 ml NEB Q4HRT PRN PRN Reason: Wheezing Alendronate Sodium (Alendronate Sodium 70 Mg Tablet) 70 mg PO QWEEK [facility] Apixaban (Apixaban 5 Mg Tablet) 2.5 mg PO BID [facility] Last Admin: 04/23/22 08:14 Dose: 2.5 mg Atorvastatin Calcium (Atorvastatin 20 Mg Tablet) 10 mg PO DAILY [facility] Last Admin: 04/23/22 08:13 Dose: 10 mg Calcium Carbonate/Glycine (Calcium (Oyster Shell) 500 Mg Tablet) 500 mg PO DAILY [facility] Last Admin: 04/23/22 08:14 Dose: 500 mg Cyanocobalamin (Cyanocobalamin (Vitamin B-12) 500 Mcg Tablet) 1,000 mcg PO DAILY [facility] Last Admin: 04/23/22 08:15 Dose: 1,000 mcg Dextrose (Dextrose 50% 50 Ml Vial) 0 ml IV UD PRN PRN Reason: Per Sliding Scale Diagnostic Test (Pha) (Accu-Chek 1 Each Strip) 1 each FS [facility] Last Admin: 04/23/22 08:02 Dose: 1 each Dicyclomine HCl (Dicyclomine 20 Mg Tablet) 10 - 20 mg PO Q6HP PRN PRN Reason: abdominal pain Diphenoxylate HCl/Atropine (Diphenoxylate Hcl/Atropine 1 Tablet) 1 - 2 tab PO Q6H PRN PRN Reason: diarrhea Docusate Sodium (Docusate Sodium 100 Mg Capsule) 100 mg PO BID [facility] Last Admin: 04/23/22 08:14 Dose: 100 mg Folic Acid (Folic Acid 1 Mg Tablet) 1 mg PO QDAY [facility] Last Admin: 04/23/22 08:14 Dose: 1 mg Furosemide (Furosemide 20 Mg Tablet) 20 mg PO QDAY [facility] Last Admin: 04/23/22 08:15 Dose: 20 mg Glucose (Dextrose 31 Gm Oral.Susp) 15 gm PO PRN PRN PRN Reason: Hypoglycemia Insulin Human Lispro (Insulin Lispro 1 Unit/0.01 Ml Unit) 0 unit SQ [facility]; Protocol Last Admin: 04/23/22 08:05 Dose: Not Given Levothyroxine Sodium (Levothyroxine 50 Mcg Tablet) 50 mcg PO QDAY [facility] Last Admin: 04/23/22 08:14 Dose: 50 mcg Lorazepam (Lorazepam 0.5 Mg Tablet) 0.5 mg PO BID PRN PRN Reason: anxiety or panic attacks Losartan Potassium (Losartan 50 Mg Tablet) 25 mg PO DAILY [facility] Last Admin: 04/23/22 08:13 Dose: 25 mg Metoprolol Succinate (Metoprolol Succinate 50 Mg Tab.Xl.24h) 100 mg PO BID [facility] Last Admin: 04/23/22 08:15 Dose: 100 mg Nitroglycerin (Nitroglycerin 0.4 Mg Tab.Subl) 0.4 mg SL Q5M PRN PRN Reason: chest pain Nortriptyline HCl (Nortriptyline 10 Mg Capsule) 10 mg PO QHS [facility] Last Admin: 04/22/22 20:53 Dose: 10 mg Omeprazole (Omeprazole 20 Mg Capsule) 20 mg PO BID [facility] Last Admin: 04/23/22 08:14 Dose: 20 mg Ondansetron HCl (Ondansetron 4 Mg/2 Ml Vial) 4 mg IV Q6HP PRN PRN Reason: Nausea And Vomiting Last Admin: 04/20/22 19:23 Dose: 4 mg Potassium Chloride (Potassium Chloride 10 Meq Tablet) 10 meq PO QDAY [facility] Last Admin: 04/23/22 08:15 Dose: 10 meq Prednisone (Prednisone 10 Mg Tablet) 10 mg PO QDAY [facility] Last Admin: 04/23/22 08:14 Dose: 10 mg Prochlorperazine (Prochlorperazine 10 Mg Tablet) 10 mg PO Q6HP PRN PRN Reason: Nausea Last Admin: 04/21/22 18:16 Dose: 10 mg Senna (Sennosides 1 Tablet) 2 tab PO HS [facility] Last Admin: 04/22/22 20:52 Dose: 2 tab Sodium Chloride (0.9 % Sodium Chloride 10 Ml Syringe) 10 ml IV Q8 [facility] Last Admin: 04/23/22 05:00 Dose: 10 ml Vitamin D (Vitamin D3 25 Mcg Tablet) 25 mcg PO DAILY [facility] Last Admin: 04/23/22 08:15 Dose: 25 mcg A/P Assessment and plan (1) Hypoglycemia secondary to sulfonylurea: Status: Acute (2) Type 2 diabetes mellitus without complications: Status: Chronic (3) Hypertension, essential: Status: Chronic (4) Hyperlipemia: Status: Acute (5) Atrial fibrillation with RVR: Status: Acute (6) Adenocarcinoma of left lung: Status: Chronic (7) Obesity: Status: Acute (8) Hypothyroidism (acquired): Status: Acute Narrative A/P Narrative: Assessment and Plans: 1. Hypoglycemia secondary to long acting Glipizide, Type 2 diabetes mellitus: Inpatient med surg d/c Glipizide Accu Check AC HS Insulin Lispro AC HS Hypoglycemia protocol Diabetic diet Diabetes education 2. Adenocarcinoma of the left lung: Continue oncology outpatient follow up and chemotherapy 3. Atrial fibrillation with RVR: Eliquis as anticoagulant Metoprolol ER as rate control 4. Essential hypertension: Currently normotensive: Metoprolol ER Losartan Lasix 5. Mixed dyslipidemia: Continue statin therapy 6. Hypothyroidism: Continue thyroid replacement therapy 7. 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
--- NOTE | 2022-04-23 12:56 | Internal Med Progress Note ---
SUBJECTIVE Subjective Patient information: Note initiated : 04/23/22 at 12:52 pm Service Date, if different from initiated Date: [] Patient: Carla Meyers a 76 y/o F admitted on 04/22/22 for Low blood sugar. Chief Complaint: [] Interval history: Ms. Meyers is a 76 year old F history of adenocarcinoma of the left lung, type 2 diabetes mellitus, atrial fibrillation on Eliquis, obesity, essential hypertensions, mixed dyslipidemia, hypothyroidism, presenting with 2 days of symptomatic hypoglycemia. Patient was taking metformin until 2 months ago when her PCP change it to long-acting glipizide due to diarrhea associated with metformin. Patient stated that she was compliant to her medications and she takes her own medication and she is good and confident about taking her medications. There was no complications with taking the glipizide until yesterday when she developed hypoglycemia with blood sugar level of 20 5 in the evening. She checked her blood sugar again this morning it was 32. In both occasions, she was symptomatic with it meaning she had shaking chills and she has diaphoresis. She was also having near syncope last night. Last time she took the glipizide was yesterday morning. When she presented to the ED, she was giving both juices as well as dextrose infusions and her blood sugar response appropriately up to 139, but then drop back to 80s. Admission request was thus called for symptomatic hypoglycemia. 04/21: A few more episode of low blood sugar overnight with a low was 74, followed by 84 (fasting glucose of this morning). Patient had an episode of vomiting earlier this morning, relieved by IV Zofran. I would like to keep the patient in-house for 1 more day to continue to observe for her blood sugar. Discontinue dextrose infusion; will saline lock the patient. Continue to hold glipizide. Continue Accu-Chek AC HS. Sliding scale insulin AC at bedtime. 04/22: Patient's blood sugar has been in the 200 yesterday during the day throughout the evening, but again developed hypoglycemia with blood sugar as low as 62 this morning and noon. Patient stated that she never passed out but she would d evelop disorientation's as the symptoms of dosed hypoglycemia and may be mild shaking. Patient denies any nausea or vomiting and she tolerated 100% of the food provided. I would like to keep the patient in-house for 1 more day to continue to observe for her blood sugar. We changed the patient's status from observation to inpatient MedSurg. Continue to hold glipizide. Continue Accu-Chek AC HS. Sliding scale insulin AC at bedtime. 04/23: Nursing staff report that patient was unsteady on her gait when ambulating in the room. Another episode of hypoglycemia with blood sugar 66 earlier this morning at 5 AM. Patient is currently asymptomatic and she does not have any shakiness or perceived weakness. We will order physical therapy for evaluation and treatments. Continue to hold glipizide. Continue Accu-Chek AC HS. Sliding scale insulin AC at bedtime. Constitutional Vitals: Vital Signs Temp Pulse Resp BP Pulse Ox O2 Del Method 98.8 F 78 16 133/67 95 04/23/22 11:34 04/23/22 11:34 04/23/22 11:34 04/23/22 11:34 04/23/22 11:34 04/23/22 08:00 Period Temp Pulse Resp BP Sys/Bell Pulse Ox O2 Del Method O2 Flow Rate Last 24 Hr 96.5 F-99.0 F 66-88 16-28 133-154/67-79 92-98 Room Air-Room Air Intake and Output 04/23/22 04/23/22 04/23/22 03:59 11:59 19:59 Intake Total 300 Output Total 450 525 225 Balance -150 -525 -225 Intake & Output: Intake & Output 04/23/22 04/23/22 04/23/22 03:59 11:59 19:59 Intake Total 300 Output Total 450 525 225 Balance -150 -525 -225 Intake: Oral 300 Output: Void Amount 450 525 225 Other: Meal Breakfast Lunch Percent of Meal Consumed 50% 100% Feeding Ability Independent Urine Appearance Cloudy Cloudy Cloudy Urine Color Yellow Yellow Urine Odor Strong Stool Size Moderate Stool Color Brown Stool Consistency Soft # Bowel Movements 1 Exam: General: Alert, Awake, No acute Distress, obese Eyes/N/T: EOMI, Head/Neck: neck supple, CV: RRR, No murmurs, Pulm: Clear b/l, no wheezing/rhonchi/rales Abd: soft, nontender, +BS x4 Ext: no clubbing/cyanosis/edema Neuro: Alert, no focal deficits, moves all extremities, Skin: warm/dry OBJ DATA Labs CBC & Chem 7: 04/21/22 04:46 04/21/22 04:46 Labs: Abnormal Lab Results 04/21/22 04/21/22 04/20/22 04:46 04:46 11:00 WBC 11.8 H RBC 3.46 L Hgb 10.4 L Hct 33.8 L MCHC 30.8 L RDW 16.2 H Immature Gran # 0.06 H Anion Gap 7.0 L Calcium 8.2 L Alkaline Phosphatase 38 L Total Protein 4.6 L Globulin 1.4 L Urine Appearance Sl cloudy A Urine Glucose (UA) 250 A Urine Nitrate Positive A Ur Leukocyte Esterase Small A Urine WBC 50 H Urine Bacteria Many A Urine Mucus Few A Meds: Medications Acetaminophen (Acetaminophen 325 Mg Tablet) 650 mg PO Q6HP PRN; Protocol PRN Reason: Per Pain Protocol/Fever > 101 Last Admin: 04/23/22 08:48 Dose: 650 mg Albuterol/Ipratropium (Ipratropium/Albuterol 3 Ml Ampul.Neb) 3 ml NEB Q4HRT PRN PRN Reason: Wheezing Alendronate Sodium (Alendronate Sodium 70 Mg Tablet) 70 mg PO QWEEK [facility] Apixaban (Apixaban 5 Mg Tablet) 2.5 mg PO BID [facility] Last Admin: 04/23/22 08:14 Dose: 2.5 mg Atorvastatin Calcium (Atorvastatin 20 Mg Tablet) 10 mg PO DAILY [facility] Last Admin: 04/23/22 08:13 Dose: 10 mg Calcium Carbonate/Glycine (Calcium (Oyster Shell) 500 Mg Tablet) 500 mg PO DAILY [facility] Last Admin: 04/23/22 08:14 Dose: 500 mg Cyanocobalamin (Cyanocobalamin (Vitamin B-12) 500 Mcg Tablet) 1,000 mcg PO DAILY [facility] Last Admin: 04/23/22 08:15 Dose: 1,000 mcg Dextrose (Dextrose 50% 50 Ml Vial) 0 ml IV UD PRN PRN Reason: Per Sliding Scale Diagnostic Test (Pha) (Accu-Chek 1 Each Strip) 1 each FS [facility] Last Admin: 04/23/22 11:31 Dose: 1 each Dicyclomine HCl (Dicyclomine 20 Mg Tablet) 10 - 20 mg PO Q6HP PRN PRN Reason: abdominal pain Diphenoxylate HCl/Atropine (Diphenoxylate Hcl/Atropine 1 Tablet) 1 - 2 tab PO Q6H PRN PRN Reason: diarrhea Docusate Sodium (Docusate Sodium 100 Mg Capsule) 100 mg PO BID [facility] Last Admin: 04/23/22 08:14 Dose: 100 mg Folic Acid (Folic Acid 1 Mg Tablet) 1 mg PO QDAY [facility] Last Admin: 04/23/22 08:14 Dose: 1 mg Furosemide (Furosemide 20 Mg Tablet) 20 mg PO QDAY [facility] Last Admin: 04/23/22 08:15 Dose: 20 mg Glucose (Dextrose 31 Gm Oral.Susp) 15 gm PO PRN PRN PRN Reason: Hypoglycemia Insulin Human Lispro (Insulin Lispro 1 Unit/0.01 Ml Unit) 0 unit SQ [facility]; Protocol Last Admin: 04/23/22 11:34 Dose: 1 unit Levothyroxine Sodium (Levothyroxine 50 Mcg Tablet) 50 mcg PO QDAY [facility] Last Admin: 04/23/22 08:14 Dose: 50 mcg Lorazepam (Lorazepam 0.5 Mg Tablet) 0.5 mg PO BID PRN PRN Reason: anxiety or panic attacks Losartan Potassium (Losartan 50 Mg Tablet) 25 mg PO DAILY [facility] Last Admin: 04/23/22 08:13 Dose: 25 mg Metoprolol Succinate (Metoprolol Succinate 50 Mg Tab.Xl.24h) 100 mg PO BID [facility] Last Admin: 04/23/22 08:15 Dose: 100 mg Nitroglycerin (Nitroglycerin 0.4 Mg Tab.Subl) 0.4 mg SL Q5M PRN PRN Reason: chest pain Nortriptyline HCl (Nortriptyline 10 Mg Capsule) 10 mg PO QHS [facility] Last Admin: 04/22/22 20:53 Dose: 10 mg Omeprazole (Omeprazole 20 Mg Capsule) 20 mg PO BID [facility] Last Admin: 04/23/22 08:14 Dose: 20 mg Ondansetron HCl (Ondansetron 4 Mg/2 Ml Vial) 4 mg IV Q6HP PRN PRN Reason: Nausea And Vomiting Last Admin: 04/20/22 19:23 Dose: 4 mg Potassium Chloride (Potassium Chloride 10 Meq Tablet) 10 meq PO QDAY [facility] Last Admin: 04/23/22 08:15 Dose: 10 meq Prednisone (Prednisone 10 Mg Tablet) 10 mg PO QDAY [facility] Last Admin: 04/23/22 08:14 Dose: 10 mg Prochlorperazine (Prochlorperazine 10 Mg Tablet) 10 mg PO Q6HP PRN PRN Reason: Nausea Last Admin: 04/21/22 18:16 Dose: 10 mg Senna (Sennosides 1 Tablet) 2 tab PO HS [facility] Last Admin: 04/22/22 20:52 Dose: 2 tab Sodium Chloride (0.9 % Sodium Chloride 10 Ml Syringe) 10 ml IV Q8 [facility] Last Admin: 04/23/22 05:00 Dose: 10 ml Vitamin D (Vitamin D3 25 Mcg Tablet) 25 mcg PO DAILY [facility] Last Admin: 04/23/22 08:15 Dose: 25 mcg A/P Narrative A/P Narrative: Assessment and Plans: *Hypoglycemia secondary to long acting Glipizide, Type 2 diabetes mellitus: -d/c Glipizide, SSI *Adenocarcinoma of the left lung: -Continue oncology outpatient follow up and chemotherapy *Atrial fibrillation with RVR: -Eliquis as anticoagulant, Metoprolol ER as rate control *Essential hypertension/HLD: -Metoprolol ER, Losartan, Lasix. 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
--- NOTE | 2022-04-23 12:58 | Discharge Summary ---
Discharge Provider Provider IMPORTANT FOLLOW-UP INFORMATION FOR PCP: monitor blood glucose before meals and at night and bring log to PCP. Glipizide stopped and pioglitazone started Patient information: Note initiated : 04/23/22 at 12:57 pm Service Date, if different from initiated Date: [] Patient: Carla Meyers 76 y/o F admitted on 04/22/22 for Low blood sugar. Chief Complaint: [] Date of admission: 04/22/22 12:00 Discharge date: 04/24/22 Primary care physician: Eligio Huerta MD Consults: 04/20/22 Consult to Physician [CONS] Stat Comment: Consulting Provider: Tom Mcgrath Reason For Exam: Physician to Consult COURSE Hospital Course Hospital course: Interval history: Ms. Meyers is a 76 year old F history of adenocarcinoma of the left lung, type 2 diabetes mellitus, atrial fibrillation on Eliquis, obesity, essential hypertensions, mixed dyslipidemia, hypothyroidism, presenting with 2 days of symptomatic hypoglycemia. Patient was taking metformin until 2 months ago when her PCP change it to long-acting glipizide due to diarrhea associated with metformin. Patient stated that she was compliant to her medications and she takes her own medication and she is good and confident about taking her medications. There was no complications with taking the glipizide until yesterday when she developed hypoglycemia with blood sugar level of 20 5 in the evening. She checked her blood sugar again this morning it was 32. In both occasions, she was symptomatic with it meaning she had shaking chills and she has diaphoresis. She was also having near syncope last night. Last time she took the glipizide was yesterday morning. When she presented to the ED, she was giving both juices as well as dextrose infusions and her blood sugar response appropriately up to 139, but then drop back to 80s. Admission request was thus called for symptomatic hypoglycemia. 04/21: A few more episode of low blood sugar overnight with a low was 74, followed by 84 (fasting glucose of this morning). Patient had an episode of vomiting earlier this morning, relieved by IV Zofran. I would like to keep the patient in-house for 1 more day to continue to observe for her blood sugar. Discontinue dextrose infusion; will saline lock the patient. Continue to hold glipizide. Continue Accu-Chek AC HS. Sliding scale insulin AC at bedtime. 04/22: Patient's blood sugar has been in the 200 yesterday during the day throughout the evening, but again developed hypoglycemia with blood sugar as low as 62 this morning and noon. Patient stated that she never passed out but she would develop disorientation's as the symptoms of dosed hypoglycemia and may be mild shaking. Patient denies any nausea or vomiting and she tolerated 100% of the food provided. I would like to keep the patient in-house for 1 more day to continue to observe for her blood sugar. We changed the patient's status from observation to inpatient MedSurg. Continue to hold glipizide. Continue Accu-Chek AC HS. Sliding scale insulin AC at bedtime. 04/23: Nursing staff report that patient was unsteady on her gait when ambulating in the room. Another episode of hypoglycemia with blood sugar 66 earlier this morning at 5 AM. Patient is currently asymptomatic and she does not have any shakiness or perceived weakness. We will order physical therapy for evaluation and treatments. Continue to hold glipizide. Continue Accu-Chek AC HS. Sliding scale insulin AC at bedtime. 04/24 Blood sugars improving. Patient slept all right and feeling better today. Does complain of headache. Assessment and Plans: *Hypoglycemia secondary to long acting Glipizide, Type 2 diabetes mellitus: -d/c Glipizide, pioglitazone started *Adenocarcinoma of the left lung: -Continue oncology outpatient follow up and chemotherapy *Atrial fibrillation with RVR: -Eliquis as anticoagulant, Metoprolol ER as rate control *Essential hypertension/HLD: -Metoprolol ER, Losartan, Lasix. statin *Hypothyroidism: Continue thyroid replacement therapy *Obesity BMI 30.0: Discharge diagnosis: Hypoglycemia lung cancer A. fib RVR Secondary discharge diagnosis: Hypertension hyperlipidemia obesity Time Spent with Patient Time attestation: Total time spent providing and/or coordinating discharge services: Time spent: Greater than 30 minutes EXAM Constitutional Vitals: Temp Pulse Resp BP Pulse Ox O2 Del Method 98.8 F 78 16 133/67 95 04/23/22 11:34 04/23/22 11:34 04/23/22 11:34 04/23/22 11:34 04/23/22 11:34 04/23/22 08:00 Discharge Plan Patient/Caregiver Discharge Instructions Activity: increase activity as tolerated Diet: Consistent Carbohydrate Activity Restrictions/Additional Instructions: monitor blood glucose before meals and at night and bring log to PCP. Prescriptions: New pioglitazone [Actos] 15 mg tablet 15 mg PO QDAY Qty: 30 0RF Insta-Glucose (with dextrin) 24 gram/31 gram Gel 15 g PO PRN PRN (Reason: Hypoglycemia) Qty: 93 0RF Continued furosemide 20 mg tablet 20 mg PO QDAY (DME) Con 5 Oxygen portable concentrator See Rx Instructions .Route .MEDSUPPLY Qty: 1 0RF Rx Instructions: NC 3-4L (DME) Accu-Chek Laura Plus test strp Strip See Dose Instructions .ROUTE .MEDSUPPLY Qty: 100 3RF Dose Instruction: As directed Rx Instructions: Use to test BG twice daily (DME) lancets [Accu-Chek Softclix Lancets] Misc See Rx Instructions .Route Qty: 100 12RF Rx Instructions: Use to test blood sugar 2 times daily and as needed levothyroxine [Synthroid] 50 mcg tablet 50 mcg PO QDAY Qty: 90 1RF nortriptyline 10 mg capsule 10 mg PO QHS Qty: 90 1RF potassium chloride 10 mEq tablet extended release 10 meq PO QDAY Qty: 90 1RF omeprazole 20 mg capsule,delayed release(DR/EC) 20 mg PO BID Qty: 180 1RF alendronate 70 mg tablet 70 mg PO QWEEK Qty: 12 1RF Rx Instructions: administer immed. upon arising with water >=30 min before food/beverages;stay upright for >=30 min;do not chew prednisone 10 mg tablet 10 mg PO QDAY Qty: 30 0RF Eliquis 2.5 mg tablet 2.5 mg PO BID Qty: 1 0RF folic acid 1 mg tablet 1 mg PO QDAY prochlorperazine maleate 10 mg tablet 10 mg PO PRN PRN (Reason: Nausea) nitroglycerin 0.4 mg tablet, sublingual 0.4 mg SUBLINGUAL .COMPLEX PRN (Reason: chest pain) Qty: 10 0RF Rx Instructions: Take 1 tab first sign of chest pain; no more than 3 tabs are recommended within a 15 minute period PRN lorazepam [Ativan] 0.5 mg tablet 0.5 mg PO BID PRN (Reason: anxiety or panic attacks) Qty: 20 0RF calcium citrate 250 mg calcium tablet 500 mg PO QDAY cranberry 500 mg capsule 500 mg PO QDAY (DME) oxygen 4 liters gas 1 each INH CONT Qty: 1 Rx Instructions: As directed losartan 50 mg tablet 25 mg PO DAILY metoprolol succinate 100 mg tablet extended release 24 hr See Rx Instructions PO BID Dose Instruction: TAKE 1 TABLET EVERY DAY Rx Instructions: TAKE 1 TABLET EVERY DAY orally twice a day; dicyclomine 10 mg capsule 10 - 20 mg PO Q6H PRN (Reason: abdominal pain) diphenoxylate-atropine 2.5-0.025 mg tablet 1 - 2 tab PO Q6H PRN (Reason: diarrhea) cholecalciferol (vitamin D3) 1,000 UNIT capsule 1,000 unit PO DAILY Rx Instructions: administer with meals Placard For Disability 1 EACH Each 1 each MISC ONCE Rx Instructions: Patient unable to ambulate. Wheelchair bound and on portable oxygen, restricted by lung disease cyanocobalamin (vitamin B-12) 1,000 mcg Tablet 1,000 mcg PO QDAY atorvastatin 20 mg tablet 10 mg PO DAILY Discontinued glipizide 5 mg tablet extended release 24hr 5 mg PO QDAY Qty: 90 1RF Follow Up Plan Follow up with: Eligio Huerta MD [Primary Care Provider] - 04/30/22 11:15 am (Please check in at 11:00) Patient Disposition: Home, Self-Care Prognosis: Good Overall status at discharge: patient is progressing back to baseline Discharge Orders: Discharge Order (Routine); Ordered 04/24/22 Ordered By: Jemal Luna [facility] VTE Deep Vein Thrombosis/Pulmonary Embolism Present on Admission: No
[2022-04-23] MEDS: NORTRIPTYLINE 10 MG CAPSULE PO SCH (20:33)
[2022-04-23] MEDS: SENNOSIDES 1 TABLET PO SCH (20:33)
[2022-04-24] MEDS: INSULIN LISPRO 1 UNIT/0.01 ML UNIT SQ SCH ×2 (07:23→11:40)
--- NOTE | 2022-04-24 07:54 | Internal Med Progress Note ---
SUBJECTIVE Subjective Patient information: Note initiated : 04/24/22 at 7:52 am Service Date, if different from initiated Date: [] Patient: Carla Meyers a 76 y/o F admitted on 04/22/22 for Low blood sugar- Hypoglycemia. Chief Complaint: [] Interval history: Ms. Meyers is a 76 year old F history of adenocarcinoma of the left lung, type 2 diabetes mellitus, atrial fibrillation on Eliquis, obesity, essential hypertensions, mixed dyslipidemia, hypothyroidism, presenting with 2 days of symptomatic hypoglycemia. Patient was taking metformin until 2 months ago when her PCP change it to long-acting glipizide due to diarrhea associated with metformin. Patient stated that she was compliant to her medications and she takes her own medication and she is good and confident about taking her medications. There was no complications with taking the glipizide until yesterday when she developed hypoglycemia with blood sugar level of 20 5 in the evening. She checked her blood sugar again this morning it was 32. In both occasions, she was symptomatic with it meaning she had shaking chills and she has diaphoresis. She was also having near syncope last night. Last time she took the glipizide was yesterday morning. When she presented to the ED, she was giving both juices as well as dextrose infusions and her blood sugar response appropriately up to 139, but then drop back to 80s. Admission request was thus called for symptomatic hypoglycemia. 04/21: A few more episode of low blood sugar overnight with a low was 74, followed by 84 (fasting glucose of this morning). Patient had an episode of vomiting earlier this morning, relieved by IV Zofran. I would like to keep the patient in-house for 1 more day to continue to observe for her blood sugar. Discontinue dextrose infusion; will saline lock the patient. Continue to hold glipizide. Continue Accu-Chek AC HS. Sliding scale insulin AC at bedtime. 04/22: Patient's blood sugar has been in the 200 yesterday during the day throughout the evening, but again developed hypoglycemia with blood sugar as low as 62 this morning and noon. Patient stated that she never passed out but she would develop disorientation's as the symptoms of dosed hypoglycemia and may be mild shaking. Patient denies any nausea or vomiting and she tolerated 100% of the food provided. I would like to keep the patient in-house for 1 more day to continue to observe for her blood sugar. We changed the patient's status from observation to inpatient MedSurg. Continue to hold glipizide. Continue Accu-Chek AC HS. Sliding scale insulin AC at bedtime. 04/23: Nursing staff report that patient was unsteady on her gait when ambulating in the room. Another episode of hypoglycemia with blood sugar 66 earlier this morning at 5 AM. Patient is currently asymptomatic and she does not have any shakiness or perceived weakness. We will order physical therapy for evaluation and treatments. Continue to hold glipizide. Continue Accu-Chek AC HS. Sliding scale insulin AC at bedtime. 04/24 Blood sugars improving. Patient slept all right and feeling better today. Does complain of headache. Review of Systems: denies fever/chills/nausea/vomiting/chest or abdominal pain/cough/dyspnea/diarrhea. Otherwise see above. Constitutional Vitals: Vital Signs Temp Pulse Resp BP Pulse Ox O2 Del Method 97.5 F 71 22 135/74 96 04/24/22 02:49 04/24/22 02:49 04/24/22 02:49 04/24/22 02:49 04/24/22 02:49 04/24/22 02:49 Period Temp Pulse Resp BP Sys/Bell Pulse Ox O2 Del Method O2 Flow Rate Last 24 Hr 96.7 F-99.0 F 71-88 16-28 131-152/63-74 95-98 Room Air-Room Air Intake and Output 04/23/22 04/24/22 04/24/22 19:59 03:59 11:59 Intake Total 400 Output Total 550 175 225 Balance -550 225 -225 Weight 83.915 kg Intake & Output: Intake & Output 04/23/22 04/24/22 04/24/22 19:59 03:59 11:59 Intake Total 400 Output Total 550 175 225 Balance -550 225 -225 Weight 83.915 kg Intake: Oral 400 Output: Void Amount 250 175 225 Other 300 Other: Meal Lunch Percent of Meal Consumed 100% Feeding Ability Independent Urine Appearance Cloudy Urine Color Yellow Urine Odor Strong Stool Size Small Stool Color Brown Stool Consistency Soft Formed # Bowel Movements 1 Exam: General: Alert, Awake, No acute Distress, obese Eyes/N/T: EOMI, Head/Neck: neck supple, CV: RRR, No murmurs, Pulm: Clear b/l, no wheezing/rhonchi/rales Abd: soft, nontender, +BS x4 Ext: no clubbing/cyanosis/edema Neuro: Alert, no focal deficits, moves all extremities, Skin: warm/dry OBJ DATA Labs CBC & Chem 7: 04/21/22 04:46 04/21/22 04:46 Labs: Abnormal Lab Results 04/21/22 04:46 Anion Gap 7.0 L Calcium 8.2 L Alkaline Phosphatase 38 L Total Protein 4.6 L Globulin 1.4 L Meds: Medications Acetaminophen (Acetaminophen 325 Mg Tablet) 650 mg PO Q6HP PRN; Protocol PRN Reason: Per Pain Protocol/Fever > 101 Last Admin: 04/23/22 20:34 Dose: 650 mg Albuterol/Ipratropium (Ipratropium/Albuterol 3 Ml Ampul.Neb) 3 ml NEB Q4HRT PRN PRN Reason: Wheezing Alendronate Sodium (Alendronate Sodium 70 Mg Tablet) 70 mg PO QWEEK [facility] Apixaban (Apixaban 5 Mg Tablet) 2.5 mg PO BID [facility] Last Admin: 04/23/22 20:33 Dose: 2.5 mg Atorvastatin Calcium (Atorvastatin 20 Mg Tablet) 10 mg PO DAILY [facility] Last Admin: 04/23/22 08:13 Dose: 10 mg Calcium Carbonate/Glycine (Calcium (Oyster Shell) 500 Mg Tablet) 500 mg PO DAILY [facility] Last Admin: 04/23/22 08:14 Dose: 500 mg Cyanocobalamin (Cyanocobalamin (Vitamin B-12) 500 Mcg Tablet) 1,000 mcg PO DAILY [facility] Last Admin: 04/23/22 08:15 Dose: 1,000 mcg Dextrose (Dextrose 50% 50 Ml Vial) 0 ml IV UD PRN PRN Reason: Per Sliding Scale Diagnostic Test (Pha) (Accu-Chek 1 Each Strip) 1 each FS ACHS [facility] Last Admin: 04/24/22 07:22 Dose: 1 each Dicyclomine HCl (Dicyclomine 20 Mg Tablet) 10 - 20 mg PO Q6HP PRN PRN Reason: abdominal pain Diphenoxylate HCl/Atropine (Diphenoxylate Hcl/Atropine 1 Tablet) 1 - 2 tab PO Q6H PRN PRN Reason: diarrhea Docusate Sodium (Docusate Sodium 100 Mg Capsule) 100 mg PO BID [facility] Last Admin: 04/23/22 20:33 Dose: 100 mg Folic Acid (Folic Acid 1 Mg Tablet) 1 mg PO QDAY [facility] Last Admin: 04/23/22 08:14 Dose: 1 mg Furosemide (Furosemide 20 Mg Tablet) 20 mg PO QDAY [facility] Last Admin: 04/23/22 08:15 Dose: 20 mg Glucose (Dextrose 31 Gm Oral.Susp) 15 gm PO PRN PRN PRN Reason: Hypoglycemia Insulin Human Lispro (Insulin Lispro 1 Unit/0.01 Ml Unit) 0 unit SQ [facility]; Protocol Last Admin: 04/24/22 07:23 Dose: Not Given Levothyroxine Sodium (Levothyroxine 50 Mcg Tablet) 50 mcg PO QDAY [facility] Last Admin: 04/23/22 08:14 Dose: 50 mcg Lorazepam (Lorazepam 0.5 Mg Tablet) 0.5 mg PO BID PRN PRN Reason: anxiety or panic attacks Losartan Potassium (Losartan 50 Mg Tablet) 25 mg PO DAILY [facility] Last Admin: 04/23/22 08:13 Dose: 25 mg Metoprolol Succinate (Metoprolol Succinate 50 Mg Tab.Xl.24h) 100 mg PO BID [facility] Last Admin: 04/23/22 20:33 Dose: 100 mg Nitroglycerin (Nitroglycerin 0.4 Mg Tab.Subl) 0.4 mg SL Q5M PRN PRN Reason: chest pain Nortriptyline HCl (Nortriptyline 10 Mg Capsule) 10 mg PO QHS [facility] Last Admin: 04/23/22 20:33 Dose: 10 mg Omeprazole (Omeprazole 20 Mg Capsule) 20 mg PO BID [facility] Last Admin: 04/23/22 20:33 Dose: 20 mg Ondansetron HCl (Ondansetron 4 Mg/2 Ml Vial) 4 mg IV Q6HP PRN PRN Reason: Nausea And Vomiting Last Admin: 04/20/22 19:23 Dose: 4 mg Potassium Chloride (Potassium Chloride 10 Meq Tablet) 10 meq PO QDAY [facility] Last Admin: 04/23/22 08:15 Dose: 10 meq Prednisone (Prednisone 10 Mg Tablet) 10 mg PO QDAY [facility] Last Admin: 04/23/22 08:14 Dose: 10 mg Prochlorperazine (Prochlorperazine 10 Mg Tablet) 10 mg PO Q6HP PRN PRN Reason: Nausea Last Admin: 04/21/22 18:16 Dose: 10 mg Senna (Sennosides 1 Tablet) 2 tab PO HS [facility] Last Admin: 04/23/22 20:33 Dose: 2 tab Sodium Chloride (0.9 % Sodium Chloride 10 Ml Syringe) 10 ml IV Q8 [facility] Last Admin: 04/23/22 20:37 Dose: 10 ml Vitamin D (Vitamin D3 25 Mcg Tablet) 25 mcg PO DAILY [facility] Last Admin: 04/23/22 08:15 Dose: 25 mcg A/P Narrative A/P Narrative: Assessment and Plans: *Hypoglycemia secondary to long acting Glipizide, Type 2 diabetes mellitus: -d/c Glipizide, SSI *Adenocarcinoma of the left lung: -Continue oncology outpatient follow up and chemotherapy *Atrial fibrillation with RVR: -Eliquis as anticoagulant, Metoprolol ER as rate control *Essential hypertension/HLD: -Metoprolol ER, Losartan, Lasix. statin *Hypothyroidism: Continue thyroid replacement therapy *Obesity BMI 30.0: -[employer] patient on life style modifications including healthy diet and regular exercise in order to lose weight *ppx: Eliquis / ppi Code status: Damaged Freight [employer] Spent With Patient Time: Total time spent is greater than 50% in coordination of care (as documented) at patient's floor/unit and/or counseling patient: Total time spent with greater than 50% in coordination of care (as documented) at patient's floor/unit and/or counseling patient:: 35 - 50 minutes QUALITY VTE Deep Vein Thrombosis/Pulmonary Embolism Present on Admission: No
[2022-04-24] MEDS: ATORVASTATIN 20 MG TABLET PO SCH (08:25)
[2022-04-24] MEDS: VITAMIN D3 25 MCG TABLET PO SCH (08:26)
[2022-04-24] MEDS: LOSARTAN 50 MG TABLET PO SCH (08:26)
[2022-04-24] MEDS: APIXABAN 5 MG TABLET PO SCH (08:26)
[2022-04-24] MEDS: OMEPRAZOLE 20 MG CAPSULE PO SCH (08:26)
[2022-04-24] MEDS: FOLIC ACID 1 MG TABLET PO SCH (08:26)
[2022-04-24] MEDS: CYANOCOBALAMIN (VITAMIN B-12) 500 MCG TABLET PO SCH (08:26)
[2022-04-24] MEDS: predniSONE 10 MG TABLET PO SCH (08:26)
[2022-04-24] MEDS: POTASSIUM CHLORIDE 10 MEQ TABLET PO SCH (08:26)
[2022-04-24] MEDS: FUROSEMIDE 20 MG TABLET PO SCH (08:26)
[2022-04-24] MEDS: METOPROLOL SUCCINATE 50 MG TAB.XL.24H PO SCH (08:26)
[2022-04-24] MEDS: DOCUSATE SODIUM 100 MG CAPSULE PO SCH (08:26)
[2022-04-24] MEDS: 0.9 % SODIUM CHLORIDE 10 ML SYRINGE IV SCH (08:27)
[2022-04-24] MEDS: CALCIUM (OYSTER SHELL) 500 MG TABLET PO SCH (08:27)
[2022-04-24] MEDS: LEVOTHYROXINE 50 MCG TABLET PO SCH (08:27)
[2022-04-24] MEDS ORDERED: BUTALB/ACETAMINOPHEN/CAFFEINE 1 TABLET PO ONE (10:56)
[2022-04-27] MEDS ORDERED: ALENDRONATE SODIUM 70 MG TABLET PO SCH (09:00)
== END 2022-04-24 14:15 | disposition home or self-care (01) | DRG 641 ==
LOC: ED 09:32 → ICU 16:30 → INTOOBSV 16:30 → MEDSUR 04-22 19:29
PROVIDERS: ADMIT Internal Medicine; ATTEND Internal Medicine

== ENCOUNTER 2022-05-27 10:25 | Inpatient (IN) ==
[2022-05-27] MEDS ORDERED: IOPAMIDOL 100 ML BOTTLE IV ONE (10:26)
[2022-05-27 10:54] LABS: POC Calcium, Ionized 1.04 (1.16-1.32); POC Potassium 3.1 (3.3-5.1)
--- NOTE | 2022-05-27 11:19 | Emergency Department Note ---
HPI General Chief complaint: Cold/Flu Symptoms Stated complaint: flu sx Time Seen by Provider: 05/27/22 10:34 Source: patient and family Mode of arrival: wheelchair Limitations: no limitations History of Present Illness HPI Narrative: Narrative: Patient presents ED with complaints of worsening shortness of breath x1 week. States she was diagnosed with influenza about a week ago. She states she has had to go up on her O2 supplemental oxygen up to 5 L. Her baseline uses 3 L. She reports feeling rundown and having nausea and vomiting as well as diarrhea. Her last diarrhea bowel movement was last night. Her last vomiting episode was last night as well. She currently denies fever, chills, hematemesis, melena, abdominal pain, cardiac chest pain, heart palpitation, hemoptysis. Patient denies any other alleviating or aggravating factors. Related Data Home Medications Medication Instructions Recorded Confirmed oxygen 4 liters #1 ea 02/23/19 05/20/22 cholecalciferol (vitamin D3) 25 1,000 unit PO DAILY 03/31/19 05/20/22 mcg (1,000 unit) capsule Placard For Disability 1 each MISC ONCE 04/01/19 05/20/22 calcium citrate 500 mg PO QDAY 07/29/19 05/20/22 cranberry 500 mg capsule 500 mg PO QDAY 07/29/19 05/20/22 furosemide 20 mg tablet 20 mg PO QDAY 06/19/20 05/20/22 cyanocobalamin (vitamin B-12) 1,000 mcg PO QDAY 09/11/20 05/20/22 1,000 mcg tablet dicyclomine 10 mg capsule 10 - 20 mg PO Q6H PRN abdominal 10/08/21 05/20/22 pain diphenoxylate-atropine 2.5 1 - 2 tab PO Q6H PRN diarrhea 10/08/21 05/20/22 mg-0.025 mg tablet folic acid 1 mg tablet 1 mg PO QDAY 01/30/22 05/20/22 prochlorperazine maleate 10 mg 10 mg PO PRN PRN Nausea 01/30/22 05/20/22 tablet losartan 50 mg tablet 25 mg PO DAILY 04/10/22 05/20/22 atorvastatin 20 mg tablet 10 mg PO DAILY 04/20/22 05/20/22 metoprolol succinate 100 mg See Rx Instructions PO BID 04/30/22 05/20/22 tablet,extended release 24 hr Pemetrexed IV 05/12/22 05/20/22 Previous Rx's Medication Instructions Recorded apixaban 2.5 mg tablet (Eliquis) 2.5 mg PO BID #1 tab 10/03/20 Con 5 Oxygen portable concentrator #1 ea 11/14/20 levothyroxine 50 mcg tablet 50 mcg PO QDAY #90 tabs 02/14/22 (Synthroid) nortriptyline 10 mg capsule 10 mg PO QHS #90 caps 02/14/22 omeprazole 20 mg capsule,delayed 20 mg PO BID #180 caps 02/14/22 release potassium chloride 10 mEq 10 meq PO QDAY #90 tabs 02/14/22 tablet,extended release alendronate 70 mg tablet 70 mg PO QWEEK #12 tabs 02/17/22 lorazepam 0.5 mg tablet (Ativan) 0.5 mg PO BID PRN anxiety or panic 03/04/22 attacks #20 tabs nitroglycerin 0.4 mg sublingual 0.4 mg sublingual .COMPLEX PRN 03/04/22 tablet chest pain #10 tabs prednisone 10 mg tablet 10 mg PO QDAY #30 tabs 03/05/22 [id number]-[id number] 24 15 g PO PRN PRN Hypoglycemia #93 04/24/22 gram/31 gram oral gel grams (Insta-Glucose (with dextrin)) blood sugar diagnostic (Accu-Chek #200 ea 04/25/22 Laura Plus test strips) lancets (Accu-Chek Softclix #200 ea 04/25/22 Lancets) glucagon 1 mg solution for 1 mg subcut Q20M PRN hypoglycemia 05/14/22 injection (Glucagon Emergency Kit) #1 ea nitrofurantoin 100 mg PO Q12H 7 days #14 caps 05/20/22 monohydrate/macrocrystals 100 mg capsule (Macrobid) oseltamivir 75 mg capsule (Tamiflu) 75 mg PO BID 5 days #10 caps 05/20/22 Allergies Allergy/AdvReac Type Severity Reaction Status Date / Time Cefprozil Allergy Mild Hives Verified 05/27/22 10:31 Sulfa (Sulfonamide Allergy Mild Rash Verified 05/27/22 10:31 Antibiotics) codeine AdvReac Mild Nausea Verified 05/27/22 10:31 Review of Systems ROS ROS Narrative: Narrative: All systems ED: reviewed and negative except as stated. COUNTS INCLUDE 234 BEDS AT THE [facility] Narrative Patient History Narrative: Narrative: Medical/Surgical/Family History All Active Problems (Updated 05/27/22 @ 14:20 by Adin Morrissey DO) Sepsis (Acute) Acute respiratory failure with hypoxia (Acute) Pneumonia of both lower lobes (Acute) Acute hypokalemia (Acute) Dyspnea (Acute) Headache (Acute) Weakness (Acute) Hospital discharge follow-up (Acute) Hypothyroidism (acquired) (Acute) Hypoglycemia secondary to sulfonylurea (Acute) Chest pain (Acute) Acute UTI (Acute) Anxiety (Acute) Tachycardia (Acute) Adenocarcinoma of left lung (Chronic) Chest pain (Acute) History of colonic polyps (Acute) Coronary artery disease (Acute) Dysphagia (Acute) Gastroesophageal reflux (Chronic) Hyperlipemia (Acute) Hypertension, essential (Chronic) Joint pain (Acute) Postmenopausal related mood disorder (Acute) Obesity (Acute) Osteoarthritis (Acute) Fracture of thoracic vertebra, closed (Acute) History of coronary artery stent placement (Acute) History of hysterectomy (Acute) History of tubal ligation (Acute) Stable angina (Acute) Type 2 diabetes mellitus without complications (Chronic) Community acquired pneumonia (Acute) Atypical chest pain (Acute) Pulmonary infiltrates on CXR (Chronic) UIP (usual interstitial pneumonitis) (Chronic) Hypoxemia (Chronic) Atrial fibrillation with RVR (Acute) Antisynthetase syndrome (Chronic) Pulmonary fibrosis (Chronic) Encounter for long-term (current) use of high-risk 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) custodial current use of systemic steroids (Chronic) ILD (interstitial lung disease) (Chronic) Myositis (Acute) Inflammatory myopathy (Acute) Osteopenia (Chronic) Lower GI bleeding (Acute) Neutropenia (Acute) Anemia (Acute) Cellulitis (Acute) Abscess of skin or subcutaneous tissue (Acute) Abscess of skin or subcutaneous tissue (Acute) Rectal bleeding (Acute) Left breast abscess (Acute) MRSA (methicillin resistant staph aureus) culture positive (Acute) Medicare annual wellness visit, initial (Acute) Annual physical exam (Acute) Fatigue (Acute) Annual physical exam (Acute) Right ovarian cyst (Acute) Edema (Acute) Dyspnea (Acute) Vasomotor rhinitis (Acute) Lower extremity edema (Acute) Varicose veins of bilateral lower extremities with pain (Acute) Dizziness (Acute) Pneumonia due to COVID-19 virus (Acute) UTI (urinary tract infection) (Acute) Anemia, normocytic normochromic (Acute) Pneumonia due to COVID-19 virus (Acute) Interstitial lung disease (Chronic) Herpes labialis (Acute) Fatigue (Acute) Dyspnea (Acute) Pneumonia (Acute) Medicare annual wellness visit, initial (Acute) BPPV (benign paroxysmal positional vertigo) (Acute) Abdominal pain (Acute) Lightheadedness (Acute) Lung nodules (Acute) Acute UTI (Acute) Bilateral pulmonary infiltrates on chest x-ray (Acute) Acute lower gastrointestinal bleeding (Acute) Medical History Abscess of skin or subcutaneous tissue Annual physical exam Annual physical exam Antisynthetase syndrome BPPV (benign paroxysmal positional vertigo) Chest pain Coronary artery disease 05/31 with stenting 09/27 04/28 twice Dysphagia Dyspnea Dyspnea Edema Encounter for long-term (current) use of high-risk medication Fatigue Fatigue Fracture of thoracic vertebra, closed Gastroesophageal reflux Herpes labialis History of colonic polyps Hyperlipemia Hypertension, essential Hypoxemia ILD (interstitial lung disease) Inflammatory myopathy Joint pain bilateral knees Left breast abscess custodial current use of systemic steroids Lower extremity edema Medicare annual wellness visit, initial Medicare annual wellness visit, initial MRSA (methicillin resistant staph aureus) culture positive Obesity Osteoarthritis Osteopenia Pneumonia Postmenopausal related mood disorder Pulmonary fibrosis Pulmonary infiltrates on CXR Right ovarian cyst Stable angina UIP (usual interstitial pneumonitis) Varicose veins of bilateral lower extremities with pain Vasomotor rhinitis Surgical History History of coronary artery stent placement 05/3105/04/2005 05/07/2005 History of hysterectomy History of permanent cardiac pacemaker placement (06/23/19) History of tubal ligation Family History Mother , at 84y Alzheimer's disease Essential hypertension Acute myocardial infarction Transient cerebral ischemia Unknown Atherosclerosis of coronary artery Diabetes mellitus Hyperlipidemia Father , accidental at 46 Instantaneous Acute myocardial infarction Brother Cardiac disease Heart surgery Social History Smoking Status: Smokeless tobacco Alcohol Intake Frequency: 0-2 drinks per day Exam Narrative Narrative: Narrative: General Limitations: no limitations General appearance: Absent in distress ENT ENT: Present normal oropharynx and mucous membranes dry Respiratory Respiratory: Present normal lung sounds bilaterally; Absent respiratory dis tress, rales/crackles or wheezes Cardiovascular Cardiovascular: Present normal rhythm and tachycardia Adbominal Abdominal: Present soft and normal bowel sounds; Absent tenderness Neurological Neurological: Present oriented X3 and normal gait Psychiatric Psychiatric: Present normal affect and normal mood Skin Skin: Present warm (WNL) and intact Course Course Course Narrative: Patient was evaluated for worsening shortness of breath. Patient was found to require 5 L of oxygen nasal cannula. We put her back on her baseline 3 L she sat down to less than 88% and even worse with IV with ambulation. Chest x-ray obtained with image of myself which is consistent with pneumonia. Patient was tachycardic and tachypneic upon arrival so she does meet sepsis criteria. Lactic acid was elevated greater than 3. Patient was given some IV fluids, IV Zosyn and vancomycin. Labs also reveal the patient was slightly hypokalemic. Unfortunately could not wean patient down to her baseline oxygen requirement. She was negative for COVID and flu. At this point think is prudent that patient be admitted to the hospital. Shared decision making conversation was had with patient she expressed agreement with admission. Case was discussed with hospitalist who has agreed to admit the patient. Reevaluation(s) Reevaluation #1: Patient lamar hemodynamic stable. No new complaints at this time. Time: 11:40 Consultations Consultation #1: Case discussed with hospitalist, Dr. pratt, who is graciously excepted patient to the hospital for admission Time: 14:50 Vital Signs Vital signs: Vital Signs Temperature 99.3 F H 05/27/22 10:28 Pulse Rate 113 H 05/27/22 10:28 Respiratory Rate 20 05/27/22 10:28 Blood Pressure 135/74 05/27/22 10:28 Pulse Oximetry (%) 91 05/27/22 10:28 Oxygen Delivery Method 05/27/22 10:28 Oxygen Flow Rate (L/min) 5 05/27/22 10:28 Temperature 99.3 F H 05/27/22 10:28 Pulse Rate 96 H 05/27/22 13:31 Respiratory Rate 32 H 05/27/22 13:31 Blood Pressure 133/65 05/27/22 13:31 Pulse Oximetry (%) 99 05/27/22 13:31 Oxygen Delivery Method 05/27/22 12:37 Oxygen Flow Rate (L/min) 4 05/27/22 12:37 MDM MDM Narrative Medical decision making narrative: Narrative: Differential Diagnosis Differential Diagnosis: Viral illness, PE, pneumonia, dehydration Medical Records Medical records reviewed: Yes I reviewed the patient's medical records. Lab Data Lab results reviewed: Yes I reviewed the patient's lab results. Result diagrams: 05/27/22 13:44 Labs: Lab Results 05/27/22 05/27/22 05/27/22 Range/Units 10:49 10:55 10:55 POC Hct 34.0 L (36-48) D-Dimer 0.93 H (0.27-0.50) ug/mL POC VBG pH (7.32-7.42) POC VBG pCO2 at Temp (41-51) POC VBG pO2 (25-40) POC VBG HCO3 (24-28) POC VBG Total CO2 (25-29) POC Venous O2 Sat (40-70) POC VBG Base Excess (-2-2) VBG Lactic Acid (0.5-2) POC Sodium 136 (133-145) POC Potassium 3.1 L (3.3-5.1) POC Chloride 101 (96-108) POC Total CO2 24.0 (22-30) POC BUN 15 (6-20) POC Creatinine 1.0 (0.6-1.2) POC Glucose 194 H (70-105) POC WB Ioniz Calcium 1.04 L (1.16-1.32) Procalcitonin 0.22 H (<0.10) ng/mL 05/27/22 Range/Units 12:22 POC Hct (36-48) D-Dimer (0.27-0.50) ug/mL POC VBG pH 7.52 H (7.32-7.42) POC VBG pCO2 at Temp 27.6 L (41-51) POC VBG pO2 34 (25-40) POC VBG HCO3 22.7 L (24-28) POC VBG Total CO2 23.0 L (25-29) POC Venous O2 Sat 73.0 H (40-70) POC VBG Base Excess 0 (-2-2) VBG Lactic Acid 3.2 H (0.5-2) POC Sodium (133-145) POC Potassium (3.3-5.1) POC Chloride (96-108) POC Total CO2 (22-30) POC BUN (6-20) POC Creatinine (0.6-1.2) POC Glucose (70-105) POC WB Ioniz Calcium (1.16-1.32) Procalcitonin (<0.10) ng/mL ED POC Tests ED POC Tests: TITI - Influenza A Negative TITI - Influenza B Negative TITI - SARS Antigen Negative Core Measures AMI Core Measures Followed: Yes Discharge Plan Patient/Caregiver Discharge Instructions Pt seen by HOME ENERGY CONSULTANT/PA only: No Clinical Impression: Sepsis, Acute respiratory failure with hypoxia, Pneumonia of both lower lobes, Acute hypokalemia Patient Disposition: Xfer As Outpt/Obs ([facility]) Condition: Fair Follow up with: Eligio Huerta MD [Primary Care Provider] - Prescriptions: No Action furosemide 20 mg tablet 20 mg PO QDAY (DME) Con 5 Oxygen portable concentrator See Rx Instructions .Route .MEDSUPPLY Qty: 1 0RF Rx Instructions: NC 3-4L levothyroxine [Synthroid] 50 mcg tablet 50 mcg PO QDAY Qty: 90 1RF nortriptyline 10 mg capsule 10 mg PO QHS Qty: 90 1RF potassium chloride 10 mEq tablet extended release 10 meq PO QDAY Qty: 90 1RF omeprazole 20 mg capsule,delayed release(DR/EC) 20 mg PO BID Qty: 180 1RF alendronate 70 mg tablet 70 mg PO QWEEK Qty: 12 1RF Rx Instructions: administer immed. upon arising with water >=30 min before food/beverages;stay upright for >=30 min;do not chew prednisone 10 mg tablet 10 mg PO QDAY Qty: 30 0RF (DME) Accu-Chek Laura Plus test strp Strip See Dose Instructions .ROUTE .MEDSUPPLY Qty: 200 12RF Dose Instruction: As directed Rx Instructions: Use to test BG four times daily (DME) lancets [Accu-Chek Softclix Lancets] Misc See Rx Instructions .Route Qty: 200 12RF Rx Instructions: Use to test blood sugar four times daily Glucagon Emergency Kit (human) 1 mg recon soln 1 mg subcut Q20M PRN (Reason: hypoglycemia) Qty: 1 1RF Rx Instructions: until target blood sugar attained Eliquis 2.5 mg tablet 2.5 mg PO BID Qty: 1 0RF folic acid 1 mg tablet 1 mg PO QDAY prochlorperazine maleate 10 mg tablet 10 mg PO PRN PRN (Reason: Nausea) nitroglycerin 0.4 mg tablet, sublingual 0.4 mg SUBLINGUAL .COMPLEX PRN (Reason: chest pain) Qty: 10 0RF Rx Instructions: Take 1 tab first sign of chest pain; no more than 3 tabs are recommended within a 15 minute period PRN lorazepam [Ativan] 0.5 mg tablet 0.5 mg PO BID PRN (Reason: anxiety or panic attacks) Qty: 20 0RF oseltamivir [Tamiflu] 75 mg capsule 75 mg PO BID 5 Days Qty: 10 0RF nitrofurantoin monohyd/m-cryst [Macrobid] 100 mg capsule 100 mg PO Q12H 7 Days Qty: 14 0RF Rx Instructions: must administer with a meal/food calcium citrate 250 mg calcium tablet 500 mg PO QDAY cranberry 500 mg capsule 500 mg PO QDAY (DME) oxygen 4 liters gas 1 each INH CONT Qty: 1 Rx Instructions: As directed losartan 50 mg tablet 25 mg PO DAILY metoprolol succinate 100 mg tablet extended release 24 hr See Rx Instructions PO BID Dose Instruction: TAKE 1 TABLET EVERY DAY Label Comments: Pt reports changed to 150 mg (1.5) in hospital Rx Instructions: TAKE 1 TABLET EVERY DAY orally twice a day; dicyclomine 10 mg capsule 10 - 20 mg PO Q6H PRN (Reason: abdominal pain) diphenoxylate-atropine 2.5-0.025 mg tablet 1 - 2 tab PO Q6H PRN (Reason: diarrhea) Pemetrexed IV cholecalciferol (vitamin D3) 1,000 UNIT capsule 1,000 unit PO DAILY Rx Instructions: administer with meals Placard For Disability 1 EACH Each 1 each MISC ONCE Rx Instructions: Patient unable to ambulate. Wheelchair bound and on portable oxygen, restricted by lung disease cyanocobalamin (vitamin B-12) 1,000 mcg Tablet 1,000 mcg PO QDAY atorvastatin 20 mg tablet 10 mg PO DAILY Insta-Glucose (with dextrin) 24 gram/31 gram Gel 15 g PO PRN PRN (Reason: Hypoglycemia) Qty: 93 0RF
--- NOTE | 2022-05-27 11:51 | XRay Report ---
CLINICAL INFORMATION: Dyspnea COMPARISON: 04/20/2022 TECHNIQUE: Portable FINDINGS: The heart is mildly enlarged but unchanged. Pacemaker leads in stable satisfactory position. Mediastinum and pulmonary vessels are normal. Moderate patchy bibasilar infiltrates have breast. No effusions. IMPRESSION: Moderate patchy bibasilar infiltrates progressing. Suspect aspiration or infection Interpreted and Authenticated by: Lucho Flores 05/27/22
[2022-05-27] MEDS ORDERED: VANCOMYCIN PER PHARMACY IV ONE (12:14)
[2022-05-27] MEDS ORDERED: PIPERACILLIN SODIUM/TAZOBACTAM 3.375 GM in DEXTROSE 5% IN WATER 50 ML IV ONE (12:14)
[2022-05-27] MEDS ORDERED: 0.9 % SODIUM CHLORIDE 1,000 ML IV ONE (12:28)
[2022-05-27] MEDS ORDERED: VANCOMYCIN 1,500 MG in 0.9 % SODIUM CHLORIDE 500 ML IV ONE (12:30)
--- NOTE | 2022-05-27 13:21 | Cat Scan Report ---
CLINICAL INFORMATION: Shortness of breath and elevated d-dimer COMPARISON: Chest CTs 12/29/2018 and 10/08/2021 TECHNIQUE: 80ml of Isovue-370 were injected intravenously. Using SmartPrep to maximize pulmonary artery opacification, .625mm helical slices were obtained from the lung apices through the lung bases. Following reconstruction, 2.5 mm sagittal, coronal, and axial reformations were processed. The exam was reviewed at mediastinal, lung, and bone windows. The exam was performed using radiation dose optimization techniques including, but not limited to, automated exposure control, adjustment of the mA and/or kV according to patient size and use of iterative reconstruction technique. FINDINGS: Pulmonary parenchymal windows show moderate chronic bronchitis with elevated lung volumes and wall thickening/dilatation of bronchi. Large patchy mixed interstitial/alveolar infiltrates are seen throughout both lower lobes and lingula. Moderate patchy groundglass infiltrates are seen within the right middle lobe and both upper lobes. These are new from the previous exam. The paramediastinal nodule medial left lower lobe, which had previously undergone biopsy, has decreased in size from 21 mm to 14 mm. The posterior basilar segmental nodule has decreased from 14 mm to 8 mm. There are no effusions. Mediastinal windows show the heart is is mildly enlarged. Pacemaker leads in stable position. Moderate calcific plaque present in the coronary arteries.. The pulmonary arteries are normal diameter and well-opacified without evidence of embolus. Thoracic aorta is also normal diameter and well-opacified. There is no adenopathy in the mediastinal, hilar or axillary regions. Esophagus is grossly normal. The thyroid is unremarkable. Bones and soft tissues the chest wall are normal. Images through the superior abdomen are unremarkable. IMPRESSION: 1. No evidence of pulmonary embolus. 2. Large bilateral infiltrates-most prominent in the lower lobes. Consider aspiration or, less likely, infection. 3. Medial basilar segment left lower lobe pulmonary nodules increased from 14 mm to 8 mm. This had previously undergone biopsy. Interpreted and Authenticated by: Lucho Flores 05/27/22
--- NOTE | 2022-05-27 14:38 | Internal Med History&Physical ---
HPI History of Present Illness Patient information: Note initiated : 05/27/22 at 2:38 pm Service Date, if different from initiated Date: [] Patient: Carla Meyers a 77 y/o F admitted on for flu sx. Chief Complaint: [] History of present illness: Ms. Meyers is a 77 year old F You can put me through Presents the ED with shortness of breath for the past week and increasing weakness. Patient was diagnosed with UTI and influenza about 5 days ago. But she says she is just continue to get worse. She has had to increase her home oxygen supplementation. She called her PCP who recommended she go to the ED. In the ED she would not tolerate her home oxygen level of 3 L. She was desatted into the low 80s. CTA of the chest showed bilateral infiltrates most prominent in the lower lobes. She was tachycardic and tachypneic in the ED. She had oxygen saturation of 70. Elevated lactate. Hypokalemia. Started on IV antibiotics in the ED. And fluid bolus. She also complained of headaches fever chills nausea and some mild diarrhea Review of Systems: Pertinent positive work-up. Denies /vomiting/chest or abdominal pain. Remaining 10 point review review of systems reviewed negative PFSH PFSH All Active Problems (Updated 05/27/22 @ 14:20 by Adin Morrissey DO) Sepsis (Acute) Acute respiratory failure with hypoxia (Acute) Pneumonia of both lower lobes (Acute) Acute hypokalemia (Acute) Dyspnea (Acute) Headache (Acute) Weakness (Acute) Hospital discharge follow-up (Acute) Hypothyroidism (acquired) (Acute) Hypoglycemia secondary to sulfonylurea (Acute) Chest pain (Acute) Acute UTI (Acute) Anxiety (Acute) Tachycardia (Acute) Adenocarcinoma of left lung (Chronic) Chest pain (Acute) History of colonic polyps (Acute) Coronary artery disease (Acute) Dysphagia (Acute) Gastroesophageal reflux (Chronic) Hyperlipemia (Acute) Hypertension, essential (Chronic) Joint pain (Acute) Postmenopausal related mood disorder (Acute) Obesity (Acute) Osteoarthritis (Acute) Fracture of thoracic vertebra, closed (Acute) History of coronary artery stent placement (Acute) History of hysterectomy (Acute) History of tubal ligation (Acute) Stable angina (Acute) Type 2 diabetes mellitus without complications (Chronic) Community acquired pneumonia (Acute) Atypical chest pain (Acute) Pulmonary infiltrates on CXR (Chronic) UIP (usual interstitial pneumonitis) (Chronic) Hypoxemia (Chronic) Atrial fibrillation with RVR (Acute) Antisynthetase syndrome (Chronic) Pulmonary fibrosis (Chronic) Encounter for long-term (current) use of high-risk 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) [facility] current use of systemic steroids (Chronic) ILD (interstitial lung disease) (Chronic) Myositis (Acute) Inflammatory myopathy (Acute) Osteopenia (Chronic) Lower GI bleeding (Acute) Neutropenia (Acute) Anemia (Acute) Cellulitis (Acute) Abscess of skin or subcutaneous tissue (Acute) Abscess of skin or subcutaneous tissue (Acute) Rectal bleeding (Acute) Left breast abscess (Acute) MRSA (methicillin resistant staph aureus) culture positive (Acute) Medicare annual wellness visit, initial (Acute) Annual physical exam (Acute) Fatigue (Acute) Annual physical exam (Acute) Right ovarian cyst (Acute) Edema (Acute) Dyspnea (Acute) Vasomotor rhinitis (Acute) Lower extremity edema (Acute) Varicose veins of bilateral lower extremities with pain (Acute) Dizziness (Acute) Pneumonia due to COVID-19 virus (Acute) UTI (urinary tract infection) (Acute) Anemia, normocytic normochromic (Acute) Pneumonia due to COVID-19 virus (Acute) Interstitial lung disease (Chronic) Herpes labialis (Acute) Fatigue (Acute) Dyspnea (Acute) Pneumonia (Acute) Medicare annual wellness visit, initial (Acute) BPPV (benign paroxysmal positional vertigo) (Acute) Abdominal pain (Acute) Lightheadedness (Acute) Lung nodules (Acute) Acute UTI (Acute) Bilateral pulmonary infiltrates on chest x-ray (Acute) Acute lower gastrointestinal bleeding (Acute) Medical History Abscess of skin or subcutaneous tissue Annual physical exam Annual physical exam Antisynthetase syndrome BPPV (benign paroxysmal positional vertigo) Chest pain Coronary artery disease 05/31 with stenting 09/27 04/28 twice Dysphagia Dyspnea Dyspnea Edema Encounter for long-term (current) use of high-risk medication Fatigue Fatigue Fracture of thoracic vertebra, closed Gastroesophageal reflux Herpes labialis History of colonic polyps Hyperlipemia Hypertension, essential Hypoxemia ILD (interstitial lung disease) Inflammatory myopathy Joint pain bilateral knees Left breast abscess [facility] current use of systemic steroids Lower extremity edema Medicare annual wellness visit, initial Medicare annual wellness visit, initial MRSA (methicillin resistant staph aureus) culture positive Obesity Osteoarthritis Osteopenia Pneumonia Postmenopausal related mood disorder Pulmonary fibrosis Pulmonary infiltrates on CXR Right ovarian cyst Stable angina UIP (usual interstitial pneumonitis) Varicose veins of bilateral lower extremities with pain Vasomotor rhinitis Surgical History History of coronary artery stent placement 05/3105/04/2005 05/07/2005 History of hysterectomy History of permanent cardiac pacemaker placement (06/23/19) History of tubal ligation Family History Mother , at 84y Alzheimer's disease Essential hypertension Acute myocardial infarction Transient cerebral ischemia Unknown Atherosclerosis of coronary artery Diabetes mellitus Hyperlipidemia Father , accidental at 46 Instantaneous Acute myocardial infarction Brother Cardiac disease Heart surgery Social History marital status: education level: high school occupational status: retired smoking status: Smokeless tobacco alcohol intake frequency: 0-2 drinks per day MEDS/ALLERGIES Home Medications and Allergies Home Medications Medication Instructions Recorded Confirmed Type oxygen 4 liters #1 ea 02/23/19 05/27/22 History cholecalciferol (vitamin D3) 25 1,000 unit PO DAILY 03/31/19 05/27/22 History mcg (1,000 unit) capsule Placard For Disability 1 each MISC ONCE 04/01/19 05/27/22 History calcium citrate 500 mg PO QDAY 07/29/19 05/27/22 History cranberry 500 mg capsule 500 mg PO QDAY 07/29/19 05/27/22 History furosemide 20 mg tablet 20 mg PO QAM 06/19/20 05/27/22 History cyanocobalamin (vitamin B-12) 1,000 mcg PO QDAY 09/11/20 05/27/22 History 1,000 mcg tablet apixaban 2.5 mg tablet (Eliquis) 2.5 mg PO BID #1 tab 10/03/20 05/27/22 Rx Con 5 Oxygen portable concentrator #1 ea 11/14/20 05/27/22 Rx dicyclomine 10 mg capsule 10 - 20 mg PO Q6H PRN abdominal 10/08/21 05/27/22 History pain diphenoxylate-atropine 2.5 1 - 2 tab PO Q6H PRN diarrhea 10/08/21 05/27/22 History mg-0.025 mg tablet folic acid 1 mg tablet 1 mg PO QAM 01/30/22 05/27/22 History prochlorperazine maleate 10 mg 10 mg PO PRN PRN Nausea 01/30/22 05/27/22 History tablet levothyroxine 50 mcg tablet 50 mcg PO QDAY #90 tabs 02/14/22 05/27/22 Rx (Synthroid) nortriptyline 10 mg capsule 10 mg PO QHS #90 caps 02/14/22 05/27/22 Rx omeprazole 20 mg capsule,delayed 20 mg PO BID #180 caps 02/14/22 05/27/22 Rx release potassium chloride 10 mEq 10 meq PO QDAY #90 tabs 02/14/22 05/27/22 Rx tablet,extended release alendronate 70 mg tablet 70 mg PO QWEEK #12 tabs 02/17/22 05/27/22 Rx lorazepam 0.5 mg tablet (Ativan) 0.5 mg PO BID PRN anxiety or panic 03/04/22 05/27/22 Rx attacks #20 tabs nitroglycerin 0.4 mg sublingual 0.4 mg sublingual .COMPLEX PRN 03/04/22 05/27/22 Rx tablet chest pain #10 tabs prednisone 10 mg tablet 10 mg PO QDAY #30 tabs 03/05/22 05/27/22 Rx losartan 50 mg tablet 25 mg PO DAILY 04/10/22 05/27/22 History atorvastatin 20 mg tablet 10 mg PO DAILY 04/20/22 05/27/22 History izhwpgkl-dfsypza-wgsljkm 24 15 g PO PRN PRN Hypoglycemia #93 04/24/22 05/27/22 Rx gram/31 gram oral gel grams (Insta-Glucose (with dextrin)) blood sugar diagnostic (Accu-Chek #200 ea 04/25/22 05/27/22 Rx Laura Plus test strips) lancets (Accu-Chek Softclix #200 ea 04/25/22 05/27/22 Rx Lancets) Pemetrexed IV 05/12/22 05/20/22 History glucagon 1 mg solution for 1 mg subcut Q20M PRN hypoglycemia 05/14/22 05/27/22 Rx injection (Glucagon Emergency Kit) #1 ea nitrofurantoin 100 mg PO Q12H 7 days #14 [facility] 05/20/22 05/27/22 Rx monohydrate/macrocrystals 100 mg capsule (Macrobid) oseltamivir 75 mg capsule (Tamiflu) 75 mg PO BID 5 days #10 [facility] 05/20/22 05/27/22 Rx metoprolol succinate 100 mg 150 mg PO [facility] 05/27/22 05/27/22 History tablet,extended release 24 hr pioglitazone 15 mg tablet 15 mg PO [facility] 05/27/22 05/27/22 History Allergies Allergy/AdvReac Type Severity Reaction Status Date / Time Cefprozil Allergy Mild Hives Verified 05/27/22 10:31 Sulfa (Sulfonamide Allergy Mild Rash Verified 05/27/22 10:31 Antibiotics) codeine AdvReac Mild Nausea Verified 05/27/22 10:31 EXAM Constitutional Vitals: Temp Pulse Resp BP Pulse Ox O2 Del Method O2 Flow Rate 99.3 F H 96 H 32 H 133/65 99 4 05/27/22 10:28 05/27/22 13:31 05/27/22 13:31 05/27/22 13:31 05/27/22 13:31 05/27/22 12:37 05/27/22 12:37 Exam: General: Alert, Awake, No acute Distress Eyes/N/T: EOMI, PERRL, Head/Neck: neck supple, normocephalic atraumatic CV: RRR, No murmurs, normal s1/s2 Pulm: Fine bilateral rales, no wheezing Abd: soft, nontender, +BS x4 Ext: no clubbing/cyanosis/edema Neuro: Alert, no focal deficits, moves all extremities, CN 2-12 grossly intact, symmetrical strength b/l upper/lower, sensations intact b/l upper/lower Skin: warm/dry DATA Data Completed and Pending Labs: Labs from last 24 hours 05/27/22 05/27/22 05/27/22 13:44 12:22 10:55 WBC Pending RBC Pending Hgb Pending Hct Pending POC Hct MCV Pending MCH Pending MCHC Pending RDW Pending Plt Count Pending MPV Pending Immature Gran % (Auto) Pending Neut % (Auto) Pending Immature Gran # Pending D-Dimer 0.93 H POC VBG pH 7.52 H POC VBG pCO2 at Temp 27.6 L POC VBG pO2 34 POC VBG HCO3 22.7 L POC VBG Total CO2 23.0 L POC Venous O2 Sat 73.0 H POC VBG Base Excess 0 VBG Lactic Acid 3.2 H POC Sodium POC Potassium POC Chloride POC Total CO2 POC BUN POC Creatinine POC Glucose POC WB Ioniz Calcium Procalcitonin 05/27/22 05/27/22 05/27/22 10:55 10:55 10:49 WBC Pending RBC Pending Hgb Pending Hct Pending POC Hct 34.0 L MCV Pending MCH Pending MCHC Pending RDW Pending Plt Count Pending MPV Pending Immature Gran % (Auto) Pending Neut % (Auto) Pending Immature Gran # Pending D-Dimer POC VBG pH POC VBG pCO2 at Temp POC VBG pO2 POC VBG HCO3 POC VBG Total CO2 POC Venous O2 Sat POC VBG Base Excess VBG Lactic Acid POC Sodium 136 POC Potassium 3.1 L POC Chloride 101 POC Total CO2 24.0 POC BUN 15 POC Creatinine 1.0 POC Glucose 194 H POC WB Ioniz Calcium 1.04 L Procalcitonin 0.22 H A/P Narrative A/P Narrative: A: *PNA, b/l, possible aspiration pna: *h/o Oropharyngeal Dysphagia and Esophageal dysphagia requiring dilation in past for schatzki ring: *Sepsis: *Hyperlactatemia *Acute on chronic hypoxic respiratory failure: *ILD(3-4L O2@home): Follows with Dr. Esquivel *Paroxysmal A. fib: On Eliquis/BB *CAD w/stents: *HTN/HLD: *Obesity: BMI 31 *Hypothyroidism: *GERD: *Depression/anxiety: * P: -IV antibiotics pending BC/SC, MRSA screening -O2 supp and wean as able -IS/Acapella, prn nebs/RT -Strep/COVID pending -ST eval -f/u lactate,crp -monitor cbc/chem, i/o - -Continue home BB/ARB/Lasix, statin, -Home medication reconciliation -PT/OT -CM for placement needs -ppx: Eliquis Time Spent With Patient Time: Total time spent is greater than 50% in coordination of care (as documented) at patient's floor/unit and/or counseling patient: Total time spent with greater than 50% in coordination of care (as documented) at patient's floor/unit and/or counseling patient:: Greater than 70 minutes
[2022-05-27 14:52] LABS: Basophils # (Auto) 0.01 K/mcL (0.00-0.30); Basophils % (Auto) 0.1 % (0.0-2.0); Eosinophils # (Auto) 0.03 K/mcL (0.00-0.70); Eosinophils % (Auto) 0.3 % (0.0-7.0); Hemoglobin 10.6 g/dL (11.2-15.7); Lymphocytes # (Auto) 1.62 K/mcL (1.50-4.80); Lymphocytes % (Auto) 15.8 % (15.5-49.0); Mean Cell Volume 95.8 fL (80.0-100.0); Mean Corpuscular HGB Conc 31.2 g/dL (31.0-36.0); Mean Platelet Volume 9.9 fL (8.8-12.5); Monocytes # (Auto) 1.22 K/mcL (0.10-0.90); Monocytes % (Auto) 11.9 % (1.0-12.0); Neutrophils % (Auto) 70.9 % (38.0-78.0); Platelet Count 162 K/mcL (140-440); RBC 3.55 M/mcL (3.59-5.38); Red Cell Distribution Width 14.7 % (11.5-14.5); WBC 10.3 K/mcL (4.5-11.0)
[2022-05-27] MEDS ORDERED: SENNOSIDES 1 TABLET PO PRN (15:50)
[2022-05-27] MEDS ORDERED: POTASSIUM CHLORIDE 40 MEQ in DEXTROSE 5% IN WATER 500 ML IV PRN (15:50)
[2022-05-27] MEDS ORDERED: POTASSIUM CHLORIDE 20 MEQ TABLET PO PRN ×2 (15:50)
[2022-05-27] MEDS ORDERED: IPRATROPIUM/ALBUTEROL 3 ML AMPUL.NEB NEB PRN (15:50)
[2022-05-27] MEDS ORDERED: PIPERACILLIN SODIUM/TAZOBACTAM 3.375 GM in DEXTROSE 5% IN WATER 50 ML IV SCH (15:50)
[2022-05-27] MEDS ORDERED: MAGNESIUM SULFATE 2 GM/50 ML BAG IV PRN (15:50)
[2022-05-27] MEDS ORDERED: POLYETHYLENE GLYCOL 3350 17 GM PACKET PO PRN (15:50)
[2022-05-27] MEDS: PIPERACILLIN SODIUM/TAZOBACTAM 3.375 GM in DEXTROSE 5% IN WATER 50 ML IV SCH ×2 (17:32→23:51)
[2022-05-27] MEDS: ONDANSETRON 4 MG/2 ML VIAL IV PRN (17:32)
[2022-05-27] MEDS: 0.9 % SODIUM CHLORIDE 10 ML SYRINGE IV SCH (20:59)
[2022-05-28] MEDS: PIPERACILLIN SODIUM/TAZOBACTAM 3.375 GM in DEXTROSE 5% IN WATER 50 ML IV SCH ×5 (06:03→23:52)
[2022-05-28] MEDS: 0.9 % SODIUM CHLORIDE 10 ML SYRINGE IV SCH ×3 (06:03→21:45)
[2022-05-28] MEDS: ACETAMINOPHEN 325 MG TABLET PO PRN ×2 (06:05→21:43)
[2022-05-28 07:17] LABS: Basophils # (Auto) 0.02 K/mcL (0.00-0.30); Basophils % (Auto) 0.2 % (0.0-2.0); Eosinophils # (Auto) 0.04 K/mcL (0.00-0.70); Eosinophils % (Auto) 0.4 % (0.0-7.0); Hematocrit 28.6 % (34.1-44.9); Hemoglobin 9.2 g/dL (11.2-15.7); Lymphocytes # (Auto) 2.61 K/mcL (1.50-4.80); Lymphocytes % (Auto) 26.9 % (15.5-49.0); Mean Cell Volume 94.1 fL (80.0-100.0); Mean Corpuscular HGB Conc 32.2 g/dL (31.0-36.0); Mean Platelet Volume 9.7 fL (8.8-12.5); Monocytes # (Auto) 1.25 K/mcL (0.10-0.90); Monocytes % (Auto) 12.9 % (1.0-12.0); Neutrophils % (Auto) 58.7 % (38.0-78.0); Platelet Count 183 K/mcL (140-440); RBC 3.04 M/mcL (3.59-5.38); Red Cell Distribution Width 15.1 % (11.5-14.5); WBC 9.7 K/mcL (4.5-11.0)
[2022-05-28 08:27] LABS: ALT/SGPT 7 U/L (<40); AST/SGOT 13 U/L (<32); Albumin 2.7 gm/dL (3.2-5.2); Albumin/Globulin Ratio 1.2 (1.0-2.3); Alkaline Phosphatase 40 U/L (39-117); Bilirubin,Direct < 0.2 mg/dL (0-0.3); Bilirubin,Total 0.5 mg/dL (0.1-1.0); Blood Urea Nitrogen 11 mg/dL (8-23); Calcium 7.5 mg/dL (8.6-10.4); Carbon Dioxide 24 mmol/L (22-30); Chloride 102 mmol/L (96-108); Globulin 2.2 gm/dL (2.2-3.7); Glomerular Filtration Rate 62; Glucose 98 mg/dL (70-105); Lactate Dehydrogenase 510 U/L (135-225); Phosphorous 2.3 mg/dL (2.5-4.5); Triglycerides 86 mg/dL (<150); Uric Acid 3.9 mg/dL (2.5-8.0)
[2022-05-28] MEDS ORDERED: LORazepam 0.5 MG TABLET PO PRN (08:36)
[2022-05-28] MEDS ORDERED: NITROGLYCERIN 0.4 MG TAB.SUBL SL PRN (08:36)
--- NOTE | 2022-05-28 08:39 | Internal Med Progress Note ---
SUBJECTIVE Subjective Patient information: Note initiated : 05/28/22 at 8:30 am Service Date, if different from initiated Date: [] Patient: Carla Meyers a 77 y/o F admitted on 05/27/22 for flu sx. Chief Complaint: [] Interval history: History of present illness: Ms. Meyers is a 77 year old F You can put me through Presents the ED with shortness of breath for the past week and increasing weakness. Patient was diagnosed with UTI and influenza about 5 days ago. But she says she is just continue to get worse. She has had to increase her home oxygen supplementation. She called her PCP who recommended she go to the ED. In the ED she would not tolerate her home oxygen level of 3 L. She was desatted into the low 80s. CTA of the chest showed bilateral infiltrates most prominent in the lower lobes. She was tachycardic and tachypneic in the ED. She had oxygen saturation of 70. Elevated lactate. Hypokalemia. Started on IV antibiotics in the ED. And fluid bolus. She also complained of headaches fever chills nausea and some mild diarrhea. 05/28 Patient states she slept poorly. She says she feels maybe a little bit better otherwise but still very weak and drained. She does have shortness of breath this is much increased with exertion. Mild cough. She was febrile last night. She is mildly tachypneic. Mildly tachycardic. Review of Systems: denies headache/fever/chills/nausea/vomiting/chest or abdominal pain/diarrhea. Otherwise see above. Constitutional Vitals: Vital Signs Temp Pulse Resp BP Pulse Ox O2 Del Method O2 Flow Rate 98.1 F 93 H 26 H 117/64 93 4 05/28/22 07:34 05/28/22 07:34 05/28/22 07:34 05/28/22 07:34 05/28/22 07:34 05/28/22 08:21 05/28/22 08:21 Period Temp Pulse Resp BP Sys/Bell Pulse Ox O2 Del Method O2 Flow Rate Last 24 Hr 98.1 F-102.4 F 92-113 13-37 117-152/64-85 70-99 Nasal Cannula- Room Air 3-5 Intake and Output 05/27/22 05/28/22 05/28/22 19:59 03:59 11:59 Intake Total 1720 830 50 Output Total 101 251 300 Balance 1619 579 -250 Weight 84.867 kg Intake & Output: Intake & Output 05/27/22 05/28/22 05/28/22 19:59 03:59 11:59 Intake Total 1720 830 50 Output Total 101 251 300 Balance 1619 579 -250 Weight 84.867 kg Intake: IV 1600 50 50 Sodium Chloride 0.9% 1,000 ml @ 1000 Wide Open IV BOLUS ONE Rx#: [id number] Zosyn 3.375 gm In Dextrose 5% 100 50 50 in Water 50 ml @ 100 mls/hr IV Q6H [facility] Rx#:[id number] Vancomycin 1,500 mg In Sodium 500 Chloride 0.9% 500 ml @ 333.3 mls/hr IV ONCE ONE Rx#: [id number] Oral 120 780 Output: Void Amount 100 250 300 # of times incontinent of urine 1 1 Other: Urine Appearance Clear Clear Urine Color Light Sabi Light Sabi Tea Colored Urine Odor Normal Normal Exam: General: Alert, Awake, No acute Distress Eyes/N/T: EOMI, Head/Neck: neck supple, CV: RRR, No murmurs, Pulm: Fine bilateral rales, no wheezing Abd: soft, nontender, +BS x4 Ext: no clubbing/cyanosis/edema Neuro: Alert, no focal deficits, moves all extremities, Skin: warm/dry OBJ DATA Labs CBC & Chem 7: 05/28/22 05:35 05/28/22 05:35 Labs: Abnormal Lab Results 05/28/22 05/28/22 05/28/22 05:35 05:35 05:35 RBC 3.04 L Hgb 9.2 L Hct 28.6 L POC Hct RDW 15.1 H Immature Gran % (Auto) 0.9 H [place] % (Auto) 12.9 H [place] # (Auto) 1.25 H Immature Gran # 0.09 H D-Dimer POC VBG pH POC VBG pCO2 at Temp POC VBG pO2 POC VBG HCO3 POC VBG Total CO2 POC Venous O2 Sat POC VBG Base Excess VBG Lactic Acid POC Potassium POC Glucose Calcium 7.5 L POC WB Ioniz Calcium Phosphorus 2.3 L Lactate Dehydrogenase 510 H C-Reactive Protein Total Protein 4.9 L Albumin 2.7 L Procalcitonin 0.23 H 05/27/22 05/27/22 05/27/22 14:47 14:45 13:44 RBC 3.55 L Hgb 10.6 L Hct 34.0 L POC Hct RDW 14.7 H Immature Gran % (Auto) 1.0 H [place] % (Auto) [place] # (Auto) 1.22 H Immature Gran # 0.10 H D-Dimer POC VBG pH 7.43 H POC VBG pCO2 at Temp POC VBG pO2 22 L POC VBG HCO3 28.5 H POC VBG Total CO2 30.0 H POC Venous O2 Sat 39.0 L POC VBG Base Excess 4.0 H* VBG Lactic Acid POC Potassium POC Glucose Calcium POC WB Ioniz Calcium Phosphorus Lactate Dehydrogenase C-Reactive Protein 14.30 H Total Protein Albumin Procalcitonin 05/27/22 05/27/22 05/27/22 12:22 10:55 10:55 RBC Hgb Hct POC Hct RDW Immature Gran % (Auto) [place] % (Auto) [place] # (Auto) Immature Gran # D-Dimer 0.93 H POC VBG pH 7.52 H POC VBG pCO2 at Temp 27.6 L POC VBG pO2 POC VBG HCO3 22.7 L POC VBG Total CO2 23.0 L POC Venous O2 Sat 73.0 H POC VBG Base Excess VBG Lactic Acid 3.2 H POC Potassium POC Glucose Calcium POC WB Ioniz Calcium Phosphorus Lactate Dehydrogenase C-Reactive Protein Total Protein Albumin Procalcitonin 0.22 H 05/27/22 10:49 RBC Hgb Hct POC Hct 34.0 L RDW Immature Gran % (Auto) [place] % (Auto) [place] # (Auto) Immature Gran # D-Dimer POC VBG pH POC VBG pCO2 at Temp POC VBG pO2 POC VBG HCO3 POC VBG Total CO2 POC Venous O2 Sat POC VBG Base Excess VBG Lactic Acid POC Potassium 3.1 L POC Glucose 194 H Calcium POC WB Ioniz Calcium 1.04 L Phosphorus Lactate Dehydrogenase C-Reactive Protein Total Protein Albumin Procalcitonin Meds: Medications Acetaminophen (Acetaminophen 325 Mg Tablet) 650 mg PO Q6HP PRN; Protocol PRN Reason: Per Pain Protocol/Fever > 101 Last Admin: 05/28/22 06:05 Dose: 650 mg Albuterol/Ipratropium (Ipratropium/Albuterol 3 Ml Ampul.Neb) 3 ml NEB Q4HP PRN PRN Reason: Shortness Of Breath Potassium Chloride 40 meq/ (Dextrose) 520 mls @ 130 mls/hr IV UD PRN PRN Reason: Potassium < 3 Magnesium Sulfate (Magnesium Sulfate) 2 gm in 50 mls @ 50 mls/hr IV UD PRN PRN Reason: Magnesium </= 1.6 Piperacillin Sod/Tazobactam (Sod 3.375 gm/ Dextrose) 50 mls @ 100 mls/hr IV Q6H KRISTIE; Protocol Last Infusion: 05/28/22 06:35 Dose: Infused Ondansetron HCl (Ondansetron 4 Mg/2 Ml Vial) 4 mg IV Q4HP PRN PRN Reason: Nausea And Vomiting Last Admin: 05/27/22 17:32 Dose: 4 mg Polyethylene Glycol (Polyethylene Glycol 3350 17 Gm Packet) 17 gm PO DAILYP PRN PRN Reason: Constipation Potassium Chloride (Potassium Chloride 20 Meq Tablet) 40 meq PO UD PRN PRN Reason: Potssium is 3-3.5 Potassium Chloride (Potassium Chloride 20 Meq Tablet) 40 meq PO UD PRN PRN Reason: Potassium < 3 Senna (Sennosides 1 Tablet) 2 tab PO DAILYP PRN PRN Reason: Constipation Sodium Chloride (0.9 % Sodium Chloride 10 Ml Syringe) 10 ml IV Q8 KRISTIE Last Admin: 05/28/22 06:03 Dose: 10 ml A/P Narrative A/P Narrative: A: *PNA, b/l: -covd/flu/rsv/Strep neg *h/o Oropharyngeal Dysphagia and Esophageal dysphagia requiring dilation in past for schatzki ring: -ST eval unremarkable *Sepsis: -Febrile o/n 102 *Hyperlactatemia: improvd *Acute on chronic hypoxic respiratory failure: - *ILD(3-4L O2@home): Follows with Dr. Esquivel *Paroxysmal A. fib: On Eliquis/BB *Hypokalemia/Hypophosphatemia: *CAD w/stents: *HTN/HLD: *Obesity: BMI 31 *Hypothyroidism: *GERD: *DM2: *Depression/anxiety: P: -IV antibiotics pending BC/SC, MRSA screen neg -O2 supp and wean as able -IS/Acapella, prn nebs/RT -f/u lactate,crp -monitor cbc/chem, i/o -Follow-up and replace electrolytes, trend -SSI -Continue home BB/ARB/Lasix, statin, -PT/OT -CM for placement needs -ppx: Eliquis Time Spent With Patient Time: Total time spent is greater than 50% in coordination of care (as documented) at patient's floor/unit and/or counseling patient: Total time spent with greater than 50% in coordination of care (as documented) at patient's floor/unit and/or counseling patient:: 35 - 50 minutes QUALITY VTE Deep Vein Thrombosis/Pulmonary Embolism Present on Admission: No
[2022-05-28] MEDS: METOPROLOL SUCCINATE 50 MG TAB.XL.24H PO SCH (09:00)
[2022-05-28] MEDS ORDERED: predniSONE 10 MG TABLET PO SCH (09:00)
[2022-05-28] MEDS: OMEPRAZOLE 20 MG CAPSULE PO SCH ×2 (09:00→21:45)
[2022-05-28] MEDS: APIXABAN 5 MG TABLET PO SCH ×2 (09:00→21:45)
[2022-05-28] MEDS: ATORVASTATIN 20 MG TABLET PO SCH (09:01)
[2022-05-28] MEDS: FUROSEMIDE 20 MG TABLET PO SCH (09:01)
[2022-05-28] MEDS: LOSARTAN 50 MG TABLET PO SCH (09:02)
[2022-05-28] MEDS: LEVOTHYROXINE 50 MCG TABLET PO SCH (09:08)
[2022-05-28] MEDS ORDERED: diphenhydrAMINE 25 MG CAPSULE PO PRN (09:11)
--- NOTE | 2022-05-28 11:37 | Discharge Summary ---
Discharge Provider Provider IMPORTANT FOLLOW-UP INFORMATION FOR PCP: Patient information: Note initiated : 05/28/22 at 11:35 am Service Date, if different from initiated Date: [] Patient: Carla Meyers 77 y/o F admitted on 05/27/22 for flu sx. Chief Complaint: [] Date of admission: 05/27/22 16:20 Primary care physician: Eligio Huerta MD Consults: 05/27/22 Consult to Physician [CONS] Stat Comment: Consulting Provider: Jemal Luna Reason For Exam: Physician to Consult COURSE Hospital Course Hospital course: History of present illness: Ms. Meyers is a 77 year old F You can put me through Presents the ED with shortness of breath for the past week and increasing weakness. Patient was diagnosed with UTI and influenza about 5 days ago. But she says she is just continue to get worse. She has had to increase her home oxygen supplementation. She called her PCP who recommended she go to the ED. In the ED she would not tolerate her home oxygen level of 3 L. She was desatted into the low 80s. CTA of the chest showed bilateral infiltrates most prominent in the lower lobes. She was tachycardic and tachypneic in the ED. She had oxygen saturation of 70. Elevated lactate. Hypokalemia. Started on IV antibiotics in the ED. And fluid bolus. She also complained of headaches fever chills nausea and some mild diarrhea. 1/ Patient states she slept poorly. She says she feels maybe a little bit better otherwise but still very weak and drained. She does have shortness of breath this is much increased with exertion. Mild cough. She was febrile last night. She is mildly tachypneic. Mildly tachycardic. 1 Patient states she does not feel any worse and shortness of breath is the same but it is requiring more oxygen. She has continued dry cough. CRP elevated significantly. Increase prednisone to treat for exacerbation of interstitial lung disease. Added azithromycin for atypicals. A: *PNA, b/l: -covd/flu/rsv/Strep neg *Sepsis: *Hyperlactatemia: *Acute on chronic hypoxic respiratory failure: 2/2 pna/exacerbation of ILD *ILD(3-4L O2@home): Follows with Dr. Esquivel. On chronic prednisone. probablee exacerbation *h/o Oropharyngeal Dysphagia and Esophageal dysphagia requiring dilation in past for schatzki ring: -ST eval unremarkable *Adenocarcinoma of the left lung: -Continue oncology outpatient follow up and chemotherapy *Paroxysmal A. 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 *Hypokalemia/Hypophosphatemia: *CAD w/stents: *Anemia: *HTN/HLD: *Obesity: BMI 31 *Hypothyroidism: *GERD: *DM2: *Depression/anxiety: P: -antibiotics -prednisone taper to home regimen Discharge diagnosis: Bilateral pneumonia acute hypoxic respiratory failure sepsis Hyperlactatemi Secondary discharge diagnosis: Hyperlactatemia interstitial lung disease chronic respiratory failure electrolyte imbalance paroxysmal atrial relation CAD hypertension obesity hypothyroidism GERD diabetes depression anxiety Time Spent with Patient Time attestation: Total time spent providing and/or coordinating discharge services: Time spent: Greater than 30 minutes EXAM Constitutional Vitals: Temp Pulse Resp BP Pulse Ox O2 Del Method O2 Flow Rate 98.1 F 93 H 26 H 117/64 93 4 05/28/22 07:34 05/28/22 07:34 05/28/22 07:34 05/28/22 07:34 05/28/22 08:00 05/28/22 08:21 05/28/22 08:21 Discharge Data Data Completed and Pending Labs on day of discharge: Labs from last 24 hours 05/28/22 05/28/22 05/28/22 05:35 05:35 05:35 WBC 9.7 RBC 3.04 L Hgb 9.2 L Hct 28.6 L MCV 94.1 MCH 30.3 MCHC 32.2 RDW 15.1 H Plt Count 183 MPV 9.7 Immature Gran % (Auto) 0.9 H Neut % (Auto) 58.7 Lymph % (Auto) 26.9 [place] % (Auto) 12.9 H Eos % (Auto) 0.4 Baso % (Auto) 0.2 Lymph # (Auto) 2.61 [place] # (Auto) 1.25 H Eos # (Auto) 0.04 Baso # (Auto) 0.02 Immature Gran # 0.09 H Absolute Neutrophils 5.71 Differential Comment D-Dimer POC VBG pH POC VBG pCO2 at Temp POC VBG pO2 POC VBG HCO3 POC VBG Total CO2 POC Venous O2 Sat POC VBG Base Excess VBG Lactic Acid Sodium 135 Potassium 3.6 Chloride 102 Carbon Dioxide 24 Anion Gap 9.0 BUN 11 Creatinine 0.9 GFR Calculation 62 Glucose 98 Uric Acid 3.9 Calcium 7.5 L Phosphorus 2.3 L Magnesium 1.7 Total Bilirubin 0.5 Direct Bilirubin < 0.2 GGT 22 AST 13 ALT 7 Alkaline Phosphatase 40 Lactate Dehydrogenase 510 H C-Reactive Protein Total Protein 4.9 L Albumin 2.7 L Globulin 2.2 Albumin/Globulin Ratio 1.2 Triglycerides 86 Procalcitonin 0.23 H Ur Strep pneumoniae Ag 05/27/22 05/27/22 05/27/22 18:05 14:47 14:45 WBC RBC Hgb Hct MCV MCH MCHC RDW Plt Count MPV Immature Gran % (Auto) Neut % (Auto) Lymph % (Auto) [place] % (Auto) Eos % (Auto) Baso % (Auto) Lymph # (Auto) [place] # (Auto) Eos # (Auto) Baso # (Auto) Immature Gran # Absolute Neutrophils Differential Comment D-Dimer POC VBG pH 7.43 H POC VBG pCO2 at Temp 42.8 POC VBG pO2 22 L POC VBG HCO3 28.5 H POC VBG Total CO2 30.0 H POC Venous O2 Sat 39.0 L POC VBG Base Excess 4.0 H* VBG Lactic Acid 1.8 Sodium Potassium Chloride Carbon Dioxide Anion Gap BUN Creatinine GFR Calculation Glucose Uric Acid Calcium Phosphorus Magnesium Total Bilirubin Direct Bilirubin GGT AST ALT Alkaline Phosphatase Lactate Dehydrogenase C-Reactive Protein 14.30 H Total Protein Albumin Globulin Albumin/Globulin Ratio Triglycerides Procalcitonin Ur Strep pneumoniae Ag Negative 05/27/22 05/27/22 05/27/22 13:44 12:22 10:55 WBC 10.3 RBC 3.55 L Hgb 10.6 L Hct 34.0 L MCV 95.8 MCH 29.9 MCHC 31.2 RDW 14.7 H Plt Count 162 MPV 9.9 Immature Gran % (Auto) 1.0 H Neut % (Auto) 70.9 Lymph % (Auto) 15.8 [place] % (Auto) 11.9 Eos % (Auto) 0.3 Baso % (Auto) 0.1 Lymph # (Auto) 1.62 [place] # (Auto) 1.22 H Eos # (Auto) 0.03 Baso # (Auto) 0.01 Immature Gran # 0.10 H Absolute Neutrophils 7.30 Differential Comment D-Dimer 0.93 H POC VBG pH 7.52 H POC VBG pCO2 at Temp 27.6 L POC VBG pO2 34 POC VBG HCO3 22.7 L POC VBG Total CO2 23.0 L POC Venous O2 Sat 73.0 H POC VBG Base Excess 0 VBG Lactic Acid 3.2 H Sodium Potassium Chloride Carbon Dioxide Anion Gap BUN Creatinine GFR Calculation Glucose Uric Acid Calcium Phosphorus Magnesium Total Bilirubin Direct Bilirubin GGT AST ALT Alkaline Phosphatase Lactate Dehydrogenase C-Reactive Protein Total Protein Albumin Globulin Albumin/Globulin Ratio Triglycerides Procalcitonin Ur Strep pneumoniae Ag 05/27/22 05/27/22 10:55 10:55 WBC TNP RBC TNP Hgb TNP Hct TNP MCV TNP MCH TNP MCHC TNP RDW TNP Plt Count TNP MPV TNP Immature Gran % (Auto) TNP Neut % (Auto) TNP Lymph % (Auto) TNP [place] % (Auto) TNP Eos % (Auto) TNP Baso % (Auto) TNP Lymph # (Auto) TNP [place] # (Auto) TNP Eos # (Auto) TNP Baso # (Auto) TNP Immature Gran # TNP Absolute Neutrophils TNP Differential Comment TNP D-Dimer POC VBG pH POC VBG pCO2 at Temp POC VBG pO2 POC VBG HCO3 POC VBG Total CO2 POC Venous O2 Sat POC VBG Base Excess VBG Lactic Acid Sodium Potassium Chloride Carbon Dioxide Anion Gap BUN Creatinine GFR Calculation Glucose Uric Acid Calcium Phosphorus Magnesium Total Bilirubin Direct Bilirubin GGT AST ALT Alkaline Phosphatase Lactate Dehydrogenase C-Reactive Protein Total Protein Albumin Globulin Albumin/Globulin Ratio Triglycerides Procalcitonin 0.22 H Ur Strep pneumoniae Ag Preliminary micro results at discharge 05/27/22 11:11 Blood Culture - Preliminary Blood 05/27/22 11:07 Blood Culture - Preliminary Blood Discharge Plan Patient/Caregiver Discharge Instructions Activity: increase activity as tolerated Diet: Consistent Carbohydrate Prescriptions: New prednisone 10 mg tablet 40 mg PO QDAY Qty: 1 0RF Rx Instructions: Take 40mg once daily for 2 days then 20mg daily for 2 days then 10mg daily x2 days then 5mg x2 days and stop Continued furosemide 20 mg tablet 20 mg PO QAM levothyroxine [Synthroid] 50 mcg tablet 50 mcg PO QDAY Qty: 90 1RF nortriptyline 10 mg capsule 10 mg PO QHS Qty: 90 1RF potassium chloride 10 mEq tablet extended release 10 meq PO QDAY Qty: 90 1RF omeprazole 20 mg capsule,delayed release(DR/EC) 20 mg PO BID Qty: 180 1RF alendronate 70 mg tablet 70 mg PO QWEEK Qty: 12 1RF Rx Instructions: administer immed. upon arising with water >=30 min before food/beverages;stay upright for >=30 min;do not chew prednisone 10 mg tablet 10 mg PO QDAY Qty: 30 0RF (DME) Accu-Chek Laura Plus test strp Strip See Dose Instructions .ROUTE .MEDSUPPLY Qty: 200 12RF Dose Instruction: As directed Rx Instructions: Use to test BG four times daily (DME) lancets [Accu-Chek Softclix Lancets] Misc See Rx Instructions .Route Qty: 200 12RF Rx Instructions: Use to test blood sugar four times daily Glucagon Emergency Kit (human) 1 mg recon soln 1 mg subcut Q20M PRN (Reason: hypoglycemia) Qty: 1 1RF Rx Instructions: until target blood sugar attained Eliquis 2.5 mg tablet 2.5 mg PO BID Qty: 1 0RF folic acid 1 mg tablet 1 mg PO QAM prochlorperazine maleate 10 mg tablet 10 mg PO PRN PRN (Reason: Nausea) nitroglycerin 0.4 mg tablet, sublingual 0.4 mg SUBLINGUAL .COMPLEX PRN (Reason: chest pain) Qty: 10 0RF Rx Instructions: Take 1 tab first sign of chest pain; no more than 3 tabs are recommended within a 15 minute period PRN lorazepam [Ativan] 0.5 mg tablet 0.5 mg PO BID PRN (Reason: anxiety or panic attacks) Qty: 20 0RF oseltamivir [Tamiflu] 75 mg capsule 75 mg PO BID 5 Days Qty: 10 0RF nitrofurantoin monohyd/m-cryst [Macrobid] 100 mg capsule 100 mg PO Q12H 7 Days Qty: 14 0RF Rx Instructions: must administer with a meal/food calcium citrate 250 mg calcium tablet 500 mg PO QDAY cranberry 500 mg capsule 500 mg PO QDAY (DME) oxygen 4 liters gas 1 each INH CONT Qty: 1 Rx Instructions: As directed losartan 50 mg tablet 25 mg PO DAILY dicyclomine 10 mg capsule 10 - 20 mg PO Q6H PRN (Reason: abdominal pain) diphenoxylate-atropine 2.5-0.025 mg tablet 1 - 2 tab PO Q6H PRN (Reason: diarrhea) Pemetrexed See Rx Instructions .ROUTE .COMPLEX Rx Instructions: Infusion for lung cancer. cholecalciferol (vitamin D3) 1,000 UNIT capsule 1,000 unit PO DAILY Rx Instructions: administer with meals Placard For Disability 1 EACH Each 1 each MISC ONCE Rx Instructions: Patient unable to ambulate. Wheelchair bound and on portable oxygen, restricted by lung disease cyanocobalamin (vitamin B-12) 1,000 mcg Tablet 1,000 mcg PO QDAY atorvastatin 20 mg tablet 10 mg PO DAILY Insta-Glucose (with dextrin) 24 gram/31 gram Gel 15 g PO PRN PRN (Reason: Hypoglycemia) Qty: 93 0RF metoprolol succinate 100 mg Tablet Extended Release 24 Hr 150 mg PO QAM pioglitazone 15 mg Tablet 15 mg PO QAM No Action (DME) Con 5 Oxygen portable concentrator aerosol See Rx Instructions Rx Instructions: NC 3-4L Follow Up Plan Follow up with: Eligio Huerta MD [Primary Care Provider] - Patient Disposition: Home, Self-Care Prognosis: Undetermined Overall status at discharge: patient is progressing back to baseline QUALITY VTE Deep Vein Thrombosis/Pulmonary Embolism Present on Admission: No
[2022-05-28] MEDS: predniSONE 20 MG TABLET PO SCH (12:02)
[2022-05-28] MEDS: NORTRIPTYLINE 10 MG CAPSULE PO SCH (21:43)
[2022-05-28] MEDS: MELATONIN 3 MG TABLET PO SCH (21:45)
[2022-05-29] MEDS: 0.9 % SODIUM CHLORIDE 10 ML SYRINGE IV SCH ×4 (06:05→23:00)
[2022-05-29] MEDS: PIPERACILLIN SODIUM/TAZOBACTAM 3.375 GM in DEXTROSE 5% IN WATER 50 ML IV SCH (06:05)
[2022-05-29 06:54] LABS: Basophils # (Auto) 0.02 K/mcL (0.00-0.30); Basophils % (Auto) 0.2 % (0.0-2.0); Eosinophils # (Auto) 0 K/mcL (0.00-0.70); Eosinophils % (Auto) 0 % (0.0-7.0); Hematocrit 33.7 % (34.1-44.9); Lymphocytes # (Auto) 1.95 K/mcL (1.50-4.80); Mean Cell Volume 100.3 fL (80.0-100.0); Mean Corpuscular HGB Conc 29.7 g/dL (31.0-36.0); Mean Platelet Volume 9.6 fL (8.8-12.5); Monocytes # (Auto) 0.95 K/mcL (0.10-0.90); Monocytes % (Auto) 9.8 % (1.0-12.0); Neutrophils % (Auto) 69.2 % (38.0-78.0); Platelet Count 224 K/mcL (140-440); RBC 3.36 M/mcL (3.59-5.38); WBC 9.7 K/mcL (4.5-11.0)
[2022-05-29 07:47] LABS: ALT/SGPT 8 U/L (<40); AST/SGOT 16 U/L (<32); Albumin 2.4 gm/dL (3.2-5.2); Albumin/Globulin Ratio 0.8 (1.0-2.3); Alkaline Phosphatase 47 U/L (39-117); Bilirubin,Direct < 0.2 mg/dL (0-0.3); Bilirubin,Total 0.3 mg/dL (0.1-1.0); Blood Urea Nitrogen 15 mg/dL (8-23); Calcium 8.6 mg/dL (8.6-10.4); Carbon Dioxide 22 mmol/L (22-30); Chloride 105 mmol/L (96-108); Globulin 3.1 gm/dL (2.2-3.7); Glomerular Filtration Rate 62; Glucose 210 mg/dL (70-105); Lactate Dehydrogenase 671 U/L (135-225); Phosphorous 3.3 mg/dL (2.5-4.5); Triglycerides 97 mg/dL (<150); Uric Acid 3.5 mg/dL (2.5-8.0)
--- NOTE | 2022-05-29 08:04 | Internal Med Progress Note ---
SUBJECTIVE Subjective Patient information: Note initiated : 05/29/22 at 7:59 am Service Date, if different from initiated Date: [] Patient: Carla Meyers 77 y/o F admitted on 05/27/22 for flu sx. Chief Complaint: [] Interval history: History of present illness: Ms. Meyers is a 77 year old F You can put me through Presents the ED with shortness of breath for the past week and increasing weakness. Patient was diagnosed with UTI and influenza about 5 days ago. But she says she is just continue to get worse. She has had to increase her home oxygen supplementation. She called her PCP who recommended she go to the ED. In the ED she would not tolerate her home oxygen level of 3 L. She was desatted into the low 80s. CTA of the chest showed bilateral infiltrates most prominent in the lower lobes. She was tachycardic and tachypneic in the ED. She had oxygen saturation of 70. Elevated lactate. Hypokalemia. Started on IV antibiotics in the ED. And fluid bolus. She also complained of headaches fever chills nausea and some mild diarrhea. 1/ Patient states she slept poorly. She says she feels maybe a little bit better otherwise but still very weak and drained. She does have shortness of breath this is much increased with exertion. Mild cough. She was febrile last night. She is mildly tachypneic. Mildly tachycardic. 1 Patient states she does not feel any worse and shortness of breath is the same but it is requiring more oxygen. She has continued dry cough. CRP elevated significantly. Increase prednisone to treat for exacerbation of interstitial lung disease. Added azithromycin for atypicals. Review of Systems: denies headache/fever/chills/nausea/vomiting/chest or abdominal pain/diarrhea. Otherwise see above. Constitutional Vitals: Vital Signs Temp Pulse Resp BP Pulse Ox O2 Del Method O2 Flow Rate 97.2 F 73 32 H 100/56 91 5 05/29/22 07:38 05/29/22 07:38 05/29/22 07:38 05/29/22 07:38 05/29/22 07:38 05/29/22 07:38 05/29/22 07:38 Period Temp Pulse Resp BP Sys/Bell Pulse Ox O2 Del Method O2 Flow Rate Last 24 Hr 96.2 F-100.2 F 62-98 20-32 97-127/43-64 88-94 Nasal Cannula- Nasal Cannula 4-5 Intake and Output 05/28/22 05/29/22 05/29/22 19:59 03:59 11:59 Intake Total 1220 150 50 Output Total 900 350 Balance 320 -200 50 Weight 84.595 kg Intake & Output: Intake & Output 05/28/22 05/29/22 05/29/22 19:59 03:59 11:59 Intake Total 1220 150 50 Output Total 900 350 Balance 320 -200 50 Weight 84.595 kg Intake: IV 100 50 50 Zosyn 3.375 gm In Dextrose 5% 100 50 50 in Water 50 ml @ 100 mls/hr IV Q6H [facility] Rx#:[id number] Oral 1120 100 Output: Void Amount 900 350 Other: Meal Dinner Percent of Meal Consumed 100% Feeding Ability Independent Urine Appearance Clear Clear Urine Color Dark Yellow Yellow Urine Odor Normal Stool Size Large Small Stool Color Brown Brown Blood Tinged Stool Consistency Soft Formed Loose # Bowel Movements 1 1 Exam: General: Alert, Awake, No acute Distress Eyes/N/T: EOMI, Head/Neck: neck supple, CV: RRR, No murmurs, Pulm: Fine bilateral rales at bases, clear anteriorly, no wheezing Abd: soft, nontender, +BS x4 Ext: no clubbing/cyanosis/edema Neuro: Alert, no focal deficits, moves all extremities, Skin: warm/dry OBJ DATA Labs CBC & Chem 7: 05/29/22 05:37 05/29/22 05:37 Labs: Abnormal Lab Results 05/29/22 05/29/22 05/28/22 05:37 05:37 05:35 RBC 3.36 L Hgb 10.0 L Hct 33.7 L POC Hct MCV 100.3 H MCHC 29.7 L RDW 15.0 H Immature Gran % (Auto) 0.8 H [place] % (Auto) [place] # (Auto) 0.95 H Immature Gran # 0.08 H D-Dimer POC VBG pH POC VBG pCO2 at Temp POC VBG pO2 POC VBG HCO3 POC VBG Total CO2 POC Venous O2 Sat POC VBG Base Excess VBG Lactic Acid POC Potassium Glucose 210 H POC Glucose Calcium POC WB Ioniz Calcium Phosphorus Lactate Dehydrogenase 671 H C-Reactive Protein Total Protein 5.5 L Albumin 2.4 L Albumin/Globulin Ratio 0.8 L Procalcitonin 0.23 H 05/28/22 05/28/22 05/27/22 05:35 05:35 14:47 RBC 3.04 L Hgb 9.2 L Hct 28.6 L POC Hct MCV MCHC RDW 15.1 H Immature Gran % (Auto) 0.9 H [place] % (Auto) 12.9 H [place] # (Auto) 1.25 H Immature Gran # 0.09 H D-Dimer POC VBG pH 7.43 H POC VBG pCO2 at Temp POC VBG pO2 22 L POC VBG HCO3 28.5 H POC VBG Total CO2 30.0 H POC Venous O2 Sat 39.0 L POC VBG Base Excess 4.0 H* VBG Lactic Acid POC Potassium Glucose POC Glucose Calcium 7.5 L POC WB Ioniz Calcium Phosphorus 2.3 L Lactate Dehydrogenase 510 H C-Reactive Protein Total Protein 4.9 L Albumin 2.7 L Albumin/Globulin Ratio Procalcitonin 05/27/22 05/27/22 05/27/22 14:45 13:44 12:22 RBC 3.55 L Hgb 10.6 L Hct 34.0 L POC Hct MCV MCHC RDW 14.7 H Immature Gran % (Auto) 1.0 H [place] % (Auto) [place] # (Auto) 1.22 H Immature Gran # 0.10 H D-Dimer POC VBG pH 7.52 H POC VBG pCO2 at Temp 27.6 L POC VBG pO2 POC VBG HCO3 22.7 L POC VBG Total CO2 23.0 L POC Venous O2 Sat 73.0 H POC VBG Base Excess VBG Lactic Acid 3.2 H POC Potassium Glucose POC Glucose Calcium POC WB Ioniz Calcium Phosphorus Lactate Dehydrogenase C-Reactive Protein 14.30 H Total Protein Albumin Albumin/Globulin Ratio Procalcitonin 05/27/22 05/27/22 05/27/22 10:55 10:55 10:49 RBC Hgb Hct POC Hct 34.0 L MCV MCHC RDW Immature Gran % (Auto) [place] % (Auto) [place] # (Auto) Immature Gran # D-Dimer 0.93 H POC VBG pH POC VBG pCO2 at Temp POC VBG pO2 POC VBG HCO3 POC VBG Total CO2 POC Venous O2 Sat POC VBG Base Excess VBG Lactic Acid POC Potassium 3.1 L Glucose POC Glucose 194 H Calcium POC WB Ioniz Calcium 1.04 L Phosphorus Lactate Dehydrogenase C-Reactive Protein Total Protein Albumin Albumin/Globulin Ratio Procalcitonin 0.22 H Meds: Medications Acetaminophen (Acetaminophen 325 Mg Tablet) 650 mg PO Q6HP PRN; Protocol PRN Reason: Per Pain Protocol/Fever > 101 Last Admin: 05/28/22 21:43 Dose: 650 mg Albuterol/Ipratropium (Ipratropium/Albuterol 3 Ml Ampul.Neb) 3 ml NEB Q4HP PRN PRN Reason: Shortness Of Breath Apixaban (Apixaban 5 Mg Tablet) 2.5 mg PO BID [facility] Last Admin: 05/28/22 21:45 Dose: 2.5 mg Atorvastatin Calcium (Atorvastatin 20 Mg Tablet) 10 mg PO DAILY [facility] Last Admin: 05/28/22 09:01 Dose: 10 mg Diphenhydramine HCl (Diphenhydramine 25 Mg Capsule) 25 mg PO HSP PRN PRN Reason: Insomnia Last Admin: 05/28/22 21:43 Dose: 25 mg Furosemide (Furosemide 20 Mg Tablet) 20 mg PO QAM [facility] Last Admin: 05/28/22 09:01 Dose: 20 mg Potassium Chloride 40 meq/ (Dextrose) 520 mls @ 130 mls/hr IV UD PRN PRN Reason: Potassium < 3 Magnesium Sulfate (Magnesium Sulfate) 2 gm in 50 mls @ 50 mls/hr IV UD PRN PRN Reason: Magnesium </= 1.6 Piperacillin Sod/Tazobactam (Sod 3.375 gm/ Dextrose) 50 mls @ 100 mls/hr IV Q6H [facility]; Protocol Last Infusion: 05/29/22 06:40 Dose: Infused Levothyroxine Sodium (Levothyroxine 50 Mcg Tablet) 50 mcg PO 0730 [facility] Last Admin: 05/28/22 09:08 Dose: 50 mcg Lorazepam (Lorazepam 0.5 Mg Tablet) 0.5 mg PO BIDP PRN PRN Reason: anxiety or panic attacks Losartan Potassium (Losartan 50 Mg Tablet) 25 mg PO DAILY [facility] Last Admin: 05/28/22 09:02 Dose: 25 mg Melatonin (Melatonin 3 Mg Tablet) 3 mg PO QHS [facility] Last Admin: 05/28/22 21:45 Dose: 3 mg Metoprolol Succinate (Metoprolol Succinate 50 Mg Tab.Xl.24h) 150 mg PO QAM [facility] Last Admin: 05/28/22 09:00 Dose: 150 mg Nitroglycerin (Nitroglycerin 0.4 Mg Tab.Subl) 0.4 mg SL Q5M PRN PRN Reason: chest pain Nortriptyline HCl (Nortriptyline 10 Mg Capsule) 10 mg PO QHS [facility] Last Admin: 05/28/22 21:43 Dose: 10 mg Omeprazole (Omeprazole 20 Mg Capsule) 20 mg PO BID [facility] Last Admin: 05/28/22 21:45 Dose: 20 mg Ondansetron HCl (Ondansetron 4 Mg/2 Ml Vial) 4 mg IV Q4HP PRN PRN Reason: Nausea And Vomiting Last Admin: 05/27/22 17:32 Dose: 4 mg Polyethylene Glycol (Polyethylene Glycol 3350 17 Gm Packet) 17 gm PO DAILYP PRN PRN Reason: Constipation Potassium Chloride (Potassium Chloride 20 Meq Tablet) 40 meq PO UD PRN PRN Reason: Potssium is 3-3.5 Potassium Chloride (Potassium Chloride 20 Meq Tablet) 40 meq PO UD PRN PRN Reason: Potassium < 3 Prednisone (Prednisone 20 Mg Tablet) 40 mg PO QAC [facility] Last Admin: 05/28/22 12:02 Dose: 40 mg Senna (Sennosides 1 Tablet) 2 tab PO DAILYP PRN PRN Reason: Constipation Sodium Chloride (0.9 % Sodium Chloride 10 Ml Syringe) 10 ml IV Q8 [facility] Last Admin: 05/29/22 06:05 Dose: 10 ml A/P Narrative A/P Narrative: A: *PNA, b/l: -covd/flu/rsv/Strep neg *Sepsis: -Fever curve improving *Hyperlactatemia: improved *Acute on chronic hypoxic respiratory failure: 2/2 pna/exacerbation of ILD -on 5L NC *ILD(3-4L O2@home): Follows with Dr. Esquivel. On chronic prednisone. probablee exacerbation *h/o Oropharyngeal Dysphagia and Esophageal dysphagia requiring dilation in past for schatzki ring: -ST eval unremarkable *Adenocarcinoma of the left lung: -Continue oncology outpatient follow up and chemotherapy *Paroxysmal A. 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 *Hypokalemia/Hypophosphatemia: *CAD w/stents: *Anemia: *HTN/HLD: *Obesity: BMI 31 *Hypothyroidism: *GERD: *DM2: *Depression/anxiety: P: -IV antibiotics pending BC/SC, MRSA screen neg -prednisone -O2 supp and wean as able -IS/Acapella, prn nebs/RT -f/u lactate,crp -monitor cbc/chem, i/o -Follow-up and replace electrolytes, trend -SSI -Continue home BB/ARB/Lasix, statin, -PT/OT -CM for placement needs -ppx: Eliquis Time Spent With Patient Time: Total time spent is greater than 50% in coordination of care (as documented) at patient's floor/unit and/or counseling patient: Total time spent with greater than 50% in coordination of care (as documented) at patient's floor/unit and/or counseling patient:: 50 - 70 minutes QUALITY VTE Deep Vein Thrombosis/Pulmonary Embolism Present on Admission: No
[2022-05-29] MEDS: LEVOTHYROXINE 50 MCG TABLET PO SCH (08:25)
[2022-05-29] MEDS: predniSONE 20 MG TABLET PO SCH (08:32)
[2022-05-29] MEDS ORDERED: AZITHROMYCIN 500 MG in DEXTROSE 5% IN WATER 250 ML IV SCH (09:00)
[2022-05-29] MEDS: APIXABAN 5 MG TABLET PO SCH ×2 (10:31→23:45)
[2022-05-29] MEDS: ATORVASTATIN 20 MG TABLET PO SCH (10:32)
[2022-05-29] MEDS: OMEPRAZOLE 20 MG CAPSULE PO SCH (10:33)
[2022-05-29] MEDS: FUROSEMIDE 20 MG TABLET PO SCH (10:33)
[2022-05-29] MEDS: LOSARTAN 50 MG TABLET PO SCH (10:42)
[2022-05-29] MEDS: METOPROLOL SUCCINATE 50 MG TAB.XL.24H PO SCH (10:43)
[2022-05-29] MEDS ORDERED: cefTRIAXone 1 GM VIAL IV SCH (12:00)
[2022-05-29] MEDS: ACETAMINOPHEN 325 MG TABLET PO PRN (12:54)
[2022-05-29] MEDS ORDERED: ALBUMIN HUMAN 12.5 GM/50 ML BAG IV ONE (19:28)
[2022-05-29] MEDS ORDERED: FUROSEMIDE 40 MG/4 ML VIAL IV ONE ×3 (19:28→23:00)
[2022-05-29] MEDS ORDERED: ALBUMIN HUMAN 50 ML IV ONE (19:37)
[2022-05-29] MEDS: ONDANSETRON 4 MG/2 ML VIAL IV PRN ×2 (19:37→20:15)
[2022-05-29] MEDS ORDERED: LORazepam 2 MG/ML VIAL IV PRN (19:51)
--- NOTE | 2022-05-29 19:52 | Event Note ---
Event Note Event Note: Rapid response called by staff for patient with decreased oxygen saturations. History obtained from patient and nurses. Patient says she developed sudden shortness of breath which was preceded by a coughing fit. This was not after pills or food although she says she felt like she did aspirate some water some time previous to this. Patient sats initially were in the 60s and patient was put on nonrebreather which brought her up to around 90%. On physical exam patient appears in resp distress. Anteriorly she had rales bilaterally. Patient hypertensive on vital signs. Tachypneic and tachycardic. Patient had a CTA several days prior which showed no PE but large bilateral infiltrates most prominently in the lower lobes. She has been on Eliquis 2.5 twice daily as well for history of paroxysmal A. fib. Last echo recorded was in February 2020 which showed a good EF of 60-65% & grade 1 diastolic dysfunction. Right ventricle systolic function was normal. No significant valvular disease. Patient denies any chest pain. Chest x-ray shows pulmonary edema. Dx: flash pulmonary edema Stat Lasix ordered. nitro gtt transfer to icu, bipap abg, ekg ordered echo ordered vent orders, lexi matthews ppx pt failing on bipap, emergent intubation required. Poor peripheral access, central line needed Critical Care time greater than 60 minutes not including intubation and central line
[2022-05-29] MEDS ORDERED: LORazepam 2 MG/ML VIAL ONE (19:53)
[2022-05-29] MEDS ORDERED: NITROGLYCERIN/D5W 250 ML IV ONE (19:58)
[2022-05-29] MEDS ORDERED: NITROGLYCERIN/D5W 25 MG/250 ML BOTTLE IV SCH ×2 (20:00)
[2022-05-29] MEDS ORDERED: 0.9 % SODIUM CHLORIDE 250 ML IV SCH ×2 (20:00→21:45)
[2022-05-29] MEDS ORDERED: fentaNYL 100 MCG/2 ML VIAL IV ONE ×2 (20:12→21:17)
[2022-05-29] MEDS ORDERED: PROPOFOL 100 ML IV ONE (20:16)
--- NOTE | 2022-05-29 20:44 | Procedure Note ---
PROC Intubation Time out performed: Yes Date of Procedure: 05/29/22 Sedative: Fentanyl Mg given: 50 Paralytic: Rocuronium ETT: ETCO2 Laryngoscope: 3 Assist device used: fiber optic device (FOBI) ET tube size: 7 ET tube uncuffed: Yes Tube secured depth (cm): 24 Tube secured location: teeth Tube placement confirmation: visualized tube passing through cords # of Attempts: 2 Intubation complications: difficult intubation
[2022-05-29] MEDS ORDERED: CHLORHEXIDINE GLUCONATE 1 ML ORAL.SOL SWABMOUTH SCH (21:00)
[2022-05-29] MEDS ORDERED: METOPROLOL TARTRATE 5 MG/5 ML VIAL IV ONE (21:21)
[2022-05-29] MEDS ORDERED: 0.9 % SODIUM CHLORIDE 10 ML SYRINGE IV PRN (21:25)
[2022-05-29] MEDS ORDERED: METOPROLOL TARTRATE 5 MG/5 ML VIAL IV PRN (21:42)
--- NOTE | 2022-05-29 21:44 | Procedure Note ---
PROC Central Line Placement Right IJ: Consent obtained: verbal consent Date of Procedure: 05/29/22 Time out performed: Yes Patient placed on monitor/pulse ox: Yes MD prep: mask, sterile gown, sterile gloves and cap Central line prep: 2% Chlorhexidine scrub Ultrasound used for placement: Yes Central line lumen inserted: quad and 16 cm Post procedure: sutured in place, good blood return, all ports aspirated, flushed, capped and sterile dressing applied Patient tolerated procedure: well Complications: none Additional comments: stat cxr ordered for placement.
[2022-05-29] MEDS ORDERED: NOREPINEPHRINE BITARTRATE 8 MG in 0.9 % SODIUM CHLORIDE 242 ML IV SCH (22:00)
[2022-05-29] MEDS: fentaNYL 100 MCG/2 ML VIAL IV PRN (23:05)
[2022-05-29] MEDS ORDERED: ASPIRIN 81 MG TAB.CHEW PO ONE (23:18)
[2022-05-29] MEDS ORDERED: ASPIRIN 81 MG TAB.CHEW ONE (23:26)
[2022-05-29] MEDS: MELATONIN 3 MG TABLET PO SCH (23:47)
[2022-05-29] MEDS: NORTRIPTYLINE 10 MG CAPSULE PO SCH (23:47)
[2022-05-30] MEDS: PROPOFOL 1,000 MG in PREMIX 1 BAG IV SCH ×2 (00:10→06:25)
[2022-05-30] MEDS: fentaNYL 100 MCG/2 ML VIAL IV PRN ×4 (00:10→05:05)
[2022-05-30] MEDS ORDERED: HEPARIN 5,000 UNIT/ML VIAL IV ONE (01:06)
[2022-05-30] MEDS ORDERED: HEPARIN SOD,PORK IN 0.45% NACL 25,000 UNIT in PREMIX 1 BAG IV SCH (01:15)
--- NOTE | 2022-05-30 01:21 | Internal Med Progress Note ---
SUBJECTIVE Subjective Patient information: Note initiated : 05/30/22 at 1:11 am Service Date, if different from initiated Date: [] Patient: Carla Meyers a 77 y/o F admitted on 05/27/22 for flu sx. Chief Complaint: [] Interval history: History of present illness: Ms. Meyres is a 77 year old F You can put me through Presents the ED with shortness of breath for the past week and increasing weakness. Patient was diagnosed with UTI and influenza about 5 days ago. But she says she is just continue to get worse. She has had to increase her home oxygen supplementation. She called her PCP who recommended she go to the ED. In the ED she would not tolerate her home oxygen level of 3 L. She was desatted into the low 80s. CTA of the chest showed bilateral infiltrates most prominent in the lower lobes. She was tachycardic and tachypneic in the ED. She had oxygen saturation of 70. Elevated lactate. Hypokalemia. Started on IV antibiotics in the ED. And fluid bolus. She also complained of headaches fever chills nausea and some mild diarrhea. 1 Patient states she slept poorly. She says she feels maybe a little bit better otherwise but still very weak and drained. She does have shortness of breath this is much increased with exertion. Mild cough. She was febrile last night. She is mildly tachypneic. Mildly tachycardic. 1 Patient states she does not feel any worse and shortness of breath is the same but it is requiring more oxygen. She has continued dry cough. CRP elevated significantly. Increase prednisone to treat for exacerbation of interstitial lung disease. Added azithromycin for atypicals. Event Note: Rapid response called around 8pm by staff for patient with decreased oxygen saturations. History obtained from patient and nurses. Patient says she developed sudden shortness of breath which was preceded by a coughing fit. This was not after pills or food although she says she felt like she did aspirate some water some time previous to this. Patient sats initially were in the 60s and patient was put on nonrebreather which brought her up to around 90%. On physical exam patient appears in resp distress. Anteriorly she had rales bilaterally. Patient hypertensive on vital signs. Tachypneic and tachycardic. Patient had a CTA several days prior which showed no PE but large bilateral infiltrates most prominently in the lower lobes. She has been on Eliquis 2.5 twice daily as well for history of paroxysmal A. fib. Last echo recorded was in February 2020 which showed a good EF of 60-65% & grade 1 diastolic dysfunction. Right ventricle systolic function was normal. No significant valvular disease. Patient denies any chest pain. Chest x-ray shows pulmonary edema. Dx: flash pulmonary edema Stat Lasix ordered. nitro gtt transfer to icu, bipap abg, ekg ordered echo ordered vent orders, matthews, gi ppx pt failing on bipap, emergent intubation required. Poor peripheral access, central line needed * 05/30 Discussed the case with Tractor Engine Mechanic Dr. Goff who recommended transfer to [facility] for probable cardiac cath later in the day. pt is on on heparin gtt, recieved BB/ASA/Statin. was on nitro gtt when initially hypertensive. Case then discussed with Grounds Worker Dr. Woodward who graciously accepted pt in transfer. Will coordinate transfer to [facility] at this time. Review of Systems: denies headache/fever/chills/nausea/vomiting/chest or abdominal pain/diarrhea. Otherwise see above. Constitutional Vitals: Vital Signs Temp Pulse Resp BP Pulse Ox O2 Del Method O2 Flow Rate 97.4 F 75 22 119/60 94 4 05/29/22 16:29 05/29/22 16:29 05/29/22 23:23 05/29/22 16:29 05/29/22 23:23 05/29/22 21:52 05/29/22 16:29 Period Temp Pulse Resp BP Sys/Bell Pulse Ox O2 Del Method O2 Flow Rate Last 24 Hr 96.2 F-97.5 F 62-93 18-72 100-127/51-64 85-94 Mechanical Ventilation-Nasal Cannula 3.5-5 Intake and Output 05/29/22 05/29/22 05/30/22 11:59 19:59 03:59 Intake Total 540 240 51 Output Total 250 300 300 Balance 290 -60 -249 Intake & Output: Intake & Output 05/29/22 05/29/22 05/30/22 11:59 19:59 03:59 Intake Total 540 240 51 Output Total 250 300 300 Balance 290 -60 -249 Intake: IV 300 51 Zithromax 500 mg In Dextrose 5% 250 in Water 250 ml @ 250 mls/hr IV Q24H KRISTIE Rx#:[id number] Zosyn 3.375 gm In Dextrose 5% 50 in Water 50 ml @ 100 mls/hr IV Q6H KRISTIE Rx#:[id number] Diprivan 1,000 mg In Premix 1 1 Bag @ 5 MCG/KG/MIN 2.538 mls/hr IV .Q24H KRISTIE Rx#:[id number] Oral 240 240 Output: Urine Catheter Amount 300 Void Amount 300 Urine/Stool Mix 250 Other: Meal Breakfast Lunch Percent of Meal Consumed 75% 75% Feeding Ability Independent Independent Urine Appearance Clear Clear Uretheral (Matthews) Clear Urine Color Yellow Yellow Uretheral (Matthews) Yellow Exam: General: sedated on vent, No acute Distress Eyes/N/T: Head/Neck: neck supple, CV: tachy but regular, No murmurs, Pulm: rales b/l improving, no wheezing Abd: soft, nontender, +BS x4 Ext: no clubbing/cyanosis/edema Neuro: sedated on vent, spontaneously moves extremities Skin: warm/dry OBJ DATA Labs CBC & Chem 7: 05/30/22 01:49 05/29/22 05:37 Labs: Abnormal Lab Results 05/29/22 05/29/22 05/29/22 23:48 22:44 20:14 RBC Hgb Hct POC Hct MCV MCHC RDW Immature Gran % (Auto) [place] % (Auto) [place] # (Auto) Immature Gran # ESR D-Dimer POC pH 7.24 L POC pCO2 57.1 H* POC pO2 73 L POC HCO3 POC Total CO2 POC ABG Base Excess -3.0 L ABG Lactic Acid POC VBG pH POC VBG pCO2 at Temp POC VBG pO2 POC VBG HCO3 POC VBG Total CO2 POC Venous O2 Sat POC VBG Base Excess VBG Lactic Acid Hgb O2 Saturation 91.0 L POC Potassium Glucose POC Glucose Calcium POC WB Ioniz Calcium Phosphorus Lactate Dehydrogenase C-Reactive Protein NT-Pro-B Natriuret Pep Total Protein Albumin Albumin/Globulin Ratio Procalcitonin POC Troponin I 8.81 H 0.52 H 05/29/22 05/29/22 05/29/22 20:12 19:55 10:35 RBC Hgb Hct POC Hct MCV MCHC RDW Immature Gran % (Auto) [place] % (Auto) [place] # (Auto) Immature Gran # ESR 66 H D-Dimer POC pH 7.25 L POC pCO2 POC pO2 63 L POC HCO3 17.5 L POC Total CO2 19.0 L POC ABG Base Excess -10.0 L ABG Lactic Acid 6.6 H* POC VBG pH POC VBG pCO2 at Temp POC VBG pO2 POC VBG HCO3 POC VBG Total CO2 POC Venous O2 Sat POC VBG Base Excess VBG Lactic Acid Hgb O2 Saturation 88.0 L POC Potassium Glucose POC Glucose Calcium POC WB Ioniz Calcium Phosphorus Lactate Dehydrogenase C-Reactive Protein NT-Pro-B Natriuret Pep 2279.0 H Total Protein Albumin Albumin/Globulin Ratio Procalcitonin POC Troponin I 05/29/22 05/29/22 05/29/22 05:37 05:37 05:37 RBC 3.36 L Hgb 10.0 L Hct 33.7 L POC Hct MCV 100.3 H MCHC 29.7 L RDW 15.0 H Immature Gran % (Auto) 0.8 H [place] % (Auto) [place] # (Auto) 0.95 H Immature Gran # 0.08 H ESR D-Dimer POC pH POC pCO2 POC pO2 POC HCO3 POC Total CO2 POC ABG Base Excess ABG Lactic Acid POC VBG pH POC VBG pCO2 at Temp POC VBG pO2 POC VBG HCO3 POC VBG Total CO2 POC Venous O2 Sat POC VBG Base Excess VBG Lactic Acid Hgb O2 Saturation POC Potassium Glucose 210 H POC Glucose Calcium POC WB Ioniz Calcium Phosphorus Lactate Dehydrogenase 671 H C-Reactive Protein 18.50 H NT-Pro-B Natriuret Pep Total Protein 5.5 L Albumin 2.4 L Albumin/Globulin Ratio 0.8 L Procalcitonin POC Troponin I 05/28/22 05/28/22 05/28/22 05:35 05:35 05:35 RBC 3.04 L Hgb 9.2 L Hct 28.6 L POC Hct MCV MCHC RDW 15.1 H Immature Gran % (Auto) 0.9 H [place] % (Auto) 12.9 H [place] # (Auto) 1.25 H Immature Gran # 0.09 H ESR D-Dimer POC pH POC pCO2 POC pO2 POC HCO3 POC Total CO2 POC ABG Base Excess ABG Lactic Acid POC VBG pH POC VBG pCO2 at Temp POC VBG pO2 POC VBG HCO3 POC VBG Total CO2 POC Venous O2 Sat POC VBG Base Excess VBG Lactic Acid Hgb O2 Saturation POC Potassium Glucose POC Glucose Calcium 7.5 L POC WB Ioniz Calcium Phosphorus 2.3 L Lactate Dehydrogenase 510 H C-Reactive Protein NT-Pro-B Natriuret Pep Total Protein 4.9 L Albumin 2.7 L Albumin/Globulin Ratio Procalcitonin 0.23 H POC Troponin I 05/27/22 05/27/22 05/27/22 14:47 14:45 13:44 RBC 3.55 L Hgb 10.6 L Hct 34.0 L POC Hct MCV MCHC RDW 14.7 H Immature Gran % (Auto) 1.0 H [place] % (Auto) [place] # (Auto) 1.22 H Immature Gran # 0.10 H ESR D-Dimer POC pH POC pCO2 POC pO2 POC HCO3 POC Total CO2 POC ABG Base Excess ABG Lactic Acid POC VBG pH 7.43 H POC VBG pCO2 at Temp POC VBG pO2 22 L POC VBG HCO3 28.5 H POC VBG Total CO2 30.0 H POC Venous O2 Sat 39.0 L POC VBG Base Excess 4.0 H* VBG Lactic Acid Hgb O2 Saturation POC Potassium Glucose POC Glucose Calcium POC WB Ioniz Calcium Phosphorus Lactate Dehydrogenase C-Reactive Protein 14.30 H NT-Pro-B Natriuret Pep Total Protein Albumin Albumin/Globulin Ratio Procalcitonin POC Troponin I 05/27/22 05/27/22 05/27/22 12:22 10:55 10:55 RBC Hgb Hct POC Hct MCV MCHC RDW Immature Gran % (Auto) [place] % (Auto) [place] # (Auto) Immature Gran # ESR D-Dimer 0.93 H POC pH POC pCO2 POC pO2 POC HCO3 POC Total CO2 POC ABG Base Excess ABG Lactic Acid POC VBG pH 7.52 H POC VBG pCO2 at Temp 27.6 L POC VBG pO2 POC VBG HCO3 22.7 L POC VBG Total CO2 23.0 L POC Venous O2 Sat 73.0 H POC VBG Base Excess VBG Lactic Acid 3.2 H Hgb O2 Saturation POC Potassium Glucose POC Glucose Calcium POC WB Ioniz Calcium Phosphorus Lactate Dehydrogenase C-Reactive Protein NT-Pro-B Natriuret Pep Total Protein Albumin Albumin/Globulin Ratio Procalcitonin 0.22 H POC Troponin I 05/27/22 10:49 RBC Hgb Hct POC Hct 34.0 L MCV MCHC RDW Immature Gran % (Auto) [place] % (Auto) [place] # (Auto) Immature Gran # ESR D-Dimer POC pH POC pCO2 POC pO2 POC HCO3 POC Total CO2 POC ABG Base Excess ABG Lactic Acid POC VBG pH POC VBG pCO2 at Temp POC VBG pO2 POC VBG HCO3 POC VBG Total CO2 POC Venous O2 Sat POC VBG Base Excess VBG Lactic Acid Hgb O2 Saturation POC Potassium 3.1 L Glucose POC Glucose 194 H Calcium POC WB Ioniz Calcium 1.04 L Phosphorus Lactate Dehydrogenase C-Reactive Protein NT-Pro-B Natriuret Pep Total Protein Albumin Albumin/Globulin Ratio Procalcitonin POC Troponin I Meds: Medications Acetaminophen (Acetaminophen 325 Mg Tablet) 650 mg PO Q6HP PRN; Protocol PRN Reason: Per Pain Protocol/Fever > 101 Last Admin: 05/29/22 12:54 Dose: 650 mg Albuterol/Ipratropium (Ipratropium/Albuterol 3 Ml Ampul.Neb) 3 ml NEB Q4HP PRN PRN Reason: Shortness Of Breath Aspirin (Aspirin 81 Mg Tab.Chew) 81 mg PO ONCE ONE Stop: 05/29/22 23:19 Last Admin: 05/29/22 23:33 Dose: 81 mg Atorvastatin Calcium (Atorvastatin 20 Mg Tablet) 10 mg PO DAILY [facility] Last Admin: 05/29/22 10:32 Dose: 10 mg Ceftriaxone Sodium (Ceftriaxone 1 Gm Vial) 1 gm IV Q24H KRISTIE Last Admin: 05/29/22 12:47 Dose: 1 gm Chlorhexidine Gluconate (Chlorhexidine Gluconate 1 Ml Oral.Татьяна) 15 ml SWABMOUTH BID [facility] Last Admin: 05/30/22 00:28 Dose: 15 ml Diagnostic Test (Pha) (Accu-Chek 1 Each Strip) 1 each FS ACHS [facility] Last Admin: 05/29/22 23:50 Dose: 1 each Diphenhydramine HCl (Diphenhydramine 25 Mg Capsule) 25 mg PO HSP PRN PRN Reason: Insomnia Last Admin: 05/28/22 21:43 Dose: 25 mg Fentanyl (Fentanyl 100 Mcg/2 Ml Vial) 25 mcg IV Q1HP PRN; Protocol PRN Reason: Per Pain Protocol Last Admin: 05/30/22 00:10 Dose: 25 mcg Furosemide (Furosemide 20 Mg Tablet) 20 mg PO QAM [facility] Last Admin: 05/29/22 10:33 Dose: 20 mg Furosemide (Furosemide 40 Mg/4 Ml Vial) 40 mg IV ONCE ONE Stop: 05/29/22 23:01 Last Admin: 05/29/22 23:35 Dose: 40 mg Heparin Sodium (Porcine) (Heparin 5,000 Unit/Ml Vial) 5,075.7 unit 60 unit/kg (5075.7 unit) IV ONCE ONE Stop: 05/30/22 01:07 Potassium Chloride 40 meq/ (Dextrose) 520 mls @ 130 mls/hr IV UD PRN PRN Reason: Potassium < 3 Magnesium Sulfate (Magnesium Sulfate) 2 gm in 50 mls @ 50 mls/hr IV UD PRN PRN Reason: Magnesium </= 1.6 Azithromycin 500 mg/ Dextrose 250 mls @ 250 mls/hr IV Q24H [facility]; Protocol Stop: 05/31/22 09:59 Last Infusion: 05/29/22 11:30 Dose: Infused Sodium Chloride (Sodium Chloride 0.9%) 250 mls @ 20 mls/hr IV .[id number] [facility] Last Admin: 05/30/22 00:10 Dose: 20 mls/hr Nitroglycerin/Dextrose (Nitroglycerin/D5w) 25 mg in 250 mls @ 6 mls/hr IV .Q24H [facility]; Protocol Last Admin: 05/29/22 23:29 Dose: Not Given Propofol 1,000 mg/ Premix 100 mls @ 2.538 mls/hr IV .Q24H [facility]; Protocol Last Titration: 05/30/22 00:30 Dose: 10 mcg/kg/min, 5.076 mls/hr Norepinephrine Bitartrate 8 mg (/ Sodium Chloride) 250 mls @ 18.75 mls/hr IV Q14H [facility]; Protocol Sodium Chloride (Sodium Chloride 0.9%) 250 mls @ 20 mls/hr IV .[id number] [facility] Heparin Sodium/Sodium Chloride (25,000 unit/ Premix) 500 mls @ 20.303 mls/hr IV .Q24H [facility]; Protocol Levothyroxine Sodium (Levothyroxine 50 Mcg Tablet) 50 mcg PO 0730 [facility] Last Admin: 05/29/22 08:25 Dose: 50 mcg Lorazepam (Lorazepam 0.5 Mg Tablet) 0.5 mg PO BIDP PRN PRN Reason: anxiety or panic attacks Lorazepam (Lorazepam 2 Mg/Ml Vial) 0.5 mg IV Q4-6HP PRN PRN Reason: ANXIETY/SEDATION Last Admin: 05/29/22 19:55 Dose: 0.5 mg Losartan Potassium (Losartan 50 Mg Tablet) 25 mg PO DAILY [facility] Last Admin: 05/29/22 10:42 Dose: 25 mg Melatonin (Melatonin 3 Mg Tablet) 3 mg PO QHS [facility] Last Admin: 05/29/22 23:47 Dose: Not Given Metoprolol Succinate (Metoprolol Succinate 50 Mg Tab.Xl.24h) 150 mg PO [facility] Last Admin: 05/29/22 10:43 Dose: 150 mg Metoprolol Tartrate (Metoprolol Tartrate 5 Mg/5 Ml Vial) 5 mg IV Q2HP PRN PRN Reason: Tachyarrhythmias HR>110 Last Admin: 05/29/22 22:52 Dose: 5 mg Nitroglycerin (Nitroglycerin 0.4 Mg Tab.Subl) 0.4 mg SL Q5M PRN PRN Reason: chest pain Nortriptyline HCl (Nortriptyline 10 Mg Capsule) 10 mg PO QHS [facility] Last Admin: 05/29/22 23:47 Dose: Not Given Ondansetron HCl (Ondansetron 4 Mg/2 Ml Vial) 4 mg IV Q4HP PRN PRN Reason: Nausea And Vomiting Last Admin: 05/29/22 20:15 Dose: 4 mg Pantoprazole Sodium (Pantoprazole 40 Mg Vial) [address] [facility] Polyethylene Glycol (Polyethylene Glycol 3350 17 Gm Packet) 17 gm PO DAILYP PRN PRN Reason: Constipation Potassium Chloride (Potassium Chloride 20 Meq Tablet) 40 meq PO UD PRN PRN Reason: Potssium is 3-3.5 Potassium Chloride (Potassium Chloride 20 Meq Tablet) 40 meq PO UD PRN PRN Reason: Potassium < 3 Prednisone (Prednisone 20 Mg Tablet) 40 mg PO [facility] Senna (Sennosides 1 Tablet) 2 tab PO DAILYP PRN PRN Reason: Constipation Sodium Chloride (0.9 % Sodium Chloride 10 Ml Syringe) 10 ml IV Q8 [facility] Last Admin: 05/29/22 23:00 Dose: 10 ml Sodium Chloride (0.9 % Sodium Chloride 10 Ml Syringe) 10 ml IV Q12 [facility] Sodium Chloride (0.9 % Sodium Chloride 10 Ml Syringe) 10 ml IV UD PRN PRN Reason: FLUSH A/P Narrative A/P Narrative: A: *Acute on chronic hypoxic respiratory failure: 2/ pna/exacerbation of ILD -intubated 05/29 @~2100 for respiratory failure from flash pulmonary edema *Flash pulmonary edema /acute decompensated CHF: *NSTEMI: *h/o CAD w/stents (2006 per records): *PNA, b/l: -covd/flu/rsv/Strep neg *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 Esquivel. On chronic prednisone. *Sepsis: -Fever curve improving *Hyperlactatemia: improved initially then worsened with respiratory failure event *h/o Oropharyngeal Dysphagia and Esophageal dysphagia requiring dilation in past for schatzki ring: -ST eval unremarkable *Adenocarcinoma of the left lung: -Continue oncology outpatient follow up and chemotherapy *Paroxysmal A. 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 *Hypokalemia/Hypophosphatemia: *Anemia, chronic: *HTN/HLD: *Obesity: BMI 31 *Hypothyroidism: tsh wnl *GERD: *DM2: *Depression/anxiety: P: -Transfer to Higher level of care, [facility] -Ventilator management, sedation vacations and weaning trial -monitor lung compliance -cvp monitoring, i/o's, weights -cardiology consult -heparin gtt -serial troponin -ASA/statin -IV lasix -f/u CXR -IV antibiotics pending BC/SC, MRSA screen neg -prednisone -O2 supp and wean as able -IS/Acapella, prn nebs/RT when off vent -f/u lactate,crp -monitor cbc/chem -Follow-up and replace electrolytes, trend -SSI -Continue home BB/ARB -PT/OT -CM for placement needs -ppx: heparin Code status: Full code, reviewed with . Time Spent With Patient Time: Total time spent is greater than 50% in coordination of care (as documented) at patient's floor/unit and/or counseling patient: Critical Care Time: Yes Total Critical Care Time: 120 QUALITY VTE Deep Vein Thrombosis/Pulmonary Embolism Present on Admission: No
[2022-05-30] MEDS: 0.9 % SODIUM CHLORIDE 10 ML SYRINGE IV SCH ×2 (01:30→03:14)
[2022-05-30] MEDS ORDERED: HEPARIN SOD,PORK IN 0.45% NACL 500 ML IV ONE (01:39)
[2022-05-30] MEDS ORDERED: HEPARIN 5,000 UNIT/ML VIAL ONE (01:45)
--- NOTE | 2022-05-30 02:27 | Transfer Summary ---
Discharge Provider Provider IMPORTANT FOLLOW-UP INFORMATION FOR PCP: Patient information: Note initiated : 05/30/22 at 2:21 am Service Date, if different from initiated Date: [] Patient: Carla Meyers 77 y/o F admitted on 05/27/22 for flu sx. Chief Complaint: [] Date of admission: 05/27/22 16:20 Discharge date: 05/30/22 Primary care physician: Eligio Huerta MD Consults: 05/27/22 Consult to Physician [CONS] Stat Comment: Consulting Provider: Jemal Luna Reason For Exam: Physician to Consult COURSE Hospital Course Hospital course: History of present illness: Ms. Meyers is a 77 year old F You can put me through Presents the ED with shortness of breath for the past week and increasing weakness. Patient was diagnosed with UTI and influenza about 5 days ago. But she says she is just continue to get worse. She has had to increase her home oxygen supplementation. She called her PCP who recommended she go to the ED. In the ED she would not tolerate her home oxygen level of 3 L. She was desatted into the low 80s. CTA of the chest showed bilateral infiltrates most prominent in the lower lobes. She was tachycardic and tachypneic in the ED. She had oxygen saturation of 70. Elevated lactate. Hypokalemia. Started on IV antibiotics in the ED. And fluid bolus. She also complained of headaches fever chills nausea and some mild diarrhea. 1 Patient states she slept poorly. She says she feels maybe a little bit better otherwise but still very weak and drained. She does have shortness of breath this is much increased with exertion. Mild cough. She was febrile last night. She is mildly tachypneic. Mildly tachycardic. 05/29 Patient states she does not feel any worse and shortness of breath is the same but it is requiring more oxygen. She has continued dry cough. CRP elevated significantly. Increase prednisone to treat for exacerbation of interstitial lung disease. Added azithromycin for atypicals. Event Note: Rapid response called around 8pm by staff for patient with decreased oxygen saturations. History obtained from patient and nurses. Patient says she developed sudden shortness of breath which was preceded by a coughing fit. This was not after pills or food although she says she felt like she did aspirate some water some time previous to this. Patient sats initially were in the 60s and patient was put on nonrebreather which brought her up to around 90%. On physical exam patient appears in resp distress. Anteriorly she had rales bilaterally. Patient hypertensive on vital signs. Tachypneic and tachycardic. Patient had a CTA several days prior which showed no PE but large bilateral infiltrates most prominently in the lower lobes. She has been on Eliquis 2.5 twice daily as well for history of paroxysmal A. fib. Last echo recorded was in February 2020 which showed a good EF of 60-65% & grade 1 diastolic dysfunction. Right ventricle systolic function was normal. No significant valvular disease. Patient denies any chest pain. Chest x-ray shows pulmonary edema. Dx: flash pulmonary edema Stat Lasix ordered. nitro gtt transfer to icu, bipap abg, ekg ordered echo ordered vent orders, byron, gi ppx pt failing on bipap, emergent intubation required. Poor peripheral access, central line needed 05/30 Discussed the case with Mobile Developer Dr. Goff who recommended transfer to [place] for probable cardiac cath later in the day. pt is on on heparin gtt, recieved BB/ASA/Statin. was on nitro gtt when initially hypertensive. Case then discussed with Supervisor [employer] Dr. Woodward who graciously accepted pt in transfer. Will coordinate transfer to [facility] at this time. 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 Esquivel. On chronic prednisone. *Sepsis: -Fever curve improving *Hyperlactatemia: improved initially then worsened with respiratory failure event *h/o Oropharyngeal Dysphagia and Esophageal dysphagia requiring dilation in past for schatzki ring: -ST eval unremarkable *Adenocarcinoma of the left lung: -Continue oncology outpatient follow up and chemotherapy *Paroxysmal A. 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 *Hypokalemia/Hypophosphatemia: *Anemia, chronic: *HTN/HLD: *Obesity: BMI 31 *Hypothyroidism: tsh wnl *GERD: *DM2: *Depression/anxiety: P: -Ventilator management, -cvp monitoring, -cardiology consult -heparin gtt -serial troponin -ASA/statin -IV lasix -f/u CXR -IV antibiotics pending BC/SC, MRSA screen neg Discharge diagnosis: hypoxic respiratory failure, NSTEMI, PNA/sepsis Time Spent with Patient Time attestation: Total time spent providing and/or coordinating discharge services: Time spent: Greater than 30 minutes EXAM Constitutional Vitals: Temp Pulse Resp BP Pulse Ox O2 Del Method O2 Flow Rate 98.8 F 114 H 25 H 109/84 98 4 05/30/22 00:31 05/30/22 01:01 05/30/22 01:15 05/30/22 01:01 05/30/22 01:15 05/30/22 01:01 05/29/22 16:29 Discharge Data Data Completed and Pending Labs on day of discharge: Labs from last 24 hours 05/30/22 05/30/22 05/29/22 01:49 01:49 23:48 WBC Pending RBC Pending Hgb Pending Hct Pending MCV Pending MCH Pending MCHC Pending RDW Pending Plt Count Pending MPV Pending Immature Gran % (Auto) Pending Neut % (Auto) Pending Lymph % (Auto) [place] % (Auto) Eos % (Auto) Baso % (Auto) Lymph # (Auto) [place] # (Auto) Eos # (Auto) Baso # (Auto) Immature Gran # Pending Absolute Neutrophils ESR PT Pending INR Pending APTT Pending POC pH POC pCO2 POC pO2 POC HCO3 POC Total CO2 POC ABG Base Excess ABG Lactic Acid Hgb O2 Saturation Sodium Potassium Chloride Carbon Dioxide Anion Gap BUN Creatinine GFR Calculation Glucose Uric Acid Calcium Phosphorus Magnesium Total Bilirubin Direct Bilirubin GGT AST ALT Alkaline Phosphatase Lactate Dehydrogenase C-Reactive Protein NT-Pro-B Natriuret Pep Total Protein Albumin Globulin Albumin/Globulin Ratio Triglycerides POC Troponin I 8.81 H 05/29/22 05/29/22 05/29/22 22:44 20:14 20:12 WBC RBC Hgb Hct MCV MCH MCHC RDW Plt Count MPV Immature Gran % (Auto) Neut % (Auto) Lymph % (Auto) [place] % (Auto) Eos % (Auto) Baso % (Auto) Lymph # (Auto) [place] # (Auto) Eos # (Auto) Baso # (Auto) Immature Gran # Absolute Neutrophils ESR PT INR APTT POC pH 7.24 L POC pCO2 57.1 H* POC pO2 73 L POC HCO3 24.5 POC Total CO2 26.0 POC ABG Base Excess -3.0 L ABG Lactic Acid 2.0 Hgb O2 Saturation 91.0 L Sodium Potassium Chloride Carbon Dioxide Anion Gap BUN Creatinine GFR Calculation Glucose Uric Acid Calcium Phosphorus Magnesium Total Bilirubin Direct Bilirubin GGT AST ALT Alkaline Phosphatase Lactate Dehydrogenase C-Reactive Protein NT-Pro-B Natriuret Pep 2279.0 H Total Protein Albumin Globulin Albumin/Globulin Ratio Triglycerides POC Troponin I 0.52 H 05/29/22 05/29/22 05/29/22 19:55 10:35 05:37 WBC RBC Hgb Hct MCV MCH MCHC RDW Plt Count MPV Immature Gran % (Auto) Neut % (Auto) Lymph % (Auto) [place] % (Auto) Eos % (Auto) Baso % (Auto) Lymph # (Auto) [place] # (Auto) Eos # (Auto) Baso # (Auto) Immature Gran # Absolute Neutrophils ESR 66 H PT INR APTT POC pH 7.25 L POC pCO2 39.6 POC pO2 63 L POC HCO3 17.5 L POC Total CO2 19.0 L POC ABG Base Excess -10.0 L ABG Lactic Acid 6.6 H* Hgb O2 Saturation 88.0 L Sodium Potassium Chloride Carbon Dioxide Anion Gap BUN Creatinine GFR Calculation Glucose Uric Acid Calcium Phosphorus Magnesium Total Bilirubin Direct Bilirubin GGT AST ALT Alkaline Phosphatase Lactate Dehydrogenase C-Reactive Protein 18.50 H NT-Pro-B Natriuret Pep Total Protein Albumin Globulin Albumin/Globulin Ratio Triglycerides POC Troponin I 05/29/22 05/29/22 05/29/22 05:37 05:37 05:25 WBC 9.7 RBC 3.36 L Hgb 10.0 L Hct 33.7 L MCV 100.3 H MCH 29.8 MCHC 29.7 L RDW 15.0 H Plt Count 224 MPV 9.6 Immature Gran % (Auto) 0.8 H Neut % (Auto) 69.2 Lymph % (Auto) 20.0 [place] % (Auto) 9.8 Eos % (Auto) 0 Baso % (Auto) 0.2 Lymph # (Auto) 1.95 [place] # (Auto) 0.95 H Eos # (Auto) 0 Baso # (Auto) 0.02 Immature Gran # 0.08 H Absolute Neutrophils 6.73 ESR TNP PT INR APTT POC pH POC pCO2 POC pO2 POC HCO3 POC Total CO2 POC ABG Base Excess ABG Lactic Acid Hgb O2 Saturation Sodium 140 Potassium 3.6 Chloride 105 Carbon Dioxide 22 Anion Gap 13.0 BUN 15 Creatinine 0.9 GFR Calculation 62 Glucose 210 H Uric Acid 3.5 Calcium 8.6 Phosphorus 3.3 Magnesium 2.2 Total Bilirubin 0.3 Direct Bilirubin < 0.2 GGT 24 AST 16 ALT 8 Alkaline Phosphatase 47 Lactate Dehydrogenase 671 H C-Reactive Protein NT-Pro-B Natriuret Pep Total Protein 5.5 L Albumin 2.4 L Globulin 3.1 Albumin/Globulin Ratio 0.8 L Triglycerides 97 POC Troponin I Preliminary micro results at discharge 05/27/22 11:11 Blood Culture - Preliminary Blood 05/27/22 11:07 Blood Culture - Preliminary Blood Discharge Plan Patient/Caregiver Discharge Instructions Prescriptions: Continued furosemide 20 mg tablet 20 mg PO QAM levothyroxine [Synthroid] 50 mcg tablet 50 mcg PO QDAY Qty: 90 1RF nortriptyline 10 mg capsule 10 mg PO QHS Qty: 90 1RF potassium chloride 10 mEq tablet extended release 10 meq PO QDAY Qty: 90 1RF omeprazole 20 mg capsule,delayed release(DR/EC) 20 mg PO BID Qty: 180 1RF alendronate 70 mg tablet 70 mg PO QWEEK Qty: 12 1RF Rx Instructions: administer immed. upon arising with water >=30 min before food/beverages;stay upright for >=30 min;do not chew prednisone 10 mg tablet 10 mg PO QDAY Qty: 30 0RF (DME) Accu-Chek Laura Plus test strp Strip See Dose Instructions .ROUTE .MEDSUPPLY Qty: 200 12RF Dose Instruction: As directed Rx Instructions: Use to test BG four times daily (DME) lancets [Accu-Chek Softclix Lancets] Misc See Rx Instructions .Route Qty: 200 12RF Rx Instructions: Use to test blood sugar four times daily Glucagon Emergency Kit (human) 1 mg recon soln 1 mg subcut Q20M PRN (Reason: hypoglycemia) Qty: 1 1RF Rx Instructions: until target blood sugar attained Eliquis 2.5 mg tablet 2.5 mg PO BID Qty: 1 0RF folic acid 1 mg tablet 1 mg PO QAM prochlorperazine maleate 10 mg tablet 10 mg PO PRN PRN (Reason: Nausea) nitroglycerin 0.4 mg tablet, sublingual 0.4 mg SUBLINGUAL .COMPLEX PRN (Reason: chest pain) Qty: 10 0RF Rx Instructions: Take 1 tab first sign of chest pain; no more than 3 tabs are recommended within a 15 minute period PRN lorazepam [Ativan] 0.5 mg tablet 0.5 mg PO BID PRN (Reason: anxiety or panic attacks) Qty: 20 0RF oseltamivir [Tamiflu] 75 mg capsule 75 mg PO BID 5 Days Qty: 10 0RF nitrofurantoin monohyd/m-cryst [Macrobid] 100 mg capsule 100 mg PO Q12H 7 Days Qty: 14 0RF Rx Instructions: must administer with a meal/food calcium citrate 250 mg calcium tablet 500 mg PO QDAY cranberry 500 mg capsule 500 mg PO QDAY (DME) oxygen 4 liters gas 1 each INH CONT Qty: 1 Rx Instructions: As directed losartan 50 mg tablet 25 mg PO DAILY dicyclomine 10 mg capsule 10 - 20 mg PO Q6H PRN (Reason: abdominal pain) diphenoxylate-atropine 2.5-0.025 mg tablet 1 - 2 tab PO Q6H PRN (Reason: diarrhea) Pemetrexed See Rx Instructions .ROUTE .COMPLEX Rx Instructions: Infusion for lung cancer. cholecalciferol (vitamin D3) 1,000 UNIT capsule 1,000 unit PO DAILY Rx Instructions: administer with meals Placard For Disability 1 EACH Each 1 each MISC ONCE Rx Instructions: Patient unable to ambulate. Wheelchair bound and on portable oxygen, restric tracie by lung disease cyanocobalamin (vitamin B-12) 1,000 mcg Tablet 1,000 mcg PO QDAY atorvastatin 20 mg tablet 10 mg PO DAILY Insta-Glucose (with dextrin) 24 gram/31 gram Gel 15 g PO PRN PRN (Reason: Hypoglycemia) Qty: 93 0RF metoprolol succinate 100 mg Tablet Extended Release 24 Hr 150 mg PO QAM pioglitazone 15 mg Tablet 15 mg PO QAM No Action (DME) Con 5 Oxygen portable concentrator aerosol See Rx Instructions Rx Instructions: NC 3-4L Follow Up Plan Follow up with: Eligio Huerta MD [Primary Care Provider] - Patient Disposition: [facility] Prognosis: Serious Discharge Orders: Discharge Order (Routine); Ordered 05/30/22 Ordered By: Jemal Luna [facility] VTE Deep Vein Thrombosis/Pulmonary Embolism Present on Admission: No
[2022-05-30 02:53] LABS: Basophils # (Auto) 0.02 K/mcL (0.00-0.30); Basophils % (Auto) 0.1 % (0.0-2.0); Eosinophils # (Auto) 0 K/mcL (0.00-0.70); Eosinophils % (Auto) 0 % (0.0-7.0); Hemoglobin 10.4 g/dL (11.2-15.7); Lymphocytes # (Auto) 2.18 K/mcL (1.50-4.80); Lymphocytes % (Auto) 9.8 % (15.5-49.0); Mean Cell Volume 94.8 fL (80.0-100.0); Mean Corpuscular HGB Conc 31.5 g/dL (31.0-36.0); Mean Platelet Volume 10.1 fL (8.8-12.5); Monocytes # (Auto) 1.29 K/mcL (0.10-0.90); Monocytes % (Auto) 5.8 % (1.0-12.0); Neutrophils % (Auto) 83.3 % (38.0-78.0); Platelet Count 342 K/mcL (140-440); RBC 3.48 M/mcL (3.59-5.38); Red Cell Distribution Width 15.1 % (11.5-14.5); WBC 22.3 K/mcL (4.5-11.0)
[2022-05-30 03:07] LABS: INR 1.6 (0.9-1.1); Prothrombin Time 19.2 sec (11.9-14.5)
--- NOTE | 2022-05-30 03:19 | XRay Report ---
CLINICAL INFORMATION: Hypoxia COMPARISON: 05/27/2022 TECHNIQUE: Portable FINDINGS: Mild cardiomegaly again noted. Pacemaker leads in stable satisfactory position. Mediastinum is unremarkable. There are now diffuse consolidated infiltrates throughout both lungs. No definite effusion. IMPRESSION: Diffuse consolidated infiltrates throughout both lungs. Consider ARDS, aspiration or infection Interpreted and Authenticated by: Lucho Flores 05/30/22
--- NOTE | 2022-05-30 03:24 | XRay Report ---
CLINICAL INFORMATION: Orogastriac tube placement COMPARISON: 10/10/2019 FINDINGS: OG tube overlies the gastric antrum. Few loops of small bowel are seen in the central abdomen with decompression of the distal small bowel and colon compatible with a partial small bowel obstruction. No free air or soft tissue mass. IMPRESSION: OG tube overlies the gastric antrum. Partial small bowel obstruction pattern Interpreted and Authenticated by: Lucho Flores 05/30/22
--- NOTE | 2022-05-30 03:25 | XRay Report ---
CLINICAL INFORMATION: Hypoxia. Diffuse infiltrates. ET tube placement COMPARISON: 05/27/2022 TECHNIQUE: Portable FINDINGS: ETT tip is 4 cm above the javier. Mild cardiomegaly again noted. Pacemaker leads in stable satisfactory position. Mediastinum is unremarkable. Diffuse consolidated infiltrates throughout both lungs again seen. No definite effusion. IMPRESSION: Diffuse consolidated infiltrates throughout both lungs. Consider ARDS, aspiration or infection ETT tip is 4 cm above the javier in satisfactory position. Interpreted and Authenticated by: Lucho Flores 05/30/22
--- NOTE | 2022-05-30 03:28 | XRay Report ---
CLINICAL INFORMATION: Hypoxia due to diffuse infiltrates. COMPARISON: 05/27/2022 TECHNIQUE: Portable FINDINGS: Endotracheal tip is in satisfactory stable position. New right IJ line is in place tip is in satisfactory position overlying the SVC right atrial junction. OG has been placed tip extends off the edge of film at least the gastric body. Mild cardiomegaly again noted. Pacemaker leads in stable satisfactory position. Mediastinum and pulmonary vasculature unremarkable. Diffuse infiltration show modest improvement in aeration compared to earlier exams. No effusions. IMPRESSION: Improved aeration in diffuse bilateral infiltrates. Endotracheal tube, OG and right IJ central line are in satisfactory positions Interpreted and Authenticated by: Lucho Flores 05/30/22
[2022-05-30] MEDS ORDERED: INSULIN LISPRO 1 UNIT/0.01 ML UNIT SQ SCH (04:00)
[2022-05-30] MEDS ORDERED: INSULIN LISPRO 1 UNIT/0.01 ML UNIT SQ ONE (05:13)
[2022-05-30 06:10] LABS: Basophils # (Auto) 0.03 K/mcL (0.00-0.30); Basophils % (Auto) 0.1 % (0.0-2.0); Eosinophils # (Auto) 0 K/mcL (0.00-0.70); Eosinophils % (Auto) 0 % (0.0-7.0); Hematocrit 30.4 % (34.1-44.9); Hemoglobin 9.6 g/dL (11.2-15.7); Lymphocytes # (Auto) 2.67 K/mcL (1.50-4.80); Lymphocytes % (Auto) 11.5 % (15.5-49.0); Mean Cell Volume 94.4 fL (80.0-100.0); Mean Corpuscular HGB Conc 31.6 g/dL (31.0-36.0); Mean Platelet Volume 10.2 fL (8.8-12.5); Monocytes # (Auto) 1.42 K/mcL (0.10-0.90); Monocytes % (Auto) 6.1 % (1.0-12.0); Platelet Count 325 K/mcL (140-440); RBC 3.22 M/mcL (3.59-5.38); WBC 23.2 K/mcL (4.5-11.0)
[2022-05-30] MEDS ORDERED: MIDAZOLAM 5 MG/5 ML VIAL IV ONE (07:10)
[2022-05-30] MEDS ORDERED: ROCURONIUM 10 MG/ML ML IV ONE (07:10)
[2022-05-30] MEDS ORDERED: PANTOPRAZOLE 40 MG VIAL IV SCH (07:30)
[2022-05-30] MEDS ORDERED: predniSONE 20 MG TABLET PO SCH ×2 (08:00)
--- NOTE | 2022-05-30 08:23 | EKG ---
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
--- NOTE | 2022-05-30 08:24 | EKG ---
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
[2022-05-30] MEDS ORDERED: 0.9 % SODIUM CHLORIDE 10 ML SYRINGE IV SCH (09:00)
[2022-05-30] MEDS ORDERED: ASPIRIN 325 MG ENTERIC COATED TABLET PO SCH (09:00)
== END 2022-05-30 06:15 | disposition short-term general hospital (02) | DRG 871 ==
LOC: ED 10:25 → MEDSUR 16:20 → ICU 05-29 19:44
PROVIDERS: ADMIT Internal Medicine; ATTEND Internal Medicine